=== PATIENT | female | born 1955 | race Caucasian/White ===

== ENCOUNTER 2020-05-25 10:50 | Day surgery (SDC) | payer MEDICARE, OTHER, SELFPAY ==
[2020-05-20 10:07] VITALS: BMI 42.9
--- NOTE | 2020-05-24 14:44 | HO.ANESPROP2 ---
Documented by User: Daisy Simmons 05/24/20 15:03 HPI - Anesthesia Eval Consult details Narrative: 64yo F for EGD and Colonoscopy (D/C from [facility] [place] 05/17/20 - urosepsis, pyelonephritis, acute renal failure. Currently at short term rehab, 10 day po abx course.) [facility] Past Medical History Medical History Abdominal pain Asthma Constipation Fatty liver Fibromyalgia Hyperlipidemia Nephrolithiasis Osteoarthritis Radiculopathy Sepsis Sleep apnea Family History Family History Father No problems noted. Mother No problems noted. Surgical History Surgical History H/O cystoscopy History of bilateral hip replacements History of bilateral knee replacement History of oophorectomy, unilateral Hx of colonoscopy Hx of dilation and curettage Hx of foot surgery Social History Social History Smoking Status: Former smoker Smoked in Last 30 Days: No Smoking Quit Date: 1979 Use of substances other than those prescribed or required for medical reasons: No Substance Use Type Other:: last used 15 years ago Advance Directives: No Advance Directives Information Provided: No Advance Directives on File: No Meds Allergies Allergy/AdvReac Type Severity Reaction Status Date / Time ropinirole [ROPINIROLE] Allergy Intermediate WORSE Unverified 05/06/20 15:56 RESTLESS LEG meperidine [From DEMEROL] AdvReac Intermediate NAUSEA & Unverified 05/06/20 15:56 VOMITING duloxetine [Cymbalta] AdvReac Unknown Worsening Verified 04/14/20 00:00 RLS Requip AdvReac Unknown Worsening Uncoded 04/14/20 00:00 RLS, tremors Home Medications Medication Instructions Recorded Confirmed Type albuterol sulfate [ProAir HFA] INHALATION 05/21/20 05/22/20 History baclofen mg PO 05/21/20 05/22/20 History benztropine PO 05/21/20 05/22/20 History clonazepam PO 05/21/20 05/22/20 History diclofenac sodium PO 05/21/20 05/22/20 History ezetimibe mg PO 05/21/20 05/22/20 History gabapentin PO 05/21/20 05/22/20 History hydroxyzine pamoate PO 05/21/20 05/22/20 History omeprazole PO 05/21/20 05/22/20 History oxcarbazepine PO 05/21/20 05/22/20 History oxybutynin chloride PO 05/21/20 05/22/20 History pramipexole mg PO 05/21/20 05/22/20 History pyridoxine (vitamin B6) PO 05/21/20 05/22/20 History quetiapine PO 05/21/20 05/22/20 History tamsulosin mg PO 05/21/20 05/22/20 History terazosin mg PO 05/21/20 05/22/20 History tramadol mg PO 05/21/20 05/22/20 History trazodone PO 05/21/20 05/22/20 History amoxicillin 500 mg capsule mg PO 05/22/20 05/22/20 History aripiprazole 2 mg tablet mg PO 05/22/20 05/22/20 History atorvastatin 10 mg tablet mg PO 05/22/20 05/22/20 History azithromycin 250 mg tablet mg PO 05/22/20 05/22/20 History cimetidine 400 mg tablet mg PO 05/22/20 05/22/20 History metronidazole 500 mg tablet mg PO 05/22/20 05/22/20 History sulfamethoxazole 800 PO 05/22/20 05/22/20 History mg-trimethoprim 160 mg tablet terazosin 1 mg capsule mg PO 05/22/20 05/22/20 History trazodone 150 mg tablet mg PO 05/22/20 05/22/20 History trimethoprim 100 mg tablet mg PO 05/22/20 05/22/20 History Exam Exam Date and Time: May 24, 2020 1444 Height,Weight and Vital Signs: Height 5 ft 4 in Weight 113.398 kg Pertinent Lab Results Pertinent Lab Results: Laboratory Tests 05/13/20 05/13/20 05/13/20 09:42 09:42 Unknown WBC 16.8 H Hgb 12.3 Hct 38.5 Plt Count 259 Sodium 141 Potassium 5.0 Chloride 108 Bicarbonate 24 Anion Gap 14 BUN 13 Creatinine 1.30 Est GFR (Non-Af Amer) 41 Calcium 8.9 D AST 22 ALT 39 H Alkaline Phosphatase 129 H Total Protein 6.6 Albumin 4.0 Coronavirus (PCR) Not Detected Assessment and Plan Assessment Anesthesia Assessment: Chart Reviewed Documented by User: Rasheeda Smith 05/25/20 11:58 PMFSH Past Medical History Medical History Abdominal pain Asthma Constipation Fatty liver Fibromyalgia Hyperlipidemia Nephrolithiasis Osteoarthritis Radiculopathy Sepsis Sleep apnea Family History Family History Father No problems noted. Mother No problems noted. Surgical History Surgical History H/O cystoscopy History of bilateral hip replacements History of bilateral knee replacement History of oophorectomy, unilateral Hx of colonoscopy Hx of dilation and curettage Hx of foot surgery Social History Social History Smoking Status: Former smoker Smoked in Last 30 Days: No Smoking Quit Date: 1979 Use of substances other than those prescribed or required for medical reasons: No Substance Use Type Other:: last used 15 years ago Advance Directives: No Advance Directives Information Provided: No Advance Directives on File: No Meds Allergies Allergy/AdvReac Type Severity Reaction Status Date / Time ropinirole [ROPINIROLE] Allergy Intermediate WORSE Unverified 05/06/20 15:56 RESTLESS LEG meperidine [From DEMEROL] AdvReac Intermediate NAUSEA & Unverified 05/06/20 15:56 VOMITING duloxetine [Cymbalta] AdvReac Unknown Worsening Verified 04/14/20 00:00 RLS Requip AdvReac Unknown Worsening Uncoded 04/14/20 00:00 RLS, tremors Home Medications Medication Instructions Recorded Confirmed Type albuterol sulfate [ProAir HFA] INHALATION 05/21/20 05/22/20 History baclofen mg PO 05/21/20 05/22/20 History benztropine PO 05/21/20 05/22/20 History clonazepam PO 05/21/20 05/22/20 History diclofenac sodium PO 05/21/20 05/22/20 History ezetimibe mg PO 05/21/20 05/22/20 History gabapentin PO 05/21/20 05/22/20 History hydroxyzine pamoate PO 05/21/20 05/22/20 History omeprazole PO 05/21/20 05/22/20 History oxcarbazepine PO 05/21/20 05/22/20 History oxybutynin chloride PO 05/21/20 05/22/20 History pramipexole mg PO 05/21/20 05/22/20 History pyridoxine (vitamin B6) PO 05/21/20 05/22/20 History quetiapine PO 05/21/20 05/22/20 History tamsulosin mg PO 05/21/20 05/22/20 History terazosin mg PO 05/21/20 05/22/20 History tramadol mg PO 05/21/20 05/22/20 History trazodone PO 05/21/20 05/22/20 History amoxicillin 500 mg capsule mg PO 05/22/20 05/22/20 History aripiprazole 2 mg tablet mg PO 05/22/20 05/22/20 History atorvastatin 10 mg tablet mg PO 05/22/20 05/22/20 History azithromycin 250 mg tablet mg PO 05/22/20 05/22/20 History cimetidine 400 mg tablet mg PO 05/22/20 05/22/20 History metronidazole 500 mg tablet mg PO 05/22/20 05/22/20 History sulfamethoxazole 800 PO 05/22/20 05/22/20 History mg-trimethoprim 160 mg tablet terazosin 1 mg capsule mg PO 05/22/20 05/22/20 History trazodone 150 mg tablet mg PO 05/22/20 05/22/20 History trimethoprim 100 mg tablet mg PO 05/22/20 05/22/20 History Exam Airway Mallampati Class: II TM Dist: >3cm Neck ROM: Full Loose/Missing/Broken Teeth: No Assessment and Plan Assessment Anesthesia Assessment: Anesthesia Plan Discussed, Consent Obtained and Chart Reviewed Final Anesthetic Review NPO: Yes ASA Class: III Final Preanesthetic Review: No Changes in Pt Med Stat, Meds & Allergies Reviewed, Consent Obtained/Reviewed, Med/Surg/Anes Hx Reviewed and Anes Risks/Benef Reviewed Patient Risk: Intermediate Procedure Risk: Low Assessment/Block/Sedation in SS: Assess/Block/Sedation-SS Anesthetic Plan Anesthetic Plan: MAC: Disposition: Standard PACU
--- NOTE | 2020-05-25 11:39 | MHC.SHP ---
Pre-Procedural Eval Section B Chief Complaint: SCREENING,GERD Details of Present Illness: early satiety and bloating,and colon screen, high risk due to FH of CRC in mother Relevant Family History (Specify if Yes): Yes Relevant Social History: None Present Medications: see Short Stay Collaborative assessment Medical History: Significant History (depression, HLP< asthma, OA) History of Previous Operations: Relevant previous surgery/procedure and date(s) (knee replacements, oophrectomy) Allergies: Allergies Allergy/AdvReac Type Severity Reaction Status Date / Time ropinirole [ROPINIROLE] Allergy Intermediate WORSE Unverified 05/06/20 15:56 RESTLESS LEG meperidine [From DEMEROL] AdvReac Intermediate NAUSEA & Unverified 05/06/20 15:56 VOMITING duloxetine [Cymbalta] AdvReac Unknown Worsening Verified 04/14/20 00:00 RLS Requip AdvReac Unknown Worsening Uncoded 04/14/20 00:00 RLS, tremors Review of Systems Sugical H&P ROS: Negative: Constitution, Cardiovascular, Respiratory, Neurological, Psychiatric, Hem-Onc, Allergic/Immunologic, Genitourinary, Musculoskeletal, Integumentary and Endocrine and Yes, Specify: Gastrointestinal Exam Surgical H&P Exam: Normal: HEENT, Normal: Heart, Normal: Lungs, Normal: Extremities, Normal: Abdomen, Normal: Skin and Normal: Neurological Plan Diagnosis/Plan: Unchanged Patient has been examined and remains a candidate for the planned procedure
[2020-05-25] MEDS: Lactated Ringers 1,000 ML 100 ML IVCONT (11:47)
[2020-05-25 11:49] VITALS: BP 116/52; PULSE 68; RESP 20; TEMP 36.6; O2SAT 95
--- NOTE | 2020-05-25 12:06 | P.CONAN_ITS ---
[facility] Past Medical History Medical History Abdominal pain Asthma Constipation Fatty liver Fibromyalgia Hyperlipidemia Nephrolithiasis Osteoarthritis Radiculopathy Sepsis Sleep apnea Family History Family History Father No problems noted. Mother No problems noted. Surgical History Surgical History H/O cystoscopy History of bilateral hip replacements History of bilateral knee replacement History of oophorectomy, unilateral Hx of colonoscopy Hx of dilation and curettage Hx of foot surgery Social History Social History Smoking Status: Former smoker Smoked in Last 30 Days: No Smoking Quit Date: 1979 Use of substances other than those prescribed or required for medical reasons: No Substance Use Type Other:: last used 15 years ago Advance Directives: No Advance Directives Information Provided: No Advance Directives on File: No Meds Allergies Allergy/AdvReac Type Severity Reaction Status Date / Time ropinirole [ROPINIROLE] Allergy Intermediate WORSE Unverified 05/06/20 15:56 RESTLESS LEG meperidine [From DEMEROL] AdvReac Intermediate NAUSEA & Unverified 05/06/20 15:56 VOMITING duloxetine [Cymbalta] AdvReac Unknown Worsening Verified 04/14/20 00:00 RLS Requip AdvReac Unknown Worsening Uncoded 04/14/20 00:00 RLS, tremors Home Medications Medication Instructions Recorded Confirmed Type albuterol sulfate [ProAir HFA] INHALATION 05/21/20 05/22/20 History baclofen mg PO 05/21/20 05/22/20 History benztropine PO 05/21/20 05/22/20 History clonazepam PO 05/21/20 05/22/20 History diclofenac sodium PO 05/21/20 05/22/20 History ezetimibe mg PO 05/21/20 05/22/20 History gabapentin PO 05/21/20 05/22/20 History hydroxyzine pamoate PO 05/21/20 05/22/20 History omeprazole PO 05/21/20 05/22/20 History oxcarbazepine PO 05/21/20 05/22/20 History oxybutynin chloride PO 05/21/20 05/22/20 History pramipexole mg PO 05/21/20 05/22/20 History pyridoxine (vitamin B6) PO 05/21/20 05/22/20 History quetiapine PO 05/21/20 05/22/20 History tamsulosin mg PO 05/21/20 05/22/20 History terazosin mg PO 05/21/20 05/22/20 History tramadol mg PO 05/21/20 05/22/20 History trazodone PO 05/21/20 05/22/20 History amoxicillin 500 mg capsule mg PO 05/22/20 05/22/20 History aripiprazole 2 mg tablet mg PO 05/22/20 05/22/20 History atorvastatin 10 mg tablet mg PO 05/22/20 05/22/20 History azithromycin 250 mg tablet mg PO 05/22/20 05/22/20 History cimetidine 400 mg tablet mg PO 05/22/20 05/22/20 History metronidazole 500 mg tablet mg PO 05/22/20 05/22/20 History sulfamethoxazole 800 PO 05/22/20 05/22/20 History mg-trimethoprim 160 mg tablet terazosin 1 mg capsule mg PO 05/22/20 05/22/20 History trazodone 150 mg tablet mg PO 05/22/20 05/22/20 History trimethoprim 100 mg tablet mg PO 05/22/20 05/22/20 History Exam Exam Date and Time: May 25, 2020 1206 Height,Weight and Vital Signs: Height 5 ft 4 in Weight 113.398 kg Last Vital Signs Temp 97.8 F 05/25/20 11:49 Pulse 68 05/25/20 11:49 Resp 20 05/25/20 11:49 BP 116/52 L 05/25/20 11:49 Pulse Ox 95 05/25/20 11:49 Airway Loose/Missing/Broken Teeth: Yes (8.()
--- NOTE | 2020-05-25 12:08 | P.BOP_ITS ---
Brief Operative Note Date of procedure: 05/25/20 Pre-op diagnosis: early satiety, bloating, colon screen, FH CRC in mother Post-op diagnosis: same Procedure: Operative Information Procedure Description: EGD, Colonoscopy FLEXIBLE TRANSORAL UPPER GASTROINTESTINAL ENDOSCOPY AND COLONOSCOPY PROCEDURE NOTE UPPER ENDOSCOPY Consent: Indications for the procedure and potential complications of bleeding, perforation, reaction to medications and missed diagnosis were discussed with the patient and informed consent was obtained. Instrument: Olympus GIF H 190 J mid size upper endoscope Monitoring: Vital signs and clinical assessment, continuous EKG monitoring, Pulse oximetry, Carbon Dioxide monitoring and blood pressure monitoring were done throughout the procedure. Procedure: The patient was placed in the left lateral decubitis position and pre-procedure medications were administered and a bite block was placed. The endoscope was inserted into the mouth and advanced under direct vision to the third part of duodenum. A careful inspection was made as the upper endoscope was withdrawn including a retroflexed examination of the proximal stomach; Findings and interventions are described below. Findings: Larynx:normal Esophagus: GE junction at 40 cm, diaphragm hiatus at 40 cm, mucosa normal Stomach: Patchy gastric erythema. Biopsies were obtained. Grade 2 flap valve on retroflexed examination of the cardia. Paucity of gastric peristalsis. Duodenum: Normal bulb and descending duodenum, bx taken Intervention: Biopsies as noted above COLONOSCOPY Instrument: Olympus variable stiffness pediatric scope 190L Colonoscopy Monitoring: Vital signs and clinical assessment, continuous EKG monitoring, Pulse oximetry, Carbon Dioxide monitoring and blood pressure monitoring were done throughout the procedure. Colon withdrawal time was 14 minutes. Procedure: The patient was placed in the left lateral decubitis position and pre-procedure medications were administered. After a digital rectal examination of the ano-rectum, the video colonoscope was inserted into the rectum and advanced through the colon to the cecum/TI. The colonoscope was slowly withdrawn in a retrograde panoramic fashion and the colon mucosa was carefully examined including a retroflexed view of the rectum. Findings and interventions are described below. Procedure Difficulty: Findings: Terminal Ileum-normal, bx taken Patchy melanosis coli Random colon bx taken Cecum:normal, one clip applied to a random biopsy site that kept oozing Ascending Colon: normal Transverse Colon -normal Descending Colon:normal Sigmoid Colon: Numerous variable sized diverticula, and mucosal hypertrophy, one sessile polyp 6-7 mm removed with forceps Rectum: Retroflexion with moderate sized internal hemorrhoids, grade I Anorectum - normal Colon preparation: Central Bowel Preparation Scale Right colon; 3 Transverse colon: 3 Left colon; 3 (0 = Unprepared colon segment with mucosa not seen due to solid stool that cannot be cleared. 1 = Portion of mucosa of the colon segment seen, but other areas of the colon segment not well seen due to staining, residual stool and/or opaque liquid. 2 = Minor amount of residual staining, small fragments of stool and/or opaque liquid, but mucosa of colon segment seen well. 3 = Entire mucosa of colon segment seen well with no residual staining, small fragments of stool or opaque liquid) Impression and Post Procedure Diagnosis: Endoscopy Findings: Mild gastritis, possible gastroparesis Colonoscopy Findings: Internal hemorrhoids melanosis coli polyp diverticulosis Plan: Await Pathology results Repeat Colonoscopy in 5 yrs due to FH of CRC High fiber diet leaflet avoid straining at stool, epsom salts and sitz bath, anusol supps or cream F/U with Dr Mazariegos in the office, may need gastric emptying study for further evaluation of symptoms Above findings were reviewed with the patient and relevant handouts were provided if indicated. Anesthesia: MAC Surgeon: Calvin Power Condition: stable Disposition: PACU
--- NOTE | 2020-05-25 12:09 | HO.ANESPROP2 ---
[facility] Past Medical History Medical History Abdominal pain Asthma Constipation Fatty liver Fibromyalgia Hyperlipidemia Nephrolithiasis Osteoarthritis Radiculopathy Sepsis Sleep apnea Family History Family History Father No problems noted. Mother No problems noted. Surgical History Surgical History H/O cystoscopy History of bilateral hip replacements History of bilateral knee replacement History of oophorectomy, unilateral Hx of colonoscopy Hx of dilation and curettage Hx of foot surgery Social History Social History Smoking Status: Former smoker Smoked in Last 30 Days: No Smoking Quit Date: 1979 Use of substances other than those prescribed or required for medical reasons: No Substance Use Type Other:: last used 15 years ago Advance Directives: No Advance Directives Information Provided: No Advance Directives on File: No Meds Allergies Allergy/AdvReac Type Severity Reaction Status Date / Time ropinirole [ROPINIROLE] Allergy Intermediate WORSE Unverified 05/06/20 15:56 RESTLESS LEG meperidine [From DEMEROL] AdvReac Intermediate NAUSEA & Unverified 05/06/20 15:56 VOMITING duloxetine [Cymbalta] AdvReac Unknown Worsening Verified 04/14/20 00:00 RLS Requip AdvReac Unknown Worsening Uncoded 04/14/20 00:00 RLS, tremors Home Medications Medication Instructions Recorded Confirmed Type albuterol sulfate [ProAir HFA] INHALATION 05/21/20 05/22/20 History baclofen mg PO 05/21/20 05/22/20 History benztropine PO 05/21/20 05/22/20 History clonazepam PO 05/21/20 05/22/20 History diclofenac sodium PO 05/21/20 05/22/20 History ezetimibe mg PO 05/21/20 05/22/20 History gabapentin PO 05/21/20 05/22/20 History hydroxyzine pamoate PO 05/21/20 05/22/20 History omeprazole PO 05/21/20 05/22/20 History oxcarbazepine PO 05/21/20 05/22/20 History oxybutynin chloride PO 05/21/20 05/22/20 History pramipexole mg PO 05/21/20 05/22/20 History pyridoxine (vitamin B6) PO 05/21/20 05/22/20 History quetiapine PO 05/21/20 05/22/20 History tamsulosin mg PO 05/21/20 05/22/20 History terazosin mg PO 05/21/20 05/22/20 History tramadol mg PO 05/21/20 05/22/20 History trazodone PO 05/21/20 05/22/20 History amoxicillin 500 mg capsule mg PO 05/22/20 05/22/20 History aripiprazole 2 mg tablet mg PO 05/22/20 05/22/20 History atorvastatin 10 mg tablet mg PO 05/22/20 05/22/20 History azithromycin 250 mg tablet mg PO 05/22/20 05/22/20 History cimetidine 400 mg tablet mg PO 05/22/20 05/22/20 History metronidazole 500 mg tablet mg PO 05/22/20 05/22/20 History sulfamethoxazole 800 PO 05/22/20 05/22/20 History mg-trimethoprim 160 mg tablet terazosin 1 mg capsule mg PO 05/22/20 05/22/20 History trazodone 150 mg tablet mg PO 05/22/20 05/22/20 History trimethoprim 100 mg tablet mg PO 05/22/20 05/22/20 History Exam Exam Date and Time: May 25, 2020 1209 Height,Weight and Vital Signs: Height 5 ft 4 in Weight 113.398 kg Last Vital Signs Temp 97.8 F 05/25/20 11:49 Pulse 68 05/25/20 11:49 Resp 20 05/25/20 11:49 BP 116/52 L 05/25/20 11:49 Pulse Ox 95 05/25/20 11:49 Assessment and Plan Assessment Anesthesia Assessment: Anesthesia Plan Discussed and Chart Reviewed Final Anesthetic Review NPO: Yes Final Preanesthetic Review: No Changes in Pt Med Stat, Meds/Allgs Chart Reviewed, Consent Obtained/Reviewed and Anes Risks/Benef Reviewed Patient Risk: Intermediate Procedure Risk: Low Anesthetic Plan Anesthetic Plan: MAC: Disposition: Standard PACU
--- NOTE | 2020-05-25 12:10 | HO.ANESPROP2 ---
[facility] Past Medical History Medical History Abdominal pain Asthma Constipation Fatty liver Fibromyalgia Hyperlipidemia Nephrolithiasis Osteoarthritis Radiculopathy Sepsis Sleep apnea Family History Family History Father No problems noted. Mother No problems noted. Surgical History Surgical History H/O cystoscopy History of bilateral hip replacements History of bilateral knee replacement History of oophorectomy, unilateral Hx of colonoscopy Hx of dilation and curettage Hx of foot surgery Social History Social History Smoking Status: Former smoker Smoked in Last 30 Days: No Smoking Quit Date: 1979 Use of substances other than those prescribed or required for medical reasons: No Substance Use Type Other:: last used 15 years ago Advance Directives: No Advance Directives Information Provided: No Advance Directives on File: No Meds Allergies Allergy/AdvReac Type Severity Reaction Status Date / Time ropinirole [ROPINIROLE] Allergy Intermediate WORSE Unverified 05/06/20 15:56 RESTLESS LEG meperidine [From DEMEROL] AdvReac Intermediate NAUSEA & Unverified 05/06/20 15:56 VOMITING duloxetine [Cymbalta] AdvReac Unknown Worsening Verified 04/14/20 00:00 RLS Requip AdvReac Unknown Worsening Uncoded 04/14/20 00:00 RLS, tremors Home Medications Medication Instructions Recorded Confirmed Type albuterol sulfate [ProAir HFA] INHALATION 05/21/20 05/22/20 History baclofen mg PO 05/21/20 05/22/20 History benztropine PO 05/21/20 05/22/20 History clonazepam PO 05/21/20 05/22/20 History diclofenac sodium PO 05/21/20 05/22/20 History ezetimibe mg PO 05/21/20 05/22/20 History gabapentin PO 05/21/20 05/22/20 History hydroxyzine pamoate PO 05/21/20 05/22/20 History omeprazole PO 05/21/20 05/22/20 History oxcarbazepine PO 05/21/20 05/22/20 History oxybutynin chloride PO 05/21/20 05/22/20 History pramipexole mg PO 05/21/20 05/22/20 History pyridoxine (vitamin B6) PO 05/21/20 05/22/20 History quetiapine PO 05/21/20 05/22/20 History tamsulosin mg PO 05/21/20 05/22/20 History terazosin mg PO 05/21/20 05/22/20 History tramadol mg PO 05/21/20 05/22/20 History trazodone PO 05/21/20 05/22/20 History amoxicillin 500 mg capsule mg PO 05/22/20 05/22/20 History aripiprazole 2 mg tablet mg PO 05/22/20 05/22/20 History atorvastatin 10 mg tablet mg PO 05/22/20 05/22/20 History azithromycin 250 mg tablet mg PO 05/22/20 05/22/20 History cimetidine 400 mg tablet mg PO 05/22/20 05/22/20 History metronidazole 500 mg tablet mg PO 05/22/20 05/22/20 History sulfamethoxazole 800 PO 05/22/20 05/22/20 History mg-trimethoprim 160 mg tablet terazosin 1 mg capsule mg PO 05/22/20 05/22/20 History trazodone 150 mg tablet mg PO 05/22/20 05/22/20 History trimethoprim 100 mg tablet mg PO 05/22/20 05/22/20 History Exam Exam Date and Time: May 25, 2020 1210 Height,Weight and Vital Signs: Height 5 ft 4 in Weight 113.398 kg Last Vital Signs Temp 97.8 F 05/25/20 11:49 Pulse 68 05/25/20 11:49 Resp 20 05/25/20 11:49 BP 116/52 L 05/25/20 11:49 Pulse Ox 95 05/25/20 11:49 Airway Mallampati Class: II TM Dist: >3cm Neck ROM: Full Loose/Missing/Broken Teeth: Yes (8) Assessment and Plan Assessment Anesthesia Assessment: Anesthesia Plan Discussed, PAT Visit and Chart Reviewed Final Anesthetic Review NPO: Yes ASA Class: III Final Preanesthetic Review: No Changes in Pt Med Stat, Meds/Allgs Chart Reviewed, Consent Obtained/Reviewed and Anes Risks/Benef Reviewed Patient Risk: Intermediate Procedure Risk: Low Assessment/Block/Sedation in SS: Assess/Block/Sedation-SS Anesthetic Plan Anesthetic Plan: MAC: Disposition: Standard PACU
--- NOTE | 2020-05-25 12:41 | HO.ANESPROP2 ---
[facility] Past Medical History Medical History Abdominal pain Asthma Constipation Fatty liver Fibromyalgia Hyperlipidemia Nephrolithiasis Osteoarthritis Radiculopathy Sepsis Sleep apnea Family History Family History Father No problems noted. Mother No problems noted. Surgical History Surgical History H/O cystoscopy History of bilateral hip replacements History of bilateral knee replacement History of oophorectomy, unilateral Hx of colonoscopy Hx of dilation and curettage Hx of foot surgery Social History Social History Smoking Status: Former smoker Smoked in Last 30 Days: No Smoking Quit Date: 1979 Use of substances other than those prescribed or required for medical reasons: No Substance Use Type Other:: last used 15 years ago Advance Directives: No Advance Directives Information Provided: No Advance Directives on File: No Meds Allergies Allergy/AdvReac Type Severity Reaction Status Date / Time ropinirole [ROPINIROLE] Allergy Intermediate WORSE Unverified 05/06/20 15:56 RESTLESS LEG meperidine [From DEMEROL] AdvReac Intermediate NAUSEA & Unverified 05/06/20 15:56 VOMITING duloxetine [Cymbalta] AdvReac Unknown Worsening Verified 04/14/20 00:00 RLS Requip AdvReac Unknown Worsening Uncoded 04/14/20 00:00 RLS, tremors Home Medications Medication Instructions Recorded Confirmed Type albuterol sulfate [ProAir HFA] INHALATION 05/21/20 05/22/20 History baclofen mg PO 05/21/20 05/22/20 History benztropine PO 05/21/20 05/22/20 History clonazepam PO 05/21/20 05/22/20 History diclofenac sodium PO 05/21/20 05/22/20 History ezetimibe mg PO 05/21/20 05/22/20 History gabapentin PO 05/21/20 05/22/20 History hydroxyzine pamoate PO 05/21/20 05/22/20 History omeprazole PO 05/21/20 05/22/20 History oxcarbazepine PO 05/21/20 05/22/20 History oxybutynin chloride PO 05/21/20 05/22/20 History pramipexole mg PO 05/21/20 05/22/20 History pyridoxine (vitamin B6) PO 05/21/20 05/22/20 History quetiapine PO 05/21/20 05/22/20 History tamsulosin mg PO 05/21/20 05/22/20 History terazosin mg PO 05/21/20 05/22/20 History tramadol mg PO 05/21/20 05/22/20 History trazodone PO 05/21/20 05/22/20 History amoxicillin 500 mg capsule mg PO 05/22/20 05/22/20 History aripiprazole 2 mg tablet mg PO 05/22/20 05/22/20 History atorvastatin 10 mg tablet mg PO 05/22/20 05/22/20 History azithromycin 250 mg tablet mg PO 05/22/20 05/22/20 History cimetidine 400 mg tablet mg PO 05/22/20 05/22/20 History metronidazole 500 mg tablet mg PO 05/22/20 05/22/20 History sulfamethoxazole 800 PO 05/22/20 05/22/20 History mg-trimethoprim 160 mg tablet terazosin 1 mg capsule mg PO 05/22/20 05/22/20 History trazodone 150 mg tablet mg PO 05/22/20 05/22/20 History trimethoprim 100 mg tablet mg PO 05/22/20 05/22/20 History Exam Exam Date and Time: May 25, 2020 1241 Height,Weight and Vital Signs: Height 5 ft 4 in Weight 113.398 kg Last Vital Signs Temp 97.8 F 05/25/20 11:49 Pulse 68 05/25/20 11:49 Resp 20 05/25/20 11:49 BP 116/52 L 05/25/20 11:49 Pulse Ox 95 05/25/20 11:49 Airway Mallampati Class: II TM Dist: >3cm Neck ROM: Full Loose/Missing/Broken Teeth: Yes Assessment and Plan Assessment Anesthesia Assessment: Anesthesia Plan Discussed and Chart Reviewed Final Anesthetic Review NPO: Yes ASA Class: III Final Preanesthetic Review: No Changes in Pt Med Stat, Meds/Allgs Chart Reviewed, Consent Obtained/Reviewed and Anes Risks/Benef Reviewed Patient Risk: Intermediate Procedure Risk: Low Assessment/Block/Sedation in SS: Assess/Block/Sedation-SS Anesthetic Plan Anesthetic Plan: MAC: Disposition: Standard PACU
[2020-05-25 12:50] VITALS: BP 135/74; PULSE 74; RESP 16; TEMP 36.6; O2SAT 95
[2020-05-25 13:05] VITALS: BP 127/51; PULSE 63; RESP 18; O2SAT 95
[2020-05-25 13:20] VITALS: BP 110/58; PULSE 62; RESP 20; O2SAT 96
[2020-05-25 13:35] VITALS: BP 121/63; PULSE 55; RESP 20; O2SAT 95
--- NOTE | 2020-05-25 14:20 | HO.POSTANES ---
Post Anesthesia Evaluation Post Anesthesia Evaluation Vital Signs: Vital Signs Temp Pulse Resp BP Pulse Ox 05/25/20 11:49 97.8 F 68 20 116/52 L 95 Anesthesia: Monitored Mental Status: Awake Pain Control: Satisfactory Nausea/Vomiting: None Hydration: Adequate Anesthesia-Related Issues: No Anes. Related Issues
== END 2020-05-25 14:50 | disposition home or self-care (01) ==
PROVIDERS: PCP Nurse Practitioner Family; Visit Provider Internal Medicine Gastroenterology
PROC: (CPT 45380; principal; 2020-05-25 11:40)
DX: Z12.11 Encounter for screening for malignant neoplasm of colon (principal); Z80.0 Family history of malignant neoplasm of digestive organs; Z86.010 Personal history of colon polyps; D12.5 Benign neoplasm of sigmoid colon; K63.89 Other specified diseases of intestine; K57.30 Diverticulosis of large intestine without perforation or abscess without bleeding; K64.8 Other hemorrhoids; K21.9 Gastro-esophageal reflux disease without esophagitis; K29.50 Unspecified chronic gastritis without bleeding; J45.909 Unspecified asthma, uncomplicated; Z86.19 Personal history of other infectious and parasitic diseases; Z96.653 Presence of artificial knee joint, bilateral
CPT/HCPCS: 45380; 43239; 88305; 88342; J3010

== ENCOUNTER → 2020-05-25 14:48 | Day surgery (SDC) | payer MEDICARE, OTHER, SELFPAY | END | disposition home or self-care (01) | PROVIDERS: Visit Provider Internal Medicine Gastroenterology | DX: K59.00 Constipation, unspecified (principal); Z53.9 Procedure and treatment not carried out, unspecified reason ==

== ENCOUNTER → 2020-05-27 14:07 | Outpatient (BNVA) | payer MEDICARE, OTHER, SELFPAY | PROVIDERS: PCP Nurse Practitioner Family; Visit Provider Urology | DX: N20.0 Calculus of kidney (principal); Z86.19 Personal history of other infectious and parasitic diseases | CPT/HCPCS: 99212 ==

== ENCOUNTER → 2020-06-07 14:39 | Outpatient (BNVA) | payer MEDICARE, OTHER, SELFPAY | PROVIDERS: PCP Nurse Practitioner Family; Referring Provider Nurse Practitioner Family; Visit Provider Internal Medicine Gastroenterology | DX: K59.01 Slow transit constipation (principal); D12.6 Benign neoplasm of colon, unspecified; Z80.0 Family history of malignant neoplasm of digestive organs; Z98.890 Other specified postprocedural states; Z87.442 Personal history of urinary calculi | CPT/HCPCS: 99214 ==

== ENCOUNTER 2020-07-07 06:26 | Day surgery (SDC) | payer MEDICARE, OTHER, SELFPAY ==
[2020-06-25 20:10] VITALS: BMI 39.6
--- NOTE | 2020-07-07 | XR_ITS ---
EXAMINATION: XR ABDOMEN KUB CLINICAL INDICATION: Surgery right ESWL COMPARISON: Ultrasound 04/15/2020 TECHNIQUE: AP view of the abdomen. FINDINGS: There is a questionable 6 mm left lower pole renal calculus, with assessment limited due to overlying bowel contents. No definite right-sided calculi identified. Few calcifications in the lower pelvis are statistically favored to represent phleboliths. Bowel gas pattern is nonobstructive. Included lung bases are well aerated. Degenerative changes are noted in the spine. Partially visualized bilateral total hip arthroplasties. XR/XR KUB IMPRESSION: Possible 6 mm left lower pole renal calculus. No definite right renal calculus identified.
[2020-07-07 06:51] VITALS: BP 120/55; PULSE 67; RESP 18; TEMP 36.2; O2SAT 95
[2020-07-07] MEDS: Lactated Ringers 1,000 ML 100 ML IVCONT (07:00)
--- NOTE | 2020-07-07 07:39 | P.CONAN_ITS ---
[facility] Past Medical History Medical History Abdominal pain Arthritis Asthma Back pain Constipation Constipation by delayed colonic transit Elevated cholesterol Fatty liver Fibromyalgia GERD (gastroesophageal reflux disease) Hyperlipidemia Nephrolithiasis Osteoarthritis Pyelonephritis Radiculopathy Sepsis Sleep apnea Tubular adenoma of colon Family History Family History Father Heart disease Thyroid cancer Diabetes COPD (chronic obstructive pulmonary disease) Sleep apnea Mother Diabetes Cancer Chronic mental illness Colon cancer Other Fibromyalgia Surgical History Surgical History H/O cystoscopy (05/03/20) History of bilateral hip replacements History of bilateral knee replacement History of oophorectomy, unilateral Hx of colonoscopy Hx of dilation and curettage Hx of foot surgery Social History Social History Alcohol intake: current Alcohol intake frequency: does not drink Smoking Status: Never smoker Second Hand Smoke Exposure: No Use of substances other than those prescribed or required for medical reasons: No Advance Directives: No Advance Directives Information Provided: No Advance Directives on File: No Recently lost weight without trying: No Meds Allergies Allergy/AdvReac Type Severity Reaction Status Date / Time ropinirole [ROPINIROLE] Allergy Intermediate WORSE Verified 07/07/20 07:02 RESTLESS LEG meperidine [From DEMEROL] AdvReac Intermediate NAUSEA & Verified 07/07/20 07:02 VOMITING duloxetine [Cymbalta] AdvReac Unknown Worsening Verified 07/07/20 07:02 RLS Requip AdvReac Unknown Worsening Uncoded 06/09/20 13:40 RLS, tremors Home Medications Medication Instructions Recorded Confirmed Type albuterol sulfate [ProAir HFA] 2 puff INHALATION QID PRN 05/21/20 06/25/20 History baclofen 20 mg PO DAILY 05/21/20 06/25/20 History clonazepam 0.75 mg PO DAILY 05/21/20 06/25/20 History ezetimibe 10 mg PO DAILY 05/21/20 06/25/20 History hydroxyzine pamoate 50 mg PO DAILY 05/21/20 06/25/20 History pyridoxine (vitamin B6) 100 mg PO DAILY 05/21/20 06/25/20 History tamsulosin 0.4 mg PO DAILY 05/21/20 06/25/20 History trazodone 150 mg tablet 150 mg PO DAILY 05/22/20 06/25/20 History Vitamin D3 (with calcium carb) 1 tab PO DAILY 06/25/20 06/25/20 History coenzyme Q10 [CoQ-10] 30 mg PO DAILY 06/25/20 06/25/20 History glucosamine-chondroitin 1 cap PO DAILY 06/25/20 06/25/20 History levomefolate-algal oil 1 cap PO DAILY 06/25/20 06/25/20 History [L-Methylfolate Forte] Claritin 07/07/20 07/07/20 History omeprazole PO 07/07/20 History Exam Exam Date and Time: July 07, 2020 0739 Height,Weight and Vital Signs: Height 5 ft 4 in Weight 104.78 kg Last Vital Signs Temp 97.1 F 07/07/20 06:51 Pulse 67 07/07/20 06:51 Resp 18 07/07/20 06:51 BP 120/55 L 07/07/20 06:51 Pulse Ox 95 07/07/20 06:51 Airway Mallampati Class: I TM Dist: >3cm Neck ROM: Full Loose/Missing/Broken Teeth: Yes (Upper central incisor missing) Heart: RRR Lungs: CTA Assessment and Plan Assessment Anesthesia Assessment: Anesthesia Plan Discussed and Chart Reviewed Final Anesthetic Review NPO: Yes ASA Class: II Final Preanesthetic Review: Meds/Allgs Chart Reviewed, Consent Obtained/Reviewed and Anes Risks/Benef Reviewed Patient Risk: Intermediate Procedure Risk: Low Anesthetic Plan Anesthetic Plan: MAC: Disposition: Standard PACU
--- NOTE | 2020-07-07 07:50 | MHC.SHP ---
Pre-Procedural Eval Section B Chief Complaint: Neophrolithiasis Details of Present Illness: right renal stones Relevant Family History (Specify if Yes): No Relevant Social History: None Present Medications: see Short Stay Collaborative assessment Medical History: No relevant PMH History of Previous Operations: Relevant previous surgery/procedure and date(s) Allergies: Allergies Allergy/AdvReac Type Severity Reaction Status Date / Time ropinirole [ROPINIROLE] Allergy Intermediate WORSE Verified 07/07/20 07:02 RESTLESS LEG meperidine [From DEMEROL] AdvReac Intermediate NAUSEA & Verified 07/07/20 07:02 VOMITING duloxetine [Cymbalta] AdvReac Unknown Worsening Verified 07/07/20 07:02 RLS Requip AdvReac Unknown Worsening Uncoded 06/09/20 13:40 RLS, tremors Review of Systems Sugical H&P ROS: Negative: Constitution, Cardiovascular, Respiratory, Neurological, Psychiatric, Hem-Onc, Allergic/Immunologic, Gastrointestinal, Genitourinary, Musculoskeletal, Integumentary, Endocrine and Eyes/Ears/Nose/Throat Exam Surgical H&P Exam: Normal: HEENT, Normal: Heart, Normal: Lungs, Normal: Extremities, Normal: Abdomen, Normal: Skin and Normal: Neurological Plan Diagnosis/Plan: Unchanged Patient has been examined and remains a candidate for the planned procedure
--- NOTE | 2020-07-07 08:38 | PM.OP ---
Brief Operative Note Date of Service: 07/07/20 Pre-op diagnosis: right renal stones Post-op diagnosis: same Procedure: right ESWL Surgeon: Tiburcio Ventura MD Estimated blood loss (mL): 0 Pathology: none sent Condition: stable Disposition: same day
--- NOTE | 2020-07-07 08:44 | W.PM.OPN ---
Operative Note Operative Note Date of Service: 07/07/20 Narrative: PreOperative Diagnosis: right Renal stones Post Operative Diagnosis: right Renal stones Procedure: right ESWL Surgeon: Dr Tiburcio Ventura Anesthesia: mac/sedation Indications for procedure: They understand ESWL may be a staged procedure and subsequent intervention may be required based on imaging after ESWL. They also understand there is a risk of bleeding, infection, damage to adjacent organs. Had USR right side for 1.6cm stone - has 3-4mm residual fragments on right side Procedure: After informed consent was verified the patient was brought to the operating room and placed in a supine position. Anesthesia was performed per protocol. Safety pause time-out was performed. Imaging was in the room and laterality confirmed. ESWL was performed. The 1st 500 shocks were performed at 60 hertz. These were performed with increasing power. Once maximum power was reached the rate was increased to 180 hertz. A total of 2500 shocks were given. Fluoroscopy showed stone disintegration. They tolerated procedure well and was transferred to the recovery area upon completion.
--- NOTE | 2020-07-07 08:46 | PM.UROPN ---
Physical Exam Vital Signs: Vital Signs: Last Vital Signs Temp 97.1 F 07/07/20 06:51 Pulse 67 07/07/20 06:51 Resp 18 07/07/20 06:51 BP 120/55 L 07/07/20 06:51 Pulse Ox 95 07/07/20 06:51 Body Mass Index 39.6 Progress Note: A&P Fall Risk Details Current Medications: Current Medications Generic Name Dose Route Start Last Admin Trade Name Freq PRN Reason Stop Dose Admin Acetaminophen 650 mg 07/07/20 07:49 Acetaminophen 325 Mg Tablet PO ONCE PRN Pain, Mild (Pain Scale 1-3) Acetaminophen 650 mg 07/07/20 08:39 Acetaminophen 325 Mg Tablet PO 07/07/20 08:40 ONCE ONE Albuterol Sulfate 2.5 mg 07/07/20 07:49 Albuterol Sulfate (0.083%) 2.5 Mg/3 Ml Vial.Neb INHALE ONCE PRN Wheezing Fentanyl 50 mcg 07/07/20 07:49 Fentanyl Citrate/Pf 100 Mcg/2 Ml Vial IVPUSH Q5M PRN Pain, Severe (Pain Scale 7-10) Lactated Ringer's 1,000 mls @ 100 mls/hr 07/07/20 08:30 07/07/20 07:00 Lr IVCONT 100 mls/hr .Q10H SOFI Administration Ondansetron HCl 4 mg 07/07/20 07:49 Ondansetron Hcl 4 Mg/2 Ml Vial IVPUSH ONCE PRN Nausea and Vomiting Oxycodone HCl 5 mg 07/07/20 07:49 Oxycodone Hcl Immed Release 5 Mg Tablet PO ONCE PRN Pain, Moderate (Pain Scale 4-6 Oxycodone HCl 10 mg 07/07/20 07:51 Oxycodone Hcl Immed Release 5 Mg Tablet PO ONCE PRN Pain, Severe (Pain Scale 7-10) Oxycodone HCl 5 mg 07/07/20 08:39 Oxycodone Hcl Immed Release 5 Mg Tablet PO Q4H PRN Breakthrough Pain Tramadol HCl 50 mg 07/07/20 08:39 Tramadol Hcl 50 Mg Tablet PO Q6H PRN Pain, Moderate (Pain Scale 4-6 Time Spent With Patient Time: Total time spent is greater than 50% in coordination of care (as documented) at patient's floor/unit and/or counseling patient:
[2020-07-07 09:08] VITALS: BP 132/75; PULSE 60; RESP 16; TEMP 36.1; O2SAT 97
[2020-07-07] MEDS: oxyCODONE HCl Immed Release 5 MG TABLET PO (09:14)
[2020-07-07] MEDS: Acetaminophen 325 MG TABLET 650 MG PO (09:15)
[2020-07-07 09:23] VITALS: BP 126/78; PULSE 62; RESP 20; O2SAT 98
--- NOTE | 2020-07-07 09:52 | HO.POSTANES ---
Post Anesthesia Evaluation Post Anesthesia Evaluation Vital Signs: Vital Signs Temp Pulse Resp BP Pulse Ox 07/07/20 09:23 97 F 62 20 126/78 98 07/07/20 09:08 97 F 60 16 132/75 97 07/07/20 06:51 97.1 F 67 18 120/55 L 95 Anesthesia: Monitored Mental Status: Awake Pain Control: Satisfactory Nausea/Vomiting: None Hydration: Adequate Anesthesia-Related Issues: No Anes. Related Issues
== END 2020-07-07 10:30 | disposition home or self-care (01) ==
PROVIDERS: PCP Nurse Practitioner Family; Visit Provider Urology
PROC: (CPT 50590; principal; 2020-07-07 08:00)
DX: N20.0 Calculus of kidney (principal); Z87.442 Personal history of urinary calculi; G47.30 Sleep apnea, unspecified; J45.909 Unspecified asthma, uncomplicated; K21.9 Gastro-esophageal reflux disease without esophagitis; E78.5 Hyperlipidemia, unspecified; Z96.643 Presence of artificial hip joint, bilateral; Z96.653 Presence of artificial knee joint, bilateral; Z88.8 Allergy status to other drugs, medicaments and biological substances; Z79.899 Other long term (current) drug therapy
CPT/HCPCS: 50590; 74018; J2250; J3010

== ENCOUNTER 2020-07-29 07:48 | Outpatient (REF) | payer MEDICARE, OTHER, SELFPAY ==
[2020-07-29 11:59] LABS: Anion Gap 15 (12-20); Blood Urea Nitrogen 18 mg/dL (9-16); Calcium 9.3 mg/dL (8.4-10.2); Carbon Dioxide 25 mmol/L (22-29); Chloride 106 mmol/L (96-108); Cholesterol 223 mg/dL; Estimated Glomerular Filt Rate > 60; Glucose Fasting 93 mg/dL (60-99); HDL Cholesterol 57 mg/dL; LDL Cholesterol Calculated 143 mg/dl; Potassium 4.5 mmol/l (3.3-5.1); Sodium 141 mmol/L (135-145); Triglycerides 116 mg/dL
[2020-07-29 12:07] LABS: TSH reflex Free T4 0.95 mIU/mL (0.32-4.0)
== END 2020-07-29 07:49 | disposition home or self-care (01) ==
LOC: HO.HMGCLDS 07:48
PROVIDERS: PCP Nurse Practitioner Family; Visit Provider Nurse Practitioner Family
DX: K76.0 Fatty (change of) liver, not elsewhere classified (principal); K59.01 Slow transit constipation
CPT/HCPCS: 80048; 80061; 84443

== ENCOUNTER → 2020-08-03 07:33 | Outpatient (REF) | payer MEDICARE, OTHER, SELFPAY ==
--- NOTE | 2020-08-03 07:49 | NM_ITS ---
EXAMINATION: RADIONUCLIDE SOLID FOOD GASTRIC EMPTYING 4-HOUR STUDY CLINICAL INFORMATION: Abdominal distention. COMPARISON: No previous gastric emptying study is available for comparison. TECHNIQUE: A standard meal consisting of 4 oz of Egg Beaters brand tagged with 1.0 mCi Tc-99m Sulfur Colloid, 8 oz water and 2 slices of toast with jelly was administered orally to the patient. Images were obtained using a dual head gamma camera in the anterior and posterior projections over of the stomach immediately post ingestion and at hourly intervals up to 3 hours post ingestion. Images were not obtained at 4 hours due to the minimal retention at 3 hours. The anterior and posterior counts at each time interval were averaged using the geometric mean and expressed as percentage of the immediate post ingestion counts. FINDINGS: There is good visualization of activity in the stomach immediately post ingestion. As the study progresses, there is good clearance of activity from the stomach and visualization of progressively increasing small bowel activity. By the end of the study, there is almost no retention noted in the stomach. Retention in the stomach at each time interval was: 1 hour 77% (normal 37%-90%) 2 hours 38% (normal 30%-60%) 3 hours 3% 4 hours (Not Obtained) (normal 0%-10%) NM/NM gastric emptying study IMPRESSION: Normal solid food gastric emptying study.
[2020-08-03 08:24] LABS: Alanine Aminotransferase 26 U/L (0-31); Albumin Level 4.2 g/dL (3.5-5.0); Alkaline Phosphatase 104 U/L (39-117); Aspartate Amino Transferase 21 U/L (5-31); Bilirubin Direct < 0.2 mg/dL (0.0-0.5); Bilirubin Total 0.3 mg/dL (0.0-1.0); Total Protein 6.7 g/dL (6.5-8.0)
== END ==
LOC: HO.NUCMED 07:33
PROVIDERS: PCP Nurse Practitioner Family; Visit Provider Internal Medicine Gastroenterology
DX: K76.0 Fatty (change of) liver, not elsewhere classified (principal); R14.0 Abdominal distension (gaseous)
CPT/HCPCS: 78264; 80076; A9541

== ENCOUNTER 2020-08-04 06:29 | Day surgery (SDC) | payer MEDICARE, OTHER, SELFPAY ==
[2020-07-14 10:34] VITALS: BMI 39.6
--- NOTE | 2020-07-20 10:37 | HO.ANESPROP2 ---
HPI - Anesthesia Eval Consult details Narrative: 64yo F for ESWL Prev ESWL 07/07/20 with [facility] Past Medical History Medical History Abdominal pain Arthritis Asthma Back pain Constipation Constipation by delayed colonic transit Elevated cholesterol Fatty liver Fibromyalgia GERD (gastroesophageal reflux disease) Hyperlipidemia Nephrolithiasis JOY (obstructive sleep apnea) Osteoarthritis Pyelonephritis Radiculopathy Restless leg syndrome Sepsis Sleep apnea Tubular adenoma of colon Family History Family History Father Heart disease Thyroid cancer Diabetes COPD (chronic obstructive pulmonary disease) Sleep apnea Mother Diabetes Cancer Chronic mental illness Colon cancer Other Fibromyalgia Surgical History Surgical History H/O cystoscopy (05/03/20) History of bilateral hip replacements History of bilateral knee replacement History of oophorectomy, unilateral Hx of colonoscopy Hx of dilation and curettage Hx of foot surgery Hx of lithotripsy Social History Social History Alcohol intake: current Alcohol intake frequency: a few times a month Smoking Status: Never smoker Second Hand Smoke Exposure: No Use of substances other than those prescribed or required for medical reasons: No Advance Directives Information Provided: No Meds Allergies Allergy/AdvReac Type Severity Reaction Status Date / Time ropinirole [ROPINIROLE] Allergy Intermediate WORSE Verified 07/07/20 07:02 RESTLESS LEG duloxetine [Cymbalta] AdvReac Intermediate Worsening Verified 07/14/20 10:38 RLS meperidine [From DEMEROL] AdvReac Intermediate NAUSEA & Verified 07/07/20 07:02 VOMITING Home Medications Medication Instructions Recorded Confirmed Type albuterol sulfate [ProAir HFA] 2 puff INHALATION QID PRN 05/21/20 07/14/20 History clonazepam 0.75 mg PO DAILY 05/21/20 07/14/20 History ezetimibe 10 mg PO DAILY 05/21/20 07/14/20 History hydroxyzine pamoate 50 mg PO DAILY 05/21/20 07/14/20 History pyridoxine (vitamin B6) 100 mg PO DAILY 05/21/20 07/14/20 History trazodone 150 mg tablet 150 mg PO BEDTIME 05/22/20 07/14/20 History Vitamin D3 (with calcium carb) 1 tab PO DAILY 06/25/20 07/14/20 History coenzyme Q10 [CoQ-10] 30 mg PO DAILY 06/25/20 07/14/20 History glucosamine-chondroitin 1 cap PO DAILY 06/25/20 07/14/20 History levomefolate-algal oil 1 cap PO DAILY 06/25/20 07/14/20 History [L-Methylfolate Forte] Exam Exam Date and Time: July 20, 2020 1037 Height,Weight and Vital Signs: Height 5 ft 4 in Weight 104.78 kg Pertinent Lab Results Pertinent Lab Results: Laboratory Tests 05/13/20 05/13/20 09:42 09:42 WBC 16.8 H Hgb 12.3 Hct 38.5 Plt Count 259 Sodium 141 Potassium 5.0 Chloride 108 BUN 13 Creatinine 1.30 Assessment and Plan Assessment Anesthesia Assessment: Chart Reviewed
--- NOTE | 2020-08-03 08:58 | HO.ANESPROP2 ---
Documented by User: Daisy Simmons 08/03/20 09:00 HPI - Anesthesia Eval Consult details Narrative: 64yo F for Lithotripsy ESW s/p eswl 07/07/20 with [facility] Past Medical History Medical History Abdominal pain Arthritis Asthma Back pain Constipation Constipation by delayed colonic transit Elevated cholesterol Fatty liver Fibromyalgia GERD (gastroesophageal reflux disease) Hyperlipidemia Nephrolithiasis JOY (obstructive sleep apnea) Osteoarthritis Pyelonephritis Radiculopathy Restless leg syndrome Sepsis Sleep apnea Tubular adenoma of colon Family History Family History Father Heart disease Thyroid cancer Diabetes COPD (chronic obstructive pulmonary disease) Sleep apnea Mother Diabetes Cancer Chronic mental illness Colon cancer Other Fibromyalgia Surgical History Surgical History H/O cystoscopy (05/03/20) History of bilateral hip replacements History of bilateral knee replacement History of oophorectomy, unilateral Hx of colonoscopy Hx of dilation and curettage Hx of foot surgery Hx of lithotripsy Social History Social History Alcohol intake: current Alcohol intake frequency: a few times a month Smoking Status: Never smoker Second Hand Smoke Exposure: No Use of substances other than those prescribed or required for medical reasons: No Advance Directives Information Provided: No Meds Allergies Allergy/AdvReac Type Severity Reaction Status Date / Time ropinirole [ROPINIROLE] Allergy Intermediate WORSE Verified 07/07/20 07:02 RESTLESS LEG duloxetine [Cymbalta] AdvReac Intermediate Worsening Verified 07/14/20 10:38 RLS meperidine [From DEMEROL] AdvReac Intermediate NAUSEA & Verified 07/07/20 07:02 VOMITING Home Medications Medication Instructions Recorded Confirmed Type albuterol sulfate [ProAir HFA] 2 puff INHALATION QID PRN 05/21/20 07/14/20 History clonazepam 0.75 mg PO DAILY 05/21/20 07/14/20 History ezetimibe 10 mg PO DAILY 05/21/20 07/14/20 History hydroxyzine pamoate 50 mg PO DAILY 05/21/20 07/14/20 History pyridoxine (vitamin B6) 100 mg PO DAILY 05/21/20 07/14/20 History trazodone 150 mg tablet 150 mg PO BEDTIME 05/22/20 07/14/20 History Vitamin D3 (with calcium carb) 1 tab PO DAILY 06/25/20 07/14/20 History coenzyme Q10 [CoQ-10] 30 mg PO DAILY 06/25/20 07/14/20 History glucosamine-chondroitin 1 cap PO DAILY 06/25/20 07/14/20 History levomefolate-algal oil 1 cap PO DAILY 06/25/20 07/14/20 History [L-Methylfolate Forte] Exam Exam Date and Time: August 03, 2020 0858 Height,Weight and Vital Signs: Height 5 ft 4 in Weight 104.78 kg Pertinent Lab Results Pertinent Lab Results: Laboratory Tests 05/13/20 07/29/20 09:42 07:59 WBC 16.8 H Hgb 12.3 Hct 38.5 Plt Count 259 Sodium 141 Potassium 4.5 Chloride 106 Carbon Dioxide 25 BUN 18 H Creatinine 0.89 Assessment and Plan Assessment Anesthesia Assessment: Chart Reviewed Documented by User: Adelfo Taylor 08/04/20 08:10 [facility] Past Medical History Medical History Abdominal pain Arthritis Asthma Back pain Constipation Constipation by delayed colonic transit Elevated cholesterol Fatty liver Fibromyalgia GERD (gastroesophageal reflux disease) Hyperlipidemia Nephrolithiasis JOY (obstructive sleep apnea) Osteoarthritis Pyelonephritis Radiculopathy Restless leg syndrome Sepsis Sleep apnea Tubular adenoma of colon Family History Family History Father Heart disease Thyroid cancer Diabetes COPD (chronic obstructive pulmonary disease) Sleep apnea Mother Diabetes Cancer Chronic mental illness Colon cancer Other Fibromyalgia Surgical History Surgical History H/O cystoscopy (05/03/20) History of bilateral hip replacements History of bilateral knee replacement History of oophorectomy, unilateral Hx of colonoscopy Hx of dilation and curettage Hx of foot surgery Hx of lithotripsy Social History Social History Alcohol intake: current Alcohol intake frequency: a few times a month Smoking Status: Never smoker Second Hand Smoke Exposure: No Use of substances other than those prescribed or required for medical reasons: No Advance Directives Information Provided: No Meds Allergies Allergy/AdvReac Type Severity Reaction Status Date / Time ropinirole [ROPINIROLE] Allergy Intermediate WORSE Verified 07/07/20 07:02 RESTLESS LEG duloxetine [Cymbalta] AdvReac Intermediate Worsening Verified 07/14/20 10:38 RLS meperidine [From DEMEROL] AdvReac Intermediate NAUSEA & Verified 07/07/20 07:02 VOMITING Home Medications Medication Instructions Recorded Confirmed Type albuterol sulfate [ProAir HFA] 2 puff INHALATION QID PRN 05/21/20 07/14/20 History clonazepam 0.75 mg PO DAILY 05/21/20 07/14/20 History ezetimibe 10 mg PO DAILY 05/21/20 07/14/20 History hydroxyzine pamoate 50 mg PO DAILY 05/21/20 07/14/20 History pyridoxine (vitamin B6) 100 mg PO DAILY 05/21/20 07/14/20 History trazodone 150 mg tablet 150 mg PO BEDTIME 05/22/20 07/14/20 History Vitamin D3 (with calcium carb) 1 tab PO DAILY 06/25/20 07/14/20 History coenzyme Q10 [CoQ-10] 30 mg PO DAILY 06/25/20 07/14/20 History glucosamine-chondroitin 1 cap PO DAILY 06/25/20 07/14/20 History levomefolate-algal oil 1 cap PO DAILY 06/25/20 07/14/20 History [L-Methylfolate Forte] Exam Airway Mallampati Class: II TM Dist: >3cm Neck ROM: Full Loose/Missing/Broken Teeth: Yes and Upper Heart: [id number] Lungs: cta b/l Assessment and Plan Assessment Anesthesia Assessment: Anesthesia Plan Discussed, PAT Visit and Chart Reviewed Final Anesthetic Review NPO: Yes ASA Class: II Final Preanesthetic Review: No Changes in Pt Med Stat, Meds/Allgs Chart Reviewed and Consent Obtained/Reviewed Patient Risk: Low Procedure Risk: Low Assessment/Block/Sedation in SS: Assess/Block/Sedation-SS Anesthetic Plan Anesthetic Plan: MAC: Disposition: Standard PACU
--- NOTE | 2020-08-04 06:36 | XR_ITS ---
EXAMINATION: XR ABDOMEN KUB CLINICAL INDICATION: Stones COMPARISON: 07/07/2020 TECHNIQUE: AP view of the abdomen. FINDINGS: Bilateral total hip arthroplasties. There is a metallic clip or device again projecting over the right iliac crest in the right lower quadrant. S-shaped thoracolumbar scoliosis with multilevel degenerative changes. Again seen is a 6 mm density projecting over the lower pole of the left kidney. Pelvic phleboliths. XR/XR KUB IMPRESSION: 6 mm density again projects over the lower pole of the left kidney, unchanged.
[2020-08-04 08:13] VITALS: BP 134/70; PULSE 52; RESP 18; TEMP 37; O2SAT 95
--- NOTE | 2020-08-04 08:24 | MHC.SHP ---
Pre-Procedural Eval Section B Chief Complaint: Calculus of Kidney Details of Present Illness: Left flank pain, left renal stones Relevant Family History (Specify if Yes): No Relevant Social History: None Medical History: Significant History History of Previous Operations: Relevant previous surgery/procedure and date(s) Allergies: Allergies Allergy/AdvReac Type Severity Reaction Status Date / Time ropinirole [ROPINIROLE] Allergy Intermediate WORSE Verified 07/07/20 07:02 RESTLESS LEG duloxetine [Cymbalta] AdvReac Intermediate Worsening Verified 07/14/20 10:38 RLS meperidine [From DEMEROL] AdvReac Intermediate NAUSEA & Verified 07/07/20 07:02 VOMITING Exam Surgical H&P Exam: Normal: HEENT, Normal: Heart, Normal: Lungs, Normal: Extremities, Normal: Abdomen, Normal: Skin and Normal: Neurological Plan Diagnosis/Plan: Unchanged Patient has been examined and remains a candidate for the planned procedure - left ESWL
[2020-08-04] MEDS: Lactated Ringers 1,000 ML 100 ML IVCONT (08:31)
--- NOTE | 2020-08-04 08:47 | PM.OP ---
Brief Operative Note Date of Service: 08/04/20 Pre-op diagnosis: Left renal stones Post-op diagnosis: same Procedure: Left ESWL Surgeon: Tiburcio Ventura MD Anesthesia: MAC Estimated blood loss (mL): 0 Pathology: none sent Condition: stable Disposition: same day
--- NOTE | 2020-08-04 08:48 | W.PM.OPN ---
Operative Note Operative Note Date of Service: 08/04/20 Narrative: PreOperative Diagnosis: Left Renal stones Post Operative Diagnosis: Left Renal stones Procedure: Left ESWL Surgeon: Dr Tiburcio Ventura Anesthesia: mac/sedation Indications for procedure: They understand ESWL may be a staged procedure and subsequent intervention may be required based on imaging after ESWL. They also understand there is a risk of bleeding, infection, damage to adjacent organs. Procedure: After informed consent was verified the patient was brought to the operating room and placed in a supine position. Anesthesia was performed per protocol. Safety pause time-out was performed. Imaging was in the room and laterality confirmed. ESWL was performed. The 1st 500 shocks were performed at 60 hertz. These were performed with increasing power. Once maximum power was reached the rate was increased to 180 hertz. A total of 2500 shocks were given. Fluoroscopy showed stone disintegration. They tolerated procedure well and was transferred to the recovery area upon completion.
[2020-08-04 09:12] VITALS: BP 99/57; PULSE 58; RESP 14; TEMP 36.5; O2SAT 97
--- NOTE | 2020-08-04 14:21 | HO.POSTANES ---
Post Anesthesia Evaluation Post Anesthesia Evaluation Vital Signs: Vital Signs Temp Pulse Resp BP Pulse Ox 08/04/20 09:12 97.7 F 58 14 99/57 L 97 08/04/20 08:13 98.6 F 52 18 134/70 95 Anesthesia: Monitored Mental Status: Awake Pain Control: Satisfactory Nausea/Vomiting: None Hydration: Adequate Anesthesia-Related Issues: No Anes. Related Issues
== END 2020-08-04 11:28 | disposition home or self-care (01) ==
PROVIDERS: PCP Nurse Practitioner Family; Visit Provider Urology
PROC: (CPT 50590; principal; 2020-08-04 08:10)
DX: N20.0 Calculus of kidney (principal); Z88.8 Allergy status to other drugs, medicaments and biological substances
CPT/HCPCS: 50590; 74018; J2250; J3010

== ENCOUNTER 2020-10-12 15:01 | Outpatient (REF) | payer MEDICARE, OTHER, SELFPAY ==
--- NOTE | ~2020-10-12 | XR_ITS ---
EXAMINATION: LEFT FOOT AND ANKLE X-RAY CLINICAL INFORMATION: Pain COMPARISON: None TECHNIQUE: 3 views of the left foot and 3 views of the left ankle FINDINGS: Left foot: Bone alignment is normal. No fracture or dislocation is seen. There is arthritis at the first MTP joint with joint space narrowing and osteophyte formation. There are osteophytes at the talonavicular and navicular cuneiform joints. There is a plantar calcaneal spur. Left ankle: Bone alignment is normal. No fracture or dislocation is seen. There are small osteophytes at the anterior tibiotalar joint. The ankle mortise is otherwise normal. Soft tissues are normal. XR/XR foot LT min 3V IMPRESSION: Left foot: Degenerative changes at the first MTP talonavicular and navicular cuneiform joints. Calcaneal spur. Left ankle: Mild degenerative changes at the anterior tibiotalar joint.
--- NOTE | ~2020-10-12 | US_ITS ---
EXAMINATION: US RETROPERITONEAL LIMITED (RENAL ONLY) CLINICAL INFORMATION: Calculus of kidney. COMPARISON: KUBs dated 08/04/2020 and 07/07/2020. Ultrasound abdomen complete dated 04/15/2020. Renals only ultrasound dated 10/03/2018. CT abdomen and pelvis with intravenous contrast only dated 07/21/2018. TECHNIQUE: Real-time imaging of the kidneys. FINDINGS: RIGHT KIDNEY: 11.5 x 4.6 x 5.7 cm (SAG x AP x TRV). The kidney is normal in size, contour, and echogenicity. Renal cortical thickness is normal. No calculi or focal parenchymal lesions. No hydronephrosis. LEFT KIDNEY: 12.0 x 5.4 x 4.7 cm (SAG x AP x TRV). The kidney is normal in size, contour, and echogenicity. Renal cortical thickness is normal. No hydronephrosis. At the interpolar aspect, a 7 mm nonobstructing calculus is seen, with twinkle artifact. There are further tiny hyperechoic foci which do not meet formal ultrasound criteria for calculi. Also at the interpolar aspect, a 7 mm in maximal diameter simple cyst is seen. US/US renal BI IMPRESSION: 1. A 7 mm nonobstructing left renal calculus is seen. No right renal calculus is seen. 2. There is no hydronephrosis bilaterally. 3. A small simple left renal cyst is incidentally noted.
--- NOTE | ~2020-10-12 | XR_ITS ---
EXAMINATION: LEFT FOOT AND ANKLE X-RAY CLINICAL INFORMATION: Pain COMPARISON: None TECHNIQUE: 3 views of the left foot and 3 views of the left ankle FINDINGS: Left foot: Bone alignment is normal. No fracture or dislocation is seen. There is arthritis at the first MTP joint with joint space narrowing and osteophyte formation. There are osteophytes at the talonavicular and navicular cuneiform joints. There is a plantar calcaneal spur. Left ankle: Bone alignment is normal. No fracture or dislocation is seen. There are small osteophytes at the anterior tibiotalar joint. The ankle mortise is otherwise normal. Soft tissues are normal. XR/XR ankle LT min 3V IMPRESSION: Left foot: Degenerative changes at the first MTP talonavicular and navicular cuneiform joints. Calcaneal spur. Left ankle: Mild degenerative changes at the anterior tibiotalar joint.
== END 2020-10-12 15:02 | disposition home or self-care (01) ==
LOC: HO.US 15:01
PROVIDERS: Absent Provider Nurse Practitioner Family; PCP Nurse Practitioner Family; Visit Provider Urology
DX: N20.0 Calculus of kidney (principal); M25.572 Pain in left ankle and joints of left foot; M79.672 Pain in left foot
CPT/HCPCS: 73610; 73630; 76775

== ENCOUNTER 2020-10-29 14:40 | Outpatient (REF) | payer MEDICARE, OTHER, SELFPAY ==
--- NOTE | ~2020-10-29 | US_ITS ---
EXAMINATION: US RETROPERITONEAL COMPLETE (RENAL) CLINICAL INFORMATION: Calculus of kidney. COMPARISON: Renal ultrasound 10/12/2020. KUB 08/04/2020 and 07/07/2020. Ultrasound abdomen complete 04/15/2020. CT abdomen and pelvis 07/21/2018. TECHNIQUE: Real-time imaging of the kidneys and bladder. FINDINGS: RIGHT KIDNEY: 11.0 x 4.7 x 6.7 cm (SAG x AP x TRV). The kidney is normal in size, contour, and echogenicity. Renal cortical thickness is normal. No focal parenchymal lesions or hydronephrosis. Multiple tiny punctate calcifications with clinical artifact. There is an echogenic stone midpole measuring 0.3 x 0.3 cm. LEFT KIDNEY: 11.8 x 6.1 x 4.8 cm (SAG x AP x TRV). The kidney is normal in size, contour, and echogenicity. Renal cortical thickness is normal. No hydronephrosis. There is an anechoic cyst in the midpole measuring 0.9 x 0.5 x 0.7 cm. Multiple tiny punctate calcifications are seen with twinkle artifact. There is a lower pole echogenic stone measuring 0.3 x 0.2 cm. BLADDER: Well distended and normal. Bilateral ureteral jets are demonstrated. Prevoid bladder volume is 870 mL. Postvoid bladder volume is 109 mL. US/US retroperitoneal comp IMPRESSION: Small nonobstructive echogenic calculi midpole right kidney and lower pole left kidney. There is an anechoic cyst midpole right kidney. Punctate tiny calcifications in both kidneys with twinkle artifact. No caliectasis or hydronephrosis. Moderate postvoid residual bladder volume.
== END 2020-10-29 14:41 | disposition home or self-care (01) ==
LOC: HO.US 14:40
PROVIDERS: Visit Provider Urology
DX: N20.0 Calculus of kidney (principal)
CPT/HCPCS: 76770

== ENCOUNTER → 2020-11-05 10:18 | Outpatient (BNVA) | payer MEDICARE, OTHER, SELFPAY | PROVIDERS: PCP Nurse Practitioner Family; Visit Provider Urology | CPT/HCPCS: Q3014 ==

== ENCOUNTER 2020-12-10 11:25 | Outpatient (REF) | payer MEDICARE, OTHER, SELFPAY ==
--- NOTE | ~2020-12-10 | MM_ITS ---
EXAMINATION: MM SCREENING DIGITAL BREAST TOMOSYNTHESIS, BILATERAL CLINICAL INFORMATION: Screening. Asymptomatic. The lifetime risk of breast cancer based on the Tyrer-Cuzick Model is 5%. COMPARISON: Mammography: 01/28/2018, 02/10/2016. TECHNIQUE: Digital breast tomosynthesis is performed in both the craniocaudal and mediolateral oblique views along with computer-aided detection (CAD). Synthesized 2D images are generated from the tomosynthesis. Additional left CC view is provided. FINDINGS: There are scattered areas of fibroglandular density (ACR BI-RADS breast composition Category b). There are no significant masses, abnormal calcifications, or other abnormalities. Parenchymal pattern is similar to prior studies. No significant changes. MM/MM tomosynthesis screening BI IMPRESSION: No mammographic evidence of malignancy. ASSESSMENT: BI-RADS 1: Negative RECOMMENDATION: Routine annual mammography screening. This patient's information was entered into a reminder system with a target due date for their next mammogram.
[2020-12-10 12:18] LABS: MANUAL DIFF FLAG NO
[2020-12-10 12:19] LABS: Basophils Percent Auto 0.6 % (0-2); Eosinophils Absolute Auto 0.1 X10*3/uL (0.0-0.4); Eosinophils Percent Auto 1.7 % (0-4); Hematocrit 42.8 % (37-47); Hemoglobin 14.2 g/dl (12.0-16.0); Imm Gran Abs Auto 0.01 X10*3/uL (0.00-0.03); Imm Gran Pct Auto 0.2 % (0.0-0.4); Lymphocytes Absolute Auto 2.2 X10*3/uL (1.2-4.9); Lymphocytes Percent Auto 33.5 % (20-40); Mean Corpuscular HGB Conc 33.2 g/dl (31.0-35.0); Mean Corpuscular Volume 90.5 fL (80-98); Mean Platelet Volume 11.2 fL (9.4-12.3); Monocytes Absolute Auto 0.8 X10*3/uL (0.1-1.2); Monocytes Percent Auto 12.5 % (2-11); Neutrophils Absolute Auto 3.4 X10*3/uL (2.0-8.3); Neutrophils Percent Auto 51.5 % (45-73); Platelet Count 230 X10*3/uL (160-400); Red Blood Count 4.73 X10*6/uL (4.20-5.50); White Blood Count 6.6 X10*3/uL (4.8-10.8)
[2020-12-10 12:43] LABS: Alanine Aminotransferase 33 U/L (0-31); Albumin Level 4.3 g/dL (3.5-5.0); Alkaline Phosphatase 105 U/L (39-117); Anion Gap 13 (12-20); Aspartate Amino Transferase 22 U/L (5-31); Bilirubin Total 0.5 mg/dL (0.0-1.0); Blood Urea Nitrogen 15 mg/dL (9-16); Calcium 10.1 mg/dL (8.4-10.2); Carbon Dioxide 27 mmol/L (22-29); Chloride 106 mmol/L (96-108); Estimated Glomerular Filt Rate > 60; Glucose Random 92 mg/dL (60-115); Potassium 4.7 mmol/L (3.3-5.1); Sodium 141 mmol/L (135-145); Total Protein 6.8 g/dL (6.5-8.0)
== END 2020-12-10 11:26 | disposition home or self-care (01) ==
LOC: HO.MAMMO 11:25
PROVIDERS: PCP Nurse Practitioner Family; Visit Provider Nurse Practitioner Family
DX: Z12.31 Encounter for screening mammogram for malignant neoplasm of breast (principal)
CPT/HCPCS: 36415; 77063; 77067; 80053; 85025

== ENCOUNTER → 2021-02-17 14:37 | Outpatient (BNVA) | payer MEDICARE, OTHER, SELFPAY | PROVIDERS: PCP Nurse Practitioner Family; Visit Provider Obstetrics & Gynecology ==

== ENCOUNTER 2021-02-17 17:35 | Outpatient (REF) | payer MEDICARE, OTHER, SELFPAY | END 2021-02-17 17:36 | disposition home or self-care (01) | LOC: HO.LAB 17:35 | PROVIDERS: Visit Provider Obstetrics & Gynecology | DX: Z01.419 Encounter for gynecological examination (general) (routine) without abnormal findings (principal) | CPT/HCPCS: 88142 ==

== ENCOUNTER 2021-02-18 14:13 | Outpatient (REF) | payer MEDICARE, OTHER, SELFPAY ==
[2021-02-23 21:06] LABS: HPV mRNA E6/E7 rflx Not Detected (Not Detected)
== END 2021-02-18 14:14 | disposition home or self-care (01) ==
LOC: HO.LAB 14:13
PROVIDERS: Visit Provider Obstetrics & Gynecology
DX: Z01.419 Encounter for gynecological examination (general) (routine) without abnormal findings (principal)
CPT/HCPCS: 87624

== ENCOUNTER → 2021-02-23 10:18 | Outpatient (BNVA) | payer MEDICARE, OTHER, SELFPAY | PROVIDERS: PCP Nurse Practitioner Family; Visit Provider Nurse Practitioner Family | DX: K59.01 Slow transit constipation (principal); R14.0 Abdominal distension (gaseous) | CPT/HCPCS: Q3014 ==

== ENCOUNTER 2021-05-23 14:00 | Outpatient (REF) | payer MEDICARE, OTHER, SELFPAY ==
--- NOTE | ~2021-05-23 | US_ITS ---
EXAMINATION: US RETROPERITONEAL LIMITED (RENAL ONLY) CLINICAL INFORMATION: Calculus of kidney. COMPARISON: Retroperitoneal ultrasound 10/29/2020. Renal ultrasound 10/12/2020. TECHNIQUE: Real-time imaging of the kidneys. FINDINGS: RIGHT KIDNEY: 10.7 x 5.0 x 4.4 cm (SAG x AP x TRV). The kidney is normal in size, contour, and echogenicity. Renal cortical thickness is normal. There are multiple small echogenic densities with twinkle artifact suggestive of a small stone, greatest in the lower pole. No focal parenchymal lesions. There is fullness of the right renal pelvis versus extrarenal pelvis. No calyceal dilatation is seen. LEFT KIDNEY: 11.1 x 6.0 x 4.9 cm (SAG x AP x TRV). The kidney is normal in size, contour, and echogenicity. Renal cortical thickness is normal. There is an 8 x 5 x 7 mm cyst in the midpole. There are multiple echogenic densities in the lower pole with twinkle artifact or shadowing suggestive of stones measuring 3 to 4 mm. No hydronephrosis. US/US renal BI IMPRESSION: Small bilateral renal stones. Small left renal cyst..
== END 2021-05-23 14:01 | disposition home or self-care (01) ==
LOC: HO.US 14:00
PROVIDERS: PCP Nurse Practitioner Family; Visit Provider Urology
DX: N20.0 Calculus of kidney (principal)
CPT/HCPCS: 76775

== ENCOUNTER 2021-05-26 09:43 | Outpatient (REF) | payer MEDICARE, OTHER, SELFPAY ==
--- NOTE | ~2021-05-26 | MM_ITS ---
EXAMINATION: BONE DENSITOMETRY CLINICAL INDICATION: Asymptomatic menopausal state. COMPARISON: Baseline BD dated 03/03/2011, lumbar spine. This is the patient's baseline examination for the forearm radius 33%. TECHNIQUE: Using a [employer] DXA System (software version: 13.1) manufactured by [employer], dual-energy x-ray absorptiometry was performed of the lumbar spine and left forearm radius 33%. Patient had bilateral hip replacements. The images are of good technical quality. Summary results are attached. FINDINGS: AP SPINE L1-L4: There are multilevel degenerative changes lumbar spine which may cause overestimation of the lumbar bone mineral density. Current: BMD 1.413 g/cm2, Z-score 3.2, T-score 1.9, normal, 18.2% increase from baseline (<5% change is not significant). Baseline: BMD 1.195 g/cm2. LEFT FOREARM RADIUS 33%: BMD 0.858 g/cm2, Z-score 1.2, T-score -0.2, normal. Baseline: Not previously measured. IDENTIFIED RISK FACTORS: Early menopause, secondary osteoporosis, left oophorectomy. HISTORY OF FRACTURE: None listed. MEDICATIONS: Vitamin D. MM/XR DEXA axial skeleton IMPRESSION: 1. DIAGNOSIS: Normal bone density based on the lowest T-score value of -0.2 in the forearm radius 33% applying World Health Organization criteria. 2. 10-YEAR FRACTURE RISK PREDICTION, FRAX: Not performed in this patient without a femoral neck BMD measurement. 3. Treatment Recommendations: NOF guidelines recommend consideration for treatment in postmenopausal women and men age 50 and older presenting with the following: -A hip or vertebral (clinical or morphometric) fracture. -T-score less than or equal to -2.5 at the femoral neck or spine after appropriate evaluation to exclude secondary causes. -Low bone mass at the hip or spine and a 10-year fracture probability by FRAX of greater than or equal to 3% for hip fracture or greater than or equal to 20% for major osteoporotic fracture based on the [place] adapted WHO algorithm. 4. Other Recommendations: All treatment decisions require clinical judgment and consideration of individual patient factors, including patient preferences, comorbidities, previous drug use, risk factors not captured in the FRAX model (e.g. frailty, falls, vitamin D deficiency, increased bone turnover, interval significant decline in bone density) and possible under or overestimation of fracture risk by FRAX. FUTURE SCAN RECOMMENDATION: People with diagnosed cases of osteoporosis or at high risk for fracture should have regular bone mineral density tests. For patients eligible for Medicare, routine testing is allowed once every 2 years. The testing frequency can be increased to one year for patients who have rapidly progressing disease, those who are receiving or discontinuing medical therapy to restore bone mass, or have additional risk factors.
== END 2021-05-26 09:44 | disposition home or self-care (01) ==
LOC: HO.MAMMO 09:43
PROVIDERS: Visit Provider Obstetrics & Gynecology
DX: Z13.820 Encounter for screening for osteoporosis (principal); Z78.0 Asymptomatic menopausal state
CPT/HCPCS: 77080

== ENCOUNTER → 2021-06-02 15:13 | Outpatient (BNVA) | payer MEDICARE, OTHER, SELFPAY | PROVIDERS: PCP Nurse Practitioner Family; Visit Provider Obstetrics & Gynecology ==

== ENCOUNTER → 2021-06-07 14:54 | Outpatient (BNVA) | payer MEDICARE, OTHER, SELFPAY | PROVIDERS: PCP Nurse Practitioner Family; Visit Provider Obstetrics & Gynecology | DX: M85.80 Other specified disorders of bone density and structure, unspecified site (principal) | CPT/HCPCS: Q3014 ==

== ENCOUNTER → 2021-06-13 10:19 | Outpatient (BNVA) | payer MEDICARE, OTHER, SELFPAY | PROVIDERS: PCP Nurse Practitioner Family | DX: N20.0 Calculus of kidney (principal) | CPT/HCPCS: Q3014 ==

== ENCOUNTER 2021-08-01 22:58 | Emergency (ER) | payer MEDICARE, OTHER, SELFPAY ==
[2021-08-01 23:15] VITALS: BP 147/83; PULSE 62; RESP 16; O2SAT 98
--- NOTE | 2021-08-02 00:44 | ED.EYEPROB ---
HPI - Eye Problem General Chief complaint: Eye Problems Stated complaint: spots in her vision Time Seen by Provider: 08/02/21 00:41 History of Present Illness HPI Narrative: Patient is 65 years old presents today with having floaters in her visual field. Patient claims that for the last 2 days she had dark spot that she is not sure if it is coming from the right eye of the left eye. That lasted until this evening. Now the doc spot is gone. Patient noted having bright spots when she looks to the left or to the right using her left eye. There is no bright spots with her right eye. More recently upon arrival the dark spot is gone. Patient claims that out of her left eye she sees a hair that is floating when she looks to the left or to the right. When she looks straight there is no hair that is visible. The hair is dark. There is no fever no chills no diaphoresis. No chest pain. no coughing or congestion or upper respiratory symptoms no diaphoresis. Related Data Home Medications Medication Instructions Recorded Confirmed albuterol sulfate 90 mcg/actuation 2 puff INHALATION QID PRN 05/21/20 05/25/21 aerosol inhaler (ProAir HFA) pyridoxine (vitamin B6) 100 mg 100 mg PO DAILY 05/21/20 05/25/21 tablet Vitamin D3 (with calcium carb) 1 tab PO DAILY 06/25/20 05/25/21 glucosamine-chondroitin 167 mg-133 1 cap PO DAILY 06/25/20 05/25/21 mg capsule levomefolate 7.5 mg-algal oil 1 cap PO DAILY 06/25/20 05/25/21 90.314 mg capsule (L-Methylfolate Forte) bupropion HCl 200 mg tablet,12 hr mg PO 09/22/20 05/25/21 sustained-release diazepam 5 mg tablet mg PO 09/22/20 05/25/21 ipratropium bromide 21 mcg (0.03 INTRANASAL 09/22/20 05/25/21 %) nasal spray lidocaine 5 % topical patch patch TOPICAL 11/05/20 05/25/21 duloxetine 20 mg capsule,delayed mg PO BID cap 12/31/20 05/25/21 release eszopiclone 3 mg tablet 3 mg PO .COMPLEX tab 01/19/21 05/25/21 clonazepam 0.5 mg tablet (Klonopin) 0.25 mg PO BEDTIME 06/02/21 Previous Rx's Medication Instructions Recorded biotin 5 mg capsule 5 mg PO DAILY 30 Days #30 cap 06/17/20 levocetirizine 5 mg tablet (Xyzal) 5 mg PO BEDTIME PRN #30 tab 12/31/20 ibuprofen 800 mg tablet 800 mg PO Q8H PRN 30 Days #90 tab 01/19/21 wheat dextrin 3 gram/3.5 gram oral 1 packet PO DAILY #28 ea 02/23/21 powder packet (Benefiber Clear Sugar Free(dextrin)) ezetimibe 10 mg tablet 10 mg PO DAILY 90 Days #90 tab 05/01/21 cetirizine 10 mg capsule 10 mg PO DAILY PRN 90 Days #90 cap 05/25/21 fluticasone propionate 50 2 spray INTRANASAL DAILY PRN #16 g 06/23/21 mcg/actuation nasal spray,suspension omeprazole 10 mg capsule,delayed 10 mg PO DAILY #30 cap 06/24/21 release baclofen 20 mg tablet 20 mg PO TID PRN 30 Days #90 tab 07/18/21 polyethylene glycol 3350 17 1 g PO BID PRN #1020 g 07/19/21 gram/dose oral powder sennosides 8.6 mg tablet (Senna 17.2 mg PO BEDTIME PRN 30 Days #60 07/19/21 Lax) tab estradiol (Estrace) 0.25 appful VAGINAL 2XW 28 Days 07/21/21 #42.5 g diclofenac sodium 50 mg 50 mg PO Q12H PRN 30 Days #60 tab 07/25/21 tablet,delayed release Allergies Allergy/AdvReac Type Severity Reaction Status Date / Time ropinirole [ROPINIROLE] Allergy Intermediate WORSE Verified 06/13/21 10:23 RESTLESS LEG duloxetine [Cymbalta] AdvReac Intermediate Worsening Verified 06/13/21 10:23 RLS meperidine [From DEMEROL] AdvReac Intermediate NAUSEA & Verified 06/13/21 10:23 VOMITING Review of Systems Review of Systems: No fever no chills no cough no congestion or upper respiratory symptoms no pain in the eye. No headaches. No focal weakness. Patient is from home. Yes all other systems are reviewed and are negative PMFSH Past Medical History Attestation statement: The following information was validated with the patient. Medical History Abdominal pain Arthritis Arthritis of foot Asthma Back pain Constipation Constipation by delayed colonic transit Elevated cholesterol Fatty liver Fibromyalgia GERD (gastroesophageal reflux disease) Hyperlipidemia Lumbar spinal stenosis Nephrolithiasis JOY (obstructive sleep apnea) Osteoarthritis Pyelonephritis Radiculopathy Renal cyst Restless leg syndrome Sepsis Sleep apnea Tubular adenoma of colon Surgical History H/O cystoscopy (05/03/20) History of bilateral hip replacements History of bilateral knee replacement History of lumbar laminectomy for spinal cord decompression History of oophorectomy, unilateral Hx of colonoscopy Hx of dilation and curettage Hx of foot surgery Hx of lithotripsy Family History Family History Father Heart disease Thyroid cancer Diabetes COPD (chronic obstructive pulmonary disease) Sleep apnea Mother Diabetes Cancer Chronic mental illness Colon cancer Other Fibromyalgia Social History Social History Alcohol intake: current Alcohol intake frequency: a few times a month Patient Tobacco Use Status: Former Tobacco user Tobacco use type: Cigarette Cigarettes Per Day: 40 Years Smoked: 17 Second Hand Smoke Exposure: No Advance Directives: No Advance Directives Information Provided: Yes Physical Exam Vital Signs: Vital Signs: Last Vital Signs Pulse 62 08/01/21 23:15 Resp 16 08/01/21 23:15 BP 147/83 H 08/01/21 23:15 Pulse Ox 98 08/01/21 23:15 BMI result Body Mass Index 30.0 Appearance: Alert. Oriented X3. No acute distress. Eyes: Pupils equal, round and reactive to light. visual acuity grossly intact. It is 5 OS, 2025 OD. Extraocular muscle was intact. Visual field was intact in each eye. Patient's ocular pressure was checked. It was 7 on the right on the left it was 9. ENT: Pharynx normal. Neck: Normal inspection. Neck supple. No lymph nodes noted. No crepitus CVS: Normal heart rate and rhythm. Pulses normal. Normal S1 and S2 Respiratory: No respiratory distress. Breath sounds normal. No Wheezing. No rales Abdomen: Soft and nontender. No rigidity. No distention. good BS x4 Skin: Skin warm and dry. Normal skin color. Normal skin turgor. Extremities: No lower extremity edema. Neurovascular intact to all extremities. No Lacerations. No Rash Neuro: Oriented X 3. No motor deficit. No sensory deficit. Moving all extermities. No slurred speech MDM - Eye Problem MDM Narrative Medical decision making narrative: An ultrasound of left eye was done. There is no evidence for retinal detachment. Patient's visual acuity is intact. Visual field intact. Intra-ocular pressure normal. There is no pain to suggest foreign body. Pupil equal reactive to light. Neurological exam intact. Ambulates with normal gait. Question causative floater. Will have patient follow-up closely with ophthalmology in a.m.. Currently patient is in stable condition. Discharge Plan Discharge Clinical Impression: Floaters in visual field Patient Disposition: Home, Self-Care Instructions: Visual Floaters (ED) Prescriptions: No Action biotin 5 mg capsule 5 mg PO DAILY 30 Days Qty: 30 RF: 2 ezetimibe 10 mg tablet 10 mg PO DAILY 90 Days Qty: 90 RF: 3 fluticasone propionate 50 mcg/actuation spray,suspension 2 spray intranasal DAILY PRN (Reason: for allergies) Qty: 16 RF: 0 omeprazole 10 mg capsule,delayed release(DR/EC) 10 mg PO DAILY Qty: 30 RF: 3 baclofen 20 mg tablet 20 mg PO TID PRN (Reason: spasms) 30 Days Qty: 90 RF: 1 polyethylene glycol 3350 17 gram/dose powder 1 g PO BID PRN (Reason: constipation) Qty: 1020 RF: 3 sennosides [Senna Lax] 8.6 mg tablet 17.2 mg PO BEDTIME PRN (Reason: constipation) 30 Days Qty: 60 RF: 3 estradiol [Estrace] 0.01 % (0.1 mg/gram) cream 0.25 appful vaginal 2XW 28 Days Qty: 42.5 RF: 0 diclofenac sodium 50 mg tablet,delayed release (DR/EC) 50 mg PO Q12H PRN (Reason: pain) 30 Days Qty: 60 RF: 0 pyridoxine (vitamin B6) 100 mg tablet 100 mg PO DAILY RF: 0 albuterol sulfate [ProAir HFA] 90 mcg/actuation HFA aerosol inhaler 2 puff inhalation QID PRN (Reason: Shortness Of Breath) RF: 0 Vitamin D3 (with calcium carb) 1 tab PO DAILY RF: 0 glucosamine-chondroitin 167-133 mg Capsule 1 cap PO DAILY RF: 0 levomefolate-algal oil [L-Methylfolate Forte] 7.5-90.314 mg Capsule 1 cap PO DAILY RF: 0 ipratropium bromide 0.03 % spray,non-aerosol intranasal RF: 0 bupropion HCl 200 mg tablet sustained-release 12 hr PO RF: 0 diazepam 5 mg tablet PO RF: 0 eszopiclone 3 mg tablet 3 mg PO .COMPLEX RF: 0 ibuprofen 800 mg tablet 800 mg PO Q8H PRN (Reason: pain) 30 Days Qty: 90 RF: 0 levocetirizine [Xyzal] 5 mg tablet 5 mg PO BEDTIME PRN (Reason: allergy symptoms) Qty: 30 RF: 0 cetirizine 10 mg capsule 10 mg PO DAILY PRN (Reason: allergy symptoms) 90 Days Qty: 90 RF: 0 lidocaine 5 % adhesive patch,medicated topical RF: 0 duloxetine 20 mg capsule,delayed release(DR/EC) PO BID RF: 0 Benefiber Clear SF (dextrin) 3 gram/3.5 gram powder in packet 1 packet PO DAILY Qty: 28 RF: 5 clonazepam [Klonopin] 0.5 mg tablet 0.25 mg PO BEDTIME RF: 0 Referrals: Chalo Brewer [Physician] - 1 day
== END 2021-08-02 00:58 | disposition home or self-care (01) ==
PROVIDERS: Emergency Provider Emergency Medicine Emergency Medical Services; PCP Nurse Practitioner Family
DX: H43.399 Other vitreous opacities, unspecified eye (principal); J45.909 Unspecified asthma, uncomplicated
CPT/HCPCS: 99283

== ENCOUNTER 2021-12-20 14:31 | Outpatient (REF) | payer MEDICARE, OTHER, SELFPAY ==
--- NOTE | ~2021-12-20 | MM_ITS ---
EXAMINATION: MM SCREENING DIGITAL BREAST TOMOSYNTHESIS, BILATERAL CLINICAL INFORMATION: Screening. Asymptomatic. The lifetime risk of breast cancer based on the Tyrer-Cuzick Model is 3%. COMPARISON: Mammography: 12/10/2020, 01/28/2018, 02/10/2016 TECHNIQUE: Digital breast tomosynthesis is performed in both the craniocaudal and mediolateral oblique views along with computer-aided detection (CAD). Synthesized 2D images are generated from the tomosynthesis. FINDINGS: There are scattered areas of fibroglandular density (ACR BI-RADS breast composition Category b). There are no significant masses, abnormal calcifications, or other abnormalities. Parenchymal pattern is similar to prior exams. No developing density or architectural abnormality. The axilla and skin contours are unremarkable. MM/MM tomosynthesis screening BI IMPRESSION: No mammographic evidence of malignancy. ASSESSMENT: BI-RADS 1: Negative RECOMMENDATION: Routine annual mammography screening. This patient's information was entered into a reminder system with a target due date for their next mammogram.
== END 2021-12-20 14:32 | disposition home or self-care (01) ==
LOC: HO.MAMMO 14:31
PROVIDERS: PCP Nurse Practitioner Family; Visit Provider Nurse Practitioner Family
DX: Z12.31 Encounter for screening mammogram for malignant neoplasm of breast (principal)
CPT/HCPCS: 77063; 77067

== ENCOUNTER → 2022-01-24 10:36 | Outpatient (BNVA) | payer MEDICARE, OTHER, SELFPAY | PROVIDERS: PCP Nurse Practitioner Family; Referring Provider Nurse Practitioner Family; Visit Provider Nurse Practitioner Family | DX: K59.01 Slow transit constipation (principal); K21.9 Gastro-esophageal reflux disease without esophagitis; Z79.899 Other long term (current) drug therapy | CPT/HCPCS: 99212 ==

== ENCOUNTER 2022-02-03 10:19 | Outpatient (REF) | payer MEDICARE, OTHER, SELFPAY ==
[2022-02-03 11:12] LABS: MANUAL DIFF FLAG NO
[2022-02-03 11:28] LABS: Basophils Absolute Auto 0.1 X10*3/uL (0.0-0.2); Basophils Percent Auto 0.9 % (0-2); Eosinophils Absolute Auto 0.1 X10*3/uL (0.0-0.4); Eosinophils Percent Auto 2.4 % (0-4); Hematocrit 43.3 % (37.0-47.0); Hemoglobin 14.5 g/dl (12.0-16.0); Imm Gran Abs Auto 0.04 X10*3/uL (0.00-0.03); Imm Gran Pct Auto 0.7 % (0.0-0.4); Lymphocytes Absolute Auto 2.3 X10*3/uL (1.2-4.9); Lymphocytes Percent Auto 41.5 % (20-40); Mean Corpuscular HGB Conc 33.5 g/dl (31.0-35.0); Mean Corpuscular Hemoglobin 30.4 pg (27.0-33.0); Mean Corpuscular Volume 90.8 fL (80.0-98.0); Mean Platelet Volume 10.5 fL (9.4-12.3); Monocytes Absolute Auto 0.7 X10*3/uL (0.1-1.2); Monocytes Percent Auto 13.2 % (2-11); Neutrophils Absolute Auto 2.3 x10*3/uL (2.0-8.3); Neutrophils Percent Auto 41.3 % (45-73); Platelet Count 234 X10*3/uL (160-400); Red Blood Count 4.77 X10*6/uL (4.20-5.50); Red Cell Distribution Width 14.1 % (11.0-16.0); White Blood Count 5.5 X10*3/uL (4.8-10.8)
[2022-02-03 11:33] LABS: Appearance Urine CLEAR; Color Urine YELLOW; Glucose Urine UA NEG (NEG); Leukocyte Esterase Urine NEG (NEG); Nitrite Urine NEG (NEG); Specific Gravity - Urine <= 1.005 (1.005-1.025); Urine Blood NEG (NEG); Urine Ketones NEG (NEG); Urine Protein NEG (NEG-TRACE)
[2022-02-03 12:07] LABS: Total Protein 7.1 g/dL (6.5-8.0)
[2022-02-03 12:10] LABS: TSH reflex Free T4 0.91 uIU/mL (0.32-4.0); Vitamin D 25-OH Total 38.7 ng/mL (>30)
[2022-02-03 12:11] LABS: Alanine Aminotransferase 28 U/L (0-31); Albumin Level 4.5 g/dL (3.5-5.0); Alkaline Phosphatase 86 U/L (39-117); Anion Gap 12 (12-20); Aspartate Amino Transferase 21 U/L (5-31); Bilirubin Total 0.4 mg/dL (0.0-1.0); Blood Urea Nitrogen 17 mg/dL (9-16); Calcium 9.6 mg/dL (8.4-10.2); Carbon Dioxide 27 mmol/L (22-29); Chloride 107 mmol/L (96-108); Cholesterol 343 mg/dL; Estimated Glomerular Filt Rate > 60; Glucose Fasting 93 mg/dL (60-99); HDL Cholesterol 75 mg/dL; LDL Cholesterol Calculated 240 mg/dl; Potassium 4.8 mmol/L (3.3-5.1); Sodium 141 mmol/L (135-145); Triglycerides 140 mg/dL
== END 2022-02-03 10:20 | disposition home or self-care (01) ==
LOC: HO.HMGCLDS 10:19
PROVIDERS: Visit Provider Nurse Practitioner Family
DX: Z00.00 Encounter for general adult medical examination without abnormal findings (principal); Z78.0 Asymptomatic menopausal state; E78.5 Hyperlipidemia, unspecified; M79.7 Fibromyalgia
CPT/HCPCS: 36415; 80053; 80061; 81003; 82306; 84443; 85025

== ENCOUNTER 2022-02-08 13:56 | Outpatient (REF) | payer MEDICARE, OTHER, SELFPAY ==
--- NOTE | ~2022-02-08 | US_ITS ---
EXAMINATION: US RETROPERITONEAL LIMITED (RENAL ONLY) CLINICAL INFORMATION: Calculus of kidney. COMPARISON: US retroperitoneal limited (renal only) 05/23/2021. US retroperitoneal complete (renal) 10/29/2020. XR abdomen KUB 08/04/2020 and 07/07/2020. CT abdomen and pelvis with contrast 07/21/2018. TECHNIQUE: Real-time imaging of the kidneys. FINDINGS: RIGHT KIDNEY: 9.8 x 5.0 x 6.7 cm (SAG x AP x TRV). The kidney is normal in size, contour, and echogenicity. Renal cortical thickness is normal. No calculi or focal parenchymal lesions. No hydronephrosis. LEFT KIDNEY: 11.3 x 6.1 x 5.0 cm (SAG x AP x TRV). The kidney is normal in size, contour, and echogenicity. Renal cortical thickness is normal. No focal parenchymal lesions or hydronephrosis. There is an echogenic stone midpole measuring 0.3 x 0.3 x 0.4 cm. US/US renal BI IMPRESSION: Small echogenic stone midpole right kidney. No caliectasis or hydronephrosis seen. The right kidney is unremarkable.
== END 2022-02-08 13:57 | disposition home or self-care (01) ==
LOC: HO.US 13:56
PROVIDERS: Visit Provider Urology
DX: N20.0 Calculus of kidney (principal)
CPT/HCPCS: 76775

== ENCOUNTER → 2022-02-24 08:27 | Outpatient (BNVA) | payer MEDICARE, OTHER, SELFPAY | PROVIDERS: PCP Nurse Practitioner Family | DX: N20.0 Calculus of kidney (principal) | CPT/HCPCS: Q3014 ==

== ENCOUNTER 2022-04-13 11:26 | Outpatient (REF) | payer MEDICARE, OTHER, SELFPAY ==
[2022-04-13 13:02] LABS: Influenza A PCR NEGATIVE (Negative); Influenza B PCR NEGATIVE (Negative); Resp Syncy Virus RNA Qual PCR NEGATIVE (Negative); SARS COV2 PCR INHOUSE POSITIVE (Negative)
== END 2022-04-13 11:27 | disposition home or self-care (01) ==
LOC: HO.LNP 11:26
PROVIDERS: Visit Provider Internal Medicine
DX: Z20.822 Contact with and (suspected) exposure to COVID-19 (principal); J20.9 Acute bronchitis, unspecified
CPT/HCPCS: 0241U; U0003; U0005

== ENCOUNTER 2022-06-15 12:43 | Outpatient (REF) | payer MEDICARE, OTHER, SELFPAY ==
--- NOTE | ~2022-06-15 | US_ITS ---
EXAMINATION: US RETROPERITONEAL LIMITED (RENAL ONLY) CLINICAL INFORMATION: Calculus of kidney. COMPARISON: Renal ultrasound 02/08/2022 and 05/23/2021. X-ray abdomen KUB 08/04/2020. CT abdomen and pelvis 07/21/2018. TECHNIQUE: Real-time imaging of the kidneys. FINDINGS: RIGHT KIDNEY: 9.8 x 5.3 x 4.6 cm (SAG x AP x TRV). The kidney is normal in size, contour, and echogenicity. Renal cortical thickness is normal. No calculi or focal parenchymal lesions. No hydronephrosis. LEFT KIDNEY: 11.2 x 5.3 x 5.7 cm (SAG x AP x TRV). The kidney is normal in size, contour, and echogenicity. Renal cortical thickness is normal. There is a small 3 mm stone in the lower pole. No focal parenchymal lesions or hydronephrosis. US/US renal BI IMPRESSION: Small left renal stone. Normal right kidney.
== END 2022-06-15 12:44 | disposition home or self-care (01) ==
LOC: HO.US 12:43
PROVIDERS: Visit Provider Urology
DX: N20.0 Calculus of kidney (principal)
CPT/HCPCS: 76775

== ENCOUNTER → 2022-09-29 13:13 | Outpatient (BNVA) | payer MEDICARE, OTHER, SELFPAY | PROVIDERS: PCP Nurse Practitioner Family; Visit Provider Urology | DX: R33.9 Retention of urine, unspecified (principal); R39.12 Poor urinary stream; N20.0 Calculus of kidney | CPT/HCPCS: 51798; Q3014 ==

== ENCOUNTER 2023-01-22 14:31 | Outpatient (REF) | payer MEDICARE, OTHER, SELFPAY ==
[2023-01-22 16:08] LABS: Alanine Aminotransferase 26 U/L (0-31); Alkaline Phosphatase 107 U/L (39-117); Anion Gap 12 (12-20); Aspartate Amino Transferase 19 U/L (5-31); Bilirubin Total 0.3 mg/dL (0.0-1.0); Blood Urea Nitrogen 13 mg/dL (9-16); Calcium 9.2 mg/dL (8.4-10.2); Carbon Dioxide 29 mmol/L (22-29); Chloride 108 mmol/L (96-108); Estimated Glomerular Filt Rate > 60; Glucose Random 81 mg/dL (60-115); Potassium 4.7 mmol/L (3.3-5.1); Sodium 144 mmol/L (135-145); Total Protein 6.4 g/dL (6.5-8.0)
[2023-01-22 16:41] LABS: Folate > 20.0 ng/mL (> or = 4.0); T4 Thyroxine 6.4 ug/dL (4.5-12.0); Thyroid Stimulating Hormone 0.97 uIU/mL (0.32-4.0); Vitamin B12 910 pg/mL (200-900)
== END 2023-01-22 14:32 | disposition home or self-care (01) ==
LOC: HO.LAB 14:31
PROVIDERS: PCP Nurse Practitioner Family; Visit Provider Psychiatry & Neurology Neurology
DX: G31.84 Mild cognitive impairment of uncertain or unknown etiology (principal)
CPT/HCPCS: 36415; 80053; 82607; 82746; 84436; 84443

== ENCOUNTER 2023-03-09 09:58 | Outpatient (REF) | payer MEDICARE, OTHER, SELFPAY ==
[2023-03-09 15:56] LABS: Alanine Aminotransferase 24 U/L (0-31); Albumin Level 4.2 g/dL (3.5-5.0); Alkaline Phosphatase 108 U/L (39-117); Anion Gap 13 (12-20); Aspartate Amino Transferase 18 U/L (5-31); Bilirubin Total 0.3 mg/dL (0.0-1.0); Blood Urea Nitrogen 14 mg/dL (9-16); Calcium 9.6 mg/dL (8.4-10.2); Carbon Dioxide 27 mmol/L (22-29); Chloride 107 mmol/L (96-108); Cholesterol 200 mg/dL; Estimated Glomerular Filt Rate > 60; Glucose Fasting 73 mg/dL (60-99); HDL Cholesterol 62 mg/dL; LDL Cholesterol Calculated 117 mg/dl; Sodium 142 mmol/L (135-145); Total Protein 6.8 g/dL (6.5-8.0); Triglycerides 108 mg/dL
== END 2023-03-09 09:59 | disposition home or self-care (01) ==
LOC: HO.LAB 09:58
PROVIDERS: PCP Nurse Practitioner Family; Visit Provider Nurse Practitioner Family
DX: E78.5 Hyperlipidemia, unspecified (principal)
CPT/HCPCS: 36415; 80053; 80061

== ENCOUNTER 2023-03-28 08:06 | Emergency (ER) | payer MEDICARE, OTHER, SELFPAY ==
[2023-03-28] VITALS (7 sets, daily range): BP systolic 107–162; BP diastolic 52–99; PULSE 77–94; RESP 14–18; TEMP 36.3–37.1; O2SAT 95–98; BMI 37.5
--- NOTE | ~2023-03-28 | XR_ITS ---
EXAMINATION: XR ABDOMEN KUB CLINICAL INDICATION: Abdominal discomfort. COMPARISON: None available. TECHNIQUE: AP view of the abdomen. FINDINGS: There is a nonobstructive bowel gas pattern. Mild gas and stool are seen within the colon distally to the rectum. No abnormal calcifications. Mild lumbar levoscoliosis is seen with mild to moderate multilevel degenerative changes. . Bilateral hip hardware appears intact. XR/XR KUB IMPRESSION: Nonobstructive bowel gas pattern.
--- NOTE | 2023-03-28 08:24 | ECG_ITS ---
Test Reason : medication Blood Pressure : / mmHG Vent. Rate : 073 BPM Atrial Rate : 073 BPM P-R Int : 142 ms QRS Dur : 096 ms QT Int : 408 ms P-R-T Axes : 038 056 034 degrees QTc Int : 449 ms Normal sinus rhythm Nonspecific T wave abnormality Abnormal ECG When compared with ECG of 04-NOV-2018 22:41, Nonspecific T wave abnormality now evident in Anterior leads Referred By: Fabiola Leon Electronically Signed By:Vitaly Chong
--- NOTE | 2023-03-28 08:27 | ED.GENADULT ---
HPI - General Adult General Chief complaint: General Medical Stated complaint: Weakness, nausea per EMS Source: patient and other Mode of arrival: EMS History of Present Illness HPI narrative: 67-year-old female who endorses and MDD is had 2 weeks of weakness, nausea and she states poor med compliance with her depression medication, decrease in appetite but otherwise denies any fevers she does report chills but denies obstipation, urinary symptoms. Patient states she has been seen 3 times at [facility] over the past week but they are not doing anything?. Patient reports that they are currently treating her for oral thrush. Related Data Home Medications Medication Instructions Recorded Confirmed Vitamin D3 (with calcium carb) 1 tab PO DAILY 06/25/20 09/30/22 levomefolate 7.5 mg-algal oil 1 cap PO DAILY 06/25/20 09/30/22 90.314 mg capsule (L-Methylfolate Forte) lidocaine 5 % topical patch patch topical 11/05/20 09/30/22 eszopiclone 3 mg tablet 3 mg PO .COMPLEX 01/19/21 09/30/22 clonazepam 0.5 mg tablet 0.25 mg PO .four times daily 09/27/21 09/30/22 valbenazine 80 mg capsule 80 mg PO DAILY 09/27/21 09/30/22 (Ingrezza) quetiapine 25 mg tablet mg PO 09/29/22 09/30/22 trazodone 50 mg tablet mg PO 09/29/22 09/30/22 zolpidem 10 mg tablet mg PO 09/29/22 09/30/22 Previous Rx's Medication Instructions Recorded biotin 5 mg capsule 5 mg PO DAILY 30 days #30 caps 06/17/20 omeprazole 10 mg capsule,delayed 10 mg PO DAILY 30 days #30 caps 01/24/22 release sennosides 8.6 mg tablet (Senna 8.6 mg PO BEDTIME PRN for 01/24/22 Laxative) constipation #60 tabs estradiol 0.01% (0.1 mg/gram) 0.25 appful vaginal 2XW 4 weeks 03/08/22 vaginal cream (Estrace) #42.5 grams ezetimibe 10 mg tablet 10 mg PO DAILY 90 days #90 tabs 05/03/22 pyridoxine (vitamin B6) 100 mg 100 mg PO DAILY 90 days #90 tabs 05/03/22 tablet diclofenac sodium 50 mg 50 mg PO Q12H PRN for pain #60 tabs 08/18/22 tablet,delayed release polyethylene glycol 3350 17 1 g PO BID PRN constipation #1,020 12/15/22 gram/dose oral powder grams tamsulosin 0.4 mg capsule (Flomax) 0.4 mg PO DAILY #90 caps 12/29/22 atorvastatin 20 mg tablet 20 mg PO BEDTIME 90 days #90 tabs 03/02/23 levocetirizine 5 mg tablet 5 mg PO DAILY #90 tabs 03/02/23 calcium polycarbophil 625 mg 1,250 mg PO DAILY #60 tabs 03/14/23 tablet (Fiber (calcium polycarbophil)) Allergies Allergy/AdvReac Type Severity Reaction Status Date / Time ropinirole [ROPINIROLE] Allergy Intermediate WORSE Verified 09/29/22 14:46 RESTLESS LEG duloxetine [Cymbalta] AdvReac Intermediate Worsening Verified 09/29/22 14:46 RLS meperidine [From DEMEROL] AdvReac Intermediate NAUSEA & Verified 09/29/22 14:46 VOMITING Review of Systems Review of Systems: Rohit positives and negatives as stated in HPI [facility] Past Medical History Source: nursing notes reviewed Medical History Abdominal pain Arthritis Arthritis of foot Asthma Back pain Constipation Constipation by delayed colonic transit Elevated cholesterol Fatty liver Fibromyalgia GERD (gastroesophageal reflux disease) Hyperlipidemia Lumbar spinal stenosis Nephrolithiasis JOY (obstructive sleep apnea) Osteoarthritis Postmenopausal Pyelonephritis Radiculopathy Renal cyst Restless leg syndrome Sepsis Sleep apnea Tubular adenoma of colon Surgical History H/O cystoscopy (05/03/20) History of bilateral hip replacements History of bilateral knee replacement History of lumbar laminectomy for spinal cord decompression History of oophorectomy, unilateral Hx of colonoscopy Hx of dilation and curettage Hx of foot surgery Hx of lithotripsy Family History Family History Father Heart disease Thyroid cancer Diabetes COPD (chronic obstructive pulmonary disease) Sleep apnea Mother Diabetes Cancer Chronic mental illness Colon cancer Other Fibromyalgia Mental health disorder Substance use disorder Social History Social History Housing: Apartment Alcohol intake: current Alcohol intake frequency: a few times a month Patient Tobacco Use Status: Former Tobacco user Tobacco use type: Cigarette Cigarettes Per Day: 40 Years Smoked: 17 e-Cigarette/Vaping Use: Never Used Second Hand Smoke Exposure: No Advance Directives: No Advance Directives Information Provided: No Current occupational status: unemployed and disabled Cognitive needs: No Hearing needs: No Vision needs: No Physical Exam ED Vital Signs: Vital Signs - 24 hr 03/28/23 08:20 03/28/23 10:10 Temperature 98.5 F 98.4 F Pulse Rate 77 86 Respiratory Rate 16 16 Blood Pressure 154/52 H 152/74 H Pulse Oximetry 98 98 Oxygen Delivery Method Room Air Room Air BMI result Body Mass Index 37.5 VITAL SIGNS: Reviewed. GENERAL: Well developed, well nourished, in no acute distress. HEAD: Normocephalic/atraumatic EYES: PERRLA, EOMI EARS: Ext canals without abnormality NOSE: Nares patent bilateral OROPHARYNX: no oral lesions noted, posterior pharynx clear, no evidence of thrush in the oral cavity, some whitish material on tongue surface NECK: Supple, no adenopathy LUNGS: Normal breath sounds. No adventitious sounds or accessory muscle use. SpO2<98> CARDIOVASCULAR: Regular rate and rhythm without noted murmurs, no JVD or lower extremity edema. ABDOMEN: Soft, mild discomfort in left lower quadrant, non-distended with bowel sounds. MUSCULOSKELETAL: No tenderness, deformities, or effusions noted on gross inspection. EXTREMITIES: No cyanosis, clubbing or edema. SKIN: Inspection of the skin reveals no rashes NEUROLOGIC: Alert and oriented x 4. Strength and sensation to light touch were grossly intact x 4, cranial nerves 2-12 are grossly intact. Medications Administered Discontinued Medications Generic Name Dose Route Start Last Admin Trade Name Freq PRN Reason Stop Dose Admin Ondansetron HCl 4 mg 03/28/23 08:25 03/28/23 10:13 Ondansetron Odt 4 Mg Tab.Rapdis TRANSLINGU 03/28/23 08:26 4 mg ONCE ONE Administration Medical Decision Making Medical Decision Making [facility] Narrative: 0831: 67-year-old female with history and clinical presentation, DDX: Decompensated MDD, infection, anemia, metabolic derangement, dehydration. I do not plan to repeat imaging, urinalysis, or laboratory workup if there has been comprehensive evaluation at [facility]. Patient is otherwise currently hemodynamically stable. INTERVENTION: Records request from [facility] - POC, EKG, Kal I reviewed all investigations and head decide to get basic lab work because I was unsure when we might get outside documentation from [facility] and wished to expedite patient's evaluation by the care team. Hematologic indices negative for evidence to support infection, there is no leukocytosis or left shift, no thrombocytopenia there is no anemia. Chemistry indices are negative for electrolyte derangements, there is no BAILEY for significant liver enzyme abnormalities. Urinalysis does appear to be positive for urinary tract infection and patient will be treated with a 7 day course of Macrobid. Patient is otherwise medically cleared for further evaluation by the care team. I did review the workup completed by [facility] on 03/26, 03/27, no obvious laboratory derangements and chest x-ray on 03/26 without evidence to suggest pneumonia/pneumothorax in otherwise no reportable abnormalities. Patient placed in physician observation because the patient needed more time for evaluation by the care team. At the time observation was started the patient's vital signs were stable, patient is alert and oriented, neuro: Nonfocal, CV RRR, lungs clear Differential Diagnosis Differential Diagnoses: The differential diagnosis associated with the presentation includes Please see the discussion above Admission/Observation Consideration of admission/observation: Escalation of care including admission/observation considered Please see the discussion above Consult Healthcare Provider Management of the patient was discussed with: Railway Signalling Engineer Please see the discussion above Lab Data MDM Lab Attestation statement: I reviewed the patient's lab results. Please see the discussion above 03/28/23 10:34 03/28/23 10:34 Labs: Lab Results 03/28/23 03/28/23 03/28/23 Range/Units 08:29 10:34 10:34 WBC 7.5 (4.8-10.8) X10*3/uL RBC 5.12 (4.20-5.50) X10*6/uL Hgb 15.6 (12.0-16.0) g/dl Hct 47.8 H (37.0-47.0) % MCV 93.4 (80.0-98.0) fL MCH 30.5 (27.0-33.0) pg MCHC 32.6 (31.0-35.0) g/dl RDW 13.2 (11.0-16.0) % Plt Count 225 (160-400) X10*3/uL MPV 10.5 (9.4-12.3) fL Immature Gran % (Auto) 0.4 (0.0-0.4) % Neut % (Auto) 54.0 (45-73) % Lymph % (Auto) 30.0 (20-40) % Gallia % (Auto) 14.3 H (2-11) % Eos % (Auto) 0.4 (0-4) % Baso % (Auto) 0.9 (0-2) % Lymph # (Auto) 2.2 (1.2-4.9) X10*3/uL Gall[place] # (Auto) 1.1 (0.1-1.2) X10*3/uL Eos # (Auto) 0.0 (0.0-0.4) X10*3/uL Baso # (Auto) 0.1 (0.0-0.2) X10*3/uL Abs Immat Gran (auto) 0.03 (0.00-0.03) X10*3/uL Absolute Neuts (auto) 4.0 (2.0-8.3) x10*3/uL Absolute Nucleated RBC 0.000 (0.0-0.012) X10*3/uL Nucleated RBC % (auto) 0.0 (0.0-0.2) /100WBC Sodium 143 (135-145) mmol/L Potassium 4.0 (3.3-5.1) mmol/L Chloride 107 (96-108) mmol/L Carbon Dioxide 27 (22-29) mmol/L Anion Gap 13 (12-20) BUN 8 L (9-16) mg/dL Creatinine 0.85 (0.5-1.4) mg/dL Estim Creat Clear Calc 73.4 Estimated GFR > 60 POC Glucose 126 H (60-115) mg/dL Random Glucose 108 (60-115) mg/dL Calcium 10.2 D (8.4-10.2) mg/dL Total Bilirubin 0.5 (0.0-1.0) mg/dL AST 29 (5-31) U/L ALT 32 H (0-31) U/L Alkaline Phosphatase 101 (39-117) U/L Total Protein 7.5 (6.5-8.0) g/dL Albumin 4.5 (3.5-5.0) g/dL Urine Color Urine Appearance Urine pH (5.0-9.0) Ur Specific [place] (1.005-1.025) Urine Protein (Neg-Trace) mg/dL Urine Glucose (UA) (Negative) mg/dL Urine Ketones (Negative) mg/dL Urine Blood (Negative) Urine Nitrite (Negative) Ur Leukocyte Esterase (Negative) Urine RBC (0-2) /HPF Urine WBC (0-5) /HPF Ur Squamous Epith Cells (0-2) /HPF Urine Bacteria (None Seen) Hyaline Casts (0-2) /LPF 03/28/23 Range/Units 11:17 WBC (4.8-10.8) X10*3/uL RBC (4.20-5.50) X10*6/uL Hgb (12.0-16.0) g/dl Hct (37.0-47.0) % MCV (80.0-98.0) fL MCH (27.0-33.0) pg MCHC (31.0-35.0) g/dl RDW (11.0-16.0) % Plt Count (160-400) X10*3/uL MPV (9.4-12.3) fL Immature Gran % (Auto) (0.0-0.4) % Neut % (Auto) (45-73) % Lymph % (Auto) (20-40) % Gallia % (Auto) (2-11) % Eos % (Auto) (0-4) % Baso % (Auto) (0-2) % Lymph # (Auto) (1.2-4.9) X10*3/uL Gall[place] # (Auto) (0.1-1.2) X10*3/uL Eos # (Auto) (0.0-0.4) X10*3/uL Baso # (Auto) (0.0-0.2) X10*3/uL Abs Immat Gran (auto) (0.00-0.03) X10*3/uL Absolute Neuts (auto) (2.0-8.3) x10*3/uL Absolute Nucleated RBC (0.0-0.012) X10*3/uL Nucleated RBC % (auto) (0.0-0.2) /100WBC Sodium (135-145) mmol/L Potassium (3.3-5.1) mmol/L Chloride (96-108) mmol/L Carbon Dioxide (22-29) mmol/L Anion Gap (12-20) BUN (9-16) mg/dL Creatinine (0.5-1.4) mg/dL Estim Creat Clear Calc Estimated GFR POC Glucose (60-115) mg/dL Random Glucose (60-115) mg/dL Calcium (8.4-10.2) mg/dL Total Bilirubin (0.0-1.0) mg/dL AST (5-31) U/L ALT (0-31) U/L Alkaline Phosphatase (39-117) U/L Total Protein (6.5-8.0) g/dL Albumin (3.5-5.0) g/dL Urine Color Yellow Urine Appearance Clear Urine pH 7.0 (5.0-9.0) Ur Specific [place] <= 1.005 (1.005-1.025) Urine Protein Negative (Neg-Trace) mg/dL Urine Glucose (UA) Negative (Negative) mg/dL Urine Ketones Trace (Negative) mg/dL Urine Blood Negative (Negative) Urine Nitrite Negative (Negative) Ur Leukocyte Esterase Moderate (2+) H (Negative) Urine RBC 0-2 (0-2) /HPF Urine WBC 21-50 H (0-5) /HPF Ur Squamous Epith Cells 3-5 (0-2) /HPF Urine Bacteria Trace (None Seen) Hyaline Casts 0-2 (0-2) /LPF Independent Interpretation I performed an independent interpretation of an: EKG Interpretation: Normal sinus rhythm, HR-73, no STEMI, MT/QRS/QTC is within normal limits. External Record Review External record reviewed: Outpatient record, Prior outpatient labs and Outside ED record Chronic Conditions Patient?s care impacted by: Diabetes, Hypertension and Other Depression Critical Care Time Critical Care Time Critical Care Time: Yes Total Critical Care Time: 30 Attestation: I personally attest to this time spent taking care of the patient. Discharge Plan Discharge Clinical Impression: Depression, Acute UTI Patient Disposition: Still a Patient Prescriptions: No Action biotin 5 mg capsule 5 mg PO DAILY 30 Days Qty: 30 2RF estradiol [Estrace] 0.01 % (0.1 mg/gram) cream 0.25 appful vaginal 2XW 28 Days Qty: 42.5 0RF Rx Instructions: twice a week for 4 weeks ezetimibe 10 mg tablet 10 mg PO DAILY 90 Days Qty: 90 3RF pyridoxine (vitamin B6) 100 mg tablet 100 mg PO DAILY 90 Days Qty: 90 0RF diclofenac sodium 50 mg tablet,delayed release (DR/EC) 50 mg PO Q12H PRN (Reason: for pain) Qty: 60 0RF polyethylene glycol 3350 17 gram/dose powder 1 g PO BID PRN (Reason: constipation) Qty: 1020 3RF tamsulosin [Flomax] 0.4 mg capsule 0.4 mg PO DAILY Qty: 90 1RF levocetirizine 5 mg tablet 5 mg PO DAILY Qty: 90 0RF atorvastatin 20 mg tablet 20 mg PO BEDTIME 90 Days Qty: 90 0RF calcium polycarbophil [Fiber (calcium polycarbophil)] 625 mg tablet 1,250 mg PO DAILY Qty: 60 4RF Vitamin D3 (with calcium carb) 1 tab PO DAILY levomefolate-algal oil [L-Methylfolate Forte] 7.5-90.314 mg Capsule 1 cap PO DAILY eszopiclone 3 mg tablet 3 mg PO .COMPLEX Rx Instructions: 6 mg PO clonazepam 0.5 mg tablet 0.25 mg PO .four times daily Ingrezza 80 mg capsule 80 mg PO DAILY lidocaine 5 % adhesive patch,medicated topical omeprazole 10 mg capsule,delayed release(DR/EC) 10 mg PO DAILY 30 Days Qty: 30 6RF sennosides [Senna Laxative] 8.6 mg tablet 8.6 mg PO BEDTIME PRN (Reason: for constipation) Qty: 60 3RF quetiapine 25 mg tablet PO trazodone 50 mg tablet PO zolpidem 10 mg tablet PO
[2023-03-28 08:34] LABS: Glucose, Whole Blood 126 mg/dL (60-115)
[2023-03-28] MEDS: Ondansetron ODT 4 MG TAB.RAPDIS TRANSLINGU (10:13)
[2023-03-28 10:37] LABS: MANUAL DIFF FLAG NO
[2023-03-28 10:38] LABS: Basophils Absolute Auto 0.1 X10*3/uL (0.0-0.2); Basophils Percent Auto 0.9 % (0-2); Eosinophils Percent Auto 0.4 % (0-4); Hematocrit 47.8 % (37.0-47.0); Hemoglobin 15.6 g/dl (12.0-16.0); Imm Gran Abs Auto 0.03 X10*3/uL (0.00-0.03); Imm Gran Pct Auto 0.4 % (0.0-0.4); Lymphocytes Absolute Auto 2.2 X10*3/uL (1.2-4.9); Mean Corpuscular HGB Conc 32.6 g/dl (31.0-35.0); Mean Corpuscular Hemoglobin 30.5 pg (27.0-33.0); Mean Corpuscular Volume 93.4 fL (80.0-98.0); Mean Platelet Volume 10.5 fL (9.4-12.3); Monocytes Absolute Auto 1.1 X10*3/uL (0.1-1.2); Monocytes Percent Auto 14.3 % (2-11); Platelet Count 225 X10*3/uL (160-400); Red Blood Count 5.12 X10*6/uL (4.20-5.50); Red Cell Distribution Width 13.2 % (11.0-16.0); White Blood Count 7.5 X10*3/uL (4.8-10.8)
[2023-03-28 10:52] LABS: Alanine Aminotransferase 32 U/L (0-31); Albumin Level 4.5 g/dL (3.5-5.0); Alkaline Phosphatase 101 U/L (39-117); Anion Gap 13 (12-20); Aspartate Amino Transferase 29 U/L (5-31); Bilirubin Total 0.5 mg/dL (0.0-1.0); Blood Urea Nitrogen 8 mg/dL (9-16); Calcium 10.2 mg/dL (8.4-10.2); Carbon Dioxide 27 mmol/L (22-29); Chloride 107 mmol/L (96-108); Creatinine Clr Calc Pharmacy 73.4; Estimated Glomerular Filt Rate > 60; Glucose Random 108 mg/dL (60-115); Sodium 143 mmol/L (135-145); Total Protein 7.5 g/dL (6.5-8.0)
[2023-03-28 11:24] LABS: Appearance Urine Clear; Color Urine Yellow; Glucose Urine UA Negative (Negative); Leukocyte Esterase Urine Moderate (2+) (Negative); Nitrite Urine Negative (Negative); Specific Gravity - Urine <= 1.005 (1.005-1.025); UMIC TRIGGER UACC YES; Urine Blood Negative (Negative); Urine Ketones Trace mg/dL (Negative); Urine Protein Negative (Neg-Trace)
[2023-03-28 11:28] LABS: Bacteria Urine Trace (None Seen); Hyaline Casts Urine 0-2 /LPF (0-2); RBC Urine 0-2 /HPF (0-2); UACC Culture Trigger YES; WBC Urine 21-50 /HPF (0-5)
[2023-03-28] MEDS: Nitrofurantoin Monohyd/M-Cryst 100 MG CAPSULE PO (12:43)
--- NOTE | 2023-03-28 13:23 | PC.NURSE ---
confirmed w/pharmacy they are working on completing med rec- md edgar aware pt state does not feel safe going home per pt report as she stated she feels like people are breaking in, though she recognized/stated it is due to paranoid and that people are not actually trying to break in. md edgar said referred to care team for continued eval.
--- NOTE | 2023-03-28 13:32 | PHA.MEDREC ---
Pharmacy Consult ? Medication Reconciliation Pharmacy has completed the medication reconciliation. spoke with patient to confirm medications. She reports trying to wean off klonopin and is at 0.25 mg QID. Same with seroquel, currently at 25mg QAM. She was taking trazodone until she had a bad reaction to it a few days ago, no longer taking. She only takes omeprazole as needed, past 2 days especially according to her. She said she recently switched from lunesta to ambien. She did have a prescription for loperamide from her recent discharge but patient reports not using it. Patient told me she took wellbutrin, klonopin, and seroquel today.
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
--- NOTE | 2023-03-28 15:56 | PC.NURSE ---
printed papers and attempting to d/c pt- asking md if can have order for ativan prior to leaving- inquirng w md before d/c per pt's request.
--- NOTE | 2023-03-28 16:47 | PC.NURSE ---
attempted to d/c again. requesting new rx pharmacy- changed- d/c.
--- NOTE | 2023-03-29 07:06 | MHC.CARE ---
Pt has been referred to [facility] faxed 03/29/23 Pt has been referred to [facility], emailed 03/29/23 Pt has been referred to [facility] PHP & IOP, faxed 03/29/23
== END 2023-03-28 16:48 | disposition home or self-care (01) ==
PROVIDERS: Emergency Provider Student in an Organized Health Care Education/Training Program; PCP Nurse Practitioner Family
DX: N39.0 Urinary tract infection, site not specified (principal); F33.1 Major depressive disorder, recurrent, moderate; R94.31 Abnormal electrocardiogram [ECG] [EKG]; R10.2 Pelvic and perineal pain; Z79.899 Other long term (current) drug therapy
CPT/HCPCS: 36415; 74018; 80053; 81001; 82947; 85025; 87086; 93005; 99284

== ENCOUNTER → 2023-03-28 08:24 | Outpatient (BNV) | payer MEDICARE, OTHER, SELFPAY | PROVIDERS: Emergency Provider Student in an Organized Health Care Education/Training Program; PCP Nurse Practitioner Family; Visit Provider Internal Medicine Cardiovascular Disease | DX: R94.31 Abnormal electrocardiogram [ECG] [EKG] (principal) | CPT/HCPCS: 93010 ==

== ENCOUNTER 2023-04-09 15:32 | Outpatient (AMB) | payer MEDICARE, OTHER, SELFPAY ==
--- NOTE | 2023-04-09 15:34 | MHC.OFFVIS ---
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 Patient also takes fiber supplements couple times a day she can continue that.? Patient reports that she has been moving her bowels daily.? No need to change the plan.? Patient will call me if this treatment will not going to be effective and she will need other intervention.? Continue high-fiber diet.? Increase activity and fluid intake (2) GERD (gastroesophageal reflux disease): ?Code(s): K21.9 - Gastro-esophageal reflux disease without esophagitis ?Qualifiers: ?Esophagitis presence:?esophagitis presence not specified? Qualified Code(s):?K21.9 - Gastro-esophageal reflux disease without esophagitis ?Plan: Acid reflux symptoms are suppressed.? Patient denies any dyspepsia, dysphagia or odynophagia.? Continue current dose of PPI.? Discussed with patient avoiding dietary triggers in late night snacking.? Staying upright for minimum 3 hours after meals.? I will see her in 1 year, sooner on as needed basis.? Patient is agreeable to this plan and verbalizes understanding of instructions.? She was given the opportunity to ask questions and all questions answered.? TODAY'S VISIT: Is here for requested visit. Patient states that she was in the emergency room in the beginning of this month and was placed on antibiotics for UTI. Patient was also placed on medication to treat thrush in her mouth. However patient reports that she continues to have thrush. She brushed her teeth 4 times today reports her tongue sore. Patient denies dyspepsia, dysphagia or odynophagia. Patient reports that she is taking up probiotic and also eating yogurt. Patient reports postprandial abdominal bloating and occasional nausea. Patient reports that she is moving her bowels, however she feels like she does not empty them completely. Patient reports occasional postprandial loose stools. Patient is not on any particular diet. Patient states that she is unable to lose weight even though she is not eating that much. Patient denies melena, hematochezia, unintentional weight loss or ribbon like stools. [facility] Medical History Abdominal pain Arthritis Arthritis of foot Asthma Back pain Constipation Constipation by delayed colonic transit Elevated cholesterol Fatty liver Fibromyalgia GERD (gastroesophageal reflux disease) Hyperlipidemia Lumbar spinal stenosis Nephrolithiasis JOY (obstructive sleep apnea) Osteoarthritis Postmenopausal Pyelonephritis Radiculopathy Renal cyst Restless leg syndrome Sepsis Sleep apnea Tubular adenoma of colon Surgical History H/O cystoscopy (05/03/20) History of bilateral hip replacements History of bilateral knee replacement History of lumbar laminectomy for spinal cord decompression History of oophorectomy, unilateral Hx of colonoscopy Hx of dilation and curettage Hx of foot surgery Hx of lithotripsy Family History Father Heart disease Thyroid cancer Diabetes COPD (chronic obstructive pulmonary disease) Sleep apnea Mother Diabetes Cancer Chronic mental illness Colon cancer Other Fibromyalgia Mental health disorder Substance use disorder Social History Housing: Apartment Alcohol intake: current Alcohol intake frequency: does not drink Patient Tobacco Use Status: Former Tobacco user Tobacco use type: Cigarette Cigarettes Per Day: 40 Years Smoked: 17 e-Cigarette/Vaping Use: Never Used Second Hand Smoke Exposure: No Current occupational status: unemployed and disabled Cognitive needs: No Hearing needs: No Vision needs: No Review of Systems Const Denies weight gain and Denies weight loss ENT Reports no additional complaints, Denies dysphagia and Denies odynophagia Card Reports no additional complaints Resp Reports no additional complaints GI Denies abdominal pain, Denies belching, Denies melena, Denies bloating, Denies change in bowel habits, Reports constipation, Denies dysphagia, Denies excessive flatus, Denies dyspepsia, Denies heartburn, Denies diarrhea, Denies loose stools, Denies nausea, Denies odynophagia and Denies vomiting Reports no additional complaints Musc Reports no additional complaints Neuro Reports no additional complaints Psych Reports no additional complaints Endo Reports no additional complaints Physical Exam Const General: healthy appearing, no acute distress and well developed Nutritional Appearance: obese Orientation/consciousness: patient oriented x3 HEENT Head: Yes normal to inspection, Yes normocephalic and Yes atraumatic Face and sinus: Yes normal facial exam Mouth: Normal oral and palatal mucosa present and tongue abnormal (Small 0.4 mm ulceration to R side) Throat: Yes posterior oropharynx normal, Yes tonsils normal and Yes uvula midline Eyes General: appearance normal, both eyes and all related structures Neck Neck: Yes normal visual inspection, Yes full ROM and Yes trachea midline Thyroid: Thyroid normal Resp Effort & Inspection: normal respiratory effort, able to speak in complete sentences, no tracheal deviation and symmetric chest movement Auscultation: clear to auscultation bilaterally Cardio Rate: regular rate Heart sounds: S1 normal heart sound present and S2 normal heart sound present GI Inspection: Yes normal to inspection, No distended and Yes obesity Palpation (GI): Soft to palpation, not firm, nontender and No hepatosplenomegaly present Auscultation: normal bowel sounds General: Yes no CVA tenderness Back/Spine/Pelvis Back: no CVA tenderness Skin General skin exam: elasticity normal, turgor normal and dry skin Neuro General: patient oriented x3 Psych Appearance: grossly normal Mental Status: mental status grossly normal Speech and movement: Normal speech and movement present Assessment & Plan Assessment & Plan (1) Constipation by delayed colonic transit: Code(s): K59.01 - Slow transit constipation Plan: Patient will switch her fiber to Citrucel. Patient can continue taking MiraLax on as needed basis. Patient was encouraged to increase fluid intake and activity to promote better bowel motility. (2) Oral candidiasis: Code(s): B37.0 - Candidal stomatitis Plan: Patient reports pain in her mouth. Patient has 1 small ulcer on her right side of her tongue. Patient will apply lidocaine viscous half an hour before nystatin swish and spit. Patient denies any dyspepsia, sore throat, dysphagia. (3) Postprandial abdominal bloating: Code(s): R14.0 - Abdominal distension (gaseous) Plan: Patient reports postprandial abdominal bloating. Discussed with patient low FODMAP diet. List of food recommended as well as list of food to avoid given to patient. I will see her in 2 months, sooner on as needed basis. Patient is agreeable to plan of care and verbalizes understanding of instructions. She was given the opportunity to ask questions and all questions answered. Thank you for allowing me to participate in her care Medications: New nystatin swish and spit spit. Use your lidocaine before 1 mL PO BID 60 mL 0RF lidocaine HCl 2% (Lidocaine Viscous) Apply to affected area on your tongue and then spit out. Do not swallow. Do it half an hour before you do Nystatin swish and spit 1 appl mucous membrane BID 100 mL 0RF methylcellulose (laxative) (Citrucel) take it with full glass of water 500 mg PO DAILY 90 tabs 2RF K59.00 - Constipation, unspecified Discontinued polyethylene glycol 3350 1 g PO BID PRN 1,020 grams 3RF constipation K59.01 - Slow transit constipation Coding Level of Care Code Est Pt Level 3 (64814) Diagnoses Constipation by delayed colonic transit K59.01 Oral candidiasis B37.0 Postprandial abdominal bloating R14.0 Time Spent (min) 30 Comment 20 minutes spent with patient and additional 10 minutes spent reviewing her records
[2023-04-09 15:37] VITALS: BP 160/83; PULSE 78; BMI 37.0
== END 2023-04-09 16:03 | disposition home or self-care (01) ==
PROVIDERS: PCP Nurse Practitioner Family; Visit Provider Nurse Practitioner Family
DX: K59.01 Slow transit constipation (principal); B37.0 Candidal stomatitis; R14.0 Abdominal distension (gaseous)
CPT/HCPCS: 99213

== ENCOUNTER → 2023-04-09 15:32 | Outpatient (BNVA) | payer MEDICARE, OTHER, SELFPAY | PROVIDERS: PCP Nurse Practitioner Family; Visit Provider Nurse Practitioner Family | DX: K59.01 Slow transit constipation (principal); B37.0 Candidal stomatitis; R14.0 Abdominal distension (gaseous) | CPT/HCPCS: 99212 ==

== ENCOUNTER 2023-04-13 14:02 | Outpatient (AMB) | payer MEDICARE, OTHER, SELFPAY ==
--- NOTE | 2023-04-13 14:01 | MHC.OFFWIV ---
Intake Vital Signs 04/13/23 14:11 Weight 215 lb BP 126/82 Blood Pressure Location Lt brachial Position Sitting Pulse 78 Pulse Source Pulse Oximeter Temp 97.7 F Temp Source Temporal Artery Scan Pulse Oximetry (%) 97 Oxygen Delivery Method Room Air Intake Visit Reasons: EP, UTI? Intake Note: Patient here for UTI, she states the past 3 days it has been pretty bad. pt mentioned that she is pushing fluids and not having much luck emptying the bladder, she feels bloated. Patient Tobacco Use Status: Former Tobacco user Allergies ropinirole [ROPINIROLE] Allergy (Intermediate, Verified 04/13/23 14:09) WORSE RESTLESS LEG duloxetine [Cymbalta] Adverse Reaction (Intermediate, Verified 04/13/23 14:09) Worsening RLS meperidine [From DEMEROL] Adverse Reaction (Intermediate, Verified 04/13/23 14:09) NAUSEA & VOMITING trazadone Adverse Reaction (Severe, Uncoded 04/13/23 14:09) Palpitations Do you need a note to return to daycare/school/sports/work: No HPI HPI Comments History of Present Illness Details This is a 67-year-old female who presents to the office today for sick visit. Patient presenting with multiple complaints. First, she has a white coating on her tongue and states she is being treated for thrush. She denies any sore throat or difficulty swallowing. She is able to eat and drink normally without pain or difficulty. She denies any throat swelling. Second, she is requesting ativan for taper. She states her psychiatrist has been tapering her off and she contacted him for 3 more days worth but he declined. She states she has been taking 1mg daily for the past 1 week and she was advised to continue with 0.5mg daily until she was out. She states she does not believe she has enough to get her through. She has a plastic bag with 7x 0.5mg pieces. Patient also reports difficulty urinating for the past 2 days. She states she has been increasing her fluid intake but is still having difficulty urinating. She denies any fevers or chills. She denies any flank or back pain. [facility], [facility] Medical History Abdominal pain Arthritis Arthritis of foot Asthma Back pain Constipation Constipation by delayed colonic transit Elevated cholesterol Fatty liver Fibromyalgia GERD (gastroesophageal reflux disease) Hyperlipidemia Lumbar spinal stenosis Nephrolithiasis JOY (obstructive sleep apnea) Osteoarthritis Postmenopausal Pyelonephritis Radiculopathy Renal cyst Restless leg syndrome Sepsis Sleep apnea Tubular adenoma of colon Surgical History H/O cystoscopy (05/03/20) History of bilateral hip replacements History of bilateral knee replacement History of lumbar laminectomy for spinal cord decompression History of oophorectomy, unilateral Hx of colonoscopy Hx of dilation and curettage Hx of foot surgery Hx of lithotripsy Family History Father Heart disease Thyroid cancer Diabetes COPD (chronic obstructive pulmonary disease) Sleep apnea Mother Diabetes Cancer Chronic mental illness Colon cancer Other Fibromyalgia Mental health disorder Substance use disorder Social History Housing: Apartment Alcohol intake: current Alcohol intake frequency: does not drink Patient Tobacco Use Status: Former Tobacco user Tobacco use type: Cigarette Cigarettes Per Day: 40 Years Smoked: 17 e-Cigarette/Vaping Use: Never Used Second Hand Smoke Exposure: No Current occupational status: unemployed and disabled Cognitive needs: No Hearing needs: No Vision needs: No Review of Systems Const All systems reviewed & are unremarkable except as noted in HPI and below Reports no additional complaints Eyes Reports no additional complaints ENT Reports no additional complaints Card Reports no additional complaints Resp Reports no additional complaints GI Reports no additional complaints Reports no additional complaints Musc Reports no additional complaints Skin/Breast Reports system reviewed and no additional complaints, except as documented Neuro Reports no additional complaints Psych Reports no additional complaints Endo Reports no additional complaints Inder/Lymph Reports no additional complaints Aller/Immun Reports no additional complaints Physical Exam Vital Signs: Last Vital Signs Temp 97.7 F 04/13/23 14:11 Pulse 78 04/13/23 14:11 BP 126/82 04/13/23 14:11 Pulse Ox 97 04/13/23 14:11 Oxygen Delivery Method Room Air 04/13/23 14:11 Const General: cooperative, healthy appearing, no acute distress and well developed Orientation/consciousness: patient oriented x3 HEENT Other: White coating on tongue. Head: Yes normal to inspection Ears: hearing grossly normal bilaterally General nose exam: Normal external nose present Face and sinus: Yes normal facial exam Mouth: Normal oral and palatal mucosa present Eyes General: appearance normal, both eyes and all related structures Pupils: Equal, round and reactive pupils present EOM: EOMs intact bilaterally Resp Effort & Inspection: normal respiratory effort and no respiratory distress Auscultation: clear to auscultation bilaterally Cardio Rate: regular rate Rhythm: regular rhythm Heart sounds: no gallops, no murmurs and no rubs Peripheral pulses: Peripheral pulses 2+ throughout GI Inspection: No distended Palpation (GI): Soft to palpation and nontender Auscultation: normal bowel sounds General: Yes no CVA tenderness Back/Spine/Pelvis Back: no CVA tenderness Skin General skin exam: no rashes or lesions noted Neuro General: patient oriented x3 Cranial nerves: Yes CN's II-XII intact bilaterally and Yes Equal, round and reactive pupils present Gait exam (Neuro): Normal gait present Motor exam (neuro): 5/5 motor strength present throughout Extrem General: Yes normal to inspection, Yes full ROM and Yes no clubbing, cyanosis or edema Psych Appearance: grossly normal Mental Status: mental status grossly normal Results AMB Urinalysis, Automated UA Leukoctes 125 Mary/uL Last Edit by Lavell Collazo [facility] on 04/13/23 14:24 UA Nitrite Negative Last Edit by SaloniMartha Collazo [facility] on 04/13/23 14:24 UA Urobilinogen 0.2 mg/dL Last Edit by Lavell Collazo [facility] on 04/13/23 14:24 UA Protein 0 mg/dL Last Edit by Lavell Collazo [facility] on 04/13/23 14:24 UA pH 6.0 Last Edit by Lavell Collazo [facility] on 04/13/23 14:24 UA Blood 0 Edin/uL Last Edit by Lavell Collazo [facility] on 04/13/23 14:24 UA Specific [place] 1.010 Last Edit by Lavell Collazo [facility] on 04/13/23 14:24 UA Ketone Negative Last Edit by Lavell Collazo [facility] on 04/13/23 14:24 UA Bilirubin 0 mg/dL Last Edit by Lavell Collazo [facility] on 04/13/23 14:24 UA Glucose 0 mg/dL Last Edit by Lavell Collazo [facility] on 04/13/23 14:24 Results Reviewed Results Reviewed: Laboratory Last Values Urine pH (Auto) 6.0 04/13/23 14:23 Specific [place] (Auto) 1.010 04/13/23 14:23 Urine Protein (Auto) 0 mg/dL 04/13/23 14:23 Glucose (UA)(Auto) 0 mg/dL 04/13/23 14:23 Urine Ketones (Auto) Negative 04/13/23 14:23 Urine Blood (Auto) 0 Edin/uL 04/13/23 14:23 Urine Nitrite (Auto) Negative 04/13/23 14:23 Urine Bilirubin (Auto) 0 mg/dL 04/13/23 14:23 Urine Urobilinogen (Auto) 0.2 mg/dL 04/13/23 14:23 Leukocyte Esterase (Auto) 125 Mary/uL 04/13/23 14:23 Assessment & Plan Assessment & Plan (1) Oral candidiasis: Code(s): B37.0 - Candidal stomatitis Plan: Patient presenting with white coating on tongue. She denies any sore throat, difficulty swallowing, or painful swallowing. Patient states she is already on nystatin swish and spit but has only been utilizing it for 2 days. I advised patient to continue the nystatin swish and spit for a total of 7 days. Patient advised to follow up here if she were to develop difficulty swallowing, throat swelling, or inability to tolerate oral intake. (2) UTI (urinary tract infection): Code(s): N39.0 - Urinary tract infection, site not specified Plan: Patient reports some difficulty urinating. Urinalysis shows positive leukocyte esterase consistent with an acute uncomplicated urinary tract infection. Her vital signs are stable and she is overall nontoxic appearing. She has no CVA tenderness or signs of systemic infection. She is safe to be discharged home. She was sent home on p.o. sulfamethoxazole trimethoprim twice daily x7 days. Patient was advised to follow-up with the emergency room for any persistent or worsening difficulty urinating, fever/chills, or flank/back pain. Patient verbalizes her understanding is she is in agreement with the plan. Plan Patient also requested a 3 day supply of oral lorazepam 0.25 mg daily. I advised patient that I do not feel comfortable prescribing this to her as her psychiatrist did not want to prescribe it to her either. I recommended the patient continue her titration with p.o. lorazepam 0.25 mg daily x3 days followed by every other day until she is out of pills. She had lorazepam 0.25 mg tablets x7 tablets. Patient verbalizes understanding and she is in agreement with the plan. Orders: Orders AMB Urinalysis Automated Today Z13.9 - Encounter for screening, unspecified Medications: New sulfamethoxazole-trimethoprim 800-160 mg (Bactrim DS) 1 tab PO BID 10 tabs 0RF Discontinued polyethylene glycol 3350 1 g PO BID PRN 1,020 grams 3RF constipation K59.01 - Slow transit constipation Coding Level of Care Code Est Pt Level 3 (36757) Diagnoses Oral candidiasis B37.0 UTI (urinary tract infection) N39.0
[2023-04-13 14:11] VITALS: BP 126/82; PULSE 78; TEMP 36.5; O2SAT 97
== END 2023-04-13 14:55 | disposition home or self-care (01) ==
PROVIDERS: PCP Nurse Practitioner Family; Visit Provider Physician Assistant Medical
DX: B37.0 Candidal stomatitis (principal); N39.0 Urinary tract infection, site not specified; R39.198 Other difficulties with micturition
CPT/HCPCS: 81003; 99213

== ENCOUNTER 2023-06-11 15:13 | Outpatient (AMB) | payer MEDICARE, OTHER, SELFPAY ==
--- NOTE | 2023-06-11 15:34 | MHC.PC.OV ---
Vital Signs 06/11/23 15:38 Height 5 ft 4 in Weight 197 lb BMI 33.8 BP 120/80 Blood Pressure Location Rt brachial Position Sitting Pulse 70 Pulse Source Pulse Oximeter Pulse Oximetry (%) 97 Oxygen Delivery Method Room Air Intake Visit Reasons: Follow up UTI Allergies ropinirole [ROPINIROLE] Allergy (Intermediate, Verified 06/11/23 16:47) WORSE RESTLESS LEG duloxetine [Cymbalta] Adverse Reaction (Intermediate, Verified 06/11/23 16:47) Worsening RLS meperidine [From DEMEROL] Adverse Reaction (Intermediate, Verified 06/11/23 16:47) NAUSEA & VOMITING trazadone Adverse Reaction (Severe, Uncoded 06/11/23 16:47) Palpitations Medication List - Last Reconciled 06/11/23 by CHRISTIAN Bledsoe- atorvastatin 20 mg PO BEDTIME 90 days bisacodyl (Dulcolax (bisacodyl)) 10 mg (2 x 5 mg) PO BEDTIME cholecalciferol (vitamin D3) 50 mcg PO DAILY clonidine HCl 0.05 mg PO BID diclofenac sodium 1% 2 grams topical BID PRN escitalopram oxalate 20 mg PO DAILY ezetimibe 10 mg PO DAILY 90 days fluocinonide 0.05% 1 appl topical QD-BID PRN levocetirizine 5 mg PO DAILY lidocaine 5% 1 patch topical DAILY PRN lidocaine HCl 2% (Lidocaine Viscous) 1 appl mucous membrane BID nystatin 200,000 units (2 mL) PO QID 14 days omeprazole 20 mg PO DAILY polyethylene glycol 3350 17 grams PO BID pyridoxine (vitamin B6) 100 mg PO DAILY 90 days quetiapine 50 mg PO BID tamsulosin (Flomax) 0.4 mg PO DAILY valbenazine (Ingrezza) 80 mg PO DAILY zolpidem 10 mg PO BEDTIME Tobacco use date assessed: 01/25/22 HPI Follow up UTI HPI Details Pt reports unintentional weight loss and poor appetite. She states that she has lost 16 pounds in 3 weeks. Will order labs including FIT testing and chest XR. Colon screen is up to date. Denies fever, chills, and dizziness. Does report intermittent constipation/diarrhea, will have her try citrucel. Pt has her Mammo scheduled. [facility] Medical History Abdominal pain Arthritis Arthritis of foot Asthma Back pain Constipation Constipation by delayed colonic transit Elevated cholesterol Fatty liver Fibromyalgia GERD (gastroesophageal reflux disease) Hyperlipidemia Lumbar spinal stenosis Nephrolithiasis JOY (obstructive sleep apnea) Osteoarthritis Postmenopausal Pyelonephritis Radiculopathy Renal cyst Restless leg syndrome Sepsis Sleep apnea Tubular adenoma of colon Surgical History History of lumbar laminectomy for spinal cord decompression Hx of lithotripsy Hx of colonoscopy Hx of foot surgery History of oophorectomy, unilateral Hx of dilation and curettage History of bilateral hip replacements History of bilateral knee replacement H/O cystoscopy (05/03/20) Family History Father Heart disease Thyroid cancer Diabetes COPD (chronic obstructive pulmonary disease) Sleep apnea Mother Diabetes Cancer Chronic mental illness Colon cancer Other Fibromyalgia Mental health disorder Substance use disorder Social History Housing: Apartment Alcohol intake: current Alcohol intake frequency: does not drink Patient Tobacco Use Status: Former Tobacco user Tobacco use type: Cigarette Cigarettes Per Day: 40 Years Smoked: 17 e-Cigarette/Vaping Use: Never Used Second Hand Smoke Exposure: No Current occupational status: unemployed and disabled Cognitive needs: No Hearing needs: No Vision needs: No Questionnaire Thrive Questionnaire Date Thrive assessed: 09/27/21 EDWARDO-7 AMB Questionnaire EDWARDO-7 Date EDWARDO - 7 assessed: 09/27/21 Source: Developed by Drs. Bib Lynch, Cecilia Gallardo, Anoop Sabillon and colleagues, with an educational delicia from [employer]. Review of Systems Const Reports as per HPI Physical exam (Primary Care) Vital Signs: Last Vital Signs Pulse 70 06/11/23 15:38 BP 120/80 06/11/23 15:38 Pulse Ox 97 06/11/23 15:38 Oxygen Delivery Method Room Air 06/11/23 15:38 BMI result Body Mass Index 33.8 Tobacco/Smoking Status: Tobacco use Status Tobacco use date assessed 01/25/22 06/11/23 15:35 Patient Tobacco Use Status Former Tobacco user 06/11/23 15:35 Tobacco use type Cigarette 06/11/23 15:35 e-Cigarette/Vaping Use Never Used 06/11/23 15:35 Thrive Assessment: Date of Thrive Assessment Date Thrive assessed 09/27/21 06/11/23 15:35 Const General: cooperative Orientation/consciousness: patient oriented x3 Resp Effort & Inspection: normal respiratory effort Auscultation: clear to auscultation bilaterally Cardio Rate: regular rate Rhythm: regular rhythm Heart sounds: S1 normal heart sound present, S2 normal heart sound present and Murmur heart sound present systolic Neuro General: patient oriented x3 Psych Appearance: grossly normal Mental Status: mental status grossly normal Speech and movement: Normal speech and movement present Affect: normal affect Attitude: cooperative Thought process: Normal thought process present Thought content: Normal thought content present Insight: Good insight present (Psych) Judgement: Good judgement present (Psych) Assessment and Plan Assessment & Plan (1) Weight loss: Code(s): R63.4 - Abnormal weight loss Plan: Labs, FIT test, and chest XR ordered Plan The patient agreed to the use of a medical underwriter for this encounter. Scribed for CHRISTIAN Alvarez-BC by Nichelle Hughes medical underwriter, on 06/11/2023 at 15:45 EST Orders: Orders C Reactive Protein Today R63.4 - Abnormal weight loss Erythrocyte Sedimentation Rate Today R63.4 - Abnormal weight loss FITS Today R63.4 - Abnormal weight loss Hepatitis A,B,C Profile Today R63.4 - Abnormal weight loss XR chest 2V Today R63.4 - Abnormal weight loss HIV Ab/Ag Today R63.4 - Abnormal weight loss Complete Blood Count Auto Diff Today R63.4 - Abnormal weight loss Comprehensive Met. Panel Today R63.4 - Abnormal weight loss TSH reflex Free T4 Today R63.4 - Abnormal weight loss UA CC w/rflx Micro + Cult Today R63.4 - Abnormal weight loss Coding Level of Care Code Est Pt Level 3 (28670) Diagnoses Weight loss R63.4
[2023-06-11 15:38] VITALS: BP 120/80; PULSE 70; O2SAT 97; BMI 33.8
== END 2023-06-11 16:02 | disposition home or self-care (01) ==
PROVIDERS: PCP Nurse Practitioner Family; Visit Provider Nurse Practitioner Family
DX: R63.4 Abnormal weight loss (principal)
CPT/HCPCS: 99213

== ENCOUNTER 2023-07-04 14:07 | Outpatient (REF) | payer MEDICARE, OTHER, SELFPAY ==
--- NOTE | ~2023-07-04 | XR_ITS ---
EXAMINATION: XR CHEST CLINICAL INFORMATION: Abnormal weight loss COMPARISON: 11/04/2018 TECHNIQUE: 2 views of the chest were obtained. FINDINGS: No significant abnormality is noted involving the heart, lungs, mediastinum, bony thorax or soft tissues. XR/XR chest 2V IMPRESSION: Unremarkable examination with no interval change.
[2023-07-04 15:08] LABS: MANUAL DIFF FLAG NO
[2023-07-04 15:41] LABS: Basophils Percent Auto 0.4 % (0-2); Eosinophils Absolute Auto 0.1 X10*3/uL (0.0-0.4); Eosinophils Percent Auto 0.7 % (0-4); Hematocrit 44.8 % (37.0-47.0); Hemoglobin 14.6 g/dl (12.0-16.0); Imm Gran Abs Auto 0.05 X10*3/uL (0.00-0.03); Imm Gran Pct Auto 0.7 % (0.0-0.4); Lymphocytes Absolute Auto 2.2 X10*3/uL (1.2-4.9); Mean Corpuscular HGB Conc 32.6 g/dl (31.0-35.0); Mean Platelet Volume 11.1 fL (9.4-12.3); Monocytes Absolute Auto 0.9 X10*3/uL (0.1-1.2); Monocytes Percent Auto 12.3 % (2-11); Neutrophils Absolute Auto 4.1 x10*3/uL (2.0-8.3); Neutrophils Percent Auto 55.9 % (45-73); Platelet Count 232 X10*3/uL (160-400); Red Blood Count 4.87 X10*6/uL (4.20-5.50); Red Cell Distribution Width 14.7 % (11.0-16.0); White Blood Count 7.3 X10*3/uL (4.8-10.8)
[2023-07-04 16:19] LABS: Alanine Aminotransferase 22 U/L (0-31); Albumin Level 4.3 g/dL (3.5-5.0); Alkaline Phosphatase 90 U/L (39-117); Anion Gap 13 (12-20); Aspartate Amino Transferase 17 U/L (5-31); Bilirubin Total 0.5 mg/dL (0.0-1.0); Blood Urea Nitrogen 16 mg/dL (9-16); C Reactive Protein 0.13 mg/dL (< or = 0.50); Calcium 9.7 mg/dL (8.4-10.2); Carbon Dioxide 28 mmol/L (22-29); Chloride 108 mmol/L (96-108); Estimated Glomerular Filt Rate > 60; Glucose Random 84 mg/dL (60-115); Potassium 4.1 mmol/L (3.3-5.1); Sodium 145 mmol/L (135-145); Total Protein 7.1 g/dL (6.5-8.0)
[2023-07-04 16:21] LABS: Erythrocyte Sedimentation Rate 5 MM/HR (0-20)
[2023-07-04 16:35] LABS: TSH reflex Free T4 0.77 uIU/mL (0.32-4.0)
[2023-07-04 16:56] LABS: Appearance Urine Clear; Color Urine Yellow; Glucose Urine UA Negative (Negative); Leukocyte Esterase Urine Negative (Negative); Nitrite Urine Negative (Negative); Specific Gravity - Urine 1.015 (1.005-1.025); Urine Blood Negative (Negative); Urine Ketones Negative (Negative); Urine Protein Negative (Neg-Trace)
[2023-07-05 08:41] LABS: HBS Num1 28.09 mIU/mL (0-7.99); HBc Num1 0.06 S/CO (0.00-0.79); HBsAGNum1 0.28 S/CO (0.00-0.99); HIV AB/AG Nonreactive (Nonreactive); HIV Num 1 0.06 S/CO (0.00-0.99); Hepatitis A Antibody IgM 0.18 Index (0-0.79); Hepatitis B Core Antibody Nonreactive (Nonreactive); Hepatitis B Surface Antigen Negative (Negative); ~HepC Num1 0.05 S/CO (0.00-0.79); ~Hepatitis A Antibody IgM Nonreactive (Nonreactive); ~Hepatitis B Surface Antibody REACTIVE (Nonreactive); ~Hepatitis C Antibody Nonreactive (Nonreactive)
== END 2023-07-04 14:08 | disposition home or self-care (01) ==
LOC: HO.LAB 14:07
PROVIDERS: PCP Nurse Practitioner Family; Visit Provider Nurse Practitioner Family
DX: Z11.4 Encounter for screening for human immunodeficiency virus [HIV] (principal); R63.4 Abnormal weight loss; K59.01 Slow transit constipation; K76.0 Fatty (change of) liver, not elsewhere classified; R14.0 Abdominal distension (gaseous); R10.33 Periumbilical pain; Z11.59 Encounter for screening for other viral diseases; Z72.89 Other problems related to lifestyle
CPT/HCPCS: 36415; 71046; 80053; 81003; 84443; 85025; 85652; 86140; 86704; 86706; 86709; 86803; 87340; 87389; 99212

== ENCOUNTER 2023-07-04 14:07 | Outpatient (AMB) | payer MEDICARE, OTHER, SELFPAY ==
--- NOTE | 2023-07-04 14:11 | A.OFFVIS_ITS ---
Intake Vital Signs 07/04/23 14:14 Height 5 ft 4 in Weight 198 lb 6.656 oz BMI 34.1 BP 183/82 H Blood Pressure Location Lt brachial Position Sitting Pulse 67 Intake Visit Reasons: follow up r/s from 06/04 Intake Note: Kassi presents in the office as a follow up from a rescheduled appt. CC: She states she has been dealing with constipation. Once day she too Citrucel, dulcolax and prune juice and nothing happened and then it hapepned again so she took the same regimen and she had so much diarrhea that she ended up in the hospital. By time she got there the gatorade she was drinking made her feel better but they still gave her 2 IVs. She also wants you the examine the lump that she has in her stomach. She has been following FOD MAP diet and wants to know if she can introduce new foods. Allergies ropinirole [ROPINIROLE] Allergy (Intermediate, Verified 07/04/23 14:15) WORSE RESTLESS LEG duloxetine [Cymbalta] Adverse Reaction (Intermediate, Verified 07/04/23 14:15) Worsening RLS meperidine [From DEMEROL] Adverse Reaction (Intermediate, Verified 07/04/23 14:15) NAUSEA & VOMITING trazadone Adverse Reaction (Severe, Uncoded 07/04/23 14:15) Palpitations HPI follow up r/s from 06/04 HPI Details LAST VISIT: Constipation by delayed colonic transit Patient will switch her fiber to Citrucel. Patient can continue taking MiraLax on as needed basis. Patient was encouraged to increase fluid intake and activity to promote better bowel motility. Oral candidiasis Patient reports pain in her mouth. Patient has 1 small ulcer on her right side of her tongue. Patient will apply lidocaine viscous half an hour before nystatin swish and spit. Patient denies any dyspepsia, sore throat, dysphagia. Postprandial abdominal bloating Patient reports postprandial abdominal bloating. Discussed with patient low FODMAP diet. List of food recommended as well as list of food to avoid given to patient. I will see her in 2 months, sooner on as needed basis. Patient is agreeable to plan of care and verbalizes understanding of instructions. She was given the opportunity to ask questions and all questions answered. TODAY'S VISIT Patient is here today for request visit. Two weeks ago patient was seen in the ER at [facility] for severe diarrhea and dehydration. Patient reports that she took prune juice, milk of magnesia and Citrucel after not going to the bathroom for a while and had diarrhea for few hours. Patient reported that she was lightheaded, experienced headache and diaphoresis and called EMS. Patient had no leukocytosis, no anemia, after IV fluids given patient was sent home. Patient today presents with no symptoms. Moving her bowels better, however still feels like she does not empty completely. Patient denies any abdominal pain or discomfort. Denies any dyspepsia, dysphagia or odynophagia. Denies any melena, hematochezia, unintentional weight loss or ribbon like stools. [facility] Medical History Postmenopausal Arthritis of foot Renal cyst Lumbar spinal stenosis Restless leg syndrome JOY (obstructive sleep apnea) Elevated cholesterol GERD (gastroesophageal reflux disease) Arthritis Back pain Pyelonephritis Tubular adenoma of colon Constipation by delayed colonic transit Sleep apnea Radiculopathy Osteoarthritis Sepsis Nephrolithiasis Abdominal pain Constipation Fatty liver Fibromyalgia Asthma Hyperlipidemia Surgical History History of lumbar laminectomy for spinal cord decompression Hx of lithotripsy Hx of colonoscopy Hx of foot surgery History of oophorectomy, unilateral Hx of dilation and curettage History of bilateral hip replacements History of bilateral knee replacement H/O cystoscopy (05/03/20) Family History Father Heart disease Thyroid cancer Diabetes COPD (chronic obstructive pulmonary disease) Sleep apnea Mother Diabetes Cancer Chronic mental illness Colon cancer Other Fibromyalgia Mental health disorder Substance use disorder Social History Housing: Apartment Alcohol intake: current Alcohol intake frequency: does not drink Patient Tobacco Use Status: Former Tobacco user Tobacco use type: Cigarette Cigarettes Per Day: 40 Years Smoked: 17 e-Cigarette/Vaping Use: Never Used Second Hand Smoke Exposure: No Current occupational status: unemployed and disabled Cognitive needs: No Hearing needs: No Vision needs: No Review of Systems Const Denies weight gain and Denies weight loss ENT Reports no additional complaints, Denies dysphagia and Denies odynophagia Card Reports no additional complaints Resp Reports no additional complaints GI Reports abdominal pain, Denies belching, Denies melena, Denies bloating, Denies change in bowel habits, Reports constipation, Denies dysphagia, Denies excessive flatus, Denies dyspepsia, Denies heartburn, Denies diarrhea, Reports loose stools, Denies nausea, Denies odynophagia and Denies vomiting Reports no additional complaints Musc Reports no additional complaints Neuro Reports no additional complaints Psych Reports no additional complaints Endo Reports no additional complaints Physical Exam Vital Signs: Last Vital Signs Pulse 67 07/04/23 14:14 BP 183/82 H 07/04/23 14:14 BMI result Body Mass Index 34.1 Const General: healthy appearing, no acute distress and well developed Nutritional Appearance: well nourished and obese Orientation/consciousness: patient oriented x3 HEENT Head: Yes normal to inspection, Yes normocephalic and Yes atraumatic Face and sinus: Yes normal facial exam Mouth: Normal oral and palatal mucosa present Throat: Yes posterior oropharynx normal, Yes tonsils normal and Yes uvula midline Eyes General: appearance normal, both eyes and all related structures Neck Neck: Yes normal visual inspection, Yes full ROM and Yes trachea midline Thyroid: Thyroid normal Resp Effort & Inspection: normal respiratory effort, able to speak in complete sentences, no tracheal deviation and symmetric chest movement Auscultation: clear to auscultation bilaterally Cardio Rate: regular rate GI Inspection: Yes normal to inspection, No distended and Yes obesity Palpation (GI): Soft to palpation, not firm, nontender and No hepatosplenomegaly present Auscultation: normal bowel sounds General: Yes no CVA tenderness Back/Spine/Pelvis Back: no CVA tenderness Skin General skin exam: elasticity normal, turgor normal and dry skin Neuro General: patient oriented x3 Psych Appearance: grossly normal Mental Status: mental status grossly normal Assessment & Plan Assessment & Plan (1) Constipation by delayed colonic transit: Code(s): K59.01 - Slow transit constipation (2) Abdominal pain: Code(s): R10.9 - Unspecified abdominal pain Qualifiers: Abdominal location: periumbilical Qualified Code(s): R10.33 - Periumbilical pain (3) Fatty liver: Code(s): K76.0 - Fatty (change of) liver, not elsewhere classified (4) Postprandial abdominal bloating: Code(s): R14.0 - Abdominal distension (gaseous) Plan Patient reports abdominal pain will send for CT scan to rule out umbilical hernia, ventral hernia. Will check fecal calprotectin. Patient can start taking senna daily any use MiraLax daily instead of twice a day. She can increase Citrucel to 2 tablets a day. Patient was encouraged to increase fluid intake and activity due to promote better bowel motility. Patient was encourag ed to avoid dietary triggers. Low FODMAP diet discussed with patient. She can continue taking omeprazole daily. Patient will return in 2 months, sooner on as needed basis. Patient is agreeable to this plan and verbalizes understanding of instructions. She was given the opportunity to ask questions and all questions answered. Thank you for allowing me to participate in her care Orders: Orders CT abdomen pelvis w IV con 07/04/23 R10.33 - Periumbilical pain, R10.9 - Unspecified abdominal pain Calprotectin, Fecal 07/04/23 R15.9 - Full incontinence of feces Medications: New sennosides (Senokot) 17.2 mg (2 x 8.6 mg) PO DAILY 180 tabs 3RF K59.04 - Chronic idiopathic constipation Changed From polyethylene glycol 3350 17 grams PO BID 510 grams 3RF To polyethylene glycol 3350 17 grams PO ONCE 510 grams 3RF From methylcellulose (laxative) take it with full glass of water 500 mg PO DAILY 90 tabs 2RF K59.00 - Constipation, unspecified To methylcellulose (laxative) (Citrucel) take it with full glass of water 1,000 mg (2 x 500 mg) PO DAILY 180 tabs 2RF K59.00 - Constipation, unspecified Coding Level of Care Code Est Pt Level 4 (67746) Diagnoses Constipation by delayed colonic transit K59.01 Periumbilical abdominal pain R10.33 Abdominal location: periumbilical Fatty liver K76.0 Postprandial abdominal bloating R14.0 Time Spent (min) 35 Comment 20 minutes spent with patient and additional 15 minutes spent reviewing her records
[2023-07-04 14:14] VITALS: BP 183/82; PULSE 67; BMI 34.1
== END 2023-07-04 15:01 | disposition home or self-care (01) ==
PROVIDERS: PCP Nurse Practitioner Family; Visit Provider Nurse Practitioner Family
DX: K59.01 Slow transit constipation (principal); R10.33 Periumbilical pain; K76.0 Fatty (change of) liver, not elsewhere classified; R14.0 Abdominal distension (gaseous)
CPT/HCPCS: 99214

== ENCOUNTER 2023-08-27 13:54 | Outpatient (REF) | payer MEDICARE, OTHER, SELFPAY ==
--- NOTE | ~2023-08-27 | CT_ITS ---
EXAMINATION: CT ABDOMEN AND PELVIS WITH CONTRAST CLINICAL INFORMATION: Periumbilical pain COMPARISON: None available. TECHNIQUE: Multidetector volumetric images were obtained from the superior aspect of the liver through the pubic symphysis following administration 85 mL of Omnipaque 350 intravenous contrast. Sagittal and coronal reformatted images were obtained on the technologist's workstation. Oral contrast: No This CT examination was performed using dose optimization techniques as appropriate, variously including the following: *Automated exposure control *Adjustment of mA and/or kV according to patient size (this includes techniques or standardized protocols for targeted exams where dose is matched to indication/reason for exam; i.e. extremities or head) *Use of iterative reconstruction technique DLP: 840 mGy-cm FINDINGS: LUNG BASES: Limited lower thoracic images show small left pleural fluid or thickening and associated atelectasis in the left posterior costophrenic sulcus. LIVER, GALLBLADDER, AND BILIARY TREE: The liver is normal in size, shape, and attenuation. No focal hepatic lesion or biliary ductal dilatation is present. The gallbladder is unremarkable with no evidence of radiopaque gallstones, gallbladder wall thickening, or obvious pericholecystic inflammatory changes. PANCREAS: Unremarkable. SPLEEN: Unremarkable. ADRENAL GLANDS: Unremarkable. KIDNEYS AND URETERS: The kidneys are normal in size, shape, and attenuation. No hydronephrosis, hydroureter, or calculi seen. No perinephric stranding. At 10 mm lesion in the interpolar cortex of the left kidney measured 3 mm on 07/21/2018 and is not definitely a simple cyst though too small to definitively characterize. BLADDER: Unremarkable. GASTROINTESTINAL TRACT: The small and large bowel are unremarkable. The appendix is unremarkable. ABDOMINAL WALL: There is a moderate size fat-containing umbilical hernia, slightly larger than on the prior examination though no bowel herniation is evident. The neck of the hernia measures approximately 19 mm wide. LYMPH NODES: Normal. VASCULAR: Unremarkable. PELVIC VISCERA: Not well assessed, secondary to metallic streak artifact from bilateral total hip replacements. OSSEOUS STRUCTURES: There are bilateral total hip replacements. Degenerative changes are present at L3-S1. CT/CT abdomen pelvis w IV con IMPRESSION: 1. No acute findings to account for the patient's periumbilical pain. 2. Fat-containing umbilical hernia. 3. Left renal interpolar 10 mm lesion, not eating criteria for a simple cyst. Suggest dedicated pre and postcontrast renal CT or MRI for further characterization as clinically warranted. 4. Small left pleural fluid or thickening. Fleischner guidelines were followed.
[2023-08-27] MEDS: iohexoL 350 MG/ML 100 ML INFUS..BTL 85 ML IV (16:53)
[2023-08-27] MEDS: Barium Sulfate Oral (Vanilla) 450 ML ORAL.SUSP 900 ML PO (16:54)
== END 2023-08-27 13:55 | disposition home or self-care (01) ==
LOC: HO.CT 13:54
PROVIDERS: PCP Nurse Practitioner Family; Visit Provider Nurse Practitioner Family
DX: R10.33 Periumbilical pain (principal); R10.9 Unspecified abdominal pain
CPT/HCPCS: 74177; Q9967

== ENCOUNTER 2023-08-30 07:23 | Outpatient (AMB) | payer MEDICARE, OTHER, SELFPAY ==
--- OUTSIDE RECORDS SUMMARY | 2023-08-30 07:06 | XMS_ITS | Continuity of Care Document ---
Author Name Unknown Organization [facility] Address [address] [place] [address]- Care Team Providers Care Billet Header Name Role Phone Morena GUZMAN, Deo Joyner Primary Care Physician Encounter [facility] [id number] Date(s): 12/21/21 - 01/20/22 [facility] [address] [place], [place] [address] Attending Physician: Winnie Lomax Admitting Physician: Winnie Lomax Referring Physician: AdmtrWinnie Allergies, Adverse Reactions, Alerts Substance Reaction Severity Status Demerol HCl 1 vomiting Active Adhesive Bandage blisters Active 1vomiting Medications acetaminophen 325 mg oral tablet 650 mg, By Mouth, Every 6 hours, Refills 0, Maintenance, 10/04/19 8:33:00 EST Start Date: 10/04/19 Status: Ordered baclofen 20 mg oral tablet 3 times a day, Refills 0, Maintenance Start Date: 04/06/20 Status: Ordered BuPROpion = 200 mg, By Mouth, Daily before dinner, 0 Refills, Maintenance, 08/31/20 10:28:00 EST, Partial fill upon patient request if the prescription is for a schedule II opioid drug. Start Date: 08/31/20 Status: Ordered diazepam 5 mg oral tablet 5 mg, 1, tablet, By Mouth, 2 times a day, Maintenance Start Date: 09/16/20 Status: Ordered diclofenac sodium 75 mg oral delayed release tablet 1 tablet = 75 mg, By Mouth, Daily, 0 Refills, Maintenance, 12/13/20 15:33:00 EDT, Partial fill uponpatient request if the prescription is for a schedule II opioid drug. Start Date: 12/13/20 Status: Ordered DULoxetine 40 mg oral delayed release capsule 1 capsule = 40 mg, By Mouth, Daily, 0 Refills, Maintenance, 12/13/20 15:29:00 EDT, Partial fill upon patient request if the prescription is for a schedule II opioid drug. Start Date: 12/13/20 Status: Ordered ezetimibe 10 mg oral tablet 1 tablet = 10 mg, By Mouth, Daily, Maintenance Start Date: 04/06/20 Status: Ordered Fiber Lax Daily, 0 Refills, Maintenance, 12/13/20 15:08:00 EDT, Partial fill upon patient request if the prescription is for a schedule II opioid drug. Start Date: 12/13/20 Status: Ordered ipratropium nasal 21 mcg/inh spray See Instructions, 1 spray in each nostril before bedtime as needed for nasal congestion, # 30 mL, 1Refills, Maintenance, 09/16/20 9:47:00 EST, [place], Partial fill upon patient request if the prescription is for a sche... Start Date: 09/16/20 Status: Ordered l-methylfolate = 15 mg, By Mouth, Daily, 0 Refills, Maintenance, 07/20/20 15:11:00 EST, Partial fill upon patient request if the prescription is for a schedule II opioid drug. Start Date: 07/20/20 Status: Ordered loratadine 10 mg oral tablet 10 mg, 1, tablet, By Mouth, Daily, Maintenance Start Date: 04/06/20 Status: Ordered Lunesta = 6 mg, By Mouth, Daily at bedtime, 0 Refills, Maintenance, 12/13/20 15:31:00 EDT, Partial fill upon patient request if the prescription is for a schedule II opioid drug. Start Date: 12/13/20 Status: Ordered MiraLax By Mouth, 2 times a day, 0 Refills, Maintenance Start Date: 04/06/20 Status: Ordered MiraLax = 17 Gm, By Mouth, 2 times a day, 0 Refills, Maintenance, 12/13/20 15:14:00 EDT, Partial fill upon patient request if the prescription is for a schedule II opioid drug. Start Date: 12/13/20 Status: Ordered Multivitamin By Mouth, Daily, 0 Refills, Maintenance, 07/20/20 15:10:00 EST, Partial fill upon patient request if the prescription is for a schedule II opioid drug. Start Date: 07/20/20 Status: Ordered Omeprazole = 20 mg, By Mouth, Daily at bedtime, 0 Refills, Maintenance Start Date: 04/06/20 Status: Ordered overnight oximetry on cpap and 02 overnight oximetry on cpap and 02, See Instructions, # 1 each, Refills 0, Tot. Refills 0, Maintenance, overnight oximetry on CPAP with 2L oxygen dx Length of need lifetime 99 months, 08/31/20 15:12:00 EST, Supply Start Date: 08/31/20 Status: Ordered Senna Lax 8.6 mg oral tablet 2 tablet = 17.2 mg, By Mouth, Daily at bedtime, PRN for constipation, pt takes 2 tablets at bedtimeevery day, # 100 tablet, 0 Refills, Maintenance, 12/14/16 9:12:19 EDT, Tablet Start Date: 12/14/16 Status: Ordered Ventolin HFA 108 mcg/inh inhalation aerosol with adapter Inhalation, prn, 0 Refills, Maintenance, 08/31/20 10:26:00 EST, Partial fill upon patient request if the prescription is for a schedule II opioid drug. Start Date: 08/31/20 Status: Ordered Vitamin B6 By Mouth, Daily, 0 Refills, Maintenance, 07/20/20 15:08:00 EST, Partial fill upon patient request if the prescription is for a schedule II opioid drug. Start Date: 07/20/20 Status: Ordered Vitamin D3 = 2,000 units, By Mouth, Daily, 0 Refills, Maintenance, 07/20/20 15:08:00 EST, Partial fill upon patient request if the prescription is for a schedule II opioid drug. Start Date: 07/20/20 Status: Ordered Problem List Condition Effective Dates Status Health Status Inform ant Anxiety(Confirmed) Active Asthma(Confirmed) Active Bipolar disorder(Confirmed) Active Carpal tunnel syndrome(Confirmed) Active Fibromyalgia(Confirmed) Active GERD (gastroesophageal reflu x disease)(Confirmed) Active History of dental problems(Confirmed) Active Hyperlipidemia(Confirmed) Active Obesity(Confirmed) Active Restless leg syndrome(Confirmed) Active Social History Social History Type Response Smoking Status Former smoker, quit more than 30 days ago entered on: 04/06/20 Sex
--- OUTSIDE RECORDS SUMMARY | 2023-08-30 07:06 | XMS_ITS | Continuity of Care Document ---
Author Name Unknown Organization [facility] Address [address] [place] [phone] Care Team Providers Care Physiatrist Name Role Phone Morena GUZMAN, Deo Joyner Primary Care Physician Encounter [facility] [place] Date(s): 05/08/20 - 09/05/20 [facility] [address] [place] [id number] Attending Physician: Yessy Tavarez MD Admitting Physician: Yessy Tavarez MD Referring Physician: Deo Berg NP Allergies, Adverse Reactions, Alerts Substance Reaction Severity Status Demerol HCl 1 Active Adhesive Bandage Active 1vomiting Medications acetaminophen 325 mg oral tablet 650 mg, By Mouth, Every 6 hours, Refills 0, Maintenance, 10/04/19 8:33:00 EST Start Date: 10/04/19 Status: Ordered ARIPiprazole 5 mg oral tablet 5 mg, 1, tablet, By Mouth, Daily, # 30 tablet, Refills 0, Maintenance, 06/15/16 7:58:39 Start Date: 06/15/16 Status: Ordered aspirin 162.5 mg oral capsule, extended release = 325 mg, By Mouth, 2 times a day, 0 Refills, Maintenance, 10/04/19 8:33:00 EST, ER Capsule Start Date: 10/04/19 Status: Ordered atorvastatin 40 mg oral tablet 1 tablet = 40 mg, By Mouth, Daily, # 30 tablet, 0 Refills, Maintenance, Tablet Start Date: 06/15/16 Status: Ordered baclofen 20 mg oral tablet 3 times a day, Refills 0, Maintenance Start Date: 04/06/20 Status: Ordered BuPROpion = 200 mg, By Mouth, 2 times a day, 0 Refills, Maintenance, 08/31/20 10:28:00 EST, Partial fill uponpatient request if the prescription is for a schedule II opioid drug. Start Date: 08/31/20 Status: Ordered celecoxib 200 mg oral capsule 1 capsule = 200 mg, By Mouth, Daily, 0 Refills, Maintenance, 10/04/19 8:34:00 EST, Capsule Start Date: 10/04/19 Status: Ordered Clonazepam = 1 mg, By Mouth, Daily, 0 Refills, Maintenance, 07/20/20 15:06:00 EST, Partial fill upon patient request if the prescription is for a schedule II opioid drug. Start Date: 07/20/20 Status: Ordered clonazePAM 0.25 mg oral tablet, disintegrating 1 tablet = 0.25 mg, By Mouth, 3 times a day, Maintenance Start Date: 07/08/20 Status: Ordered clonazePAM 0.5 mg oral tablet 1 tablet = 0.5 mg, By Mouth, 2 times a day, 0 Refills, Maintenance, 08/31/20 10:29:00 EST, Partial fill upon patient request if the prescription is for a schedule II opioid drug. Start Date: 08/31/20 Status: Ordered CoQ10 = 30 mg, By Mouth, prn, 0 Refills, Maintenance, 07/20/20 15:07:00 EST, Partial fill upon patient request if the prescription is for a schedule II opioid drug. Start Date: 07/20/20 Status: Ordered cyclobenzaprine 10 mg oral tablet 10 mg, 1, tablet, By Mouth, 3 times a day, PRN, # 30 tablet, Refills 0, Maintenance, for spasm, 06/15/16 7:53:49 Start Date: 06/15/16 Status: Ordered diclofenac potassium = 75 mg, By Mouth, 2 times a day, 0 Refills, Maintenance, 08/31/20 10:31:00 EST, Partial fill upon patient request if the prescription is for a schedule II opioid drug. Start Date: 08/31/20 Status: Ordered diclofenac potassium 50 mg oral tablet 1 tablet = 50 mg, By Mouth, 2 times a day, PRN pain, 0 Refills, Maintenance Start Date: 04/06/20 Status: Ordered Docusoft S = 100 mg, By Mouth, 2 times a day, 0 Refills, Maintenance, 12/14/16 9:16:43 Start Date: 12/14/16 Status: Ordered duloxetine 60 mg oral enteric coated capsule 1 capsule = 60 mg, By Mouth, Daily, # 30 capsule, 0 Refills, Maintenance, 06/15/16 7:53:04, EC Capsule Start Date: 06/15/16 Status: Ordered ezetimibe 10 mg oral tablet 1 tablet = 10 mg, By Mouth, Daily, Maintenance Start Date: 04/06/20 Status: Ordered Flomax 0.4 mg oral capsule 0.4 mg, 1, capsule, By Mouth, Daily, Refills 0, Maintenance Start Date: 07/08/20 Status: Ordered Glucosamine Chondroitin By Mouth, prn, 0 Refills, Maintenance, 07/20/20 15:13:00 EST, Partial fill upon patient request if the prescription is for a schedule II opioid drug. Start Date: 07/20/20 Status: Ordered hydrOXYzine pamoate 25 mg oral capsule 2 capsule = 50 mg, By Mouth, 3 times a day, PRN for anxiety, 0 Refills, Maintenance, 12/14/16 9:13:11 EDT, Capsule Start Date: 12/14/16 Status: Ordered hydrOXYzine pamoate 50 mg oral capsule 1 capsule = 50 mg, By Mouth, 3 times a day, prn, 0 Refills, Maintenance, 08/31/20 10:21:00 EST, Partial fill upon patient request if the prescription is for a schedule II opioid drug. Start Date: 08/31/20 Status: Ordered l-methylfolate = 15 mg, By Mouth, Daily, 0 Refills, Maintenance, 07/20/20 15:11:00 EST, Partial fill upon patient request if the prescription is for a schedule II opioid drug. Start Date: 07/20/20 Status: Ordered loratadine 10 mg oral tablet 10 mg, 1, tablet, By Mouth, Daily, Maintenance Start Date: 04/06/20 Status: Ordered MiraLax By Mouth, 2 times a day, 0 Refills, Maintenance Start Date: 04/06/20 Status: Ordered Multivitamin By Mouth, Daily, 0 Refills, Maintenance, 07/20/20 15:10:00 EST, Partial fill upon patient request if the prescription is for a schedule II opioid drug. Start Date: 07/20/20 Status: Ordered Omeprazole = 20 mg, By Mouth, Daily, 0 Refills, Maintenance Start Date: 04/06/20 Status: Ordered overnight oximetry on cpap and 02 overnight oximetry on cpap and 02, See Instructions, # 1 each, Refills 0, Tot. Refills 0, Maintenance, overnight oximetry on CPAP with 2L oxygen dx Length of need lifetime 99 months, 08/31/20 15:12:00 EST, Supply Start Date: 08/31/20 Status: Ordered pantoprazole 40 mg oral delayed release tablet = 40 mg, By Mouth, Daily, 0 Refills, Maintenance, 10/04/19 8:36:00 EST, EC Tablet Start Date: 10/04/19 Status: Ordered pramipexole 0.25 mg oral tablet 1 tablet = 0.25 mg, By Mouth, 3 times a day, Maintenance, Tablet Start Date: 04/06/20 Status: Ordered ProAir HFA 90 mcg/inh inhalation aerosol with adapter 2, puffs, Inhalation, 4 times a day, PRN, # 8.5 Gm, Refills 0, Maintenance, 06/15/16 7:59:20, Aerosol Start Date: 06/15/16 Status: Ordered Senna Lax 8.6 mg oral tablet 2 tablet = 17.2 mg, By Mouth, Daily at bedtime, PRN for constipation, pt takes 2 tablets at bedtimeevery day, # 100 tablet, 0 Refills, Maintenance, 12/14/16 9:12:19 EDT, Tablet Start Date: 12/14/16 Status: Ordered SEROquel 25 mg oral tablet 25 mg, 1, tablet, By Mouth, Daily at bedtime, Refills 0, Maintenance Start Date: 04/06/20 Status: Ordered sucralfate 1 gm oral tablet 1 Gm, 1, tablet, By Mouth, 2 times a day, Refills 0, Maintenance, 07/20/20 15:12:00 EST, Partial fill upon patient request if the prescription is for a schedule II opioid drug. Start Date: 07/20/20 Status: Ordered traZODone 100 mg oral tablet By Mouth, Daily, Refills 0, Maintenance Start Date: 07/08/20 Status: Ordered traZODone 150 mg oral tablet 1 tablet = 150 mg, By Mouth, Daily at bedtime, # 30 tablet, 0 Refills, Maintenance, 06/15/16 7:54:49, Tablet Start Date: 06/15/16 Status: Ordered traZODone 50 mg oral tablet 50 mg, 1, tablet, By Mouth, Daily at bedtime, Refills 0, Maintenance, 08/31/20 10:24:00 EST, Partial fill upon patient request if the prescription is for a schedule II opioid drug. Start Date: 08/31/20 Status: Ordered turmeric 500 mg oral capsule 1 capsule = 500 mg, By Mouth, Daily, 0 Refills, Maintenance, 08/31/20 10:22:00 EST, Partial fill upon patient request if the prescription is for a schedule II opioid drug. Start Date: 08/31/20 Status: Ordered Ventolin HFA 108 mcg/inh inhalation [...] opioid drug. Start Date: 07/20/20 Status: Ordered Wellbutrin = 300 mg, By Mouth, Daily, 0 Refills, Maintenance, 07/20/20 15:11:00 EST, Partial fill upon patientrequest if the prescription is for a schedule [...]
--- OUTSIDE RECORDS SUMMARY | 2023-08-30 07:06 | XMS_ITS | Continuity of Care Document ---
Author Name Unknown Organization [facility] Address [address] [place] [phone]- Care Team Providers Care Dietician Name Role Phone Morena GUZMAN, Deo Joyner Primary Care Physician Encounter [facility] [place] Date(s): 07/05/20 - 08/04/20 [facility] [address] [place] [id number] Allergies, Adverse Reactions, Alerts Substance Reaction Severity [...] 0, Maintenance Start Date: 04/06/20 Status: Ordered celecoxib 200 mg oral capsule [...] day, Maintenance Start Date: 07/08/20 Status: Ordered CoQ10 = 30 mg, By Mouth, Daily, 0 Refills, Maintenance, 07/20/20 15:07:00 EST, Partial fill upon patient request if the prescription is for a schedule II opioid drug. Start Date: 07/20/20 Status: Ordered cyclobenzaprine 10 mg oral tablet 10 mg, 1, tablet, By Mouth, 3 times a day, PRN, # 30 tablet, Refills 0, Maintenance, for spasm, 06/15/16 7:53:49 Start Date: 06/15/16 Status: Ordered diclofenac potassium 50 mg oral [...] EDT, Capsule Start Date: 12/14/16 Status: Ordered l-methylfolate = 15 mg, By [...] Refills, Maintenance Start Date: 04/06/20 Status: Ordered pantoprazole 40 mg oral delayed [...] Mouth, Daily at bedtime, PRN for constipation, # 100 tablet, 0 Refills, Maintenance, 12/14/16 9:12:19, Tablet Start Date: 12/14/16 Status: Ordered SEROquel [...] 7:54:49, Tablet Start Date: 06/15/16 Status: Ordered Vitamin B6 By Mouth, Daily, [...]
--- OUTSIDE RECORDS SUMMARY | 2023-08-30 07:06 | XMS_ITS | Continuity of Care Document ---
Author Name Unknown Organization [facility] Address [address] [place] [phone]- Care Team Providers Care Casino Host Name Role Phone Deo Berg NP Primary Care Physician Encounter [facility] [place] Date(s): 01/26/21 - 05/05/21 [facility] [address] [place] [id number]- Attending Physician: Luh Hudson Admitting Physician: Luh Hudson Referring Physician: Deo Berg NP Allergies, Adverse [...] 30 mL, 1Refills, Maintenance, 09/16/20 9:47:00 EST, [place], [facility], Partial fill upon patient request if [...]
--- OUTSIDE RECORDS SUMMARY | 2023-08-30 07:06 | XMS_ITS | Continuity of Care Document ---
Author Name Unknown Organization [facility] ter Address [address] [place] [id number]- Care Team Providers Care Welder Oxyhydrogen Name Role Phone Deo Berg NP Primary Care Physician Encounter [facility] Date(s): 05/25/23 - 05/28/[address] [address]- Encounter Diagnosis Suicidal ideation(Final) - 05/25/23 Depressive disorder(Discharge Diagnosis) - 05/25/23 Anxiety disorder(Discharge Diagnosis) - 05/25/23 Alcohol use disorder in remission(Discharge Diagnosis) - 05/25/23 History of suicide attempt(Discharge Diagnosis) - 05/25/23 Major depressive disorder, single episode with anxious distress(Discharge Diagnosis) - 05/25/23 Obstructive sleep apnea(Discharge Diagnosis) - 05/25/23 Discharge Disposition: Transfer to Psych Facility Attending Physician: Bib Gilbert MD Admitting Physician: Bib Gilbert MD Referring Physician: Not on Staff, Referring MD Allergies, Adverse Reactions, Alerts Substance Reaction Severity Status Demerol HCl 1 vomiting Active Adhesive Bandage blisters Active 1vomiting Medications acetaminophen 325 mg oral tablet 650 mg, By Mouth, Every 6 hours, Refills 0, Maintenance, 10/04/19 8:33:00 EST Start Date: 10/04/19 Status: Ordered atorvastatin 20 mg oral tablet 1 tablet = 20 mg, By Mouth, Daily, Maintenance, Tablet Start Date: 04/28/22 Status: Ordered Caplyta 10.5 mg oral capsule TAKE ONE CAPSULE BY MOUTH AT BEDTIME Start Date: 11/30/22 Status: Ordered clonazePAM 0.5 mg oral tablet 0.5 tablet = 0.25 mg, By Mouth, 4 times a day, 0 Refills, Maintenance, 04/28/22 16:35:00 EDT, Tablet, Partial fill upon patient request if the prescription is for a schedule II opioid drug. Start Date: 04/28/22 Status: Ordered cloNIDine 0.1 mg oral tablet 0.15 mg, Tablet, By Mouth, 2 times a day, hold for hypotension, PRN for Anxiety, Routine, 05/26/23 12:01:00 EDT Start Date: 05/26/23 Stop Date: 05/28/23 Status: Discontinued CPAP Machine See Instructions, # 1 each, Maintenance, CPAP 7 cm H20, with 2 L O2, use Daily when sleeping, 11/30/22 13:33:00 EDT, Supply Start Date: 11/30/22 Status: Ordered cyclobenzaprine 10 mg oral tablet TAKE ONE TABLET BY MOUTH THREE TIMES DAILY Start Date: 11/30/22 Status: Ordered diclofenac sodium 75 mg oral delayed release tablet 1 tablet = 75 mg, By Mouth, Daily, 0 Refills, Maintenance, 12/13/20 15:33:00 EDT, Partial fill uponpatient request if the prescription is for a schedule II opioid drug. Start Date: 12/13/20 Status: Ordered escitalopram 10 mg oral tablet 1 tablet = 10 mg, By Mouth, Daily, Maintenance, Tablet Start Date: 04/28/22 Status: Ordered eszopiclone 3 mg oral tablet TAKE TWO TABLETS BY MOUTH AT BEDTIME NEEDED Start Date: 11/30/22 Status: Ordered ezetimibe 10 mg oral tablet TAKE ONE TABLET BY MOUTH EVERY DAY Start Date: 11/30/22 Status: Ordered Fiber Lax Daily, 0 Refills, Maintenance, 12/13/20 15:08:00 EDT, Partial fill upon patient request if the prescription is for a schedule II opioid drug. Start Date: 12/13/20 Status: Ordered gabapentin 300 mg oral capsule TAKE ONE CAPSULE BY MOUTH THREE TIMES DAILY Start Date: 11/30/22 Status: Ordered gabapentin 300 mg oral capsule 300 mg, Capsule, By Mouth, 05/28/23 9:00:00 EDT Start Date: 05/28/23 Stop Date: 05/28/23 Status: Completed Ingrezza 80 mg oral capsule 1 capsule = 80 mg, By Mouth, Daily, Maintenance, Capsule Start Date: 04/28/22 Status: Ordered ipratropium nasal 21 mcg/inh spray See Instructions, 1 spray in each nostril before bedtime as needed for nasal congestion, # 30 mL, 1Refills, Maintenance, 09/16/20 9:47:00 EST, [place], [facility], Partial fill upon patient request if the prescription is for a sche... Start Date: 09/16/20 Status: Ordered l-methylfolate = 15 mg, By Mouth, Daily, 0 Refills, Maintenance, 07/20/20 15:11:00 EST, Partial fill upon patient request if the prescription is for a schedule II opioid drug. Start Date: 07/20/20 Status: Ordered levocetirizine 5 mg oral tablet TAKE ONE TABLET DAILY Start Date: 11/30/22 Status: Ordered loratadine 10 mg oral tablet [...] Refills, Maintenance Start Date: 04/06/20 Status: Ordered QUEtiapine 50 mg oral tablet TAKE ONE TABLET AT BEDTIME Start Date: 11/30/22 Status: Ordered Senna Lax 8.6 mg oral tablet 2 tablet = 17.2 mg, By Mouth, Daily at bedtime, PRN for constipation, pt takes 2 tablets at bedtimeevery day, # 100 tablet, 0 Refills, Maintenance, 12/14/16 9:12:19 EDT, Tablet Start Date: 12/14/16 Status: Ordered traZODone 50 mg oral tablet TAKE ONE TABLET AT BEDTIME NEEDED Start Date: 11/30/22 Status: Ordered Ventolin HFA 108 mcg/inh inhalation [...] Date: 07/20/20 Status: Ordered Problem List Condition Confirmation Course Effective Dates Status H ealth Status Informant Anxiety Confirmed Active Asthma Confirmed Active Bipolar disorder Confirmed Active Carpal tunnel syndrome Confirmed Active Fibromyalgia Confirmed Active GERD (gastroesophageal reflux disease) Confirmed Active History of dental problems Confirmed Active Hyperlipidemia Confirmed Active Obesity Confirmed Active Obstructive sleep apnea Confirmed Active Restless leg syndrome Confirmed Active Diagnosis Diagnosis Type Effective Dates Health Status Clinical Service Informant Depressive disorder Discharge Diagnosis 05/25/23 Anxiety disorder Discharge Diagnosis 05/25/23 Alcohol use disorder in remission Discharge Diagnosis 05/25/23 History of suicide attempt Discharge Diagnosis 05/25/23 Major depressive disorder, single episode with anxious distress Discharge Diagnosis 05/25/23 Obstructive sleep apnea Discharge Diagnosis 05/25/23 Vital Signs Most recent to oldest [Reference Range]: 1 2 3 Oxygen Saturation [94-100 %] 100 % (05/28/23 8:47 AM) 98 % (05/28/23 1:59 AM) 99 % (05/27/23 8:18 PM) Pulse Rate [55-90 bpm] 54 bpm *L* (05/28/23 8:47 AM) 62 bpm (05/28/23 1:59 AM) 48 bpm *L* (05/27/23 8:18 PM) Blood Pressure [90-138/55-84 mm Hg] 110/62mm Hg (05/28/23 8:47 AM) 103/56mm Hg (05/28/23 1:59 AM) 104/51mm Hg (05/27/23 8:18 PM) Respiratory Rate [16-30 br/min] 16 br/min (05/28/23 8:47 AM) 16 br/min (05/28/23 8:30 AM) 16 br/min (05/28/23 1:59 AM) Temperature [96.8-100.4 DegF] 98.8 DegF (05/28/23 8:47 AM) 97.4 DegF (05/28/23 1:59 AM) 98.3 DegF (05/27/23 8:18 PM) Mode of Delivery (Oxygen) Room air (05/28/23 8:47 AM) Room air (05/28/23 1:59 AM) Room air (05/27/23 8:18 PM) Blood pressure sites Arm, right (05/27/23 8:18 PM) Arm, right (05/27/23 7:02 PM) Arm, right (05/27/23 4:08 PM) Temperature Route Oral (05/28/23 8:47 AM) Oral (05/28/23 1:59 AM) Oral (05/27/23 4:08 PM) Social History Social History Type Response Smoking Status Former smoker, quit more than 30 days ago entered on: 04/06/20 Sex EKG study * Event Display: ECG 12-Lead Authored Date: Please click on pdf link to open report * Event Display: ECG 12-Lead Authored Date: Ventricular Rate: 52 BPM Atrial Rate: 52 BPM P-R Interval: 138 ms QRS Duration: 88 ms Q-T Interval: 414 ms QTC Calculation(Bazett): 385 ms P Paxton: 42 degrees R Paxton: 48 degrees T Paxton: 51 degrees Sinus bradycardia Possible Left atrial enlargement Septal infarct , age undetermined Abnormal ECG When compared with ECG of 23-SEP-2019 10:50, Vent. rate has decreased BY 26 BPM Septal infarct is now Present QT has shortened Confirmed by Joshua Mcgee ([id number]) on 05/25/2023 2:42:23 PM Hickman: Joshua Mcgee Consult note * Prior Víctor HERNDON: MODIFY, MODIFY, MODIFY, MODIFY, PERFORM, MODIFY, MODIFY, MODIFY, MODIFY Event Display: Consultation Note Authored Date: Patient: ??BERTHA JENSEN ? Age:??67 Years?Sex:??Female?:??1955?? History of Present Illness Referring Physician:?Dr. David Jack ?? Chief Complaint / Reason for consult:?psychotropic medication evaluation/management ?? Source of information:??Per patient, [facility] records ?? Identifying information:??BERTHA SPAULDING??is a 67-year-old??female with past history of dyslipidemia, asthma, obstructive sleep apnea, restless leg syndrome, GERD, fibromyalgia, obesity, anxiety, and bipolar disorder,??who presented to [facility] ED on 05/25/23 per [facility] for evaluation of suicidal ideation with a plan to overdose. ?? History of Present Illness:??Patient is??not known??to the [facility] psychiatry service. On this presentation, ED provider described patient who comes to the emergency department for suicidal ideation. ??States that she once attempted to overdose about 17 years ago which is when she went to rehab for alcohol abuse. ??Has been managing her psychiatric status ever since and has been sober from any kind of drug or alcohol for the past 17 years as well. ??Comes in today because she started feeling like she was losing control of her suicidal ideation. ??States that she was starting to formulate a plan to overdose such as she did in the past and she does not want to lose control again. ??States that she is looking for help. ??Did get evaluated by [facility] who then referred her to our emergency department. ??Patient is denying any headaches, changes in vision, chest pain, shortness of breath or difficulty breathing, or abdominal pain. Initial vital signs were notable for bradycardia 49, otherwise within normal limits. Physical exam was unremarkable. Labs demonstrated no leukocytosis, no anemia, low bicarbonate 21 with basic metabolic profile otherwise within normal limits, TSH within normal limits, serum ethanol not detected. ECG showed QTc 385 (Malik corrected for bradycardi: 400). Expanded urine toxicology is pending collection at time of writing. No other diagnostics were performed in the ED. Patient was medically cleared and referred to [facility] Crisis for evaluation and assistance with potential psychiatric disposition, albeit currently pending bed search for IPLOC. ?? On initial interview, patient is alert and oriented to all spheres. Describes current mood as my anxiety has been indescribable. ??Reports her fear of leaving her house has increased over the past month, although she cannot identify??any recent stressors. Notes that she recently stopped taking c lonazepam??for unclear reasons and bupropion??because of tremor. Reports new difficulty concentrating??during this period, as well as worsening anhedonia, anxious distress, desire to drink alcohol after 17 years of abstinence, and suicidal ideation??with a plan to overdose on her medications.??Suicidal ideations have been worsening, although she denies any at??present. States clonidine has cherelle helpful substitute for clonazepam but only partially effective??in controlling her anxiety. States she is unable to sleep??unless she takes clonidine, quetiapine, and zolpdem at bedtime. Patient denies any additional symptoms concerning for anxiety, depression, katherine, psychosis or PTSD. Patient currently denies any suicidal ideation,??homicidal ideation or desires for self-injurious behaviors. ?? Past Psychiatric History:?? Diagnoses: Anxiety, bipolar disorder.?? Hospitalizations: Denies any inpatient??or partial hospitalizations as well as intensive outpatienttreatments. Suicidality / Aggression / Self-Injurious Behavior:??No history of suicidality or engagement in NSSIB in the past. Denies any history of aggression. No history of head injuries, concussions, traumatic brain injuries??or seizures. No history of ECT treatments. Current Psychotropic Medications:?? Clonidine 0.1 mg PO BID PRN anxiety Quetiapine 50 mg PO QHS Zolpidem 10 mg PO QHS PRN insomnia Escitalopram 10 mg PO QD Clonazepam 0.5 mg PO QID PRN anxiety Past Treatment Trials:??Eszopiclone, bupropion, duloxetine, hydroxizine. Outpatient Providers:??Dr. Kerwin Kincaid (psychiatrist).? Substance Use Patient admits to to remote history of alcohol use, reporting 17 years of abstinence. Patient denies any current use of??tobacco, cannabis, heroin, cocaine, LSD, PCP, methamphetamine or prescription medication abuse. ?? Social History Living Situation -??alone in [place] Friends/Family/Support -??minimal Employment -??unemployed Access to firearms or lethal weapons - Denies Legal -??No history of arrests, incarcerations, or probation. ?? Family History:?? Patient did not report any known psychiatric illness or substance use disorders.??No history of suicidality or attempts. Review of Systems Pertinent positives as listed above in HPI.??Otherwise, remainder of review of systems negative. Mental Status Vitals & Measurements T:??98?F?? HR:??64??(Peripheral)?? RR:??18?? BP:??126/80?? SpO2:??100%?? Mental Status Exam Appearance: Casual, disheveled Eye contact: Within normal limits Attitude: Cooperative Motor Activity: Calm; absent of tics, tremors, psychomotor agitation, psychomotor slowing Mood: Anxious Affect: Congruent, restricted Speech: Nonspontaneous, normal rate, low tone and??normal prosody Perception: No reported AVH;??no internal preoccupation or responding to internal stimuli Orientation: Intact to all spheres Memory: Grossly intact Thought Process: Coherent, goal-directed Thought Content: Desire for medication optimization. Reliability: Limited historian Insight: Limited Judgment: Limited Impulse control: Limited Suicidality/Self-destructive Behavior: None currently, but recent SI precipitating this presentation. Homicidality/Violence: None ?? Musculoskeletal Antigravity. No rigidity noted. Moving all four extremities spontaneously. Not observed ambulating. Neffs Suicide Score Neffs Suicide Assessment Ca (05/25/23) Suicidal Intent No Plan Past Month-CSSRS: No (05/25/23) Suicidal Thoughts Method Past Mon-CSSRS: No (05/25/23) Suicidal Thoughts Past Month - CSSRS: Yes (05/25/23) Suicide Behavior Lifetime - CSSRS: Yes (05/25/23) Suicide Behavior Past 3 Months - CSSRS: No (05/25/23) Suicide Intent w/Plan Past Month - CSSRS: No (05/25/23) Wish to be Past Month - CSSRS: Yes (05/25/23) Assessment/Plan Assessment:?In brief, this is a 67-year-old??female with past history of dyslipidemia, asthma,obstructive sleep apnea, restless leg syndrome, GERD, fibromyalgia, obesity, anxiety, and bipolar disorder,??who presented to [facility] ED on 05/25/23 per N for evaluation of suicidal ideation with a planto overdose. At this point in time, the patient has been medically cleared and referred to??[facility] Crisis for evaluation and assistance with potential psychiatric disposition, albeit currently pending bed search for IPLOC. The emergency psychiatry service was consulted for assistance with medication management. There is concern for primary depressive and/or??anxious disorder??as evident by??several weeks of increasing frequency of suicidal ideation, anxious distress, agoraphobia, difficulty concentrating, and intrusive thoughts of using alcohol after 17 years of abstinence. Recent discontinuation of clonazepam and bupropion are likely contributing to patient's symptoms. Initial psychiatric evaluation was notable for cooperative attitude, anxious mood with congruently restricted affect, andorganized thought form conveying desire for medication optimization. Diagnostic clarification is deferred to the next/longitudinal level of care to rule out major depressive disorder with anxious distress. In the interim, will optimize current regimen for anxiolysis and mood stabilization with PRNsfor use in the ED pending final disposition. Explained to the patient the differential diagnoses, treatment options, risks of untreated illness, and risks/benefits of treatment. See below for??detailed??treatment recommendations. ?? Diagnoses Depressive disorder ??(F32.A) Anxiety disorder ??(F41.9) Suicidal ideation ??(R45.851) Alcohol use disorder in remission ??(F10.91) History of suicide attempt ??(Z91.51) Obstructive sleep apnea?? (G47.33) Rule out major depressive disorder with anxious distress ??(F32.9) ?? Recommendations: -Disposition as per Crisis Services, albeit currently a bed search for inpatient psychiatric hospitalization. -Increase escitalopram to 20 mg PO QD for mood stabilization. -Continue quetiapine 50 mg PO QHS for mood stabilization. -Continue zolpidem 10 mg PO QHS PRN insomnia. -Continue clonidine 0.1 mg PO BID PRN anxiety. -Start quetiapine 25-50 mg PO Q6H PRN severe anxiety/agitation/psychosis. -The preference is for PO medications, but if the patient refuses the oral medications and there issufficient acute safety concern, can judiciously utilize IM equivalents for severe agitation.?? -Would note that these medications are only being utilized in the ER while the patient awaits placement. Long-term need for these medications will need to be assessed by the patient's future treatingpsychiatrist. -Seclusion or restraint may only be used as interventions of last resort in the management of severe agitation in patient. If they are used, seclusion and restraint episodes should be as short as possible, dignified, and as safe as possible for all involved. Patient preference should always be considered when feasible. -Follow-up baseline labs including Albumin, Alk Phos, Bili direct, Bili total, Protein total, AST, ALT to rule out organic etiology of presenting symptoms and establish prescribing parameters. -Follow-up expanded urine toxicology. ?? -ECG for baseline QT/QTc??given potentially??QT-prolonging polypharmacy. -Would consult RT to reinitiate CPAP for sleep apnea. ?? Please feel free to contact the Psychiatry consult service (call [phone] or page [phone]) with any questions or concerns.? Recommendations messaged via??[employer] to Dr. David Jack ?? Víctor Slaughter PA-C (he/him) Emergency Psychiatry Services Division of Consultation-Liaison Psychiatry Department of Psychiatry [facility]?? Medications Inpatient Bisacodyl Tablet, 5 mg, By Mouth, Daily at bedtime, PRN cetirizine 5 mg oral tablet, 5 mg, By Mouth, Daily cloNIDine 0.1 mg oral tablet, 0.1 mg, By Mouth, 2 times a day, PRN escitalopram 10 mg oral tablet, 20 mg, By Mouth, Daily Flomax 0.4 mg oral capsule, 0.4 mg, By Mouth, Daily at bedtime gabapentin 300 mg oral capsule, 300 mg, By Mouth, 2 times a day MiraLax Powder, 17 Gm= 1 pack/packet, By Mouth, Daily, PRN Nystatin 100,000 Units/mL Liquid, [id number] units= 4 mL, Swish and Spit, 4 times a day QUEtiapine 25 mg oral tablet, 50 mg, By Mouth, Daily at bedtime QUEtiapine 25 mg oral tablet, 25 mg, By Mouth, Every 6 hours, PRN Senna 8.6 mg oral tablet, 8.6 mg= 1 tablet, By Mouth, Daily at bedtime zolpidem 5 mg oral tablet, 10 mg, By Mouth, Daily at bedtime, PRN Allergies Adhesive Bandage??(blisters) Demerol HCl??(vomiting) Lab Results Event Name?? Event Result?? Normal Range?? Date/Time?? WBC 8.6 k/mm3 4 k/mm3 - 11 k/mm3 05/25/23 14:11:00 RBC 4.69 m/mm3 4.2 m/mm3 - 5.4 m/mm3 05/25/23 14:11:00 Hgb 14.2 Gm/dL 11.7 Gm/dL - 15.5 Gm/dL 05/25/23 14:11:00 Hct 43.1 % 35.7 % - 45.8 % 05/25/23 14:11:00 MCV 91.9 femtoliters 80 femtoliters - 100 femtoliters 05/25/23 14:11:00 MCH 30.3 pg 27 pg - 34 pg 05/25/23 14:11:00 MCHC 32.9 g/dL??Low 33 g/dL - 37 g/dL 05/25/23 14:11:00 Platelet Count 234 k/mm3 150 k/mm3 - 460 k/mm3 05/25/23 14:11:00 RDW-SD 46.2 femtoliters ?? 05/25/23 14:11:00 MPV 10.8 femtoliters 9.4 femtoliters - 12.4 femtoliters 05/25/23 14:11:00 Nucleated RBC (Automated) 0 #/100 WBC'S ?? 05/25/23 14:11:00 Abs. NRBC 0 k/mm3 ?? 05/25/23 14:11:00 Abs. Neut 5.5 k/mm3 1.3 k/mm3 - 7 k/mm3 05/25/23 14:11:00 Abs. Lymph 1.8 k/mm3 0.8 k/mm3 - 3.1 k/mm3 05/25/23 14:11:00 Abs. Sweet Grass 1.2 k/mm3??High 0.4 k/mm3 - 0.9 k/mm3 05/25/23 14:11:00 Abs. Eo 0 k/mm3 0 k/mm3 - 0.4 k/mm3 05/25/23 14:11:00 Abs. Baso 0 k/mm3 0 k/mm3 - 0.1 k/mm3 05/25/23 14:11:00 Neut % 63.5 % 44 % - 76 % 05/25/23 14:11:00 Lymph % 21.2 % 15 % - 43 % 05/25/23 14:11:00 Sweet Grass % 13.5 %??High 4.5 % - 10.5 % 05/25/23 14:11:00 Eos % 0.2 % 0 % - 6 % 05/25/23 14:11:00 Baso % 0.3 % 0 % - 2 % 05/25/23 14:11:00 Imm Gran 1.3 % ?? 05/25/23 14:11:00 Abs. Imm Gran 0.1 k/mm3 ?? 05/25/23 14:11:00 Sodium 137 mmol/L 133 mmol/L - 145 mmol/L 05/25/23 14:11:00 Potassium 4.2 mmol/L 3.6 mmol/L - 5.2 mmol/L 05/25/23 14:11:00 Chloride 104 mmol/L 98 mmol/L - 107 mmol/L 05/25/23 14:11:00 Bicarbonate Level 21 mmol/L??Low 22 mmol/L - 29 mmol/L 05/25/23 14:11:00 Anion Gap 12 4 ??- 17 05/25/23 14:11:00 Glucose Level 96 mg/dL 70 mg/dL - 99 mg/dL 05/25/23 14:11:00 BUN 19 mg/dL 8 mg/dL - 23 mg/dL 05/25/23 14:11:00 Creatinine-Blood 0.8 mg/dL 0.5 mg/dL - 1 mg/dL 05/25/23 14:11:00 Estimated GFR Creatinine 81 ML/MIN/1.73 M2 ?? 05/25/23 14:11:00 Calcium 9.5 mg/dL 8.6 mg/dL - 10.5 mg/dL 05/25/23 14:11:00 TSH 0.74 uIU/mL 0.4 uIU/mL - 4.2 uIU/mL 05/25/23 14:11:00 Ethanol, Serum or Plasma NONE DETECTED ?? 05/25/23 14:11:00 ? Diagnostic Results [id number] Ventricular Rate: 52 ??BPM Atrial Rate: 52 ??BPM P-R Interval: 138 ??ms QRS Duration: 88 ??ms Q-T Interval: 414 ??ms QTC Calculation(Bazett): 385 ??ms P Paxton: 42 ??degrees R Paxton: 48 ??degrees T Paxton: 51 ??degrees Sinus bradycardia Possible Left atrial enlargement Septal infarct , age undetermined Abnormal ECG When compared with ECG of 23-SEP-2019 10:50, Vent. rate has decreased BY ??26 BPM Septal infarct is now Present QT has shortened Confirmed by Joshua Mcgee ([id number]) on 05/25/2023 2:42:23 PM [1] [1]??12 Lead ECG; Joshua Mcgee MD N 05/25/2023 13:56 EDT * Prior Víctor HERNDON: PERFORM Event Display: Consultation Note Authored Date: [id number] Received [employer] message from RN that patient had Ingrezza 80 mg capsules brought in from home, but hospital pharmacy could not??approve it??because the capsules were loose and unlabeled and thus it could be not be determined whether they had . Patient did not exhibit signs of tardive dyskinesia on exam, and her current regimen is very minimally dopaminergic (quetiapine 50 mg QHS), sothe indication is not entirely clear.??Neither valbenazine (Ingrezze) nor alternative VMAT inhibitors are available on hospital formulary, so will substitute with benztropine 0.5 mg PO QHS for neuroleptic side effect prophylaxis. Would discontinue if patient develops intolerable anticholinergic side effects such as dry mouth, blurred vision, constipation, urinary retention, sedation. Patient Care team information Care Team Personnel Name: Nika Velasco RN Position: [facility] RN Member Role: Primary Care Nurse Name: Deo Berg NP Position: Reference Physician Member Role: PCP Address: Address: [address] [place] [address] Name: Serenity Lomas RN Position: S RN Member Role: Primary Care Nurse Name: Gladis Leonardo RN Position: S RN Member Role: Primary Care Nurse Name: Deanna Henry RN Position: S RN Member Role: Primary Care [facility] Attending Position: [facility] ED Attendings Patient Name: Bib Gilbert MD Position: [facility] ED Medicine MD Member Role: Admitting Physician Address: Address: [address] [place] [address] [place] [address]- [place] Name: Obdulia Gray RN Position: S ED RN W/OE and Tasks Member Role: Patient Care Provider Name: Irene Burgos Position: S ED RN W/OE and Tasks Member Role: Patient Care Provider Care Team Related Persons Name: AYESHA PADILLA Address: [place] [address] Name: AMANDA PADILLA Address: [place] [address]
--- OUTSIDE RECORDS SUMMARY | 2023-08-30 07:06 | XMS_ITS | Continuity of Care Document ---
Author Name Unknown Organization [facility] Address [address] [place] [id number]- Care Team Providers Care Hospice Office Coordinator Name Role Phone Deo Berg NP Primary Care Physician [phone] Encounter [facility] Date(s): 07/13/20 - 08/18/20 [facility] [address] [place] [id number] Attending Physician: Luh Hudson Admitting Physician: Luh [...]
--- OUTSIDE RECORDS SUMMARY | 2023-08-30 07:06 | XMS_ITS | Continuity of Care Document ---
Author Name Unknown Organization [facility] Address [address] [place] [phone]- Care Team Providers Care Loading Machine Adjuster Name Role Phone Morena GUZMAN, Deo Joyner Primary Care Physician Encounter [facility] ACCT R [id number] Date(s): 08/31/20 - 09/30/20 [facility] [address] [place] [id number] Attending Physician: Winnie Lomax Admitting Physician: AdmWinnie sanderson Referring Physician: AdmtrWinnie Allergies, Adverse Reactions, Alerts [...] 06/15/16 7:53:49 Start Date: 06/15/16 Status: Ordered diazepam 5 mg oral tablet 5 mg, 1, tablet, By Mouth, 2 times a day, Maintenance Start Date: 09/16/20 Status: Ordered diclofenac potassium = 75 mg, [...] opioid drug. Start Date: 08/31/20 Status: Ordered ipratropium nasal 21 mcg/inh spray See Instructions, 1 spray in each nostril before bedtime as needed for nasal congestion, # 30 mL, 1Refills, Maintenance, 09/16/20 9:47:00 EST, [place], [facility], Partial fill upon patient request [...]
--- OUTSIDE RECORDS SUMMARY | 2023-08-30 07:07 | XMS_ITS | Continuity of Care Document ---
Author Name Unknown Organization [facility] Address [address] [place] [address]- Care Team Providers Care Plumber Gasfitter Name Role Phone Clovis MCMAHON, Candiec Ramirez Primary Care Physician Encounter [facility] Date(s): 09/17/19 - 10/23/[address] [address]- [facility] Attending Physician: Brad Forte MD Admitting Physician: Brad Forte MD Referring Physician: Brad Forte MD Allergies, Adverse Reactions, Alerts Substance Reaction [...] Maintenance, Tablet Start Date: 06/15/16 Status: Ordered celecoxib 200 mg oral capsule 1 capsule = 200 mg, By Mouth, Daily, 0 Refills, Maintenance, 10/04/19 8:34:00 EST, Capsule Start Date: 10/04/19 Status: Ordered cyclobenzaprine 10 mg oral tablet 10 mg, 1, tablet, By Mouth, 3 times a day, PRN, # 30 tablet, Refills 0, Maintenance, for spasm, 06/15/16 7:53:49 Start Date: 06/15/16 Status: Ordered Docusoft S = 100 mg, By Mouth, 2 times a day, 0 Refills, Maintenance, 12/14/16 9:16:43 Start Date: 12/14/16 Status: Ordered duloxetine 60 mg oral enteric coated capsule 1 capsule = 60 mg, By Mouth, Daily, # 30 capsule, 0 Refills, Maintenance, 06/15/16 7:53:04, EC Capsule Start Date: 06/15/16 Status: Ordered hydrOXYzine pamoate 25 mg oral capsule 1 capsule = 25 mg, By Mouth, 4 times a day, PRN for anxiety, # 40 capsule, 0 Refills, Maintenance, 12/14/16 9:13:11, Capsule Start Date: 12/14/16 Status: Ordered pantoprazole 40 mg oral delayed release tablet = 40 mg, By Mouth, Daily, 0 Refills, Maintenance, 10/04/19 8:36:00 EST, EC Tablet Start Date: 10/04/19 Status: Ordered ProAir HFA 90 mcg/inh inhalation [...] 9:12:19, Tablet Start Date: 12/14/16 Status: Ordered traZODone 150 mg oral tablet 1 tablet = 150 mg, By Mouth, Daily at bedtime, # 30 tablet, 0 Refills, Maintenance, 06/15/16 7:54:49, Tablet Start Date: 06/15/16 Status: Ordered
--- OUTSIDE RECORDS SUMMARY | 2023-08-30 07:07 | XMS_ITS | Continuity of Care Document ---
Author Name Unknown Organization [facility] Address [address] [place] [address]- Care Team Providers Care Lawnmower Mechanic Name Role Phone Morena GUZMAN, Deo Joyner Primary Care Physician [phone] Encounter [facility] Date(s): 07/19/20 - 08/18/20 [facility] [address] [place] [id number] Attending Physician: Winnie Lomax Admitting Physician: AdmWinnie sanderson Referring Physician: Admtr ArPebbles Allergies, Adverse Reactions, Alerts Substance Reaction Severity [...]
--- OUTSIDE RECORDS SUMMARY | 2023-08-30 07:07 | XMS_ITS | Continuity of Care Document ---
Author Name Unknown Organization [facility] Address [address] [place] [address]- Care Team Providers Care Powertrain Calibration Engineer Name Role Phone Morena GUZMAN, Deo Joyner Primary Care Physician [place] [facility] Date(s): 04/28/21 - 06/03/[address] [address]- Attending Physician: Luh Hudson Admitting Physician: Luh Hudson Referring Physician: Luh Hudson Allergies, Adverse Reactions, Alerts Substance Reaction Severity [...] 30 mL, 1Refills, Maintenance, 09/16/20 9:47:00 EST, [place], [facility], Partial fill upon patient request [...]
--- OUTSIDE RECORDS SUMMARY | 2023-08-30 07:07 | XMS_ITS | Continuity of Care Document ---
Author Name Unknown Organization [facility] Address [address] [place] [address]- Care Team Providers Care Operations Officer Trust Department Name Role Phone Morena GUZMAN, Deo Joyner Primary Care Physician Encounter [facility] Date(s): 07/21/20 - 09/10/20 [facility] [address] [place] [id number] Attending Physician: Luiz Marshall MD Admitting Physician: Luiz Marshall MD Allergies, Adverse Reactions, Alerts Substance Reaction [...] Active Obesity(Confirmed) Active Restless leg syndrome(Confirmed) Active Vital Signs Most recent to oldest [Reference Range]: 1 Height 163 cm (08/11/20 8:58 AM) Social History Social History Type Response Smoking Status Former smoker, quit more than 30 days ago entered on: 04/06/20 Sex
--- OUTSIDE RECORDS SUMMARY | 2023-08-30 07:07 | XMS_ITS | Continuity of Care Document ---
Author Name Unknown Organization [facility] Address [address] [place] [address]- Care Team Providers Care Aerial Planting And Cultivation Manager Name Role Phone Morena GUZMAN, Deo Joyner Primary Care Physician Encounter [facility] Date(s): 07/12/20 - 08/19/20 [facility] [address] [place] [id number] Attending Physician: Mali Gan MD Admitting Physician: Mali Gan MD Referring Physician: Luh Hudson Allergies, Adverse Reactions, [...] oldest [Reference Range]: 1 Height 163 cm (07/20/20 2:59 PM) Weight 102.09 kg (07/20/20 2:59 PM) Body Mass Index [18.5-24.99] 38.42 *>HHI* (07/20/20 2:59 PM) Weight Obtained Via Patient/family state d (07/20/20 2:59 PM) Social History Social History Type Response Smoking Status Former smoker, quit more than 30 days ago entered on: 04/06/20 Sex
--- OUTSIDE RECORDS SUMMARY | 2023-08-30 07:07 | XMS_ITS | Continuity of Care Document ---
Author Name Unknown Organization [facility] Address [address] [place] [address]- Care Team Providers Care Architecture Intern Name Role Phone Morena GUZMAN, Deo Joyner Primary Care Physician [phone] Encounter [facility] ACCT R [id number] Date(s): 09/23/20 - 10/23/20 [facility] [address] [place] [id number] Attending Physician: [...] 30 mL, 1Refills, Maintenance, 09/16/20 9:47:00 EST, [place], [facility], Partial fill upon patient request [...]
--- OUTSIDE RECORDS SUMMARY | 2023-08-30 07:07 | XMS_ITS | Continuity of Care Document ---
Author Name Unknown Organization [facility] ter Address [address] [place] [address]- Care Team Providers Care Certified Driver Examiner Name Role Phone Morena GUZMAN, Deo Joyner Primary Care Physician Encounter [facility] Date(s): 12/20/20 - 12/20/[address] [address]- Discharge Disposition: A-D/C Home Attending Physician: Bib Villeda MD Admitting Physician: Bib Villeda MD Referring Physician: Bbi Villeda MD Allergies, Adverse Reactions, Alerts Substance Reaction Severity Status Demerol HCl 1 vomiting Active Adhesive Bandage blisters Active 1vomiting Medications acetaminophen 325 mg oral tablet 650 mg, By Mouth, Every 6 hours, Refills 0, Maintenance, 10/04/19 8:33:00 EST Start Date: 10/04/19 Status: Ordered acetaminophen-oxyCODONE 325 mg-5 mg oral tablet 2, tablet, By Mouth, Every 4 hours, PRN, # 30 tablet, Refills 0, Tot. Refills 0, Acute, Pain , Moderate, 12/27/20 14:09:00 EDT, 12/20/20 14:08:00 EDT, Route to Pharmacy Electronically, [facility] Tablet, Partial fill upon patient request... Start Date: 12/20/20 Stop Date: 12/27/20 Status: Ordered baclofen 20 mg oral tablet [...] opioid drug. Start Date: 12/13/20 Status: Ordered HYDROmorphone Inj (PACU ONLY) 0.5 mg, Injection, IV Push Slowly, Every 5 minutes for 4 doses/times, up to a maximum of 2 mg, Holdfor: RR less than 8 OR Sedation Scale of C, PRN for Pain , Moderate, Routine, 12/20/20 16:29:00 EDT, Stop date Limited # of times Start Date: 12/20/20 Status: Ordered ipratropium nasal 21 mcg/inh spray See Instructions, 1 spray in each nostril before bedtime as needed for nasal congestion, # 30 mL, 1Refills, Maintenance, 09/16/20 9:47:00 EST, [place], [facility], Partial fill upon patient request if [...] EST, Supply Start Date: 08/31/20 Status: Ordered Percocet-5/325 325 mg-5 mg oral tablet 2 tablet, Tablet, By Mouth, Every 4 hours, May take less, PRN for Pain , Moderate, Routine, 12/20/20 14:08:00 EDT Start Date: 12/20/20 Stop Date: 12/27/20 Status: Ordered Senna Lax 8.6 mg oral [...] Active Obesity(Confirmed) Active Restless leg syndrome(Confirmed) Active Procedures Procedure Date Related Diagnosis Body Site Status Laminectomy, facetectomy and foraminotomy (unilateral or bilateral with decompression of spinal cord, cauda equina and/or nerve root[s], [eg, spinal or lateral recess stenosis]), single vertebral segment; lumbar Comple romelia Results Radiology Reports * Exam Date Time Procedure Performing Provider Status 12/20/20 2:59 PM Spine Single View Mckayla Persaud; Kale (Ve rified) Notes: (Spine Single View) Reason For Exam: lumbar spinal stenosis RESULT: Spine Single View Spine Single View, 1 views REASON: lumbar spinal stenosis COMPARISON: None. FINDINGS: Single intraoperative crosstable lateral view of the lumbar spine shows posterior instruments at the level of the L5 vertebral body. Please refer to operative note for full details. IMPRESSION: As above. WSN: [id number] Ordering Physician: Bib Villeda Dictated By: Justo Stafford MD Dictated Date/Time: 12/20/20 4:11 pm Reviewed By: Justo Stafford MD Signed By: Justo Stafford MD Signed Date/Time: 12/20/20 4:11 pm Transcribed By: ZOILA Transcribed Date/Time: 12/20/20 4:11 pm Vital Signs Most recent to oldest [Reference Range]: 1 2 3 Height 162.5 cm (12/20/20 1:49 PM) 162.5 cm (12/13/20 2:25 PM) Oxygen Saturation [94-100 %] 100 % (12/20/20 5:30 PM) 100 % (12/20/20 5:15 PM) 100 % (12/20/20 5:00 PM) Pulse Rate [55-90 bpm] 72 bpm (12/20/20 1:49 PM) Blood Pressure [90-138/55-84 mm Hg] 123/69mm Hg (12/20/20 5:30 PM) 121/29mm Hg (12/20/20 5:15 PM) 122/70mm Hg (12/20/20 5:00 PM) Respiratory Rate [16-30 br/min] 16 br/min (12/20/20 5:44 PM) 14 br/min *L* (12/20/20 5:15 PM) 13 br/min *L* (12/20/20 5:00 PM) Temperature [96.8-100.4 DegF] 98.2 DegF (12/20/20 5:45 PM) 98.7 DegF (12/20/20 4:23 PM) 98.4 DegF (12/20/20 1:49 PM) Mode of Delivery (Oxygen) Room air (12/20/20 6:45 PM) Room air (12/20/20 5:30 PM) Room air (12/20/20 5:00 PM) Blood pressure sites Arm, left (12/20/20 4:23 PM) Arm, left (12/20/20 1:49 PM) Temperature Route Temporal (12/20/20 5:45 PM) Temporal (12/20/20 4:23 PM) Temporal (12/20/20 1:49 PM) Dry Weight 80.7 kg (12/20/20 1:49 PM) 80.4 kg (12/13/20 2:25 PM) Dry Weight Obtained Via Standing scale (12/20/20 1:49 PM) Social History Social History Type Response Smoking Status Former smoker, quit more than 30 days ago entered on: 04/06/20 Sex
--- OUTSIDE RECORDS SUMMARY | 2023-08-30 07:07 | XMS_ITS | Continuity of Care Document ---
Author Name Unknown Organization [facility] Address [address] [place] [address]- Care Team Providers Care Wood Casket Assembler Name Role Phone Morena GUZMAN, Deo Joyner Primary Care Physician [phone] Encounter [facility] Date(s): 11/30/22 - 12/30/22 [facility] [address] [place] [address]- Attending Physician: Winnie Lomax Admitting Physician: Winnie [...] opioid drug. Start Date: 04/28/22 Status: Ordered CPAP Machine See Instructions, # 1 each, [...] TIMES DAILY Start Date: 11/30/22 Status: Ordered Ingrezza 80 mg oral capsule 1 capsule = 80 mg, By Mouth, Daily, Maintenance, Capsule Start Date: 04/28/22 Status: Ordered ipratropium nasal 21 mcg/inh spray See Instructions, 1 spray in each nostril before bedtime as needed for nasal congestion, # 30 mL, 1Refills, Maintenance, 09/16/20 9:47:00 EST, [place], [facility], Partial fill upon patient request [...] Confirmed Active Restless leg syndrome Confirmed Active Social History Social History Type Response Smoking Status Former smoker, quit more than 30 days ago entered on: 04/06/20 Sex Patient Care team information Care Team Personnel Name: Nika Velasco RN Position: [facility] SN RN Member Role: Primary Care Nurse Name: Deo Berg NP Position: Reference Physician Member Role: PCP Address: Address: [address] [place] [address] Name: Serenity Lomas RN Position: S RN Member Role: Primary Care Nurse Name: Gladis Leonardo RN Position: S RN Member Role: Primary Care Nurse Name: Deanna Henry RN Position: S RN Member Role: Primary Care Nurse Care Team Related Persons Name: AYESHA PADILLA Address: [address] [place], [place] [id number] Name: AMANDA PADILLA Address: [place] [address]
--- OUTSIDE RECORDS SUMMARY | 2023-08-30 07:07 | XMS_ITS | Continuity of Care Document ---
Author Name Unknown Organization [facility] Address [address] [place] [address]- Care Team Providers Care Public Safety Teacher Name Role Phone Morena GUZMAN, Deo Joyner Primary Care Physician [place] [facility] [place] 04/05/21 - 05/05/21 [facility] [address] [place] [id number] Attending Physician: Winnie Lomax Admitting Physician: Winnie [...] 30 mL, 1Refills, Maintenance, 09/16/20 9:47:00 EST, [place], [facility], Partial fill upon patient [...]
--- OUTSIDE RECORDS SUMMARY | 2023-08-30 07:07 | XMS_ITS | Continuity of Care Document ---
Author Name Unknown Organization [facility] ter Address [address] [place] [id number]- Care Team Providers Care Ager Operator Name Role Phone Morena GUZMAN, Deo Joyner Primary Care Physician [place] [facility] [place] 06[place]21/23 - 06/22/[address] [address]- Encounter Diagnosis Diarrhea(Final) - 06/22/23 Discharge Disposition: A-D/C Home Attending Physician: Joshua MCMAHON, Jody Cordero Admitting Physician: Jody Lewis MD Referring Physician: Not on Staff, Referring [...] 30 mL, 1Refills, Maintenance, 09/16/20 9:47:00 EST, [place], [facility], Partial fill upon patient [...] Confirmed Active Restless leg syndrome Confirmed Active Vital Signs Most recent to oldest [Reference Range]: 1 2 3 Oxygen Saturation [94-100 %] 95 % (06/22/23 3:12 AM) 95 % (06/22/23 1:25 AM) 99 % (06/21/23 10:47 PM) Pulse Rate [55-90 bpm] 77 bpm (06/22/23 3:12 AM) 65 bpm (06/22/23 1:25 AM) 79 bpm (06/21/23 10:47 PM) Blood Pressure [90-138/55-84 mm Hg] 151/99mm Hg *H* (06/22/23 3:12 AM) 156/76mm Hg *H* (06/22/23 1:25 AM) 147/80mm Hg *H* (06/21/23 10:47 PM) Respiratory Rate [16-30 br/min] 13 br/min *L* (06/22/23 3:12 AM) 21 br/min (06/22/23 1:25 AM) 16 br/min (06/21/23 10:47 PM) Temperature [96.8-100.4 DegF] 97.3 DegF (06/22/23 3:12 AM) 97.8 DegF (06/21/23 10:47 PM) Mode of Delivery (Oxygen) Room air (06/22/23 3:12 AM) Room air (06/22/23 1:25 AM) Room air (06/21/23 10:47 PM) Blood pressure sites Arm, left (06/22/23 3:12 AM) Arm, left (06/22/23 1:25 AM) Arm, left (06/21/23 10:47 PM) Temperature Route Oral (06/22/23 3:12 AM) Oral (06/21/23 10:47 PM) Social History Social History Type Response Smoking Status Former smoker, quit more than 30 days ago entered on: 04/06/20 Sex Note * Merly Mishra: PERFORM Event Display: Patient Education Leaflets Authored Date: [id number] Diarrhea with Uncertain Cause (Adult) ?? [id number] Diarrhea with Uncertain Cause (Adult) Diarrhea is when stools are loose and watery. This can be caused by: ??? Viral infections ??? Bacterial infections ??? Food poisoning ??? Parasites ??? Irritable bowel syndrome (IBS) ??? Inflammatory bowel diseases such as ulcerative colitis, Crohn's disease, and celiac disease ??? Food intolerance, such as to lactose, the sugar found in milk and milk products ??? Reaction to medicines like antibiotics, laxatives, cancer medicines, and antacids Along with diarrhea, you may also have: ??? Abdominal pain and cramping ??? Nausea and vomiting ??? Loss of bowel control ??? Fever and chills ??? Bloody stools In some cases, antibiotics may help to treat diarrhea. You may have a stool sample test which is done to see what is causing your diarrhea, and if antibiotics will help treat it. The results of a stool sample test may take up to 2 days. The healthcare provider may not give you antibiotics until they have the stool test results. Diarrhea can cause dehydration. This is the loss of too much water and other fluids from the body. When this occurs, you must replace those body fluids. This can be done with oral rehydration solutions. Oral rehydration solutions are available at drugstores and grocery stores without a prescription. Sports drinks are not the best choice if you are very dehydrated. They usually have too much sugarand not enough electrolytes. Home care Follow all instructions given by your healthcare provider. Rest at home for the next 24 hours, or until you feel better. Avoid caffeine, tobacco, and alcohol. These can make diarrhea, cramping, and pain worse. If taking medicines: ??? Ktmh-xhc-zdmxwyw nausea and diarrhea medicines are generally OK unless you experience fever or blood in the stool. Check with your healthcare provider first in those circumstances. ??? You may use acetaminophen or nonsteroidal anti-inflammatory drugs (NSAIDs) such as ibuprofen or naproxen to reduce pain and fever. Don???t use these if you have chronic liver or kidney disease, or ever had a stomach ulcer or gastrointestinal??bleeding. Don't use NSAID medicines if you are already taking one for another condition (like arthritis) or are on daily aspirin therapy (such as for heart disease or after a stroke). Talk with your healthcare provider first. ??? If antibiotics were prescribed, be sure you take them until they are finished. Don???t stop taking them even when you feel better. Antibiotics must be taken exactly as prescribed. To prevent the spread of illness: ??? Remember that washing with soap and clean, running water and using alcohol- based photography professor is the best way to prevent the spread of infection. Dry your hands with a single-use towel (like a papertowel). ??? Clean the toilet after each use. ??? Wash your hands before eating. ??? Wash your handsbefore and after preparing food. Keep in mind that people with diarrhea or vomiting should not prepare food for others. ??? Wash your hands after using cutting boards, counter tops, and knives that have been in contact with raw foods. ??? Wash and then peel fruits and vegetables. ??? Keep uncooked meats away from cooked and nrdpa-bz-lhq foods. ??? Use a food thermometer when cooking. Cook poultryto at least 165??F (74??C). Cook ground meat (beef, veal, pork, woodruff) to at least 160??F (71??C). Cook fresh beef, veal, woodruff, and pork to at least 145??F (63??C). ??? Don???t eat raw or undercooked eggs (poached or james side up), poultry, meat, or unpasteurized milk and juices. Food and drinks The main goal while treating vomiting or diarrhea is to prevent dehydration. This is done by takingsmall amounts of liquids often. ??? Keep in mind that liquids are more important than food right now. ??? Drink only small amounts of liquids at a time. ??? Don???t force yourself to eat, especially if you are??having cramping, vomiting, or diarrhea. Don???t eat large amounts at a time, even if you are hungry. ??? If you eat, avoid fatty, greasy, spicy, or fried foods. ??? Don???t eat dairy foods or drink milk if you have diarrhea.??These can make??diarrhea worse. During the first 24 hours you can try: ??? Oral rehydration solutions.?? Sports drinks may be used if you are not too dehydrated and are otherwise healthy. ??? Soft drinks without caffeine ??? Madeleine emmanuel ??? Water (plain or flavored) ??? Decaf tea or coffee ??? Clear broth, consomm??, or bouillon ??? Gelatin, ice pops, or frozen fruit juice bars The second 24 hours, if you are feeling better, you can add: ??? Hot cereal, plain toast, bread, rolls, or crackers ??? Plain noodles, rice, mashed potatoes, chicken noodle soup, or rice soup ??? Applesauce, unsweetened canned fruit (no pineapple) ??? Bananas As you recover: ??? Limit fat intake to less than 15 grams per day. Don???t eat margarine, butter, oils, mayonnaise, sauces, gravies, fried foods, peanut butter, meat, poultry, or fish. ??? Limit fiber. Don???t eat raw or cooked vegetables, fresh fruits except bananas, or bran cereals. ??? Limit caffeine and chocolate. ??? Limit dairy. ??? Don???t use spices or seasonings except salt. ??? Go backto your normal diet over time, as you feel better and your symptoms improve. ??? If the symptoms come back, go back to a simple diet or clear liquids. ?? Follow-up care Follow up with your healthcare provider, or as advised. If a stool sample was taken or cultures were done, call the healthcare provider for the results as instructed. ?? Call 911 Call 911 if you have any of these symptoms: ??? Trouble breathing ??? Confusion ??? Extreme drowsiness or trouble walking ??? Loss of consciousness ??? Rapid heart rate ??? Chest pain ??? Stiff neck ??? Seizure ?? When to get medical advice Call your healthcare provider right away if any of these occur: ??? Abdominal pain that gets worse ??? Constant lower right abdominal pain ??? Continued vomiting and inability to keep liquids down ??? Diarrhea more than 5 times a day ??? Blood in vomit or stool ??? Dark urine or no urine for 8 hours, dry mouth and tongue, tiredness, weakness, or dizziness ??? Drowsiness ??? New rash ??? You don???t get better in 2 to 3 days ??? Fever of 100.4??F (38??C) or higher, or as advised by your provider ?? Last Reviewed Date: 2021 ?? [id number] [employer]. All rights reserved. This information is not intended as a substitute for professional medical care. Always follow your healthcare professional's instructions. ?? Patient Care team information Care Team Personnel Name: Nika Velasco RN Position: [facility] SN RN Member Role: Primary Care Nurse Name: Deo Berg NP Position: Reference Physician Member Role: PCP Address: Address: [address] [place] [address]- Name: Serenity Lomas RN Position: [facility] RN Member Role: Primary Care Nurse Name: Gladis Leonardo RN Position: [facility] RN Member Role: Primary Care Nurse Name: Deanna Henry RN Position: [facility] RN Member Role: Primary Care Nurse Name: Zachery De Paz Position: [facility] ED RN W/OE and Tasks Member Role: Patient Care Provider Name: Joshua MCMAHON, Jody Cordero Position: [facility] ED Medicine MD Member Role: ED Attending Physician Address: Address: [address] [place] [address]- Name: Merly Mishra Position: [facility] Associate Professional Member Role: ED Physician Hot Saw Operator Address: Address: [address] [place] [id number]- Care Team Related Persons Name: AYESHA PADILLA Address: home [address] [place] [id number] Name: AMANDA PADILLA Address: [place] [address]
--- NOTE | 2023-08-30 07:15 | MHC.PC.OV ---
Intake Visit Reasons: Discuss sleep med Android [phone] Allergies ropinirole [ROPINIROLE] Allergy (Intermediate, Verified 07/04/23 14:15) WORSE RESTLESS LEG duloxetine [Cymbalta] Adverse Reaction (Intermediate, Verified 07/04/23 14:15) Worsening RLS meperidine [From DEMEROL] Adverse Reaction (Intermediate, Verified 07/04/23 14:15) NAUSEA & VOMITING trazadone Adverse Reaction (Severe, Uncoded 07/04/23 14:15) Palpitations Medication List - Last Reconciled 08/30/23 by Deo Berg, [facility]- atorvastatin 20 mg PO BEDTIME 90 days bisacodyl (Dulcolax (bisacodyl)) 10 mg (2 x 5 mg) PO BEDTIME cholecalciferol (vitamin D3) 50 mcg PO DAILY clonidine HCl 0.05 mg PO BID diclofenac sodium 1% 2 grams topical BID PRN escitalopram oxalate 20 mg PO DAILY ezetimibe 10 mg PO DAILY 90 days fluocinonide 0.05% 1 appl topical QD-BID PRN gabapentin mg PO BID levocetirizine 5 mg PO DAILY lidocaine 5% 1 patch topical DAILY PRN lidocaine HCl 2% (Lidocaine Viscous) 1 appl mucous membrane BID methylcellulose (laxative) (Citrucel) 1,000 mg (2 x 500 mg) PO DAILY omeprazole 20 mg PO DAILY polyethylene glycol 3350 17 grams PO ONCE pyridoxine (vitamin B6) 100 mg PO DAILY 90 days quetiapine 50 mg (2 x 25 mg) PO BID 30 days quetiapine 50 mg PO BEDTIME 30 days sennosides (Senokot) 17.2 mg (2 x 8.6 mg) PO DAILY suvorexant (Belsomra) 5 mg PO BEDTIME tamsulosin (Flomax) 0.4 mg PO DAILY 30 days valbenazine (Ingrezza) 80 mg PO DAILY Tobacco use date assessed: 01/25/22 HPI Discuss sleep med Android [phone] HPI Details Pt c/o insomnia. She reports that ambien causes her to sleepwalk. She has tried lunesta in the past which caused restless leg. Will send belsomra. #2 Pt has tics/TD. She has tried cogentin which causes worse side effects. Pt reports that ingrezza helps her symptoms, which she has been on now for quite a few months. Denies fever, chills, and dizziness. Will resend this medication. PENDING SALE TO [facility] Medical History Postmenopausal Arthritis of foot Renal cyst Lumbar spinal stenosis Restless leg syndrome JOY (obstructive sleep apnea) Elevated cholesterol GERD (gastroesophageal reflux disease) Arthritis Back pain Pyelonephritis Tubular adenoma of colon Constipation by delayed colonic transit Sleep apnea Radiculopathy Osteoarthritis Sepsis Nephrolithiasis Abdominal pain Constipation Fatty liver Fibromyalgia Asthma Hyperlipidemia Surgical History History of lumbar laminectomy for spinal cord decompression Hx of lithotripsy Hx of colonoscopy Hx of foot surgery History of oophorectomy, unilateral Hx of dilation and curettage History of bilateral hip replacements History of bilateral knee replacement H/O cystoscopy (05/03/20) Family History Father Heart disease Thyroid cancer Diabetes COPD (chronic obstructive pulmonary disease) Sleep apnea Mother Diabetes Cancer Chronic mental illness Colon cancer Other Fibromyalgia Mental health disorder Substance use disorder Social History Housing: Apartment Alcohol intake: current Alcohol intake frequency: does not drink Patient Tobacco Use Status: Former Tobacco user Tobacco use type: Cigarette Cigarettes Per Day: 40 Years Smoked: 17 Packs per year/per ci.00 e-Cigarette/Vaping Use: Never Used Second Hand Smoke Exposure: No Current occupational status: unemployed and disabled Cognitive needs: No Hearing needs: No Vision needs: No Questionnaire Thrive Questionnaire Date Thrive assessed: 09/27/21 EDWARDO-7 AMB Questionnaire EDWARDO-7 Date EDWARDO - 7 assessed: 09/27/21 Source: Developed by Drs. Bib Lynch, Cecilia Gallardo, Anoop Sabillon and colleagues, with an educational delicia from [employer]. Review of Systems Const Reports as per HPI Physical exam (Primary Care) Tobacco/Smoking Status: Tobacco use Status Tobacco use date assessed 01/25/22 08/30/23 07:19 Patient Tobacco Use Status Former Tobacco user 08/30/23 07:19 Tobacco use type Cigarette 08/30/23 07:19 e-Cigarette/Vaping Use Never Used 08/30/23 07:19 Thrive Assessment: Date of Thrive Assessment Date Thrive assessed 09/27/21 08/30/23 07:19 Const General: cooperative Orientation/consciousness: patient oriented x3 Neuro General: patient oriented x3 Psych Appearance: grossly normal Mental Status: mental status grossly normal Speech and movement: Clear speech present Affect: normal affect Attitude: cooperative Thought process: Normal thought process present Thought content: Normal thought content present Insight: Good insight present (Psych) Judgement: Good judgement present (Psych) Telehealth Telehealth Location of provider rendering services: practice address Location of patient: address on file Patient Identification confirmed using: Name, : Yes Telehealth method: voice only Patient verbally consented to treatment: Yes Patient verbally consented to billing insurance company: Yes Patient informed of any privacy concerns related to visit: Yes Minutes spent on Phone/Video with Pt.: 10 Assessment and Plan Assessment & Plan (1) Insomnia: Code(s): G47.00 - Insomnia, unspecified Plan: Belsomra sent (2) History of tics: Code(s): Z86.59 - Personal history of other mental and behavioral disorders Plan: ingrezza sent Plan The patient agreed to the use of a biomedical repair technician for this encounter. Scribed for ARLEY Alvarez by Nichelle Hughes biomedical repair technician, on 08/30/2023 at 07:15 EST. Medications: New suvorexant (Belsomra) 5 mg PO BEDTIME 90 tabs 0RF suvorexant (Belsomra) 5 mg PO BEDTIME 90 tabs 0RF Discontinued zolpidem Discontinued Reason: Doctor's Order 10 mg PO BEDTIME 30 tabs 0RF 30 days Coding Level of Care Code Tele Est Pt Level 3 (29879) Diagnoses Insomnia G47.00 History of tics Z86.59
== END 2023-08-30 07:46 | disposition home or self-care (01) ==
PROVIDERS: PCP Nurse Practitioner Family; Visit Provider Nurse Practitioner Family
DX: G47.00 Insomnia, unspecified (principal); Z86.59 Personal history of other mental and behavioral disorders
CPT/HCPCS: 99441

== ENCOUNTER 2024-02-06 10:53 | Emergency (ER) | payer MEDICARE, OTHER, SELFPAY ==
--- NOTE | ~2024-02-06 | XR_ITS ---
EXAMINATION: XR CHEST CLINICAL INFORMATION: Shortness of breath. COMPARISON: Chest radiograph 07/04/2023. TECHNIQUE: Frontal view of the chest was obtained. FINDINGS: Stable cardiomediastinal silhouette. No focal airspace opacities, pleural effusion or pneumothorax. No acute osseous findings. XR/XR chest 1V IMPRESSION: No acute cardiopulmonary findings.
[2024-02-06 11:05] VITALS: BP 155/65; PULSE 80; RESP 20; TEMP 36.8; O2SAT 96; BMI 39.5
[2024-02-06 11:13] VITALS: BP 155/65; PULSE 78; RESP 20; TEMP 36.8; O2SAT 95
--- NOTE | 2024-02-06 11:24 | PC.NURSE ---
Pt arrives from waiting room with c/o generalized weakness s/p a COVID infection. States weakness has been going on for weeks. Pt uses walker for ambulation and reports utilizing aids at home for care. States she is unable to wipe herself after using the bathroom. VSS and Pt is A&Ox3 and reports feeling quite anxious. Skin is warm and dry and NAD noted at this time.
--- NOTE | 2024-02-06 11:32 | ECG_ITS ---
Test Reason : WEAKNESS Blood Pressure : / mmHG Vent. Rate : 077 BPM Atrial Rate : 077 BPM P-R Int : 130 ms QRS Dur : 102 ms QT Int : 422 ms P-R-T Axes : 041 045 035 degrees QTc Int : 477 ms Normal sinus rhythm Normal ECG When compared with ECG of 28-MAR-2023 08:53, Nonspecific T wave abnormality no longer evident in Anterior leads Referred By: Joycelyn Guillermo Electronically Signed By:Vitaly Chong
[2024-02-06] MEDS: hydrOXYzine HCL 25 MG TABLET PO (11:54)
[2024-02-06] MEDS: Ibuprofen 800 MG TABLET PO (11:54)
[2024-02-06 12:02] LABS: MANUAL DIFF FLAG NO
[2024-02-06 12:03] LABS: Basophils Percent Auto 0.2 % (0-2); Hematocrit 46.3 % (37.0-47.0); Hemoglobin 15.5 g/dl (12.0-16.0); Imm Gran Abs Auto 0.05 X10*3/uL (0.00-0.03); Imm Gran Pct Auto 0.5 % (0.0-0.4); Lymphocytes Absolute Auto 1.7 X10*3/uL (1.2-4.9); Lymphocytes Percent Auto 16.1 % (20-40); Mean Corpuscular HGB Conc 33.5 g/dl (31.0-35.0); Mean Corpuscular Volume 89.7 fL (80.0-98.0); Mean Platelet Volume 10.5 fL (9.4-12.3); Neutrophils Absolute Auto 8.1 x10*3/uL (2.0-8.3); Neutrophils Percent Auto 74.2 % (45-73); Platelet Count 245 X10*3/uL (160-400); Red Blood Count 5.16 X10*6/uL (4.20-5.50); Red Cell Distribution Width 14.6 % (11.0-16.0); White Blood Count 10.8 X10*3/uL (4.8-10.8)
[2024-02-06 12:19] LABS: Alanine Aminotransferase 21 U/L (0-31); Albumin Level 4.6 g/dL (3.5-5.0); Alkaline Phosphatase 126 U/L (39-117); Anion Gap 15 (12-20); Aspartate Amino Transferase 18 U/L (5-31); Bilirubin Direct 0.1 mg/dL (0.0-0.5); Bilirubin Total 0.5 mg/dL (0.0-1.0); Blood Urea Nitrogen 18 mg/dL (9-16); Calcium 10.4 mg/dL (8.4-10.2); Carbon Dioxide 24 mmol/L (22-29); Chloride 109 mmol/L (96-108); Creatinine Clr Calc Pharmacy 77.3; Estimated Glomerular Filt Rate > 60; Glucose Random 109 mg/dL (60-115); Magnesium 2.5 mg/dL (1.6-2.6); Potassium 4.3 mmol/L (3.3-5.1); Sodium 144 mmol/L (135-145); Total Protein 7.8 g/dL (6.5-8.0)
[2024-02-06 12:24] LABS: B Type Natriuretic Peptide 35 pg/mL (<100)
[2024-02-06 12:28] LABS: Troponin-I High Sensitivity < 2.7 ng/L (<3.5-17.0)
[2024-02-06 12:37] LABS: Appearance Urine Clear; Color Urine Yellow; Glucose Urine UA Negative (Negative); Leukocyte Esterase Urine Negative (Negative); Nitrite Urine Negative (Negative); PH 6.5 (5.0-9.0); Specific Gravity - Urine 1.015 (1.005-1.025); Urine Blood Negative (Negative); Urine Ketones Trace mg/dL (Negative); Urine Protein Negative (Neg-Trace)
[2024-02-06 12:39] LABS: Influenza A PCR NEGATIVE (Negative); Influenza B PCR NEGATIVE (Negative); Resp Syncy Virus RNA Qual PCR NEGATIVE (Negative); SARS COV2 PCR INHOUSE NEGATIVE (Negative)
[2024-02-06 14:28] VITALS: BP 155/65; PULSE 78; O2SAT 95
--- NOTE | 2024-02-06 14:31 | ED_ITS ---
HPI - Weakness General Chief complaint: Weakness Stated complaint: weakness Time Seen by Provider: 02/06/24 10:58 Source: patient, EMS, RN notes reviewed and old records reviewed Mode of arrival: EMS History of Present Illness ED Provider: Joycelyn Gulilermo PA-C HPI Narrative: 68-year-old female with a past medical history of OJY, restless leg syndrome, GERD, sleep apnea, nephrolithiasis, asthma, HLD, fibromyalgia, presenting to the ED complaining of generalized fatigue/weakness since - in December. Reports increasing difficulty with ADLs/getting around her apartment, myalgias, and chronic SOB since -. Patient was evaluated in Neurology office by Dr. Urbina prior to ED arrival, being treated for RLS, initiated on Pramipexole and Cyclobenzaprine. Denies fever, chills, new or worsening chest pain/shortness of breath, abdominal pain, nausea/vomiting Related Data Home Medications ?Medication ?Instructions ?Recorded ?Confirmed lidocaine 5 % topical patch 1 patch topical DAILY PRN Pain 11/05/20 08/30/23 cholecalciferol (vitamin D3) 50 50 mcg PO DAILY 03/28/23 08/30/23 mcg (2,000 unit) capsule fluocinonide 0.05 % topical 1 appl topical QD-BID PRN Itching 03/28/23 08/30/23 solution clonidine HCl 0.1 mg tablet 0.05 mg PO BID 06/11/23 08/30/23 gabapentin 300 mg capsule mg PO BID 07/04/23 08/30/23 Previous Rx's ?Medication ?Instructions ?Recorded pyridoxine (vitamin B6) 100 mg 100 mg PO DAILY 90 days #90 tabs 05/03/22 tablet lidocaine HCl 2 % mucosal solution 1 appl mucous membrane BID #100 mL 04/09/23 (Lidocaine Viscous) omeprazole 20 mg capsule,delayed 20 mg PO DAILY Heartburn #90 caps 04/19/23 release bisacodyl 5 mg tablet,delayed 10 mg (2 x 5 mg) PO BEDTIME #60 05/18/23 release (Dulcolax (bisacodyl)) tabs methylcellulose (laxative) 500 mg 1,000 mg (2 x 500 mg) PO DAILY 07/04/23 tablet (Citrucel) #180 tabs sennosides 8.6 mg tablet (Senokot) 17.2 mg (2 x 8.6 mg) PO DAILY #180 07/04/23 tabs escitalopram oxalate 20 mg tablet 20 mg PO DAILY #90 tabs 08/22/23 quetiapine 25 mg tablet 50 mg (2 x 25 mg) PO BID 30 days 08/22/23 #120 tabs quetiapine 50 mg tablet 50 mg PO BEDTIME 30 days #30 tabs 08/22/23 tamsulosin 0.4 mg capsule (Flomax) 0.4 mg PO DAILY 30 days #30 caps 08/29/23 eszopiclone 2 mg tablet (Lunesta) 2 mg PO BEDTIME #30 tabs 09/03/23 atorvastatin 20 mg tablet 20 mg PO BEDTIME 90 days #90 tabs 09/13/23 diclofenac potassium 50 mg tablet 50 mg PO DAILY PRN pain 30 days 09/14/23 #30 tabs valbenazine 80 mg capsule 80 mg PO DAILY #30 caps 10/11/23 (Ingrezza) polyethylene glycol 3350 17 17 g PO ONCE #510 grams 11/08/23 gram/dose oral powder levocetirizine 5 mg tablet 5 mg PO DAILY #90 tabs 12/05/23 ezetimibe 10 mg tablet 10 mg PO DAILY 90 days #90 tabs 12/22/23 Allergies Allergy/AdvReac Type Severity Reaction Status Date / Time ropinirole [ROPINIROLE] Allergy Intermediate WORSE Verified 07/04/23 14:15 RESTLESS LEG duloxetine [Cymbalta] AdvReac Intermediate Worsening Verified 07/04/23 14:15 RLS meperidine [From DEMEROL] AdvReac Intermediate NAUSEA & Verified 07/04/23 14:15 VOMITING trazadone AdvReac Severe Palpitation Uncoded 02/06/24 11:09 s Review of Systems 2 Review of Systems: Constitutional: No Fever, No Chills, +fatigue ENT/Mouth: No Ear Pain, No Nasal Congestion, No sore throat, No Rhinorrhea, No Swallowing Difficulty Cardiovascular: No Chest Pain, +chronic SOB Respiratory: No Cough, No Sputum, No Wheezing Gastrointestinal: No Nausea, No Vomiting, No Diarrhea, No Constipation, No Abdominal pain Genitourinary: No Dysuria, No Urinary Frequency, No Hematuria, No Flank Pain Musculoskeletal: No joint pain, No Myalgias, No Joint Swelling Skin: No Skin Lesions, No rash Neuro: + Weakness, No Numbness, No Paresthesias Yes all other systems are reviewed and are negative Constitutional: Constitutional: Reports as per [facility] Past Medical History Attestation statement: The following information was validated with the patient. Source: old records reviewed Medical History Postmenopausal Arthritis of foot Renal cyst Lumbar spinal stenosis Restless leg syndrome JOY (obstructive sleep apnea) Elevated cholesterol GERD (gastroesophageal reflux disease) Arthritis Back pain Pyelonephritis Tubular adenoma of colon Constipation by delayed colonic transit Sleep apnea Radiculopathy Osteoarthritis Sepsis Nephrolithiasis Abdominal pain Constipation Fatty liver Fibromyalgia Asthma Hyperlipidemia Surgical History History of lumbar laminectomy for spinal cord decompression Hx of lithotripsy Hx of colonoscopy Hx of foot surgery History of oophorectomy, unilateral Hx of dilation and curettage History of bilateral hip replacements History of bilateral knee replacement H/O cystoscopy (05/03/20) Family History Family History Father Heart disease Thyroid cancer Diabetes COPD (chronic obstructive pulmonary disease) Sleep apnea Mother Diabetes Cancer Chronic mental illness Colon cancer Other Fibromyalgia Mental health disorder Substance use disorder Social History Social History Housing: Apartment Alcohol intake: current Alcohol intake frequency: does not drink Patient Tobacco Use Status: Former Tobacco user Tobacco use type: Cigarette Cigarettes Per Day: 40 Years Smoked: 17 Smoked in Last 30 Days: No e-Cigarette/Vaping Use: Never Used Second Hand Smoke Exposure: No Advance Directives: No Advance Directives Information Provided: No Do you have a plan to hurt others: No Plan Current occupational status: unemployed and disabled Cognitive needs: No Hearing needs: No Vision needs: No Physical Exam 2 Vital Signs: Vital Signs: Last Vital Signs Temp 98.2 F 02/06/24 11:13 Pulse 78 02/06/24 14:28 Resp 20 02/06/24 11:13 BP 155/65 H 02/06/24 14:28 Pulse Ox 95 02/06/24 14:28 O2 Del Method Room Air 02/06/24 11:13 BMI result Body Mass Index 39.5 Const: General: cooperative, healthy appearing and no acute distress O rientation/consciousness: patient oriented x3 Limitations: no limitations HEENT: Head: Yes normal to inspection and Yes atraumatic Ears: hearing grossly normal bilaterally General nose exam: Normal external nose present Face and sinus: Yes normal facial exam Eyes: General: appearance normal, both eyes and all related structures EOM: EOMs intact bilaterally Neck: Neck: Yes normal visual inspection and Yes no meningeal signs Resp: Effort & Inspection: normal respiratory effort and no respiratory distress Auscultation: clear to auscultation bilaterally, no crackles and no wheezes Cardio: Rate: regular rate Heart sounds: S1 normal heart sound present and S2 normal heart sound present GI: Inspection: Yes normal to inspection Palpation (GI): Soft to palpation, nontender, no guarding and not rigid : General: Yes no CVA tenderness Back/Spine/Pelvis: Back: no CVA tenderness Skin: Rashes: no rashes Wounds: no wounds Neuro: General: patient oriented x3, tone normal, moves all extremities, no meningeal signs, no focal motor deficits and CN's II-XI intact bilaterally C ranial nerves: Yes CN's II-XII intact bilaterally Extrem: General: Yes normal to inspection Course Course Course Narrative: -1440--labs reassuring. Troponin negative. UA negative. Viral studies negative -chest x-ray unremarkable -physical therapy evaluated patient and recommends short-term rehab. Physician observation initiated at 14:41 this patient needs more time to be evaluated by case management/placement Medications Administered Discontinued Medications Generic Name Dose Route Start Last Admin Trade Name Freq PRN Reason Stop Dose Admin Hydroxyzine HCl 25 mg 02/06/24 11:32 02/06/24 11:54 Hydroxyzine Hcl 25 Mg Tablet PO 02/06/24 11:33 25 mg ONCE ONE Administration Ibuprofen 800 mg 02/06/24 11:32 02/06/24 11:54 Ibuprofen 800 Mg Tablet PO 02/06/24 11:33 800 mg ONCE ONE Administration Medical Decision Making Medical Decision Making [facility] Narrative: 68-year-old female with a past medical history of JOY, restless leg syndrome, GERD, sleep apnea, nephrolithiasis, asthma, HLD, fibromyalgia, presenting to the ED complaining of generalized fatigue/weakness since in December. Reports increasing difficulty with ADLs/getting around her apartment, myalgias, and chronic SOB since COVID-19. On exam vital signs stable, NAD, nontoxic appearing, no focal neuro deficits. Concern for failure to thrive/general deconditioning. Rule out metabolic/infectious etiologies. Low suspicion for severe sepsis or CVA/TIA Plan: EKG, labs, UA, CXR, viral testing, PT/case management Please refer to course for remaining clinical decision making, interpretation of labs/imaging results, and discussions with consultants and/or family members. Differential Diagnosis Differential Diagnoses: The differential diagnosis associated with the presentation includes As above Admission/Observation Consideration of admission/observation: Escalation of care including admission/observation considered Lab Data MDM Lab Attestation statement: I reviewed the patient's lab results. 02/06/24 11:55 02/06/24 11:55 Labs: Lab Results 02/06/24 02/06/24 02/06/24 Range/Units 11:55 11:56 12:29 WBC 10.8 (4.8-10.8) X10*3/uL RBC 5.16 (4.20-5.50) X10*6/uL Hgb 15.5 (12.0-16.0) g/dl Hct 46.3 (37.0-47.0) % MCV 89.7 (80.0-98.0) fL MCH 30.0 (27.0-33.0) pg MCHC 33.5 (31.0-35.0) g/dl RDW 14.6 (11.0-16.0) % Plt Count 245 (160-400) X10*3/uL MPV 10.5 (9.4-12.3) fL Immature Gran % (Auto) 0.5 H (0.0-0.4) % Neut % (Auto) 74.2 H (45-73) % Lymph % (Auto) 16.1 L (20-40) % [place] % (Auto) 9.0 (2-11) % Eos % (Auto) 0.0 (0-4) % Baso % (Auto) 0.2 (0-2) % Lymph # (Auto) 1.7 (1.2-4.9) X10*3/uL [place] # (Auto) 1.0 (0.1-1.2) X10*3/uL Eos # (Auto) 0.0 (0.0-0.4) X10*3/uL Baso # (Auto) 0.0 (0.0-0.2) X10*3/uL Abs Immat Gran (auto) 0.05 H (0.00-0.03) X10*3/uL Absolute Neuts (auto) 8.1 (2.0-8.3) x10*3/uL Absolute Nucleated RBC 0.000 (0.0-0.012) X10*3/uL Nucleated RBC % (auto) 0.0 (0.0-0.2) /100WBC Sodium 144 (135-145) mmol/L Potassium 4.3 (3.3-5.1) mmol/L Chloride 109 H (96-108) mmol/L Carbon Dioxide 24 (22-29) mmol/L Anion Gap 15 (12-20) BUN 18 H (9-16) mg/dL Creatinine 0.82 (0.5-1.4) mg/dL Estim Creat Clear Calc 77.3 Estimated GFR > 60 Random Glucose 109 (60-115) mg/dL Calcium 10.4 H D (8.4-10.2) mg/dL Magnesium 2.5 (1.6-2.6) mg/dL Total Bilirubin 0.5 (0.0-1.0) mg/dL Direct Bilirubin 0.1 (0.0-0.5) mg/dL AST 18 (5-31) U/L ALT 21 (0-31) U/L Alkaline Phosphatase 126 H (39-117) U/L Troponin I High Sens < 2.7 (<3.5-17.0) ng/L B-Natriuretic Peptide 35 (<100) pg/mL Total Protein 7.8 (6.5-8.0) g/dL Albumin 4.6 (3.5-5.0) g/dL Urine Color Yellow Urine Appearance Clear Urine pH 6.5 (5.0-9.0) Ur Specific [place] 1.015 (1.005-1.025) Urine Protein Negative (Neg-Trace) mg/dL Urine Glucose (UA) Negative (Negative) mg/dL Urine Ketones Trace (Negative) mg/dL Urine Blood Negative (Negative) Urine Nitrite Negative (Negative) Ur Leukocyte Esterase Negative (Negative) Influenza Type A (PCR) NEGATIVE (Negative) Influenza Type B (PCR) NEGATIVE (Negative) RSV RNA Qual (PCR) NEGATIVE (Negative) SARS-CoV-2 RNA (RT-PCR) NEGATIVE (Negative) Independent Interpretation I performed an independent interpretation of an: EKG and Plain X-Ray Radiology Impression Discussion of test interpretation with radiology: I have reviewed the radiologist's reading. Independent Historian Clinical information obtained from an independent historian. History obtained from or confirmed by: EMS External Record Review External record reviewed: Inpatient record, Office record, Outpatient record, Prior outpatient labs, Prior outpatient radiology, Primary care record and Outside ED record Tests considered The following testing was considered but not selected: As above Prescription Management I considered prescription management with: Pain Medication Chronic Conditions Patient?s care impacted by: Other Discharge Plan Discharge Clinical Impression: Weakness Patient Disposition: Still a Patient Prescriptions: No Action pyridoxine (vitamin B6) 100 mg tablet 100 mg PO DAILY 90 Days Qty: 90 0RF omeprazole 20 mg capsule,delayed release(DR/EC) 20 mg PO DAILY Qty: 90 2RF bisacodyl [Dulcolax (bisacodyl)] 5 mg tablet,delayed release (DR/EC) 10 mg PO BEDTIME Qty: 60 4RF escitalopram oxalate 20 mg tablet 20 mg PO DAILY Qty: 90 0RF quetiapine 25 mg tablet 50 mg PO BID 30 Days Qty: 120 0RF quetiapine 50 mg tablet 50 mg PO BEDTIME 30 Days Qty: 30 0RF tamsulosin [Flomax] 0.4 mg capsule 0.4 mg PO DAILY 30 Days Qty: 30 0RF eszopiclone [Lunesta] 2 mg tablet 2 mg PO BEDTIME Qty: 30 2RF atorvastatin 20 mg tablet 20 mg PO BEDTIME 90 Days Qty: 90 1RF diclofenac potassium 50 mg tablet 50 mg PO DAILY PRN (Reason: pain) 30 Days Qty: 30 0RF Ingrezza 80 mg capsule 80 mg PO DAILY Qty: 30 0RF Rx Instructions: Prescribed by Fadi Huitron polyethylene glycol 3350 17 gram/dose powder 17 g PO ONCE Qty: 510 3RF levocetirizine 5 mg tablet 5 mg PO DAILY Qty: 90 0RF ezetimibe 10 mg tablet 10 mg PO DAILY 90 Days Qty: 90 1RF fluocinonide 0.05 % solution 1 appl topical QD-BID PRN (Reason: Itching) cholecalciferol (vitamin D3) 50 mcg (2,000 unit) Capsule 50 mcg PO DAILY clonidine HCl 0.1 mg tablet 0.05 mg PO BID lidocaine 5 % adhesive patch,medicated 1 patch topical DAILY PRN (Reason: Pain) lidocaine HCl [Lidocaine Viscous] 2 % solution 1 appl mucous membrane BID Qty: 100 0RF Rx Instructions: Apply to affected area on your tongue and then spit out. Do not swallow. Do it half an hour before you do Nystatin swish and spit gabapentin 300 mg capsule PO BID Citrucel 500 mg tablet 1,000 mg PO DAILY Qty: 180 2RF Rx Instructions: take it with full glass of water sennosides [Senokot] 8.6 mg tablet 17.2 mg PO DAILY Qty: 180 3RF Print Language: Khmer
--- NOTE | 2024-02-06 15:03 | PC.NURSE ---
ARRIVES FROM MAIN ED FOR PT/CM EVAL, STR PLACEMENT AFTER ONGOING WEAKNESS X 1 MONTH AFTER COVID INFECTION. PT ENDORSES HEADACHE, MEDICATED WITH IBU IN ER, & CHRONIC R ARM PAIN, TOLERATING PAIN, SEEN USING HER ARM TO REPOSITION SELF WITH NO ISSUE. USES WALKER AT HOME. PHARMACY CONTACTED FOR MED REC.
--- NOTE | 2024-02-06 15:37 | PHA.MEDREC ---
Pharmacy Consult ? Medication Reconciliation Pharmacy has completed the medication reconciliation. spoke with [place] and patient to confirm medications. She is no longer taking quetiapine 50mg or vraylar. She does not use belsomra as needed, takes every night. Per Delfino, she can only use 15 of her clonazepam per month. She has 3 prescriptions she has not started yet, 2 of which are still at the pharmacy (propranolol, cyclobenzaprine, and pramipexole). Patient reports she has all of her medications with her.
[2024-02-06] MEDS: Acetaminophen 325 MG TABLET 650 MG PO (16:03)
--- NOTE | 2024-02-06 16:08 | MHC.CM.ED ---
CM met with patient at the request of Joycelyn HERNDON. Jose David&Ox3. Lives alone. Uses a walker, shower chair and CPAP. She is active with [facility] for4.5 hours of BURR BENCH HAND/week. She has MOW. She declines to complete a HCP at this time. Pt states she had COVID in December and has had weakness, SOB and body aches and weakness since she had covid. States she was sick for 3 weeks. Pt feels she needs physical therapy to get stronger. PT is recommending STR. Pt does not have a qualifying stay. Pt does not funds to pay for STR. Acute referrals placed, as patient would like to go to [facility]. Acute referrals placed. CM will follow for discharge planning.
--- NOTE | 2024-02-06 16:16 | MHC.EDTECH ---
This pct assumed care of patient at 1500 ,patient was reposition on her left side with pillows behind back and between legs .
[2024-02-06 16:17] VITALS: BP 141/56; PULSE 69; RESP 18; TEMP 36.7; O2SAT 95
[2024-02-06] MEDS: Pramipexole Di-HCL 0.25 MG TABLET PO ×2 (19:20→19:25)
[2024-02-06] MEDS: Cyclobenzaprine HCl 10 MG TABLET PO (20:01)
[2024-02-06 20:04] VITALS: BP 141/56; PULSE 69; RESP 18; TEMP 36.7; O2SAT 95
== END 2024-02-06 20:05 | disposition home or self-care (01) ==
PROVIDERS: Physician Assistant; Emergency Provider Emergency Medicine; PCP Nurse Practitioner Family
DX: R53.1 Weakness (principal); R06.02 Shortness of breath; R26.2 Difficulty in walking, not elsewhere classified; M79.10 Myalgia, unspecified site; G47.33 Obstructive sleep apnea (adult) (pediatric); Z03.818 Encounter for observation for suspected exposure to other biological agents ruled out; Z79.899 Other long term (current) drug therapy; Z87.891 Personal history of nicotine dependence
CPT/HCPCS: 0241U; 36415; 71045; 80048; 80076; 81003; 83735; 83880; 84484; 85025; 93005; 96361; 96374; 96375; 97162; 99285

== ENCOUNTER → 2024-02-06 11:32 | Outpatient (BNV) | payer MEDICARE, OTHER, SELFPAY | PROVIDERS: Emergency Provider Emergency Medicine; PCP Nurse Practitioner Family; Visit Provider Internal Medicine Cardiovascular Disease | DX: R53.1 Weakness (principal) | CPT/HCPCS: 93010 ==

== ENCOUNTER 2024-05-09 13:45 | Outpatient (AMB) | payer MEDICARE, OTHER, SELFPAY ==
[2024-05-09 13:48] VITALS: BP 126/76; PULSE 78; O2SAT 94; BMI 42.2
--- NOTE | 2024-05-09 13:48 | MHC.OFFVIS ---
Vital Signs 05/09/24 13:48 Height 5 ft 4 in Weight 245 lb 9.519 oz BMI 42.2 BP 126/76 Blood Pressure Location Rt brachial Position Sitting Pulse 78 Pulse Source Pulse Oximeter Pulse Oximetry (%) 94 Oxygen Delivery Method Room Air Intake Visit Reasons: Lower Abdomen pain Intake Note: Kassi presents in office today for a scheduled FUV to discuss ongoing sx. CC; Pt is reporting LQ abd pain B/L. Pt has been experiencing tenderness to palpation and pain. Pt reports having bloating, nausea, constipation with intermittent diarrhea. Pt reports that they have not had a complete bowel movement for approximately the last month. Pt has been passing very small amounts of stool and flatulence as recent as yesterday. Pt also reports having lack of appetite. Pt has been taking miralax as instructed, however; they have not noticed any changes with this implication. Pt also reports taking a senna and a dulcolax a few nights ago to see if that would produce a therapeutic response, however; they were unsuccessful in producing any significant bowel movement. Corrugated Sheet Material Sheeter Required: No Allergies ropinirole [ROPINIROLE] Allergy (Intermediate, Verified 05/09/24 13:50) WORSE RESTLESS LEG duloxetine [Cymbalta] Adverse Reaction (Intermediate, Verified 05/09/24 13:50) Worsening RLS meperidine [From DEMEROL] Adverse Reaction (Intermediate, Verified 05/09/24 13:50) NAUSEA & VOMITING trazodone Adverse Reaction (Intermediate, Verified 05/09/24 13:50) Palpitations HPI HPI Lower Abdomen pain : Details: LAST VISIT 07/09/2023 Constipation by delayed colonic transit Abdominal pain Fatty liver Postprandial abdominal bloating Plan Patient reports abdominal pain will send for CT scan to rule out umbilical hernia, ventral hernia. Will check fecal calprotectin. Patient can start taking senna daily any use MiraLax daily instead of twice a day. She can increase Citrucel to 2 tablets a day. Patient was encouraged to increase fluid intake and activity due to promote better bowel motility. Patient was encouraged to avoid dietary triggers. Low FODMAP diet discussed with patient. She can continue taking omeprazole daily. Patient will return in 2 months, sooner on as needed basis. Patient is agreeable to this plan and verbalizes understanding of instructions. She was given the opportunity to ask questions and all questions answered. ? Thank you for allowing me to participate in her care Orders Orders CT abdomen pelvis w IV con 07/04/23 R10.33, R10.9 Calprotectin, Fecal 07/04/23 R15.9 Medications New sennosides (Senokot) 17.2 mg (2 x 8.6 mg) PO DAILY 180 tabs 3RF K59.04 Changed Changed From polyethylene glycol 3350 17 grams PO BID 510 grams 3RF Changed To polyethylene glycol 3350 17 grams PO ONCE 510 grams 3RF Changed From methylcellulose (laxative) take it with full glass of water 500 mg PO DAILY 90 tabs 2RF K59.00 Changed To methylcellulose (laxative) (Citrucel) take it with full glass of water 1,000 mg (2 x 500 mg) PO DAILY 180 tabs 2RF K59.00 TODAY'S VISIT Patient is here today for requested visit. Patient has not seen this provider for almost [address] scan of abdomen and pelvis did not show any acute processes. Patient reports that in the past couple months she has been having trouble moving her bowels. Patient feels like it is getting worse then before. Patient tried multiple different [id number] medication without any success. Patient reports that she is drinking plenty fluids. Patient denies any melena, hematochezia. Patient had colonoscopy in May of 2020. No polyps found. Colonoscopy was recommended to be repeated in 5 years due to family history of CRC. Patient reports that she has no appetite as she is unable to move her bowels. Reports abdominal bloating and pain in left upper and lower quadrant. Patient reports nausea without vomiting. Denies any dyspepsia, dysphagia or odynophagia [facility] Medical History Postmenopausal Arthritis of foot Renal cyst Lumbar spinal stenosis Restless leg syndrome JOY (obstructive sleep apnea) Elevated cholesterol GERD (gastroesophageal reflux disease) Arthritis Back pain Pyelonephritis Tubular adenoma of colon Constipation by delayed colonic transit Sleep apnea Radiculopathy Osteoarthritis Sepsis Nephrolithiasis Abdominal pain Constipation Fatty liver Fibromyalgia Asthma Hyperlipidemia Surgical History History of lumbar laminectomy for spinal cord decompression Hx of lithotripsy Hx of colonoscopy Hx of foot surgery History of oophorectomy, unilateral Hx of dilation and curettage History of bilateral hip replacements History of bilateral knee replacement H/O cystoscopy (05/03/20) Family History Father Heart disease Thyroid cancer Diabetes COPD (chronic obstructive pulmonary disease) Sleep apnea Mother Diabetes Cancer Chronic mental illness Colon cancer Other Fibromyalgia Mental health disorder Substance use disorder Social History Housing: Apartment Alcohol intake: current Alcohol intake frequency: does not drink Patient Tobacco Use Status: Former Tobacco user Tobacco use type: Cigarette Cigarettes Per Day: 40 Years Smoked: 17 e-Cigarette/Vaping Use: Never Used Second Hand Smoke Exposure: No Current occupational status: unemployed and disabled Cognitive needs: No Hearing needs: No Vision needs: No Review of Systems Const Denies weight gain and Denies weight loss ENT Reports no additional complaints, Denies dysphagia and Denies odynophagia Card Reports no additional complaints Resp Reports no additional complaints GI Denies abdominal pain, Denies belching, Denies melena, Denies bloating, Denies change in bowel habits, Reports constipation, Denies dysphagia, Denies excessive flatus, Denies dyspepsia, Denies heartburn, Denies diarrhea, Reports loose stools, Denies nausea, Denies odynophagia and Denies vomiting Reports no additional complaints Musc Reports no additional complaints Neuro Reports no additional complaints Psych Reports no additional complaints Endo Reports no additional complaints Physical Exam Vital Signs: Last Vital Signs Pulse 78 05/09/24 13:48 BP 126/76 05/09/24 13:48 Pulse Ox 94 05/09/24 13:48 Oxygen Delivery Method Room Air 05/09/24 13:48 BMI result Body Mass Index 42.2 Const General: healthy appearing and no acute distress Nutritional Appearance: well nourished and obese Orientation/consciousness: patient oriented x3 Resp Effort & Inspection: normal respiratory effort, able to speak in complete sentences, no tracheal deviation and symmetric chest movement Auscultation: clear to auscultation bilaterally Cardio Rate: regular rate GI Inspection: Yes normal to inspection, No distended and Yes obesity Palpation (GI): Soft to palpation, not firm, nontender and No hepatosplenomegaly present Auscultation: normal bowel sounds General: Yes no CVA tenderness Back/Spine/Pelvis Back: no CVA tenderness Skin General skin exam: elasticity normal, turgor normal and dry skin Neuro General: patient oriented x3 Psych Appearance: grossly normal Mental Status: mental status grossly normal Results Reviewed Results Reviewed: CT SCAN OF ABDOMEN AND PELVIS 08/27/2023 FINDINGS: LUNG BASES: Limited lower thoracic images show small left pleural fluid or thickening and associated atelectasis in the left posterior costophrenic sulcus. LIVER, GALLBLADDER, AND BILIARY TREE: The liver is normal in size, shape, and attenuation. No focal hepatic lesion or biliary ductal dilatation is present. The gallbladder is unremarkable with no evidence of radiopaque gallstones, gallbladder wall thickening, or obvious pericholecystic inflammatory changes. PANCREAS: Unremarkable. SPLEEN: Unremarkable. ADRENAL GLANDS: Unremarkable. KIDNEYS AND URETERS: The kidneys are normal in size, shape, and attenuation. No hydronephrosis, hydroureter, or calculi seen. No perinephric stranding. At 10 mm lesion in the interpolar cortex of the left kidney measured 3 mm on 07/21/2018 and is not definitely a simple cyst though too small to definitively characterize. BLADDER: Unremarkable. GASTROINTESTINAL TRACT: The small and large bowel are unremarkable. The appendix is unremarkable. ABDOMINAL WALL: There is a moderate size fat-containing umbilical hernia, slightly larger than on the prior examination though no bowel herniation is evident. The neck of the hernia measures approximately 19 mm wide. LYMPH NODES: Normal. VASCULAR: Unremarkable. PELVIC VISCERA: Not well assessed, secondary to metallic streak artifact from bilateral total hip replacements. OSSEOUS STRUCTURES: There are bilateral total hip replacements. Degenerative changes are present at L3-S1. CT/CT abdomen pelvis w IV con IMPRESSION: 1. No acute findings to account for the patient's periumbilical pain. 2. Fat-containing umbilical hernia. 3. Left renal interpolar 10 mm lesion, not eating criteria for a simple cyst. Suggest dedicated pre and postcontrast renal CT or MRI for further characterization as clinically warranted. 4. Small left pleural fluid or thickening. Assessment & Plan Assessment & Plan (1) Constipation by delayed colonic transit: Code(s): K59.01 - Slow transit constipation Category: Medical (2) Abdominal pain: Code(s): R10.9 - Unspecified abdominal pain Category: Medical Qualifiers: Abdominal location: periumbilical Qualified Code(s): R10.33 - Periumbilical pain (3) Fatty liver: Code(s): K76.0 - Fatty (change of) liver, not elsewhere classified Category: Medical (4) Postprandial abdominal bloating: Code(s): R14.0 - Abdominal distension (gaseous) Plan Patient will take Colace and Dulcolax. Patient will call our office if she will continue to be constipated then we can order Mag citrate so patient can use that to help her empty better. Patient can also take MiraLax in the morning. Increase fluid intake and activity to promote better bowel motility. Patient will follow-up in the office in 2 months, sooner on as needed basis. She is agreeable to this plan and verbalizes understanding of instructions. She was given the opportunity to ask questions and all questions answered. Thank you for allowing me to participate in her care Medications: New docusate sodium 100 mg PO BEDTIME 90 caps 3RF K59.00 - Constipation, unspecified bisacodyl (Dulcolax (bisacodyl)) 10 mg (2 x 5 mg) PO BEDTIME 180 tabs 4RF hydrocortisone 2.5% (Proctosol HC) 1 appl DE BID-QID PRN 30 grams 2RF hemorrhoids K64.9 - Unspecified hemorrhoids Discontinued sennosides Discontinued Reason: Doctor's Order 17.2 mg (2 x 8.6 mg) PO DAILY 180 tabs 3RF K59.04 - Chronic idiopathic constipation Coding Level of Care Code Est Pt Level 4 (29409) Diagnoses Constipation by delayed colonic transit K59.01 Periumbilical abdominal pain R10.33 Abdominal location: periumbilical Fatty liver K76.0 Postprandial abdominal bloating R14.0 Time Spent (min) 35 Comment 20 minutes spent with patient and additional 15 minutes spent reviewing her records
== END 2024-05-09 14:22 | disposition home or self-care (01) ==
PROVIDERS: PCP Nurse Practitioner Family; Visit Provider Nurse Practitioner Family
DX: K59.01 Slow transit constipation (principal); R10.33 Periumbilical pain; K76.0 Fatty (change of) liver, not elsewhere classified; R14.0 Abdominal distension (gaseous)
CPT/HCPCS: 99214

== ENCOUNTER → 2024-05-09 13:45 | Outpatient (BNVA) | payer MEDICARE, OTHER, SELFPAY | PROVIDERS: PCP Nurse Practitioner Family; Visit Provider Nurse Practitioner Family | DX: K59.01 Slow transit constipation (principal); K76.0 Fatty (change of) liver, not elsewhere classified; R10.33 Periumbilical pain; R14.0 Abdominal distension (gaseous) | CPT/HCPCS: 99212 ==

== ENCOUNTER 2024-08-29 15:42 | Outpatient (REF) | payer MEDICARE, OTHER, SELFPAY | END 2024-08-29 15:43 | disposition home or self-care (01) | LOC: HO.MAMMO 15:42 | PROVIDERS: PCP Nurse Practitioner Family; Visit Provider Nurse Practitioner Family | DX: Z13.89 Encounter for screening for other disorder (principal) ==

== ENCOUNTER 2024-10-14 06:58 | Outpatient (AMB) | payer MEDICARE, OTHER, SELFPAY ==
--- OUTSIDE RECORDS SUMMARY | 2024-10-14 07:01 | XMS_ITS | Clinical Summary ---
Author Organization [employer] Address [address] [place] [address] [address] [place] [address] Care Team Providers Care Reading Coach Name Role Phone Unavailable Primary Care Provider Unavailabl e Social History Tobacco Use Types Packs/Day Years Used Date Smoking Tobacco: Never Assessed Comments Unknown Sex and Gender Information Value Date Recorded Sex Assigned at Female 06/19/2022 10:17 AM EDT Legal Sex Female 10:17 AM EDT Gender Identity Female 06/19/2022 10:17 AM EDT Sexual Orientation Straight 06/19/2022 10 :17 AM EDT Plan of Treatment Health Maintenance Due Date Last Done Comments CT Colonography 1955 Colonoscopy 1955 Colorectal Cancer Screening 1955 Depression Screening 1955 FIT DNA/Cologuard 1955 FIT 1955 FOBT 1955 Sigmoidoscopy 1955 Alcohol/Substance Use Screening 1967 Tobacco Screening 1967 DTaP/Tdap/Td Vaccines (1 - Tdap) 1974 Mammogram 1995 Pneumococcal Vaccine: 50+ Ye ars (1 of 1 - PCV) 2005 Zoster Vaccines (1 of 2) 2005 COVID-19 Vaccine ( - 2023-2 5 season) 2024 Influenza Vaccine (#1) 2024 RSV Patients and Pa tients Aged 60 years or older (1 - 1-dose 75+ series) 2030 HIB Vaccines Aged Out No longer eligi ble based on patient's age to complete this topic HPV Vaccines Aged Out No longer eligi ble based on patient's age to complete this topic Hepatitis A Vaccines Aged Out No long er eligible based on patient's age to complete this topic Hepatitis B Vaccines Aged Out No long er eligible based on patient's age to complete this topic IPV Vaccines Aged Out No longer eligi ble based on patient's age to complete this topic Meningococcal Vaccine Aged Out No trey yan eligible based on patient's age to complete this topic RSV under 20 months Aged Out No longe r eligible based on patient's age to complete this topic Rotavirus Vaccines Aged Out No longer eligible based on patient's age to complete this topic
--- OUTSIDE RECORDS SUMMARY | 2024-10-14 07:01 | XMS_ITS | Clinical Summary ---
Author Organization Unknown Care Team Providers Care Software Educator Name Role Phone VANCE SPECIAL DUTY NURSE, TITI Unavailable Unavailable GIOVANNI RN, JAVIER Unavailable Unavailable GERARDO SALES MANAGEMENT INTERN, SHOBHA Unavailable Unavailab Palma PT, SONIA Unavailable Unavailable Payers Payer Name Policy Type Policy Number Effective Date Expira tion Date MEDICARE - [place] - [place] [id number] Problems Condition Name Condition Details Condition Category Status Onset Date Resolution Date Last Treatment Date Treating Clinician Comments SPINAL STENOSIS, LUMBAR REGION WITHOUT NEUROGENIC EULOGIO Active 08-20 00:00: 00 UNSPECIFIED ASTHMA, UNCOMPLICATE D Active 08-20 00:00: 00 DEPRESSION, UNSPECIFIED Active 08-20 00:00: 00 GASTRO-ESOPH AGEAL REFLUX DISEASE WITHOUT ESOPHAGITIS Active 08-20 00:00: 00 RESTLESS LEGS SYNDROME Active 08-20 00:00: 00 PRIMARY GENERALIZED (OSTEO)ARTHR ITIS Active 08-20 00:00: 00 FATTY (CHANGE OF) LIVER, NOT ELSEWHERE CLASSIFIED Active 08-20 00:00: 00 FIBROMYALGIA Active 08-20 00:00: 00 OBSTRUCTIVE SLEEP APNEA (ADULT) (PEDIATRIC) Active 08-20 00:00: 00 ANXIETY DISORDER, UNSPECIFIED Active 08-20 00:00: 00 PURE HYPERCHOLEST EROLEMIA, UNSPECIFIED Active 08-20 00:00: 00 OBESITY, UNSPECIFIED Active 08-20 00:00: 00 PERSONAL HISTORY OF COVID-19 Active 08-20 00:00: 00 Personal history of colon polyps, unspecified Active 08-20 00:00: 00 PRESENCE OF ARTIFICIAL KNEE JOINT, BILATERAL Active 08-20 00:00: 00 PRESENCE OF ARTIFICIAL HIP JOINT, BILATERAL Active 08-20 00:00: 00 ACQUIRED ABSENCE OF OVARIES, UNILATERAL Active 08-20 00:00: 00 PERSONAL HISTORY OF NICOTINE DEPENDENCE Active 08-20 00:00: 00 Allergies, Adverse Reactions, Alerts Allergy Name Allergy Type Status Severity Reaction(s) Onset Date Inactive Date Treating Clinician Comments REQUIP Propensity to adverse reactions Active 08-30 16:01: 02 CYMBALTA Propensity to adverse reactions Active 08-30 16:01: 09 TRAZODONE Propensity to adverse reactions Active 08-30 16:01: 17 DEMEROL Propensity to adverse reactions Active 08-30 16:01: 25 Medications Ordered Medication Name Filled Medication Name Start Date Stop Date Current Medication? Ordering Clinician Indication Dosage Frequency Signature (SIG) Comments Components cyclobenzap rine 10 mg tablet 02-05 00:00: 00 08-05 23:59 :00 No [id number] 1 tablet BEDTIME 1 tablet BEDTIME (route: oral) Med Classific ation: Locomotor System pramipexole 0.25 mg tablet 02-05 00:00: 00 08-05 23:59 :00 No [id number] 1 tablet DAILY 1 tablet DAILY (route: oral) Med Classific ation: Central Nervous System Agents atorvastati n 20 mg tablet 02-04 00:00: 00 08-05 23:59 :00 No [id number] 1 tablet DAILY 1 tablet DAILY (route: oral) Med Classific ation: Cardiovas cular Therapy Agents Belsomra 10 mg tablet 02-04 00:00: 00 08-05 23:59 :00 No [id number] 1 tablet DAILY 1 tablet DAILY (route: oral) Med Classific ation: Central Nervous System Agents ezetimibe 10 mg tablet 02-04 00:00: 00 08-05 23:59 :00 No [id number] 1 tablet DAILY 1 tablet DAILY (route: oral) Med Classific ation: Cardiovas cular Therapy Agents levocetiriz ine 5 mg tablet 02-04 00:00: 00 08-05 23:59 :00 No [id number] 1 tablet DAILY 1 tablet DAILY (route: oral) Med Classific ation: Respirato ry Therapy Agents propranolol 10 mg tablet 18 00:00: 00 08-05 23:59 :00 No [id number] 1 tablet DAILY 1 tablet DAILY (route: oral) Med Classific ation: Cardiovas cular Therapy Agents Ingrezza 80 mg capsule 6-05 00:00: 00 08-05 23:59 :00 No [id number] 1 capsule DAILY 1 capsule DAILY (route: oral) Med Classific ation: Central Nervous System Agents clonazepam 1 mg tablet 01-20 00:00: 00 08-05 23:59 :00 No [id number] 1 tablet DAILY 1 tablet DAILY (route: oral) Med Classific ation: Central Nervous System Agents clonidine HCl 0.1 mg tablet 01-20 00:00: 00 08-05 23:59 :00 No [id number] 1 tablet DAILY 1 tablet DAILY (route: oral) Med Classific ation: Cardiovas cular Therapy Agents quetiapine 100 mg tablet 01-20 00:00: 00 08-05 23:59 :00 No [id number] 1 tablet BEDTIME 1 tablet BEDTIME (route: oral) Med Classific ation: Central Nervous System Agents quetiapine 50 mg tablet 5-30 00:00: 00 02-07 00:00 :00 No [id number] Per instruc tions Per instructio ns (route: oral) Med Classific ation: Central Nervous System Agents escitalopra m 20 mg tablet 02-07 00:00: 00 08-05 23:59 :00 No [id number] 1 tablet DAILY 1 tablet DAILY (route: oral) Med Classific ation: Central Nervous System Agents gabapentin 300 mg capsule 02-07 00:00: 00 08-05 23:59 :00 No [id number] 2 capsule 3 TIMES DAILY 2 capsule 3 TIMES DAILY (route: oral) Med Classific ation: Central Nervous System Agents ibuprofen 800 mg tablet 02-07 00:00: 00 08-05 23:59 :00 No [id number] 1 tablet DAILY 1 tablet DAILY (route: oral) Med Classific ation: Analgesic , Anti-infl ammatory or Antipyret ic lidocaine 5 % topical patch 02-07 00:00: 00 08-05 23:59 :00 No [id number] 1 adhesiv e patch, medicat ed DAILY 1 adhesive patch, medicated DAILY (route: topical) Med Classific ation: Dermatolo gical Miralax 17 gram/dose oral powder 02-07 00:00: 00 08-05 23:59 :00 No [id number] Per instruc tions DAILY Per instructio ns DAILY (route: oral) Med Classific ation: Gastroint estinal Therapy Agents Pyridium 100 mg tablet 02-07 00:00: 00 08-05 23:59 :00 No [id number] 1 tablet DAILY 1 tablet DAILY (route: oral) Med Classific ation: Genitouri nary Therapy Senna Laxative 8.6 mg tablet 02-07 00:00: 00 08-05 23:59 :00 No [id number] 2 tablet DAILY 2 tablet DAILY (route: oral) Med Classific ation: Gastroint estinal Therapy Agents Tylenol Extra Strength 500 mg tablet 02-07 00:00: 00 08-05 23:59 :00 No [id number] 2 tablet 2 TIMES DAILY 2 tablet 2 TIMES DAILY (route: oral) Med Classific ation: Analgesic , Anti-infl ammatory or Antipyret ic Vitamin D3 50 mcg (2,000 unit) tablet 02-07 00:00: 00 08-05 23:59 :00 No [id number] 1 tablet DAILY 1 tablet DAILY (route: oral) Med Classific ation: Electroly te Balance-N utritiona l Products atorvastati n 20 mg tablet 08-30 00:00: 00 Yes [id number] 1 tablet BEDTIME 1 tablet BEDTIME (route: oral) Med Classific ation: Cardiovas cular Therapy Agents clonidine HCl 0.1 mg tablet 08-30 00:00: 00 Yes [id number] 1 tablet DAILY 1 tablet DAILY (route: oral) Med Classific ation: Cardiovas cular Therapy Agents doxepin 75 mg capsule 08-30 00:00: 00 Yes [id number] 1 capsule BEDTIME 1 capsule BEDTIME (route: oral) Med Classific ation: Central Nervous System Agents escitalopra m 20 mg tablet 08-30 00:00: 00 Yes [id number] 1 tablet DAILY 1 tablet DAILY (route: oral) Med Classific ation: Central Nervous System Agents ezetimibe 10 mg tablet 08-30 00:00: 00 Yes [id number] 1 tablet DAILY 1 tablet DAILY (route: oral) Med Classific ation: Cardiovas cular Therapy Agents gabapentin 300 mg capsule 08-30 00:00: 00 Yes [id number] 1 capsule 2 TIMES DAILY 1 capsule 2 TIMES DAILY (route: oral) Med Classific ation: Central Nervous System Agents Lidocaine Pain Relief 4 % topical patch 08-30 00:00: 00 Yes [id number] 1 adhesiv e patch, medicat ed DAILY 1 adhesive patch, medicated DAILY (route: topical) Med Classific ation: Dermatolo gical Miralax 17 gram oral powder packet 08-30 00:00: 00 Yes [id number] 1 powder in packet DAILY 1 powder in packet DAILY (route: oral) Med Classific ation: Gastroint estinal Therapy Agents pyridoxine (vitamin B6) 100 mg tablet 08-30 00:00: 00 Yes [id number] 1 tablet DAILY 1 tablet DAILY (route: oral) Med Classific ation: Electroly te Balance-N utritiona l Products Remeron 15 mg tablet 08-30 00:00: 00 Yes [id number] 1 tablet BEDTIME 1 tablet BEDTIME (route: oral) Med Classific ation: Central Nervous System Agents Clotrimazol e AF 1 % topical cream 08-30 00:00: 00 Yes [id number] Per instruc tions NEEDED Per instructio ns NEEDED (route: topical) Med Classific ation: Dermatolo gical ramelteon 8 mg tablet 09-12 00:00: 00 Yes [id number] 1 tablet BEDTIME 1 tablet BEDTIME (route: oral) Med Classific ation: Central Nervous System Agents Immunizations Ordered Immunization Name Filled Immunization Name Date Status Comments Refusal Reason INFLUENZA, TIV (INACTIVATED) 2024-05-13 00:00:00 Vital Signs Vital Name Observation Time Observation Value Commen ts Temperature 2024-09-26 13:10:00.000 98.1 [degF] Temperature 2024-09-26 10:25:00.000 98.8 [degF] Temperature 2024-09-17 13:41:00.000 98.5 [degF] Temperature 2024-09-12 13:09:00.000 97.9 [degF] Temperature 2024-09-12 13:03:00.000 97.9 [degF] Temperature 2024-09-05 10:06:00.000 99 [degF] Temperature 2024-09-02 13:40:00.000 98.5 [degF] Temperature 2024-08-30 09:43:00.000 97.5 [degF] BMI (%) 2024-08-30 09:43:00.000 36 kg/m2 Height 2024-08-30 09:43:00.000 62 [in_us] Pulse 2024-09-26 13:10:00.000 72 /min Pulse 2024-09-26 10:25:00.000 76 /min Pulse 2024-09-17 13:41:00.000 64 /min Pulse 2024-09-12 13:09:00.000 60 /min Pulse 2024-09-12 13:03:00.000 60 /min Pulse 2024-09-05 10:06:00.000 70 /min Pulse 2024-09-02 13:40:00.000 70 /min Pulse 2024-08-30 09:43:00.000 66 /min O2 Saturation (%) 2024-09-26 13:10:00.000 93 % O2 Saturation (%) 2024-09-26 10:25:00.000 95 % O2 Saturation (%) 2024-09-17 13:41:00.000 95 % O2 Saturation (%) 2024-09-12 13:14:00.000 95 % O2 Saturation (%) 2024-09-12 13:03:00.000 98 % O2 Saturation (%) 2024-09-05 10:06:00.000 96 % O2 Saturation (%) 2024-09-02 13:40:00.000 98 % O2 Saturation (%) 2024-08-30 09:43:00.000 96 % Respirations 2024-09-26 13:10:00.000 18 /min Respirations 2024-09-26 10:25:00.000 18 /min Respirations 2024-09-17 13:41:00.000 18 /min Respirations 2024-09-12 13:09:00.000 18 /min Respirations 2024-09-12 13:03:00.000 18 /min Respirations 2024-09-05 10:06:00.000 20 /min Respirations 2024-09-02 13:40:00.000 16 /min Respirations 2024-08-30 09:43:00.000 18 /min Weight (lbs) 2024-08-30 09:43:00.000 198 [lb_av] Systolic Blood Pressure 2024-09-26 13:10:00.000 119 mm [Hg] Systolic Blood Pressure 2024-09-26 10:25:00.000 148 mm [Hg] Systolic Blood Pressure 2024-09-17 13:41:00.000 120 mm [Hg] Systolic Blood Pressure 2024-09-12 13:09:00.000 123 mm [Hg] Systolic Blood Pressure 2024-09-12 13:03:00.000 123 mm [Hg] Systolic Blood Pressure 2024-09-05 10:06:00.000 144 mm [Hg] Systolic Blood Pressure 2024-09-02 13:40:00.000 142 mm [Hg] Systolic Blood Pressure 2024-08-30 09:43:00.000 118 mm [Hg] Diastolic Blood Pressure 2024-09-26 13:10:00.000 83 mm [Hg] Diastolic Blood Pressure 2024-09-26 10:25:00.000 88 mm [Hg] Diastolic Blood Pressure 2024-09-17 13:41:00.000 85 mm [Hg] Diastolic Blood Pressure 2024-09-12 13:09:00.000 87 mm [Hg] Diastolic Blood Pressure 2024-09-12 13:03:00.000 87 mm [Hg] Diastolic Blood Pressure 2024-09-05 10:06:00.000 80 mm [Hg] Diastolic Blood Pressure 2024-09-02 13:40:00.000 70 mm [Hg] Diastolic Blood Pressure 2024-08-30 09:43:00.000 64 mm [Hg] Plan of Treatment Planned Activity Planned Date Details Comments Future Scheduled Test SKILLED NU RSE TO EVALUATE PATIENT, IDENTIFY PRIMARY AND CO-MORBID CONDITIONS CODED PER CODING GUIDELINES, AND DEVELOP PATIENT SPECIFIC PLAN OF CARE THAT INCLUDES PATIENT GOAL FOR HOME HEALTH. [code = SKILLED NURSE TO EVALUATE PATIENT, IDENTIFY PRIMARY AND CO-MORBID CONDITIONS CODED PER CODING GUIDELINES, AND DEVELOP PATIENT SPECIFIC PLAN OF CARE THAT INCLUDES PATIENT GOAL FOR HOME HEALTH.] Future Scheduled Test SKILLED NU RSE TO REVIEW PATIENT MEDICATIONS. INSTRUCT PATIENT/CAREGIVER ON MONITORING OF EFFECTIVENESS, ADVERSE DRUG REACTIONS, SIDE EFFECTS OF ALL MEDICATIONS (PRESCRIPTION/-OTC), AND HOW AND WHEN TO REPORT PROBLEMS. [code = SKILLED NURSE TO REVIEW PATIENT MEDICATIONS. INSTRUCT PATIENT/CAREGIVER ON MONITORING OF EFFECTIVENESS, ADVERSE DRUG REACTIONS, SIDE EFFECTS OF ALL MEDICATIONS (PRESCRIPTION/-OTC), AND HOW AND WHEN TO REPORT PROBLEMS.] Future Scheduled Test SKILLED NU RSE TO ASSESS ANXIETY AND PROVIDE ASSISTANCE TO PATIENT FOR UNDERSTANDING AND MANAGEMENT OF FEELINGS. [code = SKILLED NURSE TO ASSESS ANXIETY AND PROVIDE ASSISTANCE TO PATIENT FOR UNDERSTANDING AND MANAGEMENT OF FEELINGS.] Future Scheduled Test SKILLED NU RSE FOR O/A, TEACHING RELATED TO GERD FOR EARLY IDENTIFICATION OF EXACERBATION OF DISEASE PROCESS. [code = SKILLED NURSE FOR O/A, TEACHING RELATED TO GERD FOR EARLY IDENTIFICATION OF EXACERBATION OF DISEASE PROCESS.] Future Scheduled Test MEDICAL SO CIAL WORKER TO EVALUATE PATIENT FOR COMMUNITY RESOURCES POSSIBLE INCREASE OF PROGRAM SCHEDULE CLERK HRS [code = DROP HAMMER SET UP OPERATOR TO EVALUATE PATIENT FOR COMMUNITY RESOURCES POSSIBLE INCREASE OF PROGRAM SCHEDULE CLERK HRS] Future Scheduled Test SKILLED NU RSE FOR O/A OF RESPIRATORY SYSTEM TO IDENTIFY CHANGES ASSOCIATED WITH EXACERBATION AND TO PROVIDE SKILLED TEACHING ON MANAGEMENT OF ASTHMA PROCESS. [code = SKILLED NURSE FOR O/A OF RESPIRATORY SYSTEM TO IDENTIFY CHANGES ASSOCIATED WITH EXACERBATION AND TO PROVIDE SKILLED TEACHING ON MANAGEMENT OF ASTHMA PROCESS.] Future Scheduled Test SKILLED NU RSE TO INSTRUCT/REINFORCE MEASURES TO PREVENT BARRIERS TO CARE. [code = SKILLED NURSE TO INSTRUCT/REINFORCE MEASURES TO PREVENT BARRIERS TO CARE.] Future Scheduled Test SKILLED NU RSE FOR O/A OF SELF-CARE DEFICITS AND TO PROVIDE TEACHING RELATED TO SAFE PROVISION OF ADLS. [code = SKILLED NURSE FOR O/A OF SELF-CARE DEFICITS AND TO PROVIDE TEACHING RELATED TO SAFE PROVISION OF ADLS.] Future Scheduled Test SKILLED NU RSE TO ASSESS PATIENTS PSYCHOSOCIAL STATUS TO IDENTIFY POTENTIAL ISSUES THAT MAY COMPLICATE THE PROVISION OF THE PLAN OF CARE INCLUDING THE PATIENTS ABILITY TO ACCESS COMMUNITY RESOURCES AND PSYCHOSOCIAL SUPPORT SERVICES. [code = SKILLED NURSE TO ASSESS PATIENTS PSYCHOSOCIAL STATUS TO IDENTIFY POTENTIAL ISSUES THAT MAY COMPLICATE THE PROVISION OF THE PLAN OF CARE INCLUDING THE PATIENTS ABILITY TO ACCESS COMMUNITY RESOURCES AND PSYCHOSOCIAL SUPPORT SERVICES.] Future Scheduled Test PHYSICAL T HERAPIST TO EVALUATE PATIENT FOR GAIT STABILITY AND STRENGTH [code = PHYSICAL THERAPIST TO EVALUATE PATIENT FOR GAIT STABILITY AND STRENGTH ] Future Scheduled Test SKILLED NU RSE FOR O/A AND SKILLED TEACHING RELATED TO ALTERED SKIN INTEGRITY FUNGAL RASH [code = SKILLED NURSE FOR O/A AND SKILLED TEACHING RELATED TO ALTERED SKIN INTEGRITY FUNGAL RASH ] Future Scheduled Test SKILLED NU RSE FOR O/A AND SKILLED TEACHING RELATED TO SIGNS AND SYMPTOMS AND MANAGEMENT OF LUMBAR SPINAL STENOSIS, OA, FIBROMIALGIA, RLS. [code = SKILLED NURSE FOR O/A AND SKILLED TEACHING RELATED TO SIGNS AND SYMPTOMS AND MANAGEMENT OF LUMBAR SPINAL STENOSIS, OA, FIBROMIALGIA, RLS.] Future Scheduled Test PATIENT ADAM S A RISK OF HOSPITALIZATION AND ED USE. SKILLED NURSE TO ESTABLISH SUPPORT MEASURES TO MINIMIZE RISK OF HOSPITALIZATION AND ED USE, AND INSTRUCT PATIENT/CAREGIVER ON METHODS TO REDUCE AVOIDABLE HOSPITALIZATION AND ED USE. [code = PATIENT HAS A RISK OF HOSPITALIZATION AND ED USE. SKILLED NURSE TO ESTABLISH SUPPORT MEASURES TO MINIMIZE RISK OF HOSPITALIZATION AND ED USE, AND INSTRUCT PATIENT/CAREGIVER ON METHODS TO REDUCE AVOIDABLE HOSPITALIZATION AND ED USE.] Future Scheduled Test SKILLED NU RSE TO PROVIDE INSTRUCTION TO PATIENT/CAREGIVER RELATED TO DISCHARGE PLANNING. [code = SKILLED NURSE TO PROVIDE INSTRUCTION TO PATIENT/CAREGIVER RELATED TO DISCHARGE PLANNING.] Future Scheduled Test SKILLED NU RSE TO PERFORM ENVIRONMENTAL SAFETY RISK ASSESSMENT AND FALL RISK ASSESSMENT AND PROVIDE INSTRUCTION TO IMPLEMENT ENVIRONMENTAL SAFETY AND FALL PREVENTION STRATEGIES THROUGHOUT THE CERTIFICATION PERIOD. SKILLED NURSE WILL MAINTAIN SITUATIONAL AWARENESS AND WILL NOTIFY CLINICAL BINDERY MACHINE FEEDER OFFBEARER AND PHYSICIAN/PROVIDER WITH ANY CHANGE IN CONDITION. [code = SKILLED NURSE TO PERFORM ENVIRONMENTAL SAFETY RISK ASSESSMENT AND FALL RISK ASSESSMENT AND PROVIDE INSTRUCTION TO IMPLEMENT ENVIRONMENTAL SAFETY AND FALL PREVENTION STRATEGIES THROUGHOUT THE CERTIFICATION PERIOD. SKILLED NURSE WILL MAINTAIN SITUATIONAL AWARENESS AND WILL NOTIFY CLINICAL BINDERY MACHINE FEEDER OFFBEARER AND PHYSICIAN/PROVIDER WITH ANY CHANGE IN CONDITION.] Future Scheduled Test SKILLED NU RSE FOR OBSERVATION AND ASSESSMENT OF PATIENTS PAIN LEVEL AND EFFECTIVENESS OF PAIN MANAGEMENT REGIMEN. SKILLED NURSE TO INSTRUCT PATIENT/CAREGIVER REGARDING PHARMACOLOGIC AND NON-PHARMACOLOGIC PAIN CONTROL MEASURES. SKILLED NURSE TO REPORT TO PHYSICIAN IF PAIN IS UNCONTROLLED WITH CURRENT PAIN MANAGEMENT REGIMEN. [code = SKILLED NURSE FOR OBSERVATION AND ASSESSMENT OF PATIENTS PAIN LEVEL AND EFFECTIVENESS OF PAIN MANAGEMENT REGIMEN. SKILLED NURSE TO INSTRUCT PATIENT/CAREGIVER REGARDING PHARMACOLOGIC AND NON-PHARMACOLOGIC PAIN CONTROL MEASURES. SKILLED NURSE TO REPORT TO PHYSICIAN IF PAIN IS UNCONTROLLED WITH CURRENT PAIN MANAGEMENT REGIMEN.] Future Scheduled Test SKILLED NU RSE TO ASSESS PATIENT'S SKIN INTEGRITY AND INSTRUCT PATIENT/CAREGIVER ON MEASURES TO PREVENT PRESSURE ULCERS. [code = SKILLED NURSE TO ASSESS PATIENT'S SKIN INTEGRITY AND INSTRUCT PATIENT/CAREGIVER ON MEASURES TO PREVENT PRESSURE ULCERS.] Future Scheduled Test SKILLED NU RSE TO PROVIDE ASSESSMENT AND TEACHING/REINFORCEMENT OF MANAGEMENT OF DEPRESSION INCLUDING DISEASE PROCESS, MEDICATION MANAGEMENT, COPING SKILLS AND IDENTIFY CHANGES ASSOCIATED WITH DEPRESSIVE DISORDERS FOR EARLY INTERVENTION. [code = SKILLED NURSE TO PROVIDE ASSESSMENT AND TEACHING/REINFORCEMENT OF MANAGEMENT OF DEPRESSION INCLUDING DISEASE PROCESS, MEDICATION MANAGEMENT, COPING SKILLS AND IDENTIFY CHANGES ASSOCIATED WITH DEPRESSIVE DISORDERS FOR EARLY INTERVENTION.] Future Scheduled Test PHYSICAL T HERAPIST TO EVALUATE PATIENT SECONDARY TO FUNCTIONAL DEFICITS/SAFETY CONCERNS. PHYSICAL THERAPY TO ESTABLISH /UPGRADE/DOWNGRADE THERAPEUTIC EXERCISE PROGRAM AND INSTRUCT PATIENT/CAREGIVER ON EXERCISE PRECAUTIONS WITH WRITTEN HOME PROGRAM. MAY INCLUDE PROM, AAROM, AROM, RROM APPROPRIATE TO IMPROVE FUNCTIONAL STRENGTH AND RANGE OF MOTION. PHYSICAL THERAPY TO INSTRUCT PATIENT/CAREGIVER ON BED MOBILITY TECHNIQUES TO IMPROVE PATIENT MOBILITY AND POSITIONING TECHNIQUES IN ORDER TO INCREASE PATIENTS COMFORT AND DECREASE RISK OF SKIN BREAKDOWN. PHYSICAL THERAPY TO INSTRUCT PATIENT/CAREGIVER ON SAFE TRANSFER TECHNIQUES USING PROPER BODY MECHANICS AND EQUIPMENT. PHYSICAL THERAPY TO INSTRUCT PATIENT/CAREGIVER ON GAIT TRAINING TECHNIQUES USING APPROPRIATE ASSISTIVE DEVICE, PROPER BODY MECHANICS TO IMPROVE MOBILITY, AND PREVENT INJURY OF PATIENT AND/OR CAREGIVER. PHYSICAL THERAPY TO ASSESS AND RECOMMEND HOME SAFETY ADAPTATIONS AND EDUCATE PATIENT /CAREGIVER ON FALL PREVENTION STRATEGIES. PHYSICAL THERAPY FOR OBSERVATION AND ASSESSMENT OF PAIN, EFFECTIVENESS OF PAIN MANAGEMENT REGIMEN AND SKILLED TEACHING RELATED TO PAIN MANAGEMENT. THERAPIST TO REPORT INCREASED PAIN LEVEL TO PHYSICIAN FOR PROMPT INTERVENTION. PHYSICAL THERAPY TO INSTRUCT PATIENT/CAREGIVER ON BALANCE AND BALANCE STRATEGIES TO IMPROVE SAFE MOBILITY AND REDUCE RISK FOR FALL AND INJURY SUMMARY OF THERAPY EVAL/ASSESSMENT FINDINGS AND REASON(S) SKILLS OF A THERAPIST ARE INDICATED: 09/02: PATIENT IS A 68-YEAR-OLD FEMALE WITH HISTORY OF LUMBAR SPINE STENOSIS, RESTLESS LEG SYNDROME, FIBROMYALGIA, DEPRESSION, ANXIETY, PRESENTS REFERRAL FOR HOME PT SERVICES FROM PCP OFFICE FOR DECREASING MOBILITY AT HOME AND GENERALIZED WEAKNESS. PLOF: [facility]. SHE IS TYPICALLY MOD I FOR HOUSEHOLD LEVEL AMBULATION LIMITED DISTANCE COMMUNITY AMBULATION WITH STRAIGHT CANE USE OF ROLLING WALKER USE CONTINGENT ON PAIN LEVELS. PATIENT REPORTS HE HAS HAD SEVERAL FALLS IN THE LAST 12 MONTHS AND UNABLE TO ASCERTAIN A SPECIFIC NUMBER OF FALLS BUT REPORTS GREATER THAN 10. PATIENT'S PRIMARY GOAL WITH HOME PT SERVICES IS TO IMPROVE HER LOWER EXTREMITY STRENGTH AND BALANCE, PATIENT IS MOTIVATED TO RETURN TO PRIOR LEVEL OF FUNCTION. PATIENT'S BACK PAIN IS MINIMAL WITH ACTIVITY AND REST TO PRIMARILY REPORTS WEAKNESS HER CHIEF COMPLAINT. PATIENT DEMONSTRATES LOWER EXTREMITY WEAKNESS EVIDENCED BY 30 SECOND [id number] SCORE LESS THAN 8 REPETITIONS, SHE DEMONSTRATES IMPAIRED DYNAMIC STANDING BALANCE EVIDENCED BY 30 SECOND [id number] SCORE LESS THAN 8 REPETITIONS, SHE ALSO DEMONSTRATES IMPAIRED ACTIVITY TOLERANCE REQUIRED FOR COMMUNITY DISTANCE AMBULATION EVIDENCED BY 2 MINUTE STEP TEST SCORE LESS THAN 100 STEPS. SHE REQUIRED CGA X1 FOR TRANSFERS AND LEVEL SURFACE AMBULATION WITH ROLLING WALKER USE TODAY SECONDARY TO ABOVE MENTIONED IMPAIRMENTS. PATIENT WILL REQUIRE HOME PT SERVICES IN ORDER TO MAXIMIZE CURRENT LEVEL OF FUNCTION AND INDEPENDENCE. WILL PLAN FOR WEEKLY PT VISITS UNTIL END OF EPISODE IN ORDER TO IMPLEMENT PLAN OF CARE EFFECTIVELY. VERBAL ORDER RECEIVED FOR PT PLAN OF CARE FROM ROBBY AT MD OFFICE. PHYSICAL THERAPIST TO ASSESS BEST PRACTICE INTERVENTIONS TO ASSIST PATIENTS TO IMPROVE OR STABILIZE MEDICAL STATUS AND PREVENT RE-HOSPITALIZATION. MEASURES INCLUDING REVIEW AND IDENTIFICATION OF CONCERNS FOR THE FOLLOWING AREAS: SPINAL STENOSIS, ASTHMA, DEPRESSION, DRUG REGIMEN, DIABETIC FOOT CARE, ENVIRONMENTAL SAFETY ISSUES AND FALLS, PRESSURE ULCERS, PAIN, AND DISEASE MANAGEMENT. [code = PHYSICAL THERAPIST TO EVALUATE PATIENT SECONDARY TO FUNCTIONAL DEFICITS/SAFETY CONCERNS. PHYSICAL THERAPY TO ESTABLISH /UPGRADE/DOWNGRADE THERAPEUTIC EXERCISE PROGRAM AND INSTRUCT PATIENT/CAREGIVER ON EXERCISE PRECAUTIONS WITH WRITTEN HOME PROGRAM. MAY INCLUDE PROM, AAROM, AROM, RROM APPROPRIATE TO IMPROVE FUNCTIONAL STRENGTH AND RANGE OF MOTION. PHYSICAL THERAPY TO INSTRUCT PATIENT/CAREGIVER ON BED MOBILITY TECHNIQUES TO IMPROVE PATIENT MOBILITY AND POSITIONING TECHNIQUES IN ORDER TO INCREASE PATIENTS COMFORT AND DECREASE RISK OF SKIN BREAKDOWN. PHYSICAL THERAPY TO INSTRUCT PATIENT/CAREGIVER ON SAFE TRANSFER TECHNIQUES USING PROPER BODY MECHANICS AND EQUIPMENT. PHYSICAL THERAPY TO INSTRUCT PATIENT/CAREGIVER ON GAIT TRAINING TECHNIQUES USING APPROPRIATE ASSISTIVE DEVICE, PROPER BODY MECHANICS TO IMPROVE MOBILITY, AND PREVENT INJURY OF PATIENT AND/OR CAREGIVER. PHYSICAL THERAPY TO ASSESS AND RECOMMEND HOME SAFETY ADAPTATIONS AND EDUCATE PATIENT /CAREGIVER ON FALL PREVENTION STRATEGIES. PHYSICAL THERAPY FOR OBSERVATION AND ASSESSMENT OF PAIN, EFFECTIVENESS OF PAIN MANAGEMENT REGIMEN AND SKILLED TEACHING RELATED TO PAIN MANAGEMENT. THERAPIST TO REPORT INCREASED PAIN LEVEL TO PHYSICIAN FOR PROMPT INTERVENTION. PHYSICAL THERAPY TO INSTRUCT PATIENT/CAREGIVER ON BALANCE AND BALANCE STRATEGIES TO IMPROVE SAFE MOBILITY AND REDUCE RISK FOR FALL AND INJURY SUMMARY OF THERAPY EVAL/ASSESSMENT FINDINGS AND REASON(S) SKILLS OF A THERAPIST ARE INDICATED: 09/02: PATIENT IS A 68-YEAR-OLD FEMALE WITH HISTORY OF LUMBAR SPINE STENOSIS, RESTLESS LEG SYNDROME, FIBROMYALGIA, DEPRESSION, ANXIETY, PRESENTS REFERRAL FOR HOME PT SERVICES FROM PCP OFFICE FOR DECREASING MOBILITY AT HOME AND GENERALIZED WEAKNESS. PLOF: PATIENT LIV[facility] AL[facility] IN [facility]. SHE IS TYPICALLY MOD I FOR HOUSEHOLD LEVEL AMBULATION LIMITED DISTANCE COMMUNITY AMBULATION WITH STRAIGHT CANE USE OF ROLLING WALKER USE CONTINGENT ON PAIN LEVELS. PATIENT REPORTS HE HAS HAD SEVERAL FALLS IN THE LAST 12 MONTHS AND UNABLE TO ASCERTAIN A SPECIFIC NUMBER OF FALLS BUT REPORTS GREATER THAN 10. PATIENT'S PRIMARY GOAL WITH HOME PT SERVICES IS TO IMPROVE HER LOWER EXTREMITY STRENGTH AND BALANCE, PATIENT IS MOTIVATED TO RETURN TO PRIOR LEVEL OF FUNCTION. PATIENT'S BACK PAIN IS MINIMAL WITH ACTIVITY AND REST TO PRIMARILY REPORTS WEAKNESS HER CHIEF COMPLAINT. PATIENT DEMONSTRATES LOWER EXTREMITY WEAKNESS EVIDENCED BY 30 SECOND [id number] SCORE LESS THAN 8 REPETITIONS, SHE DEMONSTRATES IMPAIRED DYNAMIC STANDING BALANCE EVIDENCED BY 30 SECOND HUT-PR-SATTX SCORE LESS THAN 8 REPETITIONS, SHE ALSO DEMONSTRATES IMPAIRED ACTIVITY TOLERANCE REQUIRED FOR COMMUNITY DISTANCE AMBULATION EVIDENCED BY 2 MINUTE STEP TEST SCORE LESS THAN 100 STEPS. SHE REQUIRED CGA X1 FOR TRANSFERS AND LEVEL SURFACE AMBULATION WITH ROLLING WALKER USE TODAY SECONDARY TO ABOVE MENTIONED IMPAIRMENTS. PATIENT WILL REQUIRE HOME PT SERVICES IN ORDER TO MAXIMIZE CURRENT LEVEL OF FUNCTION AND INDEPENDENCE. WILL PLAN FOR WEEKLY PT VISITS UNTIL END OF EPISODE IN ORDER TO IMPLEMENT PLAN OF CARE EFFECTIVELY. VERBAL ORDER RECEIVED FOR PT PLAN OF CARE FROM ROBBY AT MD OFFICE. PHYSICAL THERAPIST TO ASSESS BEST PRACTICE INTERVENTIONS TO ASSIST PATIENTS TO IMPROVE OR STABILIZE MEDICAL STATUS AND PREVENT RE-HOSPITALIZATION. MEASURES INCLUDING REVIEW AND IDENTIFICATION OF CONCERNS FOR THE FOLLOWING AREAS: SPINAL STENOSIS, ASTHMA, DEPRESSION, DRUG REGIMEN, DIABETIC FOOT CARE, ENVIRONMENTAL SAFETY ISSUES AND FALLS, PRESSURE ULCERS, PAIN, AND DISEASE MANAGEMENT. ] Future Scheduled Test MEDICAL SO CIAL WORKER EVALUATION PERFORMED. NO ADDITIONAL VISITS REQUIRED. [code = DROP HAMMER SET UP OPERATOR EVALUATION PERFORMED. NO ADDITIONAL VISITS REQUIRED.] Goal Patient Goal - GET STRONGER Goal Provider Goal - A PLAN OF CARE WILL BE ESTABLISHED THAT MEETS PATIENT'S RETIREMENT NEEDS AND INCLUDES PATIENT GOAL FOR HOME HEALTH. Goal Provider Goal - PATIENT/CAREGIVER WILL VERBALIZE UNDERSTANDING OF EDUCATION PROVIDED ON MEDICATIONS BY THE END OF THE CERTIFICATION PERIOD. Goal Provider Goal - SYMPTOMS OF ANXIETY ARE IDENTIFIED AND INTERVENTIONS INITIATED TO ENABLE PATIENT TO UNDERSTAND AND MANAGE FEELINGS THROUGHOUT EPISODE. Goal Provider Goal - EXACERBATIONS OF GASTROINTESTINAL DISEASE WILL BE PROMPTLY IDENTIFIED AND INTERVENTIONS IMPLEMENTED TO MINIMIZE RISKS TO PATIENT BY END OF EPISODE. Goal Provider Goal - DROP HAMMER SET UP OPERATOR TO COMPLETE EVALUATION TO ADDRESS THE PATIENTS SOCIAL AND EMOTIONAL FACTORS AND/OR WRITTEN PLAN OF TREATMENT ESTABLISHED FOR THE PHYSICIAN'S SIGNATURE. Goal Provider Goal - PATIENT/CAREGIVER WILL VERBALIZE/DEMONSTRATE MANAGEMENT OF RESPIRATORY DISEASE PROCESS. CHANGES IN RESPIRATORY STATUS WILL BE IDENTIFIED AND REPORTED TO PHYSICIAN FOR PROMPT INTERVENTION THROUGHOUT THE CERTIFICATION PERIOD. Goal Provider Goal - PATIENT / CAREGIVER WILL VERBALIZE UNDERSTANDING OF BARRIERS PREVENTING PROPER CARE AND DEMONSTRATE MEASURES TO ELIMINATE THOSE BARRIERS DURING THIS EPISODE. Goal Provider Goal - PATIENT/CAREGIVER WILL VERBALIZE/DEMONSTRATE UNDERSTANDING OF SAFE PROVISION OF ADLS BY THE END OF THE CERTIFICATION PERIOD. Goal Provider Goal - CHANGES IN PSYCHOSOCIAL STATUS WILL BE IDENTIFIED AND PLAN IMPLEMENTED TO MINIMIZE PATIENT RISKS THROUGHOUT THE CERTIFICATION PERIOD. Goal Provider Goal - A PHYSICAL THERAPY EVALUATION TO BE COMPLETED WITH RECOMMENDATIONS AND/OR WRITTEN PLAN OF TREATMENT ESTABLISHED FOR PHYSICIANS SIGNATURE. Goal Provider Goal - PATIENT/CAREGIVER WILL VERBALIZE/DEMONSTRATE UNDERSTANDING OF TEACHING RELATED TO ALTERED SKIN INTEGRITY BY END OF CERTIFICATION PERIOD. Goal Provider Goal - PATIENT/CAREGIVER WILL VERBALIZE UNDERSTANDING OF MUSCULOSKELETAL DISEASE INCLUDING SIGNS AND SYMPTOMS, MANAGEMENT, AND PRESCRIBED TREATMENT REGIMEN BY END OF EPISODE. Goal Provider Goal - PATIENT WILL HAVE SUPPORT MEASURES ESTABLISHED TO PREVENT HOSPITALIZATION AND ED USE AND PATIENT/CAREGIVER WILL VERBALIZE/DEMONSTRATE METHODS TO REDUCE AVOIDABLE HOSPITALIZATION AND ED USE BY END OF EPISODE. Goal Provider Goal - PATIENT/CAREGIVER WILL VERBALIZE UNDERSTANDING OF DISCHARGE PLANNING INSTRUCTIONS BY DATE OF DISCHARGE. Goal Provider Goal - PATIENT/CAREGIVER WILL VERBALIZE/DEMONSTRATE EFFECTIVE ENVIRONMENTAL SAFETY AND FALL PREVENTION STRATEGIES, WILL REMAIN SAFE IN THE COMMUNITY, AND WILL BE FREE OF DANGER TO SELF AND OTHERS THROUGHOUT THE CERTIFICATION PERIOD. Goal Provider Goal - PATIENT/CAREGIVER WILL DEMONSTRATE UNDERSTANDING OF PHARMACOLOGIC AND NONPHARMACOLOGIC PAIN CONTROL MEASURES AND PATIENT WILL HAVE IMPROVEMENT IN PAIN INTERFERING WITH ACTIVITY EVIDENCED BY PAIN CONTROLLED AT LEVEL OF 7 OR LESS BY END OF CERTIFICATION PERIOD. Goal Provider Goal - PATIENT/CAREGIVER WILL VERBALIZE UNDERSTANDING OF PRESSURE ULCER PREVENTION BY END OF THE EPISODE. Goal Provider Goal - PATIENT/CAREGIVER WILL VERBALIZE/DEMONSTRATE UNDERSTANDING OF THE MANAGEMENT OF DEPRESSION THROUGHOUT THE CERTIFICATION PERIOD AND SYMPTOMS ARE IDENTIFIED AND MANAGED TO MAINTAIN PATIENT SAFETY IN THE HOME. Goal Provider Goal - PHYSICAL THERAPY EVALUATION TO BE COMPLETED WITH RECOMMENDATIONS AND/OR WRITTEN TREATMENT PLAN OF CARE ESTABLISHED FOR THE PHYSICIANS SIGNATURE PATIENT/CAREGIVER WILL PERFORM THERAPEUTIC EXERCISE/S AND DEMONSTRATE PARTICIPATION IN A HOME PROGRAM. PATIENT/CAREGIVER WILL DEMONSTRATE IMPROVED BED MOBILITY TECHNIQUES. PATIENT/CAREGIVER WILL DEMONSTRATE SAFE TRANSFERS USING APPROPRIATE ASSISTIVE DEVICE, BODY MECHANICS AND EQUIPMENT. PATIENT/CAREGIVER WILL DEMONSTRATE IMPROVED GAIT TECHNIQUES TO MINIMIZE RISK OF INJURY. PATIENT/CAREGIVER WILL DEMONSTRATE/VERBALIZE UNDERSTANDING OF RECOMMENDATIONS TO INCREASE SAFETY IN THE HOME AND FALL PREVENTION. INCREASED PAIN OR INEFFECTIVE PAIN CONTROL MEASURES WILL BE IDENTIFIED AND PROMPTLY REPORTED TO THE PHYSICIAN. PATIENT/CAREGIVER WILL DEMONSTRATE EFFECTIVE PAIN MANAGEMENT. PATIENT/CAREGIVER WILL DEMONSTRATE IMPROVED BALANCE AND REDUCE THE RISK OF FALLS AND INJURY. PATIENT/CAREGIVER VERBALIZES UNDERSTANDING OF THE INITIAL BEST PRACTICE RECOMMENDATIONS. PHYSICIAN TO BE NOTIFIED APPROPRIATE FOR ANY CHANGES OR COMPLICATIONS THROUGHOUT THE CERTIFICATION PERIOD. Goal Provider Goal - SPORTS BOOK SERVER EVALUATION: BERTHA IS A 68 YEAR OLD FEMALE REFERRED TO [facility] CAR[facility] FOR LUMBAR SPINE STENOSIS. PMH INCLUDES RESTLESS LEG SYNDROME, FIBROMYALGIA, DEPRESSION, ANXIETY AND GENERALIZED WEAKNESS. SPORTS BOOK SERVER FACILITATED COMMUNITY RESOURCE ASSESSMENT AND LTC PLANNING ASSESSMENT. ENVIRONMENT: BERTHA LIVES IN APARTMENT ALONE. SHE HAS LIMITED SUPPORT FROM FAMILY AND FRIENDS. BERTHA HAS PROGRAM SCHEDULE CLERK FROM [facility] SUNDAY, SUNDAY AND SUNDAY FOR A TOTAL OF 5 HOURS A WEEK. BERTHA IS LOOKING FOR MORE HELP ON FRIDAYS FOR SHOWERS. BERTHA GETS MEALS ON WHEELS SUNDAY THROUGH SUNDAY. SHE USES [employer] FOR TRANSPORTATION TO APPOINTMENTS AND [employer] FOR OTHER NEEDS. BERTHA HAS ADVANCED DIRECTIVES IN PLACE. PRESENTATION: BERTHA IS ALERT AND ORIENTED X4. BERTHA WAS PLEASANT DURING VISIT. SHE DOES REPORT SYMPTOMS OF DEPRESSION AND ANXIETY. SHE DOES HAVE PSYCHIATRIST AND PSYCHOTHERAPIST IN PLACE. NO CURRENT SI/HI. BERTHA HAS NO CURRENT ETOH OR SUBSTANCE ABUSE ISSUES. INTERVENTION: BERTHA IS LOOKING FOR AN INCREASE IN SERVICES THROUGH [facility]. SPORTS BOOK SERVER CALLED [facility] SURGEON ASSISTANT TORIBIO AND LEFT A MESSAGE FOR A REEVALUATION FOR SERVICES AND ALSO PUT IN A REFERRAL FOR AN EMERGENCY ALERT BUTTON. BERTHA DOES NOT NEED ANY FURTHER ASSISTANCE FROM SPORTS BOOK SERVER AT THIS TIME. SPORTS BOOK SERVER PROVIDED CLOSURE BY RESTATING RESOURCES AVAILABLE IN THE COMMUNITY AND ENCOURAGED HER TO CONTACT SPORTS BOOK SERVER IF THERE WAS ANYTHING ELSE THE SPORTS BOOK SERVER COULD ASSIST WITH. Reason for Visit INDEPENDENT IN THE COMMUNITY Encounters Start Date/Time End Date/Time Encounter Type Admission Type Attending [facility] Care Department Encounter ID Discharge Date Discharge Status Discharge Condition Discharge Reason Percent Goals Met 2024-08-30 00:00:00 2024-09-26 00:00:00 Outpatient JAVIER NGUYEN [facility] [id number] 2024-09-26 00:00:00 DISCHARGE TO HOME OR SELF CARE INDEPENDEN T IN THE COMMUNITY F2F NOT OBTAINED ( ONLY) 47.62
--- OUTSIDE RECORDS SUMMARY | 2024-10-14 07:01 | XMS_ITS | Encounter Summary ---
Author Organization [employer] Address [address] [place] [address] [address] [place] [address] Care Team Providers Care Service Plumber Name Role Phone Unavailable Primary Care Provider Unavailabl e Encounter Details Date Type Department Care Team (Latest Contact Info) Description 02/07/2022 Abstract [facility] CONVERSIONS Dental, Provider, DDS Social History Tobacco Use Types Packs/Day Years Used Date Smoking Tobacco: Never Assessed Comments Unknown Sex and Gender Information Value Date Recorded Sex Assigned at Female 06/19/2022 10:17 AM EDT Legal Sex Female 10:17 AM EDT Gender Identity Female 06/19/2022 10:17 AM EDT Sexual Orientation Straight 06/19/2022 10 :17 AM EDT documented as of this encounter Plan of Treatment Not on file documented as of this encounter Visit Diagnoses Not on filedocumented in this encounter
--- OUTSIDE RECORDS SUMMARY | 2024-10-14 07:01 | XMS_ITS | Data Portability ---
Author Organization [place] [facility] Address [address] [place] [id number] Care Team Providers Care Agricultural Equipment Mechanic Name Role Phone TITI WOODARD Primary Care Provider Assessment Encounter Date Assessment Date Assessment LastModified by Organization Details LastModified Time 01/18/2023 01/18/2023 Time On Scene with Patient: 00:34:55 Brief Overview: 67 y/o female c/o white coated tongue x 2 weeks now. she finished rx nystatin suspension yesterday states symptoms are improving but not resolved. she denies any sore throat, fever, dysphagia, facial swelling, skin rash or pain. she has not been able to wear her dentures due to symptoms. she has been using Listerine and gargled with vinegar no relief. Vital Signs: BP 128/80, HR 87, RR 18, T 98.5, O2 97% RA Exam: pleasant 67 y/o female well appearing, alert NAD sitting at her kitchen table. mouth: moist mucous membranes, uvula is midline. no exudates. tone appears erythematous with white coating on posterior surface. skin: warm and dry no rashes or lesions. DDx considered, with rationale: Dental abscess: considered but she denies any tooth pain and she is afebrile. Allergic reaction: considered but vitals are stable, no tongue or facial edema, no skin rash. Strep: considered but she is afebrile, no lymphadenopathy, she denies sore throat. results/ work up: N/A Proper Personal Protective Equipment (PPE), including gloves, eye protection and masks were donned and doffed appropriately and all equipment cleaned using approved technique with germicidal disposable wipes prior to and after care of this patient according to [facility]'s infection prevention protocols. [email or web address] Not available 01/18/2023 15:19:41 Plan of Treatment Reminders Order Date Submit Date Provider Last Modified By Organization Details Last Modified Time Details Appointments None recorded. Lab None recorded. Referral None recorded. Procedures None recorded. Surgeries None recorded. Imaging None recorded. Medication Orders clotrimazol e 10 mg annette 2022 023 [facility], [address], [place], [place], [id number], 15:01:32 Patient TargetsNo targets recorded. Patient Instructions Encounter Date Encounter Id Patient Instructions Last Modified By Organization Details Last Modified Time 01/18/2023 [id number] Please seek care immediately if you develop any of the following symptoms: 1. Uncontrolled fever of at least 101? ? ?F or 38.4? ? ?C 2. Throat pain that is severe or does not start to improve within 5 to 7 days Call 911 or go to the emergency department if you: 1. Have trouble breathing 2. Cannot control your saliva (drooling) due to difficulty swallowing 3. Have swelling of the neck or tongue 4. Cannot move your neck or have trouble opening your mouth If you have additional concerns or develop a change in your condition between 8am-10pm, please call [facility] at [phone] to help navigate your care. [email or web address] Not available 01/18/2023 15:27:07 Reason for Referral None Reported. Procedures Surgical History Date Name Laterality Status Provider Name and Address Organization Details Recorded Time total knee replacement completed KATRINA Peters [address] [place], [address], [place] [facility] 01/18/2023 14:40:52 total replacement of hip completed KATRINA Peters [address], [place], [address], [place] [facility] 01/18/2023 14:41:02 oophorectomy completed KATRINA Peters [address], [place], [address], [place] [facility] 01/18/2023 14:41:15 Imaging Results None recorded. Procedure Notes None recorded. Medical Equipment None Reported. Medications Name Sig Start Date Stop Date Status Note LastModified by Organization Details LastModified Time quetiapine 25 mg tablet TAKE ONE TABLET AT BEDTIME 01/18 completed Not Available Not Available Not Available cyclobenzap rine 10 mg tablet TAKE ONE TABLET BY MOUTH THREE TIMES DAILY active Not Available Not Available No t Available fluconazole 100 mg tablet TAKE 2 TABS BY MOUTH ON DAY 1, AND THEN TAKE 1 TAB DAILY X6 DAYS 01/18 completed Not Available Not Available Not Available clotrimazol e 10 mg annette DISSOLVE ONE lozenge IN MOUTH FIVE TIMES DAILY DIRECTED FOR SEVEN DAYS active Not Available Not Available No t Available nystatin 100,000 unit/mL oral suspension TAKE FIVE ML BY MOUTH FOUR TIMES DAILY 01/18 completed Not Available Not Available Not Available atorvastati n 20 mg tablet TAKE ONE TABLET AT BEDTIME active Not Available Not Available No t Available trazodone 50 mg tablet TAKE ONE TABLET AT BEDTIME NEEDED active Not Available Not Available No t Available azithromyci n 250 mg tablet TAKE 2 TABLETS BY MOUTH ON DAY 1, THEN TAKE 1 TABLET DAILY ON DAYS 2-5 01/18 completed Not Available Not Available Not Available benzonatate 200 mg capsule TAKE ONE CAPSULE TWICE DAILY NEEDED FOR COUGH 01/18 completed Not Available Not Available Not Available senna 8.6 mg tablet TAKE ONE TABLET BY MOUTH AT BEDTIME NEEDED FOR CONSTIPAT ION active Not Available Not Available No t Available clonazepam 0.5 mg tablet TAKE ONE TABLET BY MOUTH FOUR TIMES DAILY NEEDED active Not Available Not Available No t Available Wellbutrin SR 100 mg tablet, 12 hr sustained-r elease Take 1 tablet twice a day by oral route. active Not Available Not Available No t Available omeprazole 10 mg capsule,del ayed release TAKE ONE CAPSULE BY MOUTH AT BEDTIME active Not Available Not Available No t Available tamsulosin 0.4 mg capsule TAKE ONE CAPSULE BY MOUTH EVERY DAY 01/18 completed Not Available Not Available Not Available trazodone 100 mg tablet TAKE ONE TABLET AT BEDTIME NEEDED active Not Available Not Available No t Available erythromyci n 5 mg/gram (0.5 %) eye ointment APPLY IN THE RIGHT EYE FOUR TIMES DAILY 01/18 completed Not Available Not Available Not Available lidocaine 5 % topical patch APPLY 1 PATCH TO SKIN. LEAVE ON FOR 12 HOURS, THEN OFF FOR 12 HOURS DIRECTED. active Not Available Not Available No t Available polymyxin B sulfate 10,000 unit-trimet hoprim 1 mg/mL eye drops INSTILL 1 DROP INTO THE EYE(S) 4 TIMES A DAY X7 DAYS 01/18 completed Not Available Not Available Not Available gabapentin 300 mg capsule TAKE ONE CAPSULE BY MOUTH THREE TIMES DAILY active Not Available Not Available No t Available magnesium citrate oral solution drink 150 mL's by mouth daily As Needed for constipat ion active Not Available Not Available No t Available diclofenac sodium 50 mg tablet,luz yed release TAKE ONE TABLET EVERY TWELVE HOURS NEEDED FOR PAIN active Not Available Not Available No t Available pyridoxine (vitamin B6) 100 mg tablet TAKE ONE TABLET BY MOUTH EVERY DAY active Not Available Not Available No t Available polyethylen e glycol 3350 17 gram/dose oral powder STIR 17GM INTO 8 OUNCES OF WATER, OR JUICE, AND DRINK DAILY NEEDED / DIRECTED TWICE DAILY active Not Available Not Available No t Available estradiol 0.01% (0.1 mg/gram) vaginal cream INSERT 08/23 APPLICATO RFUL TWICE A WEEK FOR FOUR WEEKS active Not Available Not Available No t Available zolpidem 10 mg tablet TAKE ONE TABLET AT BEDTIME NEEDED active Not Available Not Available No t Available methylpredn isolone 4 mg tablets in a dose pack TAKE DIRECTED ON PACKAGE 01/18 completed Not Available Not Available Not Available amoxicillin 875 mg-potassiu m clavulanate 125 mg tablet TAKE 1 TABLET BY MOUTH EVERY 12 HOURS X7 DAYS 01/18 completed Not Available Not Available Not Available escitalopra m 10 mg tablet TAKE ONE TABLET BY MOUTH EVERY DAY 01/18 completed Not Available Not Available Not Available ezetimibe 10 mg tablet TAKE ONE TABLET BY MOUTH EVERY DAY active Not Available Not Available No t Available Lexapro 5 mg tablet Take 1 tablet every day by oral route. active Not Available Not Available No t Available eszopiclone 3 mg tablet TAKE TWO TABLETS BY MOUTH AT BEDTIME NEEDED active Not Available Not Available No t Available quetiapine 50 mg tablet TAKE ONE TABLET AT BEDTIME active Not Available Not Available No t Available cholecalcif irving (vitamin D3) 25 mcg (1,000 unit) tablet TAKE TWO TABLETS DAILY active Not Available Not Available No t Available levocetiriz ine 5 mg tablet TAKE ONE TABLET DAILY active Not Available Not Available No t Available Fiber (calcium polycarboph il) 625 mg tablet TAKE TWO TABLETS ONCE DAILY active Not Available Not Available No t Available diclofenac 1 % topical gel APPLY TWO TO FOUR GRAMS TO THE AFFECTED AREA(s) THREE OR FOUR TIMES DAILY active Not Available Not Available No t Available Ingrezza 80 mg capsule active Not Available Not Available N ot Available Caplyta 10.5 mg capsule TAKE ONE CAPSULE AT BEDTIME active Not Available Not Available No t Available Vitals Date Recorded Heart rate Respiratory rate Oxygen saturation Oxygen saturation in Arterial blood by Pulse oximetry Body temperature Systolic blood pressure Diastolic blood pressure Provider Name and Address Organization Details Last Updated DateTime 3 87 /min 18 /min 97 % 97 % 98.5 [degF] 128 mm[Hg] 80 mm[Hg] Not Available [facility] 14:35:36 Social History Question Answer Notes LastModified by Organizat ion Details LastModified Time Tobacco Smoking Status Former Smoker KATRINA Peters [address], [place], [address], [place] [facility] 01/18/2023 14:40:01 Do You Have An Advance Directive? No [email or web address] Information not available 01/18/2023 What Is Your Level Of Alcohol Consumption? None [email or web address] Information not available 01/18/2023 Fall Risk: Do You Feel Unsteady When Standing Or Walking? No [email or web address] Information not available 01/18/2023 Excessive Alcohol Or Drug Use No [email or web address] Information not available 01/18/2023 Does This Patient Have A PCP? Yes [email or web address] Information not available 01/18/2023 Has The Patient Seen Their PCP In The Past 6 Months? No Information not available 01/18/2023 Is This Patient In Hospice? No [email or web address] Information not available 01/18/2023 ADL: Do You Need Help With Daily Activities Such As Bathing, Preparing Meals, Dressing, Or Cleaning? No Information not available 01/18/2023 Social Support: Do You Feel Safe? Yes [email or web address] Information no t available 01/18/2023 What Is Your Housing Situation Today? I Have Housing [email or web address] Information not available 01/18/2023 Do You Use Any Illicit Or Recreational Drugs? No [email or web address] Information not available 01/18/2023 Sex: Unknown Functional Status None recorded. Mental Status None recorded. Family History Relationship Description Onset Age of this Age Resolved Age Notes LastModified by Organization Details LastModified Time Father Atrial fibrillation [email or web address] Not available 14:39:07 Mother Diabetes mellitus [email or web address] Not available 01/18 14:39:26 Medical History Condition Response Diabetes N Coronary Artery Disease N CHF N Parkinson's Disease N Cancer N Stroke N Dementia N Hypothyroidism N Asthma Y COPD N Depression N High Cholesterol Y Rheumatoid Arthritis N Pulmonary Embolism N Hypertension N Osteoporosis N A-fib N Kidney Disease N Gynecological HistoryNo gynecological history recorded. Obstetrics History GPAL:G 0 P 0 0 0 0 Past Encounters Encounter ID Performer Location Encounter Start Date Encounter Closed Date Diagnosis/Indication Diagnosis SNOMED-CT Code Diagnosis ICD10 Code Diagnosis Note [id number] KATRINA Peters [facility] [address] [place] [address] 01/18/2023 14:29:58 01/25/2023 08:49:42 Candidiasis of mouth 69179525 B37.0 Status of condition: {{Acute* E xacerbatio n/Acute on chronic Ch ronic Stab le Worseni ng/Progres tad Uncon trolled Cr itical: Warrants escalation to ED. Undete rmined: Unclear staging of condition. Needs further evaluation and management by PCP and/or Specialist }}. Testing/Re sults: n/a Discussion :stop using Listerine and use biotene as recommende d by pcp as this will help dry mouth.stop vinegar gargles.st art RX Clotrimazo le troches 10 mg dissolve 1 tab by annette 5x daily x 7 days.recom mend she dispose of her toothbrush and start using a new one.avoid acidic foods/ drinks and citrus. Plan, Medication Management & Follow-up recommenda tions:foll ow up with pcp in 3-5 days or sooner prn.go to the ER with worsening symptoms cp, sob, fever, dysphagia, dysphonia, tongue or lip swelling, rash. Asthma [id number] J45.90 9 Status of condition: {{Acute Ex acerbation /Acute on chronic Ch ronic* Sta ble Worsen ing/Progre ssion Unco ntrolled C ritical: Warrants escalation to ED. Undete rmined: Unclear staging of condition. Needs further evaluation and management by PCP and/or Specialist }}. Testing/Re sults: Lungs are clear on exam, O2 is 97% RA. Discussion :she is asymptomat ic. asthma has been controlled without daily meds. no reported use of inhaled corticoste roids that would contribute to thrush. Plan, Medication Management & Follow-up recommenda tions:foll ow up with pcp as scheduled. go to the ER with worsening symptoms cp, sob, wheezing, dizziness, weakness. Health Concerns Section Related Observation LastModified by Organization Detai ls LastModified Time None Recorded Concern Status LastModified by Organization Details LastModified Time None Recorded Advance Directives Directive N: Payers Encounter Date Sequence Insurance Name Policy Number Policy Ramirez Covered Member ID Ramirez Member ID Guarantor Name 01/18/2023 1 [place] [employer] Kassi Paige [id number] Kassi geiger 01/18/2023 2 [facility] - PLAN 1 (MEDICARE SUPPLEMENT) [id number] Kassi Paige [id number] Kassi Delgado fely Notes Date Note Type Note Provider Name and Address Organization Details Recorded Time 01/18/2023 text/html 67 y/o female ne w to and provider with hx of Asthma, hyperlipidemia, Bipolar, anxiety, depression, OA, GERD, insomnia, JOY, fibromyalgia, RLS, IBS, diverticulosis, seasonal allergies. pt reports she has had chronic dental problems and wears dentures. she was treated for thrush 10 days ago and finished the nystatin suspension, states symptoms have improved but have not resolved. her tongue is still red and coated. she denies any tongue pain, swelling, sore throat, dysphagia, skin rash or fever. no cp, sob, dizziness, weakness. she reports she has not been using Biotene as directed and has been using Listerine. she also tried gargling with vinegar last night and that was actually painful. pt has transportation issues and was unable to get to her pcp. since she has had thrush she has not been able to wear her dentures. KATRINA Peters [address], [place], [address], [place] - [facility] 01/18/2023 15:31:31 OBGyn Episode No OBEpisode recorded.
--- OUTSIDE RECORDS SUMMARY | 2024-10-14 07:01 | XMS_ITS | Clinical Summary ---
Author Organization [facility] Address [id number] [place] [id number] Care Team Providers Care Low Pressure Boiler Operator Name Role Phone Unavailable Primary Care Provider Unavailabl e Surgical History Surgery Date Site/Laterality Comments OTHER SURGICAL HISTORY 1981 PROCEDURE: [facility] DILATION & CURETTAGE DX&/THER NONOBSTETRIC OOPHORECTOMY 2004 PROCEDURE: [facility] OOPHORECTOMY PARTIAL/TOTAL UNI/BI; COMMENT: Left ovary removed Medical History Medical History Date Comments Osteoarthritis DX:Osteoarthriti s Depression DX:Depression Asthma DX:Asthma Fibromyalgia DX:Fibromyalgia Cervical disc disorder DX:Cervic al disc disorder Hyperlipidemia DX:Hyperlipidemi a Postmenopausal DX:Postmenopausa l Family History Medical History Relation Name Comments Depression Daughter 1 Other: migraines Daughter 2 Alcohol/Drug Father Cirrhosis Father Diabetes Father Hypertension Father Other: Heart disease Father Other: Sleep apnea Father Other: morbid obesity Father Arthritis Mother Colon cancer Mother Depression Mother Diabetes Mother Glaucoma Mother Other: Alzheimers disease Mother Other: bipolar disorder Mother Arthritis Paternal Grandmother Depression Paternal Grandmother Other: irritable bowel Paternal Grandmother Other: sleep apnea Sister 1 Other: fibromyalgia Sister 2 Blindness Neg Hx Cataracts Neg Hx Macular degeneration Neg Hx Strabismus Neg Hx Relation Name Status Comments Brother Alive Daughter 1 Daughter 2 Daughter 3 Alive Father (Age 70) Mother Alive Paternal Grandmother Sister 1 Sister 2 Sister 3 Alive Social History Tobacco Use Types Packs/Day Years Used Date Smoking Tobacco: Former Cigarettes Q uit: 08/20/1989 Alcohol Use Standard Drinks/Week Comments No 0 (1 standard drink = 0.6 oz pur e alcohol) Comments Unknown Sex and Gender Information Value Date Recorded Sex Assigned at Not on file Legal Sex Female 4:41 AM EST Gender Identity Not on file Sexual Orientation Not on file Obstetrics History Plan of Treatment Health Maintenance Due Date Last Done Comments Breast Cancer Screening 1955 DTaP,Tdap,and Td Vaccines (1 - Tdap) 1974 Pneumococcal Vaccine: 50+ Ye ars (1 of 1 - PCV) 2005 Zoster Vaccines (1 of 2) 2005 Colorectal Cancer Screening: Colonoscopy 09/18/2023 Depression Screening 09/18/2023 Falls Risk Assessment 09/18/2023 Hepatitis C Screening 09/18/2023 Osteoporosis Screening (Bone Density Screening) 09/18/2023 Social Influencers of Health Screening 09/18/2023 COVID-19 Vaccine (1 - 2023-2 5 season) 2024 Influenza Vaccine (#1) 2024 RSV Immunization Patients 60 + Years Old (1 - 1-dose 75+ series) 2030 HIB [...] on patient's age to complete this topic MMR Vaccines Aged Out No longer eligi ble based on patient's age to complete this topic Meningococcal ACWY Vaccine Aged Out N o longer eligible based on patient's age to complete this topic Meningococcal B Vacine Aged Out No lo nger eligible based on patient's age to complete this topic RSV Immunization Patients Un mariya 20 months Aged Out No longer eligible b ased on patient's age to complete this topic Varicella Vaccines Aged Out No longer eligible based on patient's age to complete this topic
--- OUTSIDE RECORDS SUMMARY | 2024-10-14 07:01 | XMS_ITS | Encounter Summary ---
Author Organization [employer] Address [address] [place] [address] [address] [place] [address] Care Team Providers Care Warm In Worker Name Role Phone Unavailable Primary Care Provider Unavailabl e Encounter Details Date Type Department Care Team (Latest Contact Info) Description 01/06/2019 Abstract [facility] CONVERSIONS Dental, Provider, DDS Social History [...]
--- OUTSIDE RECORDS SUMMARY | 2024-10-14 07:01 | XMS_ITS | Encounter Summary ---
Author Organization [employer] Address [address] [place] [address] [address] [place] [address] Care Team Providers Care Silver Cleaner Name Role Phone Unavailable Primary Care Provider Unavailabl e Encounter Details Date Type Department Care Team (Latest Contact Info) Description 04/07/2021 Abstract [facility] CONVERSIONS Dental, Provider, DDS Social History [...]
--- OUTSIDE RECORDS SUMMARY | 2024-10-14 07:01 | XMS_ITS | Clinical Summary ---
Author Organization Unknown Care Team Providers Care Tumble Tailstock Turret Lathe Operator Name Role Phone VANCE AUTHOR AGENT, TITI Unavailable Unavailable GIOVANNI RN, JAVIER Unavailable Unavailable GERARDO CUSTOMER ENERGY SPECIALIST, SHOBHA Unavailable Unavailab Palma PT, SONIA Unavailable Unavailable Payers Payer Name Policy Type Policy Number Effective Date Expira tion Date [place]IC[place] - [place] [id number] Problems Condition Name Condition Details Condition Category [...] 02-05 00:00: 00 08-05 23:59 :00 No [id number] 1 tablet BEDTIME 1 tablet BEDTIME (route: oral) Med Classific ation: Locomotor System pramipexole 0.25 mg tablet 02-05 00:00: 00 08-05 23:59 :00 No [id number] 1 tablet DAILY 1 tablet DAILY (route: oral) Med Classific ation: Central Nervous System Agents atorvastati n 20 mg tablet 02-04 00:00: 00 08-05 23:59 :00 No [id number] 1 tablet DAILY 1 tablet DAILY (route: oral) Med Classific ation: Cardiovas cular Therapy Agents Belsomra 10 mg tablet 02-04 00:00: 00 08-05 23:59 :00 No [id number] 1 tablet DAILY 1 tablet DAILY (route: oral) Med Classific ation: Central Nervous System Agents ezetimibe 10 mg tablet 02-04 00:00: 00 08-05 23:59 :00 No [id number] 1 tablet DAILY 1 tablet DAILY (route: oral) Med Classific ation: Cardiovas cular Therapy Agents levocetiriz ine 5 mg tablet 02-04 00:00: 00 08-05 23:59 :00 No [id number] 1 tablet DAILY 1 tablet DAILY (route: oral) Med Classific ation: Respirato ry Therapy Agents propranolol 10 mg tablet 18 00:00: 00 08-05 23:59 :00 No [id number] 1 tablet DAILY 1 tablet DAILY (route: oral) Med Classific ation: Cardiovas cular Therapy Agents Ingrezza 80 mg capsule 6-05 00:00: 00 08-05 23:59 :00 No [id number] 1 capsule DAILY 1 capsule DAILY (route: oral) Med Classific ation: Central Nervous System Agents clonazepam 1 mg tablet 01-20 00:00: 00 08-05 23:59 :00 No [id number] 1 tablet DAILY 1 tablet DAILY (route: oral) Med Classific ation: Central Nervous System Agents clonidine HCl 0.1 mg tablet 01-20 00:00: 00 08-05 23:59 :00 No [id number] 1 tablet DAILY 1 tablet DAILY (route: oral) Med Classific ation: Cardiovas cular Therapy Agents quetiapine 100 mg tablet 01-20 00:00: 00 08-05 23:59 :00 No [id number] 1 tablet BEDTIME 1 tablet BEDTIME (route: oral) Med Classific ation: Central Nervous System Agents quetiapine 50 mg tablet 5-30 00:00: 00 02-07 00:00 :00 No [id number] Per instruc tions Per instructio ns (route: oral) Med Classific ation: Central Nervous System Agents escitalopra m 20 mg tablet 02-07 00:00: 00 08-05 23:59 :00 No [id number] 1 tablet DAILY 1 tablet DAILY (route: oral) Med Classific ation: Central Nervous System Agents gabapentin 300 mg capsule 02-07 00:00: 00 08-05 23:59 :00 No [id number] 2 capsule 3 TIMES DAILY 2 capsule 3 TIMES DAILY (route: oral) Med Classific ation: Central Nervous System Agents ibuprofen 800 mg tablet 02-07 00:00: 00 08-05 23:59 :00 No [id number] 1 tablet DAILY 1 tablet DAILY (route: oral) Med Classific ation: Analgesic , Anti-infl ammatory or Antipyret ic lidocaine 5 % topical patch 02-07 00:00: 00 08-05 23:59 :00 No [id number] 1 adhesiv e patch, medicat ed DAILY 1 adhesive patch, medicated DAILY (route: topical) Med Classific ation: Dermatolo gical Miralax 17 gram/dose oral powder 02-07 00:00: 00 08-05 23:59 :00 No [id number] Per instruc tions DAILY Per instructio ns DAILY (route: oral) Med Classific ation: Gastroint estinal Therapy Agents Pyridium 100 mg tablet 02-07 00:00: 00 08-05 23:59 :00 No [id number] 1 tablet DAILY 1 tablet DAILY (route: oral) Med Classific ation: Genitouri nary Therapy Senna Laxative 8.6 mg tablet 02-07 00:00: 00 08-05 23:59 :00 No [id number] 2 tablet DAILY 2 tablet DAILY (route: oral) Med Classific ation: Gastroint estinal Therapy Agents Tylenol Extra Strength 500 mg tablet 02-07 00:00: 00 08-05 23:59 :00 No [id number] 2 tablet 2 TIMES DAILY 2 tablet 2 TIMES DAILY (route: oral) Med Classific ation: Analgesic , Anti-infl ammatory or Antipyret ic Vitamin D3 50 mcg (2,000 unit) tablet 02-07 00:00: 00 08-05 23:59 :00 No [id number] 1 tablet DAILY 1 tablet DAILY (route: oral) Med Classific ation: Electroly te Balance-N utritiona l Products atorvastati n 20 mg tablet 08-30 00:00: 00 Yes [id number] 1 tablet BEDTIME 1 tablet BEDTIME (route: oral) Med Classific ation: Cardiovas cular Therapy Agents clonidine HCl 0.1 mg tablet 08-30 00:00: 00 Yes [id number] 1 tablet DAILY 1 tablet DAILY (route: oral) Med Classific ation: Cardiovas cular Therapy Agents doxepin 75 mg capsule 08-30 00:00: 00 Yes [id number] 1 capsule BEDTIME 1 capsule BEDTIME (route: oral) Med Classific ation: Central Nervous System Agents escitalopra m 20 mg tablet 08-30 00:00: 00 Yes [id number] 1 tablet DAILY 1 tablet DAILY (route: oral) Med Classific ation: Central Nervous System Agents ezetimibe 10 mg tablet 08-30 00:00: 00 Yes [id number] 1 tablet DAILY 1 tablet DAILY (route: oral) Med Classific ation: Cardiovas cular Therapy Agents gabapentin 300 mg capsule 08-30 00:00: 00 Yes [id number] 1 capsule 2 TIMES DAILY 1 capsule 2 TIMES DAILY (route: oral) Med Classific ation: Central Nervous System Agents Lidocaine Pain Relief 4 % topical patch 08-30 00:00: 00 Yes [id number] 1 adhesiv e patch, medicat ed DAILY 1 adhesive patch, medicated DAILY (route: topical) Med Classific ation: Dermatolo gical Miralax 17 gram oral powder packet 08-30 00:00: 00 Yes [id number] 1 powder in packet DAILY 1 powder in packet DAILY (route: oral) Med Classific ation: Gastroint estinal Therapy Agents pyridoxine (vitamin B6) 100 mg tablet 08-30 00:00: 00 Yes [id number] 1 tablet DAILY 1 tablet DAILY (route: oral) Med Classific ation: Electroly te Balance-N utritiona l Products Remeron 15 mg tablet 08-30 00:00: 00 Yes [id number] 1 tablet BEDTIME 1 tablet BEDTIME (route: oral) Med Classific ation: Central Nervous System Agents Clotrimazol e AF 1 % topical cream 08-30 00:00: 00 Yes [id number] Per instruc tions NEEDED Per instructio ns NEEDED (route: topical) Med Classific ation: Dermatolo gical ramelteon 8 mg tablet 09-12 00:00: 00 Yes [id number] 1 tablet BEDTIME 1 tablet BEDTIME (route: [...] PATIENT FOR COMMUNITY RESOURCES POSSIBLE INCREASE OF ADMINISTRATIVE SERVICES MANAGER HRS [code = CUSTOMER CARE SPECIALIST TO EVALUATE PATIENT FOR COMMUNITY RESOURCES POSSIBLE INCREASE OF ADMINISTRATIVE SERVICES MANAGER HRS] Future Scheduled Test SKILLED NU RSE [...] MAINTAIN SITUATIONAL AWARENESS AND WILL NOTIFY CLINICAL ARTICULATION OFFICER AND PHYSICIAN/PROVIDER WITH ANY CHANGE IN CONDITION. [code = SKILLED NURSE TO PERFORM ENVIRONMENTAL SAFETY RISK ASSESSMENT AND FALL RISK ASSESSMENT AND PROVIDE INSTRUCTION TO IMPLEMENT ENVIRONMENTAL SAFETY AND FALL PREVENTION STRATEGIES THROUGHOUT THE CERTIFICATION PERIOD. SKILLED NURSE WILL MAINTAIN SITUATIONAL AWARENESS AND WILL NOTIFY CLINICAL ARTICULATION OFFICER AND PHYSICIAN/PROVIDER WITH ANY CHANGE IN CONDITION.] [...] WEAKNESS. PLOF: [facility]. SHE IS [...] LOWER EXTREMITY WEAKNESS EVIDENCED BY 30 SECOND VYR-IF-LGACR SCORE LESS THAN 8 REPETITIONS, SHE DEMONSTRATES IMPAIRED DYNAMIC STANDING BALANCE EVIDENCED BY 30 SECOND [id number] SCORE LESS THAN 8 REPETITIONS, SHE ALSO [...] GENERALIZED WEAKNESS. PLOF: PATIENT LIVES ALONE IN [facility] HANDICAP [facility]. SHE IS TYPICALLY MOD I FOR HOUSEHOLD [...] LOWER EXTREMITY WEAKNESS EVIDENCED BY 30 SECOND CDY-UD-HOPMR SCORE LESS THAN 8 REPETITIONS, SHE DEMONSTRATES IMPAIRED DYNAMIC STANDING BALANCE EVIDENCED BY 30 SECOND ROF-QP-[id number] SCORE LESS THAN 8 REPETITIONS, SHE ALSO [...] PERFORMED. NO ADDITIONAL VISITS REQUIRED. [code = CUSTOMER CARE SPECIALIST EVALUATION PERFORMED. NO ADDITIONAL VISITS REQUIRED.] Goal Patient Goal - GET STRONGER Goal Provider Goal - A PLAN OF CARE WILL BE ESTABLISHED THAT MEETS PATIENT'S FDC NEEDS AND INCLUDES PATIENT GOAL FOR HOME [...] END OF EPISODE. Goal Provider Goal - CUSTOMER CARE SPECIALIST TO COMPLETE EVALUATION TO ADDRESS THE PATIENTS [...] THE CERTIFICATION PERIOD. Goal Provider Goal - CLINICAL APPEALS REVIEWER EVALUATION: BERTHA IS A 68 YEAR OLD FEMALE REFERRED TO [facility] CARING FOR LUMBAR SPINE STENOSIS. PMH INCLUDES RESTLESS LEG SYNDROME, FIBROMYALGIA, DEPRESSION, ANXIETY AND GENERALIZED WEAKNESS. CLINICAL APPEALS REVIEWER FACILITATED COMMUNITY RESOURCE ASSESSMENT AND LTC PLANNING ASSESSMENT. ENVIRONMENT: BERTHA LIVES IN APARTMENT ALONE. SHE HAS LIMITED SUPPORT FROM FAMILY AND FRIENDS. BERTHA HAS ADMINISTRATIVE SERVICES MANAGER FROM [facility] SUNDAY, SUNDAY AND SUNDAY FOR A [...] LOOKING FOR AN INCREASE IN SERVICES THROUGH [facility]. CLINICAL APPEALS REVIEWER CALLED [facility] RECTIFYING ATTENDANT TORIBIO AND LEFT A MESSAGE FOR A REEVALUATION FOR SERVICES AND ALSO PUT IN A REFERRAL FOR AN EMERGENCY ALERT [place]. BERTHA DOES NOT NEED ANY FURTHER ASSISTANCE FROM CLINICAL APPEALS REVIEWER AT THIS TIME. CLINICAL APPEALS REVIEWER PROVIDED CLOSURE BY RESTATING RESOURCES AVAILABLE IN THE COMMUNITY AND ENCOURAGED HER TO CONTACT CLINICAL APPEALS REVIEWER IF THERE WAS ANYTHING ELSE THE CLINICAL APPEALS REVIEWER COULD ASSIST WITH. Reason for Visit INDEPENDENT IN THE COMMUNITY Encounters Start Date/Time End Date/Time Encounter Type Admission Type Attending [facility] Care Department Encounter ID Discharge Date Discharge Status Discharge Condition Discharge Reason Percent Goals Met 2024-08-30 00:00:00 2024-09-26 00:00:00 Outpatient JAVEIR NGUYEN [facility] [id number] 2024-09-26 00:00:00 DISCHARGE TO HOME OR SELF CARE INDEPENDEN T IN THE COMMUNITY F2F NOT OBTAINED ( ONLY) 47.62
--- NOTE | 2024-10-14 07:10 | MHC.OFFVIS ---
Intake Visit Reasons: Meds review Allergies ropinirole [ROPINIROLE] Allergy (Intermediate, Verified 10/14/24 07:10) WORSE RESTLESS LEG duloxetine [Cymbalta] Adverse Reaction (Intermediate, Verified 10/14/24 07:10) Worsening RLS meperidine [From DEMEROL] Adverse Reaction (Intermediate, Verified 10/14/24 07:10) NAUSEA & VOMITING trazodone Adverse Reaction (Intermediate, Verified 10/14/24 07:10) Palpitations Medication List - Last Reconciled 10/14/24 by DOUGIE BledsoeP- atorvastatin 20 mg PO BEDTIME 90 days bisacodyl (Dulcolax (bisacodyl)) 10 mg (2 x 5 mg) PO BEDTIME clonazepam 1 mg PO DAILY PRN clonidine HCl 0.1 mg PO BEDTIME docusate sodium 100 mg PO BEDTIME escitalopram oxalate 20 mg PO DAILY eszopiclone (Lunesta) 2 mg PO BEDTIME ezetimibe 10 mg PO DAILY 90 days gabapentin 300 mg orally Take 200 mg in the AM, 100 mg in the afternoon, and 300 mg in the evening.; morning and bedtime hydrocortisone 2.5% (Proctosol HC) 1 appl ID BID-QID PRN inhalational spacing device (Space Chamber) As directed levocetirizine 5 mg PO DAILY lidocaine 5% 1 patch topical DAILY PRN methylcellulose (laxative) (Citrucel) 1,000 mg PO DAILY PRN polyethylene glycol 3350 17 grams PO DAILY propranolol 20 mg PO valbenazine (Ingrezza) 80 mg PO DAILY walker Rollator-with seat and brakes [facility] HPI Meds review: Details: History of Present Illness The patient is a 69-year-old female presenting with musculoskeletal pain and health maintenance needs. She reports ongoing lower back pain and bilateral shoulder pain, which has prompted her to request physical therapy. The patient denies any numbness, tingling, or other neurological symptoms in the upper extremities. There is a history of excoriations underneath the breasts, which have since healed (mammo originally cancelled). The patient is also due for an annual mammogram and bone density examination. Additionally, she has a history of vitamin D deficiency and is postmenopausal. Hx of dyslipidemia Review of Systems - Musculoskeletal: Reports ongoing lower back pain and bilateral shoulder pain. Denies numbness, tingling, or cauda equina symptoms. - Psychological: Reports doing fair. Denies any suicidal ideation or homicidal ideation. Plan - Order physical therapy for management of low back pain and bilateral shoulder pain. - Facilitate scheduling of a mammogram. - Recommend follow-up bone density test. - Check and manage vitamin D levels with updated lab work. Discussion Notes I discussed with the patient the need for physical therapy to address her lower back pain and bilateral shoulder pain. We also reviewed the importance of health maintenance screenings, including the necessity of a mammogram. I encouraged her to schedule an appointment as her previous issues with breast excoriations are now resolved. Additionally, maintaining adequate vitamin D levels is crucial, hence vitamin D levels will be re-evaluated through her laboratory work. The importance of continued follow-up with her psychiatric provider was highlighted, for which the patient was advised to make contact. The patient was agreeable to the proposed plan and consents to all suggested work-ups and follow-up measures. Patient Instructions - Schedule and attend physical therapy sessions as discussed. - Call to schedule a mammogram appointment (pt reports she will do this) - Follow through with upcoming lab work to monitor vitamin D levels, choles, kidney and liver function - Contact your psychiatric provider to arrange a follow-up appointment (highly recommended). [facility] Medical History (Updated 10/14/24 @ 07:16 by Deo Berg, [facility]) Chronic lower back pain Postmenopausal Arthritis of foot Renal cyst Lumbar spinal stenosis Restless leg syndrome JOY (obstructive sleep apnea) Elevated cholesterol GERD (gastroesophageal reflux disease) Arthritis Back pain Pyelonephritis Tubular adenoma of colon Constipation by delayed colonic transit Sleep apnea Radiculopathy Osteoarthritis Sepsis Nephrolithiasis Abdominal pain Constipation Fatty liver Fibromyalgia Asthma Hyperlipidemia Surgical History History of lumbar laminectomy for spinal cord decompression Hx of lithotripsy Hx of colonoscopy Hx of foot surgery History of oophorectomy, unilateral Hx of dilation and curettage History of bilateral hip replacements History of bilateral knee replacement H/O cystoscopy (05/03/20) Family History Father Heart disease Thyroid cancer Diabetes COPD (chronic obstructive pulmonary disease) Sleep apnea Mother Diabetes Cancer Chronic mental illness Colon cancer Other Fibromyalgia Mental health disorder Substance use disorder Social History Housing: Apartment Alcohol intake: current Alcohol intake frequency: does not drink Patient Tobacco Use Status: Former Tobacco user Tobacco use type: Cigarette Cigarettes Per Day: 40 Years Smoked: 17 e-Cigarette/Vaping Use: Never Used Second Hand Smoke Exposure: No Current occupational status: unemployed and disabled Cognitive needs: No Hearing needs: No Vision needs: No Telehealth Telehealth Telehealth [facility] Location of provider rendering services: practice address Location of patient: address on file Patient Identification confirmed using: Name, : Yes Telehealth method: video Patient verbally consented to treatment: Yes Patient verbally consented to billing insurance company: Yes Patient informed of any privacy concerns related to visit: Yes Minutes spent on Phone/Video with Pt.: 15 Assessment & Plan Assessment & Plan (1) Hyperlipidemia: Code(s): E78.5 - Hyperlipidemia, unspecified Category: Medical (2) Vitamin D deficiency: Code(s): E55.9 - Vitamin D deficiency, unspecified Category: Medical (3) Chronic lower back pain: Code(s): M54.5 - Low back pain; G89.29 - Other chronic pain Category: Medical (4) Bilateral shoulder pain: Code(s): M25.511 - Pain in right shoulder; M25.512 - Pain in left shoulder Category: Medical (5) Vitamin D deficiency: Code(s): E55.9 - Vitamin D deficiency, unspecified Category: Medical (6) Postmenopausal: Code(s): Z78.0 - Asymptomatic menopausal state Category: Medical Plan . Orders: Orders Comprehensive Pesotum. Panel Fast Today E78.5 - Hyperlipidemia, unspecified TSH reflex Free T4 Today E78.5 - Hyperlipidemia, unspecified XR DEXA axial skeleton Today E55.9 - Vitamin D deficiency, unspecified, Z78.0 - Asymptomatic menopausal state Complete Blood Count Auto Diff Today E78.5 - Hyperlipidemia, unspecified UA CC w/rflx Micro + Cult Today E78.5 - Hyperlipidemia, unspecified Lipid Panel Today E78.5 - Hyperlipidemia, unspecified Vitamin D 25-OH Total Today E55.9 - Vitamin D deficiency, unspecified Referrals [facility] Referral G89.29 - Other chronic pain, M25.511 - Pain in right shoulder, M25.512 - Pain in left shoulder, M54.5 - Low back pain Coding Level of Care Code Tele Est Pt Level 3 (75645) Diagnoses Hyperlipidemia E78.5 Vitamin D deficiency E55.9 Chronic lower back pain M54.5; G89.29 Bilateral shoulder pain M25.511; M25.512 Postmenopausal Z78.0
== END 2024-10-14 07:26 | disposition home or self-care (01) ==
PROVIDERS: PCP Nurse Practitioner Family; Visit Provider Nurse Practitioner Family
DX: E78.5 Hyperlipidemia, unspecified (principal); E55.9 Vitamin D deficiency, unspecified; M54.50 Low back pain, unspecified; G89.29 Other chronic pain; M25.511 Pain in right shoulder; M25.512 Pain in left shoulder; Z78.0 Asymptomatic menopausal state

== ENCOUNTER → 2024-12-19 23:59 | Outpatient (BNV) | payer MEDICARE, OTHER, SELFPAY | PROVIDERS: PCP Nurse Practitioner Family; Visit Provider Nurse Practitioner Family | DX: M48.07 Spinal stenosis, lumbosacral region (principal); E66.9 Obesity, unspecified; F41.9 Anxiety disorder, unspecified | CPT/HCPCS: G0180 ==

== ENCOUNTER 2025-01-26 14:04 | Outpatient (REF) | payer MEDICARE, OTHER, SELFPAY ==
--- OUTSIDE RECORDS SUMMARY | 2025-01-26 16:02 | XMS_ITS | Clinical Summary ---
Author Organization [employer] Address [address] [place] [address] Care Team Providers Care Kickboxing Instructor Name Role Phone Unavailable Primary Care Provider [...] - 2023-2 5 season) 2024 Influenza Vaccine (Season Ended) 2025 RSV Patients and Pa tients Aged 60 [...] age to complete this topic Meningococcal B Vaccine Aged Out No l onger eligible based on patient's age to complete [...]
== END 2025-01-26 14:05 | disposition home or self-care (01) ==
LOC: HO.MAMMO 14:04
PROVIDERS: PCP Nurse Practitioner Family; Visit Provider Nurse Practitioner Family
DX: Z12.31 Encounter for screening mammogram for malignant neoplasm of breast (principal)
CPT/HCPCS: 77063; 77067

== ENCOUNTER → 2025-01-26 14:15 | Outpatient (BNV) | payer MEDICARE, OTHER, SELFPAY | PROVIDERS: PCP Nurse Practitioner Family; Visit Provider Internal Medicine | DX: Z12.31 Encounter for screening mammogram for malignant neoplasm of breast (principal) | CPT/HCPCS: 77063; 77067 ==

== ENCOUNTER 2025-02-10 10:32 | Outpatient (REF) | payer MEDICARE, OTHER, SELFPAY ==
--- OUTSIDE RECORDS SUMMARY | 2025-02-10 11:48 | XMS_ITS | Clinical Summary ---
Author Organization [employer] Address [address] [facility] [address] [place] [address] Care Team Providers Care Preschool Program Director Name Role Phone Unavailable Primary Care Provider [...]
[2025-02-10 12:53] LABS: MANUAL DIFF FLAG NO
[2025-02-10 13:08] LABS: Basophils Percent Auto 0.6 % (0-2); Eosinophils Absolute Auto 0.1 X10*3/uL (0.0-0.4); Eosinophils Percent Auto 1.6 % (0-4); Hematocrit 45.6 % (37.0-47.0); Hemoglobin 14.8 g/dl (12.0-16.0); Imm Gran Abs Auto 0.07 X10*3/uL (0.00-0.03); Imm Gran Pct Auto 1.1 % (0.0-0.4); Lymphocytes Absolute Auto 2.1 X10*3/uL (1.2-4.9); Mean Corpuscular HGB Conc 32.5 g/dl (31.0-35.0); Mean Corpuscular Hemoglobin 30.5 pg (27.0-33.0); Mean Platelet Volume 10.5 fL (9.4-12.3); Monocytes Absolute Auto 0.8 X10*3/uL (0.1-1.2); Monocytes Percent Auto 12.6 % (2-11); Neutrophils Absolute Auto 3.2 x10*3/uL (2.0-8.3); Neutrophils Percent Auto 51.1 % (45-73); Platelet Count 214 X10*3/uL (160-400); Red Blood Count 4.85 X10*6/uL (4.20-5.50); Red Cell Distribution Width 14.8 % (11.0-16.0); White Blood Count 6.3 X10*3/uL (4.8-10.8)
[2025-02-10 13:24] LABS: Appearance Urine Clear; Color Urine Yellow; Glucose Urine UA Negative (Negative); Leukocyte Esterase Urine Large (3+) (Negative); Nitrite Urine Negative (Negative); Specific Gravity - Urine <= 1.005 (1.005-1.025); UMIC TRIGGER UACC YES; Urine Blood Negative (Negative); Urine Ketones Negative (Negative); Urine Protein Negative (Neg-Trace)
[2025-02-10 13:33] LABS: Bacteria Urine None Seen (None Seen); Hyaline Casts Urine 0-2 /LPF (0-2); RBC Urine 0-2 /HPF (0-2); Squamous Epithelial Cell Urine 0-2 /HPF (0-2); UACC Culture Trigger YES; WBC Urine 0-5 /HPF (0-5)
[2025-02-10 13:40] LABS: Alanine Aminotransferase 27 U/L (0-31); Albumin Level 4.4 g/dL (3.5-5.0); Alkaline Phosphatase 137 U/L (39-117); Anion Gap 14 (12-20); Aspartate Amino Transferase 21 U/L (5-31); Bilirubin Total 0.5 mg/dL (0.0-1.0); Blood Urea Nitrogen 14 mg/dL (9-16); Calcium 9.7 mg/dL (8.4-10.2); Carbon Dioxide 26 mmol/L (22-29); Chloride 108 mmol/L (96-108); Cholesterol 208 mg/dL (<200); Estimated Glomerular Filt Rate > 60; Glucose Fasting 104 mg/dL (60-99); HDL Cholesterol 76 mg/dL (>40); LDL Cholesterol Calculated 111 mg/dL (<100); Potassium 4.3 mmol/L (3.3-5.1); Sodium 144 mmol/L (135-145); Total Protein 7.2 g/dL (6.5-8.0); Triglycerides 109 mg/dL (<150)
[2025-02-10 13:44] LABS: TSH reflex Free T4 0.79 uIU/mL (0.32-4.0); Vitamin D 25-OH Total 57.4 ng/mL (>30)
== END 2025-02-10 10:33 | disposition home or self-care (01) ==
LOC: HO.HMGCLDS 10:32
PROVIDERS: PCP Nurse Practitioner Family; Visit Provider Nurse Practitioner Family
DX: Z23 Encounter for immunization (principal); E78.5 Hyperlipidemia, unspecified; E55.9 Vitamin D deficiency, unspecified; R07.89 Other chest pain; Z87.891 Personal history of nicotine dependence; R82.90 Unspecified abnormal findings in urine
CPT/HCPCS: 36415; 80053; 80061; 81001; 82306; 84443; 85025; 87086; 90471; 90677; 96127; 99212

== ENCOUNTER 2025-02-10 10:58 | Outpatient (AMB) | payer MEDICARE, OTHER, SELFPAY ==
[2025-02-10 11:02] VITALS: BP 126/84; PULSE 79; RESP 16; TEMP 36.7; O2SAT 95; BMI 45.0
--- NOTE | 2025-02-10 11:02 | MHC.PC.OV ---
Vital Signs 02/10/25 11:02 Height 5 ft 4 in Weight 262 lb BMI 45.0 BP 126/84 Blood Pressure Location Lt brachial Position Sitting Respiration 16 Pulse 79 Pulse Source Pulse Oximeter Temp 98.1 F Temp Source Oral Pulse Oximetry (%) 95 Oxygen Delivery Method Room Air Intake Visit Reasons: Follow up Intake Note: Pt is here today for her f/u Allergies ropinirole (ROPINIROLE) Allergy (Intermediate, Verified 02/10/25 11:03) WORSE RESTLESS LEG duloxetine (Cymbalta) Adverse Reaction (Intermediate, Verified 02/10/25 11:03) Worsening RLS meperidine (From DEMEROL) Adverse Reaction (Intermediate, Verified 02/10/25 11:03) NAUSEA & VOMITING trazodone Adverse Reaction (Intermediate, Verified 02/10/25 11:03) Palpitations Tobacco use date assessed: 02/10/25 Fall risk assessment: 2 + Falls in past year Last assessed Fall Risk: 02/10/25 Dental Screening Dental Screen Date: 02/10/25 Did you have a dental visit in the last 12 months?: No Did you have a dental problem in the last 6 months where you did not have access to dental care?: No Was dental information given to patient?: Patient declined HPI Follow up HPI Details Chief Complaint The patient presents with concerns of weight gain and psychological issues. History of Present Illness The patient is a 69-year-old female presenting with a generalized follow-up visit. She reports morbid obesity, attributing her weight gain to emotional eating due to psychological stressors. Her psychological history is significant, and she is currently on multiple psychiatric medications. She experiences intermittent chest discomfort described as a tickle, for which an EKG is planned to assess any cardiac involvement. Additionally, she sustained a scrape on her left Achilles region from a minor fall, which is actively bleeding but shows no signs of infection. did not hit her head. Encouraged tetanus at her pharmacy. Social History - Reports emotional eating due to psychological stressors Health Maintenance Review of Systems - Cardiovascular: Reports intermittent chest discomfort described as a tickle - Integumentary: Reports abrasion on left Achilles region, actively bleeding - Respiratory: Denies any respiratory symptoms, lungs clear Physical Exam General: Cooperative, healthy appearing, comfortable, no acute distress and well developed, morbidly obese Orientation: Patient oriented x3 Limitations: No limitations Head: Normal to inspection Ears: Hearing grossly normal bilaterally Nose: Normal external nose present Face and sinus: Normal facial exam Eyes: Appearance normal, both eyes and all related structures Neck: Normal visual inspection and Yes full ROM Respiratory: Normal respiratory effort and able to speak in complete sentences. Clear to auscultation bilaterally Cardiovascular: Regular rate and rhythm. Normal S1 and S2 GI: Normal to inspection. Soft to palpation and nontender Skin: No rashes or lesions noted Neuro: Patient oriented x3 Extremities: Normal to inspection, except for a abrasion on the left Achilles region that is actively bleeding, no signs of infection. Results Plan The plan includes addressing the patient's morbid obesity by discussing potential interventions for weight management, considering her psychological stressors and emotional eating habits. An EKG is planned to evaluate the intermittent chest discomfort described as a tickle, to rule out any cardiac issues. NEW RBBB noted. will get a stress test and echo. highly encouraged weight loss, pt will call her insurance about possible coverage of a GLP-1 agonist. The abrasion on the left Achilles region will be treated with bacitracin and a Band-Aid to prevent infection and promote healing. Discussion Notes Patient Instructions - Apply bacitracin and a Band-Aid to the abrasion on the left Achilles region to keep it clean and promote healing. - Follow up with cardiac testing after EKG to assess chest discomfort. [facility] Medical History (Updated 02/10/25 @ 11:55 by CHRISTIAN Bledsoe-JESSI) Osteoarthritis of shoulders, bilateral Chronic lower back pain Postmenopausal Arthritis of foot Renal cyst Lumbar spinal stenosis Restless leg syndrome JOY (obstructive sleep apnea) Elevated cholesterol GERD (gastroesophageal reflux disease) Arthritis Back pain Pyelonephritis Tubular adenoma of colon Constipation by delayed colonic transit Sleep apnea Radiculopathy Osteoarthritis Sepsis Nephrolithiasis Abdominal pain Constipation Fatty liver Fibromyalgia Asthma Hyperlipidemia Surgical History History of lumbar laminectomy for spinal cord decompression Hx of lithotripsy Hx of colonoscopy Hx of foot surgery History of oophorectomy, unilateral Hx of dilation and curettage History of bilateral hip replacements History of bilateral knee replacement H/O cystoscopy (05/03/20) Family History Father Heart disease Thyroid cancer Diabetes COPD (chronic obstructive pulmonary disease) Sleep apnea Mother Diabetes Cancer Chronic mental illness Colon cancer Other Fibromyalgia Mental health disorder Substance use disorder Social History Housing: Apartment Alcohol intake: current Alcohol intake frequency: does not drink Patient Tobacco Use Status: Former Tobacco user Tobacco use type: Cigarette Cigarettes Per Day: 40 Years Smoked: 17 e-Cigarette/Vaping Use: Never Used Second Hand Smoke Exposure: No Current occupational status: unemployed and disabled Cognitive needs: No Hearing needs: No Vision needs: No Questionnaire PHQ-9 Over the last 2 weeks, how often have you been bothered by any of the following problems? 1. Little interest or pleasure in doing things: several days 2. Feeling down, depressed, or hopeless: several days 3. Trouble falling or staying asleep, or sleeping too much: more than half the days 4. Feeling tired or having little energy: several days 5. Poor appetite or overeating: not at all 6. Feeling bad about yourself - or that you are a failure or have let yourself or your family down: more than half the days 7. Trouble concentrating on things, such as reading the newspaper or watching television: not at all 8. Moving or speaking so slowly that other people could have noticed. Or the opposite - being so fidgety or restless that you have been moving around a lot more than usual: not at all 9. Thoughts that you would be better off or of hurting yourself in some way: not at all Total score: 7 Depression Screening Interpretation: Negative Depression Screening Done: Yes 05813 - PHQ-9 Billing: Yes Source: Developed by Drs. Bib Lynch, Cecilia Gallardo, Anoop Sabillon and colleagues, with an educational delicia from [employer]. Thrive Questionnaire Date Thrive assessed: 09/27/21 I am a: Patient What is your living situation today?: I have a steady place to live Within the past 12 months, did the food you bought not last and you didn't have the money to get more?: Never true Within the past 12 months, did you worry whether your food would run out before you got money to buy more?: Never true Do you have trouble paying for medicines?: No Do you have trouble getting transportation to medical appointments?: Yes Do you have trouble paying your heating and electricity bill?: No Do you have trouble taking care of your child, family member or friend?: No Do you have trouble with day-to-day activities such as bathing, preparing meals, shopping, managing finances, etc.?: No Are you currently unemployed and looking for a job?: No Are you interested in more education?: No Please select the resources that you would like help with: None Currently or been in a relationship where the following occur: No concerns reported THRIVE Score: 1 AUDIT C Alcohol Use Questionnaire (AUDIT-C) 1. How often do you have a drink containing alcohol?: Never Total Score: 0 EDWARDO-7 AMB Questionnaire EDWARDO-7 Date EDWARDO - 7 assessed: 09/27/21 Feeling nervous, anxious, or on edge: 3 = Nearly every day Not being able to stop or control worryin = More than half the days Worrying too much about different things: 2 = More than half the days Trouble relaxin = Nearly every day Being so restless that it is hard to sit still: 3 = Nearly every day Becoming easily annoyed or irritable: 0 = Not at all Feeling afraid as if something awful might happen: 0 = Not at all Total EDWARDO-7 score (0-4 normal; 5-9 mild; 10-14 moderate; 15-21 severe): 13 Source: Developed by Drs. Bib Lynch, Cecilia Gallardo, Anoop Sabillon and colleagues, with an educational delicia from [employer]. EDWARDO-7 Assessment Billing EDWARDO-7 Assessment Tool: EDWARDO-7 Assessment 21020 Physical exam (Primary Care) Vital Signs: Last Vital Signs Temp 98.1 F 02/10/25 11:02 Pulse 79 02/10/25 11:02 Resp 16 02/10/25 11:02 BP 126/84 02/10/25 11:02 Pulse Ox 95 02/10/25 11:02 Oxygen Delivery Method Room Air 02/10/25 11:02 BMI result Body Mass Index 45.0 Tobacco/Smoking Status: Tobacco use Status Tobacco use date assessed 02/10/25 02/10/25 11:04 Patient Tobacco Use Status Former Tobacco user 02/10/25 11:04 Tobacco use type Cigarette 02/10/25 11:04 e-Cigarette/Vaping Use Never Used 02/10/25 11:04 PHQ-9: PHQ-9 Score PHQ-9: Total score 7 02/10/25 11:04 Depression Screening Interpretation: Negative Thrive Assessment: Date of Thrive Assessment Date Thrive assessed 09/27/21 02/10/25 11:04 Currently or been in a relationship where the following occur: No concerns reported Coding Level of Care Code Est Pt Level 3 (18816) Diagnoses Chest discomfort R07.89 Additional Codes PHQ-9 - 30224 - PHQ-9 Billing: Yes ([id number]) EDWARDO-7 Assessment Billing - EDWARDO-7 Assessment Tool: EDWARDO-7 Assessment 08619 ([id number]) Assessment & Plan Assessment & Plan (1) Chest discomfort: Code(s): R07.89 - Other chest pain Category: Medical (2) Chest discomfort: Code(s): R07.89 - Other chest pain Category: Medical Plan . Orders: Orders CA stress test Today R07.89 - Other chest pain NM cardiolite stress test Today R07.89 - Other chest pain CA echo transthoracic complete Today R07.89 - Other chest pain Pneumococcal 20 Immunization Today Z23 - Encounter for immunization Medications: New pneumoc 20-aleksandra conj-dip cr(PF) 0.5 mL IM ONCE 0.5 mL 0RF Z23 - Encounter for immunization
== END 2025-02-10 13:01 | disposition home or self-care (01) ==
LOC: HO.HMCC 10:59
PROVIDERS: PCP Nurse Practitioner Family; Visit Provider Nurse Practitioner Family
DX: R07.89 Other chest pain (principal); Z23 Encounter for immunization

== ENCOUNTER → 2025-04-06 08:51 | Outpatient (REF) | payer MEDICARE, OTHER, SELFPAY ==
--- NOTE | ~2025-04-06 | NM_ITS ---
Lexiscan Myocardial perfusion study Indication: Chest pain to evaluate for myocardial ischemia Technique: The patient was brought in for a Lexiscan perfusion study on 04/06/2025 and was injected 0.4 mg of Lexiscan intravenously. Within a minute of this injection 45 mCi of sestamibi was given intravenously. Images were obtained using the SPECT gamma camera interlaced with the gating device. Images were obtained in supine position. Resting perfusion study was performed on 04/08/2025. Patient was administered 45 mCi of sestamibi intravenously at rest. Images were then obtained in supine position. Images obtained without without CT attenuation. Total DLP 173 mGy-cm. Images were processed with the software and compared side to side in short axis, horizontal long axis and vertical long axis views. Findings: The stress perfusion study showed nonattenuated images show normal uptake of radiotracer in all segments of the LV myocardium. Attenuated corrected images show mildly reduced uptake in the distal septum as well as the apex of the LV myocardium. There is suggestion of left ventricular hypertrophy. The gated study shows normal LV systolic function with calculated LVEF of 62%. LV cavity is normal in size. The gated study shows normal systolic wall thickening and contraction of segments. Resting study shows nonattenuated images show absent uptake in the distal anterior and apical wall of the LV myocardium. Attenuated corrected images show similar finding to stress perfusion imaging. Gating at rest reveals normal systolic wall motion with ejection fraction at 52%. The findings are consistent with likely normal myocardial perfusion. NM/NM cardiolite stress test Impression: 1. Myocardial perfusion imaging study shows likely normal myocardial perfusion 2. Gated LVEF is 62% 3. Transient ischemic dilatation not present Nondiagnostic changes on EKG. Electronically signed by: Phillip Jiménez MD 04/08/2025 04:59 PM EDT
--- NOTE | 2025-04-06 08:53 | CA_ITS ---
Transthoracic Echocardiogram Patient (Last, First, Middle): Kassi Pineda, Gender: Female Date of : 1955 Age: 69 Procedure Date: 04/06/2025 Procedure Type: Transthoracic Echocardiogram Location: OP Height: 162.56 cm Weight: 118.84 kg BSA: 2.19 m2 Heart Rate: bpm BP: 138 / 82 mmHg Registered Nurse Step Down: TO Referring MD: Deo Berg [facility] Escapement Maker: Phillip Jiménez MD Symptoms: R07.89 - Other chest pain Study Quality: Technically Difficult ECG Rhythm: Sinus Conclusions: - 1. Srkab-gr-gjnvcoxm pericardial effusion without clear evidence of tamponade 2. Normal LV ejection fraction of 60 65% 3. Technically limited study otherwise Findings Procedure Information The study quality is limited by the patients inability to tolerate the test and patients body habitus. Left Ventricle Normal left ventricular size, thickness, and systolic function. The visually estimated ejection fraction is between 60-65%. Spectral Doppler is indicative of an impaired relaxation filling pattern. Right Ventricle The right ventricle was not well visualized. Atria The left atrium is normal in size. Interatrial shunt cannot be excluded. The right atrium was not well visualized. Aortic Valve The aortic valve was not well visualized. There is no aortic valve stenosis. There is no aortic valve regurgitation. Mitral Valve The mitral valve was not well visualized. There is trace mitral valve regurgitation. There is no mitral valve stenosis. Pulmonic Valve The pulmonic valve was not well visualized. Tricuspid Valve The tricuspid valve was not well visualized. Tricuspid regurgitation envelope is inadequate for calculation of right ventricular systolic pressure. Normal right atrial pressure. Great Vessels The aorta was not well visualized. The pulmonary artery was not well visualized. Venous The inferior vena cava is normal in size and collapses greater than 50% with inspiration. Pericardium/Pleural there appears to be pbgsc-ji-kcbqfpqp pericardial effusion without clear evidence of tamponade Prior Study Comparison Changes noted compared to prior study dated: 05/01/2018. pericardial effusion in his new Measurements 2D Linear Measurements IVSd: 1.03 0.6-0.9/0.6-1.0 cm LVIDd: 4.37 3.9-5.3/4.2-5.9 cm LVIDd Index: 2.00 2.4-3.2/2.2-3.1 cm/m2 LVIDs: 3.17 2.0-3.6 cm LVPWd: 0.74 0.7-1.1 cm LV Mass: 153.36 67-162/88-224 g LV Mass Index: 70.03 43-95/49-115 g/m2 LVOT Diam: 2.00 3.0+(-)1.3 cm 2D Systolic Function EF 4C: 64.30 >55% EF 2C: 59.60 >55% EF BiP: 62.40 >55% Mitral Valve MV Pk E: 0.62 MV PK A: 0.76 MV Decel Time: 134.00 E/A: 0.80 E'Lateral: 4.57 E'Medial: 5.77 E/E' Med: 10.70 E/E' Lat: 13.50 PHT: 39.00 MVA PHT: 5.64 Decel Hartley: 4.60 Aortic Valve AoV Pk Fernando: 1.36 AoV Mn Fernando: 0.92 AoV VTI: 0.24 AoV Pk Grad: 7.00 Aov Mn Grad: 4.00 NYLA Cont.VTI: 2.84 LVOT LVOT Pk Fernando: 1.12 LVOT Mn Fernando: 0.82 LVOT VTI: 0.22 LVOT Pk Grad: 5.00 LVOT Mn Grad: 3.00 LVOT Diam: 2.00 LVOT Area: 3.14 Diastolic Function MV Pk E: 0.62 MV Pk A: 0.76 E/A: 0.80 E'Medial: 5.77 E/E' Med: 10.70 E' Laterial: 4.57 E/E' Lat: 13.50 Right Ventricle TAPSE (mm): 18.70 TVS' Fernando: 16.80 Tricuspid Valve RA Press: 3.00 Great Vessels Aorta Sinus of Valsalva: 3.43 2.0-3.5 cm Ao Asc: 3.40 2.1-3.4 cm Updated in Other Vendor System with Status of Final Phillip Jiménez MD electronically signed on 04/06/2025 5:00:12 PM with status of Final
--- NOTE | 2025-04-06 08:53 | CA_ITS ---
Acquisition Time: 2025-04-06 10:06:12 Total Exercise Time: 00:02:00 Test Indications: CHEST PAIN Medications: Protocol: LEXISCAN Max HR: 110 BPM 73% of Pred: 150 BPM Max BP: 118/80 mmHG Max Work Load: 1.0 METS Pharmacological stress test with Lexiscan while pt swings her legs in chair, with reports of SOB, without any arrythmias, with normotensive response to injection. Nondiagnostic EKG for ischemia. In recovery, pt treated with IVP Aminophylline 75 mg to reverse Lexiscan after which pt feeling back to baseline. Nuclear images pending. Test reviewed with Dr. Jiménez. \ Referred By: Deo Berg Electronically Signed By: Jaguar Draper
--- OUTSIDE RECORDS SUMMARY | 2025-04-06 09:18 | XMS_ITS | Clinical Summary ---
Author Organization [facility] Address [address] [place] [id number] Care Team Providers Care Judicial Clerk Name Role Phone Unavailable Primary Care Provider Unavailabl e Surgical History Surgery Date Site/Laterality Comments OTHER SURGICAL HISTORY 1981 PROCEDURE: MT DILATION & CURETTAGE DX&/THER NONOBSTETRIC OOPHORECTOMY 2004 PROCEDURE: MT OOPHORECTOMY PARTIAL/TOTAL UNI/BI; COMMENT: Left ovary removed [...] 2005 Zoster Vaccines (1 of 2) 2005 RSV Immunization Adult Patie nts (1 - Risk 60-74 years 1-dose series) 2015 Colorectal Cancer Screening: Colonoscopy 09/18/2023 Falls Risk Assessment 09/18/2023 Hepatitis C Screening 09/18/2023 Osteoporosis Screening (Bone Density Screening) 09/18/2023 Social Influencers of Health Screening 09/18/2023 COVID-19 Vaccine ( - 2023-2 5 season) 2024 Depression Screening 08/20/2024 Influenza Vaccine (#1) 2025 HIB Vaccines Aged Out No longer eligi [...]
--- OUTSIDE RECORDS SUMMARY | 2025-04-06 09:18 | XMS_ITS | Clinical Summary ---
Author Organization [employer] Address [address] [facility] [address] [place] [address] Care Team Providers Care Rockboard Lather Name Role Phone Unavailable Primary Care Provider [...] 2023-2 5 season) 2024 Influenza Vaccine (#1) 2025 RSV Patients and Pa tients Aged [...]
--- OUTSIDE RECORDS SUMMARY | 2025-04-06 09:18 | XMS_ITS | Patient Health Record ---
Author Organization [facility] Address [address] [place] [address] Care Team Providers Care Family Law Legal Assistant Name Role Phone Anali Steiner NP Primary Care Provider U Bib Randle [phone] Allergies Allergen (clinical drug ingredient) Drug/Non Drug Allergy documented on EMR Reaction Allergy Type Onset Date Status meperidine Demerol Unknown Drug Allergy Active Reason For Referral No Information Medications Medication SIG (Take, Route, Frequency, Duration) Notes Start Date End Date Status Lipitor Active Topamax Active Hexabrix Active metFORMIN HCl Active Colyte with Flavor Packs 227.1 GM As directed Orally As directed for 1 day(s) 07/15/2013 Active Gabapentin Active Keppra Active traZODone HCl Active Cymbalta Active Abilify Active Ibuprofen Active traMADol HCl Active Problems Problem Type SNOMED Code ICD Code Onset Dates Problem Status W/U Status Risk Notes Problem Constipation (54479809) Constipation (564.00) Active confirmed Problem Family History of Cancer of Colon (Situation) (485367591) Family history of colon cancer (V16.0) Active confirmed Problem Screening for malignant neoplasm of colon (420271877) Screen for colon cancer (V76.51) Active confirmed Plan Of Treatment Future Test Test Name Order Date COLONOSCOPY 07/15/2013 Insurance Providers Payer Name Payer Address Payer Phone Subscriber Number Group Number Insured Name Patient Relationship to Insured Coverage Start Date Coverage End Date [place] [address] [place] [address] [id number] BERTHA DOMINGUEZ Self - patient is the insured HU[employer] [address] [address] [place] [address] [phone] [id number] BERTHA DOMINGUEZ Self - patient is the insured Medical (General) History Medical History History ICD Code chronic constipation depresssion arthritis fibromyalgia asthma Denies AL,CVA,renal disease NIDDM Describes a negative colonoscopy > 10 yr s ago in [place] Surgical History Surgery Date(Month/Year) D&C after miscarriage Left ovary removed
[2025-04-09 16:59] LABS: Alk.Phos Iso. Macrohepatic 0 % (<=0); Alk.Phos Isoenzymes Bone 24 % (28-66); Alk.Phos Isoenzymes Intest 23 % (1-24); Alk.Phos Isoenzymes Liver 53 % (25-69); Alk.Phos Isoenzymes Placental 0 % (<=0); Alk.Phos Isoenzymes Total 122 U/L (37-153)
== END ==
LOC: HO.CARD 08:51
PROVIDERS: PCP Nurse Practitioner Family; Visit Provider Nurse Practitioner Family
DX: R07.89 Other chest pain (principal); R74.8 Abnormal levels of other serum enzymes
CPT/HCPCS: 36415; 78452; 84080; 93017; 93306; A9500; J0280; J2785

== ENCOUNTER → 2025-04-06 08:53 | Outpatient (BNV) | payer MEDICARE, OTHER, SELFPAY | PROVIDERS: PCP Nurse Practitioner Family | DX: R07.89 Other chest pain (principal); I31.39 Other pericardial effusion (noninflammatory); R06.02 Shortness of breath | CPT/HCPCS: 78452; 93016; 93018; 93320; 93350 ==

== ENCOUNTER 2025-04-08 10:30 | Outpatient (REF) | payer MEDICARE, OTHER, SELFPAY ==
[2025-04-08 12:47] LABS: Appearance Urine Clear; Glucose Urine UA Negative (Negative); PH 5.5 (5.0-9.0); Specific Gravity - Urine 1.010 (1.005-1.025); UMIC TRIGGER UACC YES
[2025-04-08 12:51] LABS: UACC Culture Trigger YES
--- OUTSIDE RECORDS SUMMARY | 2025-04-08 13:26 | XMS_ITS | Clinical Summary ---
Author Organization [employer] Address [address] [facility] [address] [place] [address] Care Team Providers Care Insurance Healthcare Representative Name Role Phone Unavailable Primary Care Provider [...]
--- OUTSIDE RECORDS SUMMARY | 2025-04-08 13:26 | XMS_ITS | Clinical Summary ---
Author Organization [facility] Address [address] [place] [address] Care Team Providers Care Client Support Coordinator Name Role Phone Unavailable Primary Care Provider Unavailabl e Surgical History Surgery Date Site/Laterality Comments OTHER SURGICAL HISTORY 1981 PROCEDURE: [place] DILATION & CURETTAGE DX&/THER NONOBSTETRIC OOPHORECTOMY 2004 PROCEDURE: DC OOPHORECTOMY PARTIAL/TOTAL UNI/BI; COMMENT: Left ovary removed [...]
--- OUTSIDE RECORDS SUMMARY | 2025-04-08 13:26 | XMS_ITS | Patient Health Record ---
Author Organization [facility] Address [address] [place] [address] Care Team Providers Care Cage Clerk Name Role Phone Anali Steiner NP Primary Care Provider U Bib Randle [phone] Allergies Allergen (clinical drug ingredient) Drug/Non Drug [...] Status W/U Status Risk Notes Problem Constipation (71649629) Constipation (564.00) Active confirmed Problem Family History of Cancer of Colon (Situation) (668117537) Family history of colon cancer (V16.0) Active confirmed Problem Screening for malignant neoplasm of colon (346409413) Screen for colon cancer (V76.51) Active confirmed Plan Of Treatment Future Test Test Name Order Date COLONOSCOPY 07/15/2013 Insurance Providers Payer Name Payer Address Payer Phone Subscriber Number Group Number Insured Name Patient Relationship to Insured Coverage Start Date Coverage End Date [place] OF [place] [address] [place] [address] [id number] BERTHA DOMINGUEZ Self - patient is the insured [employer] [address] [address] [place] [address] [id number] BERTHA DOMINGUEZ Self - patient is the insured Medical (General) History Medical History History ICD Code chronic constipation depresssion arthritis fibromyalgia asthma Denies [place],CVA,renal disease NIDDM Describes a negative colonoscopy > 10 yr s ago in [place] Surgical History Surgery Date(Month/Year) D&C after miscarriage Left ovary removed
== END 2025-04-08 10:31 | disposition home or self-care (01) ==
LOC: HO.LNP 10:30
PROVIDERS: Visit Provider Nurse Practitioner Family
DX: E78.5 Hyperlipidemia, unspecified (principal)
CPT/HCPCS: 81001; 87086

== ENCOUNTER 2025-04-13 06:42 | Outpatient (AMB) | payer MEDICARE, OTHER, SELFPAY ==
--- OUTSIDE RECORDS SUMMARY | 2025-04-13 06:45 | XMS_ITS | Clinical Summary ---
Author Organization [employer] Address [address] [facility] [address] [place] [address] Care Team Providers Care Laboratory Director Name Role Phone Unavailable Primary Care [...]
--- OUTSIDE RECORDS SUMMARY | 2025-04-13 06:46 | XMS_ITS | Patient Health Record ---
Author Organization [facility] Address [address] [place] [address] Care Team Providers Care Glass Blower Name Role Phone Anali Steiner NP Primary Care Provider U Bib Randle [phone] Allergies Allergen (clinical drug ingredient) Drug/Non Drug [...] Status W/U Status Risk Notes Problem Constipation (26510144) Constipation (564.00) Active confirmed Problem Family History of Cancer of Colon (Situation) (263185430) Family history of colon cancer (V16.0) Active confirmed Problem Screening for malignant neoplasm of colon (319646834) Screen for colon cancer (V76.51) Active confirmed Plan Of Treatment Future Test Test Name Order Date COLONOSCOPY 07/15/2013 Insurance Providers Payer Name Payer Address Payer Phone Subscriber Number Group Number Insured Name Patient Relationship to Insured Coverage Start Date Coverage End Date MEDICARE OF [place] [address] [place] [address] [phone] [id number] BERTHA DOMINGUEZ Self - patient is the insured [employer] [address] [address] [place] [address] [id number] BERTHA DOMINGUZE Self - patient is the insured Medical (General) History Medical History History ICD Code chronic constipation depresssion arthritis fibromyalgia asthma Denies [place],CVA,renal disease NIDDM Describes a negative colonoscopy > 10 yr s ago in [place] Surgical History Surgery Date(Month/Year) D&C after miscarriage Left ovary removed
--- OUTSIDE RECORDS SUMMARY | 2025-04-13 06:46 | XMS_ITS | Clinical Summary ---
Author Organization [facility] Address [address] [place] [address] Care Team Providers Care Grooming Salon Manager Name Role Phone Unavailable Primary Care Provider Unavailabl e Surgical History Surgery Date Site/Laterality Comments OTHER SURGICAL HISTORY 1981 PROCEDURE: [place] DILATION & CURETTAGE DX&/THER NONOBSTETRIC OOPHORECTOMY 2004 PROCEDURE: [place] OOPHORECTOMY PARTIAL/TOTAL UNI/BI; COMMENT: Left ovary removed [...]
--- NOTE | 2025-04-13 07:10 | MHC.PC.OV ---
Intake Visit Reasons: increase weight loss medication Allergies ropinirole (ROPINIROLE) Allergy (Intermediate, Verified 04/13/25 07:13) WORSE RESTLESS LEG duloxetine (Cymbalta) Adverse Reaction (Intermediate, Verified 04/13/25 07:13) Worsening RLS meperidine (From DEMEROL) Adverse Reaction (Intermediate, Verified 04/13/25 07:13) NAUSEA & VOMITING trazodone Adverse Reaction (Intermediate, Verified 04/13/25 07:13) Palpitations Medication List - Last Reconciled 04/13/25 by Deo Berg PARENT EDUCATOR- atorvastatin 20 mg PO BEDTIME 90 days bisacodyl (Dulcolax (bisacodyl)) 10 mg (2 x 5 mg) PO BEDTIME clonazepam 1 mg PO DAILY PRN clonidine HCl mg PO diclofenac sodium 1% (Arthritis Pain (diclofenac)) 2 grams topical QID docusate sodium 100 mg PO BEDTIME empty container (Sharps Container) As directed to dispose of sharps after injection escitalopram oxalate 5 mg PO DAILY eszopiclone mg PO ezetimibe 10 mg PO DAILY 90 days famotidine (Pepcid AC Maximum Strength) 20 mg PO DAILY gabapentin 300 mg orally Take 200 mg in the AM, 100 mg in the afternoon, and 300 mg in the evening.; morning and bedtime inhalational spacing device (Space Chamber) As directed ketoconazole 2% 1 appl topical BID levocetirizine 5 mg PO DAILY lidocaine 5% 1 patch topical DAILY PRN polyethylene glycol 3350 17 grams PO DAILY propranolol 20 mg PO sennosides (Natural Senna Laxative) 17.2 mg (2 x 8.6 mg) PO BEDTIME tirzepatide (weight loss) (Zepbound) 2.5 mg (0.5 mL) subcut QWEEK valbenazine (Ingrezza) 80 mg PO DAILY walker Rollator-with seat and brakes Tobacco use date assessed: 02/10/25 Dental Screening Dental Screen Date: 02/10/25 HPI increase weight loss medication HPI Details History of Present Illness The patient is a 69-year-old female presenting with obesity. She has recently started on Tirzepatide, a GLP-1 agonist, and is tolerating the medication well at a dose of 2.5 mg, which she prefers to maintain. During a recent office visit, the patient experienced chest discomfort, and an EKG revealed an incomplete right bundle branch block. An echocardiogram showed a normal left ventricular ejection fraction between 60 and 65%, but identified a small to moderate pericardial effusion without tamponade. A stress test was negative for ischemia. Currently, the patient reports feeling good, with no subjective shortness of breath observed during the telehealth visit, although she does experience intermittent chest discomfort, primarily while sitting. She has been advised to seek emergency care if symptoms worsen, particularly if shortness of breath occurs. The patient is morbidly obese, and it is hoped that the weight loss medication will be beneficial. A referral to cardiology has been made for further evaluation of the echocardiogram findings. Review of Systems - Cardiovascular: Reports intermittent chest discomfort, primarily while sitting. Denies shortness of breath during telehealth visit. -denies any fevers, chills, N/V, increased SOB Plan The patient will continue on Tirzepatide at a dose of 2.5 mg for obesity management, as she is tolerating it well and prefers to maintain this dosage for now. She has been advised to seek emergency care if her chest discomfort worsens or if she experiences shortness of breath. A referral to cardiology has been made for further evaluation of the echocardiogram findings, specifically the small to moderate pericardial effusion. The stress test was negative for ischemia, providing some reassurance regarding her cardiac status. Discussion Notes I discussed with the patient the importance of continuing her current dose of Tirzepatide for obesity management, as she is tolerating it well. I advised her to seek emergency care if her chest discomfort worsens or if she experiences shortness of breath. We also discussed the referral to cardiology for further evaluation of her echocardiogram findings, particularly the pericardial effusion. Patient Instructions - Continue taking Tirzepatide at 2.5 mg as prescribed. - Go to the emergency room if chest discomfort worsens or if you experience shortness of breath. - Follow up with cardiology as scheduled for further evaluation. [facility] Medical History (Updated 04/07/25 @ 12:25 by Deo Berg [facility]) Osteoarthritis of shoulders, bilateral Chronic lower back pain Postmenopausal Arthritis of foot Renal cyst Lumbar spinal stenosis Restless leg syndrome JOY (obstructive sleep apnea) Elevated cholesterol GERD (gastroesophageal reflux disease) Arthritis Back pain Pyelonephritis Tubular adenoma of colon Constipation by delayed colonic transit Sleep apnea Radiculopathy Osteoarthritis Sepsis Nephrolithiasis Abdominal pain Constipation Fatty liver Fibromyalgia Asthma Hyperlipidemia Surgical History (Reviewed 02/10/25 @ 12:08 by [facility]) History of lumbar laminectomy for spinal cord decompression Hx of lithotripsy Hx of colonoscopy Hx of foot surgery History of oophorectomy, unilateral Hx of dilation and curettage History of bilateral hip replacements History of bilateral knee replacement H/O cystoscopy (05/03/20) Family History (Reviewed 02/10/25 @ 12:08 by [facility]) Father Heart disease Thyroid cancer Diabetes COPD (chronic obstructive pulmonary disease) Sleep apnea Mother Diabetes Cancer Chronic mental illness Colon cancer Other Fibromyalgia Mental health disorder Substance use disorder Social History Housing: Apartment Alcohol intake: current Alcohol intake frequency: does not drink Patient Tobacco Use Status: Former Tobacco user Tobacco use type: Cigarette Cigarettes Per Day: 40 Years Smoked: 17 e-Cigarette/Vaping Use: Never Used Second Hand Smoke Exposure: No Current occupational status: unemployed and disabled Cognitive needs: No Hearing needs: No Vision needs: No Questionnaire Thrive Questionnaire Date Thrive assessed: 02/10/25 I am a: Patient What is your living situation today?: I have a steady place to live Within the past 12 months, did the food you bought not last and you didn't have the money to get more?: Never true Within the past 12 months, did you worry whether your food would run out before you got money to buy more?: Never true Do you have trouble paying for medicines?: No Do you have trouble getting transportation to medical appointments?: Yes Do you have trouble paying your heating and electricity bill?: No Do you have trouble taking care of your child, family member or friend?: No Do you have trouble with day-to-day activities such as bathing, preparing meals, shopping, managing finances, etc.?: No Are you currently unemployed and looking for a job?: No Are you interested in more education?: No Please select the resources that you would like help with: None Currently or been in a relationship where the following occur: No concerns reported THRIVE Score: 1 EDWARDO-7 AMB Questionnaire EDWARDO-7 Date EDWARDO - 7 assessed: 09/27/21 Source: Developed by Drs. Bib Lynch, Cecilia Gallardo, Anoop Sabillon and colleagues, with an educational delicia from [employer]. Physical exam (Primary Care) Tobacco/Smoking Status: Tobacco use Status Tobacco use date assessed 02/10/25 04/13/25 07:12 Patient Tobacco Use Status Former Tobacco user 04/13/25 07:12 Tobacco use type Cigarette 04/13/25 07:12 e-Cigarette/Vaping Use Never Used 04/13/25 07:12 Thrive Assessment: Date of Thrive Assessment Date Thrive assessed 02/10/25 04/13/25 07:12 Currently or been in a relationship where the following occur: No concerns reported Telehealth Telehealth Telehealth Platform: [employer] Location of provider rendering services: practice address Location of patient: address on file Patient Identification confirmed using: Name, : Yes Telehealth method: video Patient verbally consented to treatment: Yes Patient verbally consented to billing insurance company: Yes Patient informed of any privacy concerns related to visit: Yes Minutes spent on Phone/Video with Pt.: 14 Coding Level of Care Code Tele Est Pt Level 3 (08868) Diagnoses Pericardial effusion I31.39 Chest discomfort R07.89 Morbid obesity E66.01 Assessment & Plan Assessment & Plan (1) Pericardial effusion: Code(s): I31.39 - Other pericardial effusion (noninflammatory) Category: Medical (2) Chest discomfort: Code(s): R07.89 - Other chest pain Category: Medical (3) Morbid obesity: Code(s): E66.01 - Morbid (severe) obesity due to excess calories Category: Medical Plan . Orders: Referrals Cardiology Referral I31.39 - Other pericardial effusion (noninflammatory), R07.89 - Other chest pain Medications: Refilled tirzepatide (weight loss) (Zepbound) for 4 weeks 2.5 mg (0.5 mL) subcut QWEEK 2 mL 0RF
== END 2025-04-13 07:26 | disposition home or self-care (01) ==
LOC: HO.HMCC 06:43
PROVIDERS: PCP Nurse Practitioner Family; Visit Provider Nurse Practitioner Family
DX: I31.39 Other pericardial effusion (noninflammatory) (principal); R07.89 Other chest pain; E66.01 Morbid (severe) obesity due to excess calories

== ENCOUNTER 2025-04-18 10:49 | Outpatient (REF) | payer MEDICARE, OTHER, SELFPAY ==
--- NOTE | ~2025-04-18 | CT_ITS ---
CLINICAL HISTORY: I31.39 - Other pericardial effusion (noninflammatory) CT chest without contrast Comparison: CR/NH/SR - XR CHEST 2 VIEWS - 02/06/24 11:38 EDT Findings: The heart size is normal. There is no significant pericardial effusion. Mild atherosclerotic disease of the coronary arteries. No significant mediastinal adenopathy. No effusion. No pneumothorax. No suspicious lung nodule. Osseous structures demonstrate no acute process. The visualized upper abdomen is unremarkable. Impression: No significant pericardial effusion or alternate acute process by noncontrast CT This document has been electronically signed by: Brian Adan MD on 04/18/2025 11:47:04
--- OUTSIDE RECORDS SUMMARY | 2025-04-18 11:04 | XMS_ITS | Clinical Summary ---
Author Organization [employer] Address [address] [facility] [address] [place] [address] Care Team Providers Care Hydrometeorologist Name Role Phone Unavailable Primary Care Provider [...]
--- OUTSIDE RECORDS SUMMARY | 2025-04-18 11:04 | XMS_ITS | Encounter Summary ---
Author Organization [employer] Address [address] [facility] 7 [place] [address] Care Team Providers Care Roofer Assistant Name Role Phone Unavailable Primary Care Provider Unavailabl e Encounter Details Date Type Department Care Team (Latest Contact Info) Description 04/07/2021 Abstract [facility] CONVERSIONS Dental, Provider, DDS Social History Tobacco [...]
--- OUTSIDE RECORDS SUMMARY | 2025-04-18 11:04 | XMS_ITS | Encounter Summary ---
Author Organization [employer] Address [address] [facility] [address] [place] [address] Care Team Providers Care Commission Clerk Name Role Phone Unavailable Primary Care Provider Unavailabl e Encounter Details Date Type Department Care Team (Latest Contact Info) Description 01/06/2019 Abstract [facility] CONVERSIONS Dental, Provider, DDS Social History [...]
--- OUTSIDE RECORDS SUMMARY | 2025-04-18 11:04 | XMS_ITS | Encounter Summary ---
Author Organization [employer] Address [address] [facility] [address] [place] [address] Care Team Providers Care Wealth Management Consultant Name Role Phone Unavailable Primary Care Provider Unavailabl e Encounter Details Date Type Department Care Team (Latest Contact Info) Description 02/07/2022 Abstract [facility] CONVERSIONS Dental, Provider, DDS Social History Tobacco [...]
--- OUTSIDE RECORDS SUMMARY | 2025-04-18 11:04 | XMS_ITS | Clinical Summary ---
Author Organization [facility] Address [id number] [place] [address] Care Team Providers Care Police Inspector Name Role Phone Unavailable Primary Care Provider [...]
--- OUTSIDE RECORDS SUMMARY | 2025-04-18 11:04 | XMS_ITS | Patient Health Record ---
Author Organization [facility] Address [address] [place] [address] Care Team Providers Care Real Estate Operations Manager Name Role Phone Anali Steiner NP Primary Care Provider U Bib Randle [phone] Allergies Allergen (clinical drug ingredient) Drug/Non Drug [...] Status W/U Status Risk Notes Problem Constipation (11644997) Constipation (564.00) Active confirmed Problem Family History of Cancer of Colon (Situation) (146411879) Family history of colon cancer (V16.0) Active confirmed Problem Screening for malignant neoplasm of colon (514672057) Screen for colon cancer (V76.51) Active confirmed Plan Of Treatment Future Test Test Name Order Date COLONOSCOPY 07/15/2013 Insurance Providers Payer Name Payer Address Payer Phone Subscriber Number Group Number Insured Name Patient Relationship to Insured Coverage Start Date Coverage End Date MEDICARE OF [place] [address] [place] [address] [id number] BERTHA DOMINGUEZ Self - patient is the insured [employer] [address] [address] [place] [address] [id number] BERTHA DOMINGUEZ Self - patient is the insured Medical (General) History Medical History History ICD Code chronic constipation depresssion arthritis fibromyalgia asthma Denies [place],CVA,renal disease NIDDM Describes a negative colonoscopy > 10 yr s ago in [place] Surgical History Surgery Date(Month/Year) D&C after miscarriage Left ovary removed
== END 2025-04-18 10:50 | disposition home or self-care (01) ==
LOC: HO.CT 10:49
PROVIDERS: PCP Nurse Practitioner Family; Visit Provider Nurse Practitioner Family
DX: I31.39 Other pericardial effusion (noninflammatory) (principal); R06.02 Shortness of breath
CPT/HCPCS: 71250

== ENCOUNTER → 2025-04-18 10:50 | Outpatient (BNV) | payer MEDICARE, OTHER, SELFPAY | PROVIDERS: PCP Nurse Practitioner Family; Visit Provider Radiology Vascular & Interventional Radiology | DX: I31.39 Other pericardial effusion (noninflammatory) (principal) | CPT/HCPCS: 71250 ==

== ENCOUNTER 2025-04-22 09:22 | Outpatient (AMB) | payer MEDICARE, OTHER, SELFPAY ==
--- NOTE | 2025-04-22 09:27 | A.OFFVIS_ITS ---
Vital Signs 04/22/25 09:34 Height 5 ft 4 in Weight 249 lb 1.957 oz BMI 42.8 BP 132/84 Blood Pressure Location Lt brachial Position Sitting Pulse 72 Intake Visit Reasons: STORAGE SPECIALIST/ J Glogowski/ pericardial effusion/ CPema/ Intake Note: New patient dx pericaridal effusion seen on echo c/o sob Lead Manufacturing Engineering Tech Required: No Allergies ropinirole (ROPINIROLE) Allergy (Intermediate, Verified 04/13/25 07:13) WORSE RESTLESS LEG duloxetine (Cymbalta) Adverse Reaction (Intermediate, Verified 04/13/25 07:13) Worsening RLS meperidine (From DEMEROL) Adverse Reaction (Intermediate, Verified 04/13/25 07:13) NAUSEA & VOMITING trazodone Adverse Reaction (Intermediate, Verified 04/13/25 07:13) Palpitations Medication List - Last Reconciled 04/22/25 by Phillip Jiménez MD atorvastatin 20 mg PO BEDTIME 90 days bisacodyl (Dulcolax (bisacodyl)) 10 mg (2 x 5 mg) PO BEDTIME clonazepam 1 mg PO DAILY PRN clonidine HCl 0.3 mg PO ONCE diclofenac sodium 1% (Arthritis Pain (diclofenac)) 2 grams topical QID docusate sodium 100 mg PO BEDTIME doxepin 150 mg PO DAILY empty container (Sharps Container) As directed to dispose of sharps after injection eszopiclone mg PO ezetimibe 10 mg PO DAILY 90 days famotidine (Pepcid AC Maximum Strength) 20 mg PO DAILY gabapentin 300 mg orally Take 200 mg in the AM, 100 mg in the afternoon, and 300 mg in the evening.; morning and bedtime inhalational spacing device (Space Chamber) As directed ketoconazole 2% 1 appl topical BID levocetirizine 5 mg PO DAILY lidocaine 5% 1 patch topical DAILY PRN polyethylene glycol 3350 17 grams PO DAILY propranolol 20 mg PO sennosides (Natural Senna Laxative) 17.2 mg (2 x 8.6 mg) PO BEDTIME tirzepatide (weight loss) (Zepbound) 2.5 mg (0.5 mL) subcut QWEEK valbenazine (Ingrezza) 80 mg PO DAILY walker Rollator-with seat and brakes HPI Comments Details: Kassi was referred here for findings of echocardiogram of pericardial effusion. Patient is a 69 year female with history of obesity, hyperlipidemia as well as major depression as well as anxiety was complain of exertional shortness of breath. She therefore underwent workup with echocardiogram which was technically difficult due to body habitus which showed normal LV systolic function with [id number] pericardial effusion without tamponade. She also underwent a myocardial perfusion imaging which showed normal myocardial perfusion. Patient subsequently had a CTs of chest and this did not show any evidence of pericardial effusion. Patient says she used to feel funny feeling in his chest like taking mostly at rest and after minimal exertion. She says she can not over exert herself because of arthritic issues. She also feels shortness of breath. However these symptoms have now dissipated. Patient has had no recent major viral illnesses. Denies any orthopnea, PND, leg edema. Takes all her medications. Chest CT also showed mild coronary calcification. [facility] Medical History Osteoarthritis of shoulders, bilateral Chronic lower back pain Postmenopausal Arthritis of foot Renal cyst Lumbar spinal stenosis Restless leg syndrome JOY (obstructive sleep apnea) Elevated cholesterol GERD (gastroesophageal reflux disease) Arthritis Back pain Pyelonephritis Tubular adenoma of colon Constipation by delayed colonic transit Sleep apnea Radiculopathy Osteoarthritis Sepsis Nephrolithiasis Abdominal pain Constipation Fatty liver Fibromyalgia Asthma Hyperlipidemia Surgical History History of lumbar laminectomy for spinal cord decompression Hx of lithotripsy Hx of colonoscopy Hx of foot surgery History of oophorectomy, unilateral Hx of dilation and curettage History of bilateral hip replacements History of bilateral knee replacement H/O cystoscopy (05/03/20) Family History Father Heart disease Thyroid cancer Diabetes COPD (chronic obstructive pulmonary disease) Sleep apnea Mother Diabetes Cancer Chronic mental illness Colon cancer Other Fibromyalgia Mental health disorder Substance use disorder Social History Housing: Apartment Alcohol intake: current Alcohol intake frequency: does not drink Patient Tobacco Use Status: Former Tobacco user Tobacco use type: Cigarette Cigarettes Per Day: 40 Years Smoked: 17 e-Cigarette/Vaping Use: Never Used Second Hand Smoke Exposure: No Current occupational status: unemployed and disabled Cognitive needs: No Hearing needs: No Vision needs: No Review of Systems Const Denies chills, Denies daytime sleepiness, Denies fatigue, Denies fever(s), Reports frequent falls, Denies poor appetite, Reports snoring, Denies stops breathing during sleep, Denies weakness, Denies weight gain and Denies weight loss Eyes Denies loss of vision ENT Denies dizziness and Denies hearing loss Card Denies chest pain, Denies claudication, Denies leg edema, Denies lightheadedness, Denies palpitations, Reports dyspnea, Denies dyspnea on exertion and Reports orthopnea Resp Denies cough, Denies excessive phlegm production, Reports dyspnea, Denies dyspnea on exertion, Reports snoring and Denies wheezing GI Denies abdominal pain, Denies hematochezia, Denies change in bowel habits, Denies nausea and Denies vomiting Denies urinary frequency and Denies dysuria Musc Reports arthralgias, Denies muscle weakness and Denies numbness Skin/Breast Denies nail changes and Denies rash Neuro Denies Abnormal speech present, Denies dizziness, Reports frequent falls, Denies loss of vision, Denies memory loss, Denies numbness and Denies weakness Psych Reports depression and Denies memory loss Endo Denies fatigue and Denies palpitations Inder/Lymph Reports easy bruising and Reports other (anemia) Aller/Immun Denies wheezing Physical Exam Vital Signs: Last Vital Signs Pulse 72 04/22/25 09:34 BP 132/84 04/22/25 09:34 BMI result Body Mass Index 42.8 Const General: cooperative, comfortable, no acute distress, alert and awake Nutritional Appearance: obese Orientation/consciousness: patient oriented x3 HEENT Head: Yes normocephalic and Yes atraumatic Neck Neck: Yes trachea midline, Yes supple and Yes no JVD Resp Effort & Inspection: normal respiratory effort Auscultation: clear to auscultation bilaterally Cardio Jugular venous distension: no JVD Palpation: normal PMI Rate: regular rate Rhythm: regular rhythm Heart sounds: S1 normal heart sound present, S2 normal heart sound present, no click, no gallops, no murmurs and no rubs GI Auscultation: normal bowel sounds Skin General skin exam: no rashes or lesions noted Neuro General: patient oriented x3 and no focal motor deficits Speech: No Abnormal speech present Extrem General: Yes no clubbing, cyanosis or edema Psych Appearance: grossly normal Office Procedures EKG Details: EKG shows normal sinus rhythm with possible right ventricular hypertrophy otherwise other acute ST-T wave changes [id number], Complete Assessment & Plan Assessment & Plan (1) Pericardial effusion: Code(s): I31.39 - Other pericardial effusion (noninflammatory) Category: Medical Plan: Pericardial effusion that was noted on echocardiogram which was done for chest discomfort and shortness of breath. This was [id number] in size noted on echocardiogram. Subsequent chest CTA imaging does not show any pericardial effusion. Possible explanation include self resolving pericardial effusion due to inflammation which might have been causing her mild chest discomfort symptoms. Other possibility includes given the technical quality of echocardiogram that this could represent pericardial fat although this is not seen on chest CT. However benign nature of this finding and absence of pericardial effusion chest CTA was discussed with the patient. No further workup is indicated from that perspective. No further therapeutic options are needed as well. (2) Short of breath on exertion: Code(s): R06.02 - Shortness of breath Plan: Shortness of breath on exertion which appears to be most likely related to deconditioning and obesity. She has normal myocardial perfusion imaging suggesting no significant obstructive coronary artery disease and LV systolic function is normal without major valvular abnormality. Encouraged to participate in weight loss program. (3) Coronary artery calcification seen on CAT scan: Code(s): I25.10 - Atherosclerotic heart disease of [place] coronary artery without angina pectoris Plan: Mild coronary artery calcification noted and reported on chest CT. The seizure suggestive of underlying coronary atherosclerosis. At this point time she is on adequate therapy with statins to target goal LDL less than 70 mg/dL. Also continue aggressive blood pressure control. If she has alternative chest pain pattern she is advised to call your office or report to me. Will follow up in the clinic if need be. Thank you for allowing me to partake in her care Coding Level of Care Code New Pt Level 4 (05054) Complex EM visit Add On G2211 Diagnoses Pericardial effusion I31.39 Short of breath on exertion R06.02 Coronary artery calcification seen on CAT scan I25.10 CPT Codes EKG - CPT: 62792-[id number], Complete ([id number])
[2025-04-22 09:34] VITALS: BP 132/84; PULSE 72; BMI 42.8
--- OUTSIDE RECORDS SUMMARY | 2025-04-22 10:07 | XMS_ITS | Encounter Summary ---
Author Organization [employer] Address [address] [facility] [address] [place] [address] Care Team Providers Care Technical Applications Scientist Name Role Phone Unavailable Primary Care Provider Unavailabl e Encounter Details Date Type Department Care Team (Latest Contact Info) Description 04/07/2021 Abstract [facility] CONVERSIONS Dental, Provider, DDS Social History [...]
--- OUTSIDE RECORDS SUMMARY | 2025-04-22 10:07 | XMS_ITS | Clinical Summary ---
Author Organization [facility] Address [id number] [place] [id number] Care Team Providers Care Sheet Metal Former Name Role Phone Unavailable Primary Care Provider Unavailabl e Surgical History Surgery Date Site/Laterality Comments OTHER SURGICAL HISTORY 1981 PROCEDURE: OK DILATION & CURETTAGE DX&/THER NONOBSTETRIC OOPHORECTOMY 2004 PROCEDURE: [place] OOPHORECTOMY PARTIAL/TOTAL UNI/BI; COMMENT: Left ovary removed [...] 09/18/2023 Social Influencers of Health Screening 09/18/2023 Depression Screening 08/20/2024 COVID-19 Vaccine ( - 2023-2 5 season) 2025 Influenza Vaccine (#1) 2025 HIB Vaccines Aged [...]
--- OUTSIDE RECORDS SUMMARY | 2025-04-22 10:07 | XMS_ITS | Encounter Summary ---
Author Organization [employer] Address [address] [facility] 7 [place] [address] Care Team Providers Care Line Haul Truck Driver Name Role Phone Unavailable Primary Care Provider Unavailabl e Encounter Details Date Type Department Care Team (Latest Contact Info) Description 02/07/2022 Abstract [facility] CONVERSIONS Dental, Provider, DDS Social [...]
--- OUTSIDE RECORDS SUMMARY | 2025-04-22 10:07 | XMS_ITS | Clinical Summary ---
Author Organization [employer] Address [address] [facility] [address] [place] [address] Care Team Providers Care Pulp Refiner Operator Name Role Phone Unavailable Primary Care [...]
--- OUTSIDE RECORDS SUMMARY | 2025-04-22 10:07 | XMS_ITS | Encounter Summary ---
Author Organization [employer] Address [address] [facility] 7 [place] [address] Care Team Providers Care Bit And Shank Department Supervisor Name Role Phone Unavailable Primary Care Provider Unavailabl e Encounter Details Date Type Department Care Team (Latest Contact Info) Description 01/06/2019 Abstract [facility] CONVERSIONS Dental, Provider, DDS Social History [...]
--- OUTSIDE RECORDS SUMMARY | 2025-04-22 10:07 | XMS_ITS | Patient Health Record ---
Author Organization [facility] Address [address] [place] [address] Care Team Providers Care Wanigan Clerk Name Role Phone Jatin GUZMAN, Anali Primary Care Provider U jasonlynneBib [place] [phone] Allergies Allergen (clinical drug ingredient) Drug/Non Drug [...] Status W/U Status Risk Notes Problem Constipation (49648970) Constipation (564.00) Active confirmed Problem Family History of Cancer of Colon (Situation) (092074916) Family history of colon cancer (V16.0) Active confirmed Problem Screen for colon cancer (V76.51) Active confirmed Plan Of Treatment Future Test Test Name Order Date COLONOSCOPY 07/15/2013 Insurance Providers Payer Name Payer Address Payer Phone Subscriber Number Group Number Insured Name Patient Relationship to Insured Coverage Start Date Coverage End Date [place]ICARE OF [place] [address] [place] [address] [phone] [id number] BERTHA DOMINGUEZ Self - patient is the insured [employer] [address] [address] [place] [address] [id number] BERTHA DOMINGUEZ Self - patient is the insured Medical (General) History Medical History History ICD Code chronic constipation depresssion arthritis fibromyalgia asthma Denies DC,CVA,renal disease NIDDM Describes a negative colonoscopy > 10 yr s ago in [place] Surgical History Surgery Date(Month/Year) D&C after miscarriage Left ovary removed
== END 2025-04-22 09:53 | disposition home or self-care (01) ==
LOC: HO.HCS 09:23
PROVIDERS: PCP Nurse Practitioner Family; Visit Provider Internal Medicine Cardiovascular Disease
DX: I31.39 Other pericardial effusion (noninflammatory) (principal); R06.02 Shortness of breath; I25.10 Atherosclerotic heart disease of native coronary artery without angina pectoris; R94.31 Abnormal electrocardiogram [ECG] [EKG]
CPT/HCPCS: 93010; 99214; G2211

== ENCOUNTER → 2025-04-22 09:22 | Outpatient (BNVA) | payer MEDICARE, OTHER, SELFPAY | PROVIDERS: PCP Nurse Practitioner Family; Visit Provider Internal Medicine Cardiovascular Disease | DX: I31.39 Other pericardial effusion (noninflammatory) (principal); I25.10 Atherosclerotic heart disease of native coronary artery without angina pectoris; R06.02 Shortness of breath | CPT/HCPCS: 93005; 99212 ==

== ENCOUNTER 2025-04-30 14:02 | Outpatient (AMB) | payer MEDICARE, OTHER, SELFPAY ==
--- NOTE | 2025-04-30 14:06 | MHC.OFFVIS ---
Vital Signs 04/30/25 14:07 Height 5 ft 4 in Weight 249 lb BMI 42.7 BP 108/64 Blood Pressure Location Rt brachial Position Sitting Pulse 68 Pulse Source Pulse Oximeter Pulse Oximetry (%) 94 Oxygen Delivery Method Room Air Intake Visit Reasons: 2 mo f/u r/s 07/25/24 Intake Note: Est pt for mgmt of CIC + Chronic abd pain. CC: C.O. difficulty with managing her medications (senna + colace). Pt states that she is having intermittent diarrhea and constipation depending on how she is taking her medication and is unable to find a middle ground. Strand And Binder Controller Required: No Accompanied by: Self / Same As Patient Allergies ropinirole (ROPINIROLE) Allergy (Intermediate, Verified 04/13/25 07:13) WORSE RESTLESS LEG duloxetine (Cymbalta) Adverse Reaction (Intermediate, Verified 04/13/25 07:13) Worsening RLS meperidine (From DEMEROL) Adverse Reaction (Intermediate, Verified 04/13/25 07:13) NAUSEA & VOMITING trazodone Adverse Reaction (Intermediate, Verified 04/13/25 07:13) Palpitations Medication List - Last Reconciled 04/30/25 by DOUGIE GuptaP-BC atorvastatin 20 mg PO BEDTIME 90 days clonazepam 1 mg PO DAILY PRN clonidine HCl 0.3 mg PO ONCE diclofenac sodium 1% (Arthritis Pain (diclofenac)) 2 grams topical QID docusate sodium 100 mg PO BEDTIME doxepin 150 mg PO DAILY empty container (Sharps Container) As directed to dispose of sharps after injection eszopiclone mg PO ezetimibe 10 mg PO DAILY 90 days famotidine (Pepcid AC Maximum Strength) 20 mg PO DAILY gabapentin 300 mg orally Take 200 mg in the AM, 100 mg in the afternoon, and 300 mg in the evening.; morning and bedtime inhalational spacing device (Space Chamber) As directed ketoconazole 2% 1 appl topical BID levocetirizine 5 mg PO DAILY lidocaine 5% 1 patch topical DAILY PRN polyethylene glycol 3350 17 grams PO DAILY propranolol 20 mg PO sennosides (Natural Senna Laxative) 17.2 mg (2 x 8.6 mg) PO BEDTIME tirzepatide (weight loss) 5 mg (0.5 mL) subcut QWEEK valbenazine (Ingrezza) 80 mg PO DAILY walker Rollator-with seat and brakes HPI HPI 2 mo f/u r/s 07/25/24: Details: LAST VISIT Constipation by delayed colonic transit Abdominal pain Fatty liver Postprandial abdominal bloating Plan Patient will take Colace and Dulcolax. Patient will call our office if she will continue to be constipated then we can order Mag citrate so patient can use that to help her empty better. Patient can also take MiraLax in the morning. Increase fluid intake and activity to promote better bowel motility. Patient will follow-up in the office in 2 months, sooner on as needed basis. She is agreeable to this plan and verbalizes understanding of instructions. She was given the opportunity to ask questions and all questions answered. ? Thank you for allowing me to participate in her care New docusate sodium 100 mg PO BEDTIME 90 caps 3RF K59.00 bisacodyl (Dulcolax (bisacodyl)) 10 mg (2 x 5 mg) PO BEDTIME 180 tabs 4RF hydrocortisone 2.5% (Proctosol HC) 1 appl CA BID-QID PRN 30 grams 2RF hemorrhoids K64.9 Discontinued sennosides Discontinued Reason: Doctor's Order 17.2 mg (2 x 8.6 mg) PO DAILY 180 tabs 3RF K59.04 TODAY'S VISIT Patient is here today for follow-up. Patient is due to go for colonoscopy this year. Last 1 was done in May of 2020. History of tubular adenoma. Patient reports that she is taking Senokot 2 tablets with stool softener and will have diarrhea, however when she only takes stool softener she will be constipated. Patient is still taking MiraLax every day as well as fiber supplement. Denies melena, hematochezia, unintentional weight loss or ribbon like stools. Patient denies dyspepsia, dysphagia or odynophagia. Acid reflux is suppressed for the most part, however patient does report occasional dysphagia swallowing solids. Patient reports that she feels that food getting difficult to swallow in the upper part of her esophagus. Patient denies any issues with anesthesia in the past. No history of sleep apnea. Not on any anticoagulation medication. Patient denies any cardiac or respiratory symptoms COUNT INCLUDES THE [facility] Medical History Trochanteric bursitis of left hip Osteoarthritis of shoulders, bilateral Chronic lower back pain Postmenopausal Arthritis of foot Renal cyst Lumbar spinal stenosis Restless leg syndrome JOY (obstructive sleep apnea) Elevated cholesterol GERD (gastroesophageal reflux disease) Arthritis Back pain Pyelonephritis Tubular adenoma of colon Constipation by delayed colonic transit Sleep apnea Radiculopathy Osteoarthritis Sepsis Nephrolithiasis Abdominal pain Constipation Fatty liver Fibromyalgia Asthma Hyperlipidemia Surgical History History of lumbar laminectomy for spinal cord decompression Hx of lithotripsy Hx of colonoscopy Hx of foot surgery History of oophorectomy, unilateral Hx of dilation and curettage History of bilateral hip replacements History of bilateral knee replacement H/O cystoscopy (05/03/20) Family History Father Heart disease Thyroid cancer Diabetes COPD (chronic obstructive pulmonary disease) Sleep apnea Mother Diabetes Cancer Chronic mental illness Colon cancer Other Fibromyalgia Mental health disorder Substance use disorder Social History Housing: Apartment Alcohol intake: current Alcohol intake frequency: does not drink Patient Tobacco Use Status: Former Tobacco user Tobacco use type: Cigarette Cigarettes Per Day: 40 Years Smoked: 17 e-Cigarette/Vaping Use: Never Used Second Hand Smoke Exposure: No Current occupational status: unemployed and disabled Cognitive needs: No Hearing needs: No Vision needs: No Assessment & Plan Assessment & Plan (1) Fatty liver: Code(s): K76.0 - Fatty (change of) liver, not elsewhere classified Category: Medical (2) Constipation by delayed colonic transit: Code(s): K59.01 - Slow transit constipation Category: Medical (3) Tubular adenoma of colon: Comment: Dx @ recent colo--06/08; Known family hx ofcolon Cancer Code(s): D12.6 - Benign neoplasm of colon, unspecified Category: Medical (4) Abdominal pain: Code(s): R10.9 - Unspecified abdominal pain Category: Medical Qualifiers: Abdominal location: generalized Qualified Code(s): R10.84 - Generalized abdominal pain (5) Constipation: Code(s): K59.00 - Constipation, unspecified Qualifiers: Constipation type: slow transit constipation Qualified Code(s): K59.01 - Slow transit constipation (6) Postprandial abdominal bloating: Code(s): R14.0 - Abdominal distension (gaseous) Plan Patient can continue taking famotidine. She patient reports dysphagia with solids. Patient will be sent for upper endoscopy for possible dilation. Continue taking Citrucel. Patient will try taking 1 senna and 1 stool softener. Increase fluid intake and activity to promote better bowel motility. Patient is to to go for colonoscopy. Message sent to surgical schedulers to a book procedure for patient. Patient denies any cardiac or respiratory symptoms. No issues with anesthesia in the past. What to expect before during and after procedure discussed patient. Stressed the importance of good bowel prep and clear liquid diet day before procedure. I will see patient after the procedure, sooner on as needed basis. She is agreeable to this plan and verbalizes understanding of instructions. She was given the opportunity to ask questions and all questions answered Medications: New famotidine (Pepcid AC Maximum Strength) 20 mg PO DAILY 90 tabs 3RF methylcellulose (laxative) (Citrucel) take it with full glass of water 500 mg PO DAILY 90 tabs 2RF K59.00 - Constipation, unspecified bisacodyl (Dulcolax (bisacodyl)) take 4 tabs at noon the day before your colonoscopy 20 mg (4 x 5 mg) PO ONCE 4 tabs 0RF constipation 1 day Z12.11 - Encounter for screening for malignant neoplasm of colon polyethylene glycol 3350 (Miralax) As directed by gastroenterology department at [facility] 238 grams PO ONCE 238 grams 0RF Z12.11 - Encounter for screening for malignant neoplasm of colon Refilled docusate sodium 100 mg PO BEDTIME 90 caps 3RF K59.00 - Constipation, unspecified sennosides (Natural Senna Laxative) 17.2 mg (2 x 8.6 mg) PO BEDTIME 180 tabs 3RF constipation K59.00 - Constipation, unspecified Coding Level of Care Code Est Pt Level 4 (34622) Complex EM visit Add On G2211 Diagnoses Fatty liver K76.0 Constipation by delayed colonic transit K59.01 Tubular adenoma of colon D12.6 Generalized abdominal pain R10.84 Abdominal location: generalized Slow transit constipation K59.01 Constipation type: slow transit constipation Postprandial abdominal bloating R14.0 Time Spent (min) 35 Comment 25 minutes spent with patient and additional 10 minutes spent reviewing her records
[2025-04-30 14:07] VITALS: BP 108/64; PULSE 68; O2SAT 94; BMI 42.7
--- OUTSIDE RECORDS SUMMARY | 2025-04-30 17:52 | XMS_ITS | Encounter Summary ---
Author Organization [employer] Address [address] [facility] [address] [place] [address] Care Team Providers Care Certified Professional Midwife Name Role Phone Unavailable Primary Care Provider Unavailabl e Encounter Details Date Type Department Care Team (Latest Contact Info) Description 02/07/2022 Abstract [facility] CONVERSIONS Dental, Provider, DDS Social [...]
--- OUTSIDE RECORDS SUMMARY | 2025-04-30 17:52 | XMS_ITS | Encounter Summary ---
Author Organization [employer] Address [address] [facility] 7 [place] [address] Care Team Providers Care Sales Representative Leather Goods Name Role Phone Unavailable Primary Care Provider Unavailabl e Encounter Details Date Type Department Care Team (Latest Contact Info) Description 04/07/[address] [facility] CONVERSIONS Dental, Provider, DDS Social [...]
--- OUTSIDE RECORDS SUMMARY | 2025-04-30 17:52 | XMS_ITS | Clinical Summary ---
Author Organization [employer] Address [address] [facility] [address] [place] [address] Care Team Providers Care Order Checker Packer Processer Name Role Phone Unavailable Primary Care Provider [...] 5 season) 2025 Influenza Vaccine (#1) 2025 RSV Patients and [...]
--- OUTSIDE RECORDS SUMMARY | 2025-04-30 17:52 | XMS_ITS | Patient Health Record ---
Author Organization [facility] Address [address] [place] [address] Care Team Providers Care Hat Lining Paster Name Role Phone Anali Steiner NP Primary Care Provider U Bib Randle [phone] Allergies Allergen (clinical drug ingredient) Drug/Non Drug [...] Status W/U Status Risk Notes Problem Constipation (70313416) Constipation (564.00) Active confirmed Problem Family History of Cancer of Colon (Situation) (912413196) Family history of colon cancer (V16.0) Active confirmed Problem Screening for malignant neoplasm of colon (307560785) Screen for colon cancer (V76.51) Active confirmed Plan Of Treatment Future Test Test Name Order Date COLONOSCOPY 07/15/2013 Insurance Providers Payer Name Payer Address Payer Phone Subscriber Number Group Number Insured Name Patient Relationship to Insured Coverage Start Date Coverage End Date MEDICARE OF [place] [address] LAURO [place]ARTINO [address] [id number] BERTHA DOMINGUEZ Self - patient is the insured HU[employer]NA [address] [address] [place] [address] [id number] BERTHA DOMINGUEZ Self - patient is the insured Medical (General) History Medical History History ICD Code chronic constipation depresssion arthritis fibromyalgia asthma Denies SD,CVA,renal disease NIDDM Describes a negative colonoscopy > 10 yr s ago in [place] Surgical History Surgery Date(Month/Year) D&C after miscarriage Left ovary removed
--- OUTSIDE RECORDS SUMMARY | 2025-04-30 17:53 | XMS_ITS | Encounter Summary ---
Author Organization [employer] Address [address] [facility] 7 [place] [address] Care Team Providers Care Quality Control Tech Raw Materials Name Role Phone Unavailable Primary Care Provider Unavailabl e Encounter Details Date Type Department Care Team (Latest Contact Info) Description 01/06/2019 Abstract [facility] CONVERSIONS Dental, Provider, DDS Social [...]
== END 2025-04-30 14:50 | disposition home or self-care (01) ==
LOC: HO.HGI 14:03
PROVIDERS: PCP Nurse Practitioner Family; Visit Provider Nurse Practitioner Family
DX: K76.0 Fatty (change of) liver, not elsewhere classified (principal); K59.01 Slow transit constipation; D12.6 Benign neoplasm of colon, unspecified; R10.84 Generalized abdominal pain; R14.0 Abdominal distension (gaseous)
CPT/HCPCS: 99214; G2211

== ENCOUNTER → 2025-04-30 14:02 | Outpatient (BNVA) | payer MEDICARE, OTHER, SELFPAY | PROVIDERS: PCP Nurse Practitioner Family; Visit Provider Nurse Practitioner Family | DX: Z01.818 Encounter for other preprocedural examination (principal); K59.01 Slow transit constipation; D12.6 Benign neoplasm of colon, unspecified; R10.84 Generalized abdominal pain; R14.0 Abdominal distension (gaseous) | CPT/HCPCS: 99212 ==

== ENCOUNTER 2025-05-05 13:32 | Outpatient (AMB) | payer MEDICARE, OTHER, SELFPAY ==
--- NOTE | 2025-05-05 13:43 | MHC.AMNUTRGE ---
VS Expanded 05/05/25 13:45 05/11/25 09:46 Height 5 ft 4 in 5 ft 4 in Weight 245 lb 13.047 oz 246 lb BMI 42.2 42.2 Intake Visit Reasons: Obesity Allergies ropinirole (ROPINIROLE) Allergy (Intermediate, Verified 04/13/25 07:13) WORSE RESTLESS LEG duloxetine (Cymbalta) Adverse Reaction (Intermediate, Verified 04/13/25 07:13) Worsening RLS meperidine (From DEMEROL) Adverse Reaction (Intermediate, Verified 04/13/25 07:13) NAUSEA & VOMITING trazodone Adverse Reaction (Intermediate, Verified 04/13/25 07:13) Palpitations Nutrition Presentation Details: Pt presents for MNT for obesity Pt reports having started zepbound 3 months ago and reports doing well working on [employer] Equation Height: 5 ft 4 in Weight: 246 lb Resting Metabolic Rate: 1630.24 Calculated Activity Level: Sedentary Calories Needed to Maintain Weight: 1956.29 Diagnosis Nutrition problem #1: food nutri know defi As related to (etiology) #1: diagnosis As evidenced by (sign/symptom) #1: knowledge deficit of diet [facility] Medical History Trochanteric bursitis of left hip Osteoarthritis of shoulders, bilateral Chronic lower back pain Postmenopausal Arthritis of foot Renal cyst Lumbar spinal stenosis Restless leg syndrome JOY (obstructive sleep apnea) Elevated cholesterol GERD (gastroesophageal reflux disease) Arthritis Back pain Pyelonephritis Tubular adenoma of colon Constipation by delayed colonic transit Sleep apnea Radiculopathy Osteoarthritis Sepsis Nephrolithiasis Abdominal pain Constipation Fatty liver Fibromyalgia Asthma Hyperlipidemia Surgical History History of lumbar laminectomy for spinal cord decompression Hx of lithotripsy Hx of colonoscopy Hx of foot surgery History of oophorectomy, unilateral Hx of dilation and curettage History of bilateral hip replacements History of bilateral knee replacement H/O cystoscopy (05/03/20) Family History Father Heart disease Thyroid cancer Diabetes COPD (chronic obstructive pulmonary disease) Sleep apnea Mother Diabetes Cancer Chronic mental illness Colon cancer Other Fibromyalgia Mental health disorder Substance use disorder Social History Housing: Apartment Alcohol intake: current Alcohol intake frequency: does not drink Patient Tobacco Use Status: Former Tobacco user Tobacco use type: Cigarette Cigarettes Per Day: 40 Years Smoked: 17 e-Cigarette/Vaping Use: Never Used Second Hand Smoke Exposure: No Current occupational status: unemployed and disabled Cognitive needs: No Hearing needs: No Vision needs: No Assessment & Plan Assessment & Plan (1) Morbid obesity: Code(s): E66.01 - Morbid (severe) obesity due to excess calories Category: Medical Plan: current wt: 112 kg ( 05/14 ) est kcal needs as per MSJ: 2000 est protein needs as per 1 g/kg BW: 110 est fluid needs as per 30 ml/kg BW: 3400 Rec sodium intake <2300 mg/dl unless otherwise specified by MD Recommended fiber > 12 g /day and gradually increase up to 25-28 g /day or as tolerated Nutrition topics discussed : Reviewed (R), Pt verbalized understanding (V) , not applicable (N/A) R, V, : Healthy Plate Method Concept: R, : Carbohydrates: food sources of carbohydrates, relationship of carbohydrates to blood glucose, fatty liver GI health. Recommended total amount of carbohydrates per meals and snack. Differences between simple carbohydrates and complex carbohydrates R, : Lean protein foods including vegan , vegetarian sources of protein. Benefits of protein (including but not limited to healing, nutritional value , benefits in weight loss, glucose control R, basic infor: Fats : Source of fats, benefits of fats. Difference between saturated and unsaturated fats. Saturated fats and its contribution to inflammation R, V, N/A: Fiber: food sources and role of fiber in the diet (including but not limited to its role as a prebiotic, benefits in constipation, role in IBS , role in glucose control and cholesterol level) R, : Hydration: role of hydration and prevention of dehydration or over hydration. Foods and water content. R, V, N/A: Vitamins and Minerals in foods and supplements R, V, N/A: Interpreting food labels, including serving size, macronutrients, vitamins, minerals, allergens, ingredient list , % daily value Patient Instructions: Have a high protein meal replacement once a day at breakfast Keep hydrated by having 8 oz of water/low sugar fluids before and after meals see meal ideas consisting of 30 g protein and 45 g carb (healthy plate method Coding Level of Care Code Nutr Indiv Intake (49507) Diagnoses Morbid obesity E66.01 Time Spent (min) 30
[2025-05-05 13:45] VITALS: BMI 42.2
--- OUTSIDE RECORDS SUMMARY | 2025-05-05 17:28 | XMS_ITS | Encounter Summary ---
Author Organization [employer] Address [address] [facility] 7 [place] [address] Care Team Providers Care Customer Sales Consultant Name Role Phone Unavailable Primary Care Provider Unavailabl e Encounter Details Date Type Department Care Team (Latest Contact Info) Description 02/07/2022 Abstract [facility] CONVERSIONS Dental, Provider, DDS Social History Tobacco [...]
--- OUTSIDE RECORDS SUMMARY | 2025-05-05 17:28 | XMS_ITS | Patient Health Record ---
Author Organization [facility] Address [address] [place] [address] Care Team Providers Care Appeals Manager Name Role Phone Anali Steiner NP Primary Care Provider U Bib Randle [phone] Allergies Allergen (clinical drug ingredient) Drug/Non Drug [...] Status W/U Status Risk Notes Problem Constipation (01039802) Constipation (564.00) Active confirmed Problem Family History of Cancer of Colon (Situation) (989649601) Family history of colon cancer (V16.0) Active confirmed Problem Screening for malignant neoplasm of colon (791974428) Screen for colon cancer (V76.51) Active confirmed Plan Of Treatment Future Test Test Name Order Date COLONOSCOPY 07/15/2013 Insurance Providers Payer Name Payer Address Payer Phone Subscriber Number Group Number Insured Name Patient Relationship to Insured Coverage Start Date Coverage End Date MEDICARE OF [place] [address] [place] [address] [phone] [id number] BERTHA DOMINGUEZ Self - patient is the insured HU[employer] [address] [address] [place] [address] [phone] [id number] BERTHA DOMINGUEZ Self - patient is the insured Medical (General) History Medical History History ICD Code chronic constipation depresssion arthritis fibromyalgia asthma Denies SD,CVA,renal disease NIDDM Describes a negative colonoscopy > 10 yr s ago in [place] Surgical History Surgery Date(Month/Year) D&C after miscarriage Left ovary removed
--- OUTSIDE RECORDS SUMMARY | 2025-05-05 17:28 | XMS_ITS | Encounter Summary ---
Author Organization [employer] Address [address] [facility] 7 [place] [address] Care Team Providers Care Water Softener Installer Name Role Phone Unavailable Primary Care Provider Unavailabl e Encounter Details Date Type Department Care Team (Latest Contact Info) Description 04/07/2021 Abstract [facility] CONVERSIONS Dental, Provider, DDS Social [...]
--- OUTSIDE RECORDS SUMMARY | 2025-05-05 17:28 | XMS_ITS | Clinical Summary ---
Author Organization [facility] Address [address] [place] [id number] Care Team Providers Care Cnc Supervisor Name Role Phone Unavailable Primary Care Provider Unavailabl e Surgical History Surgery Date Site/Laterality Comments OTHER SURGICAL HISTORY 1981 PROCEDURE: [place] DILATION & CURETTAGE DX&/THER NONOBSTETRIC OOPHORECTOMY 2004 PROCEDURE: [place] OOPHORECTOMY PARTIAL/TOTAL UNI/BI; COMMENT: Left ovary removed [...]
--- OUTSIDE RECORDS SUMMARY | 2025-05-05 17:28 | XMS_ITS | Clinical Summary ---
Author Organization [email or web address] Address [address] [facility] 7t [place] [address] Care Team Providers Care Direct Care Staffer Name Role Phone Unavailable Primary Care Provider [...]
--- OUTSIDE RECORDS SUMMARY | 2025-05-05 17:28 | XMS_ITS | Encounter Summary ---
Author Organization [employer] Address [address] [facility] 7 [place] [address] Care Team Providers Care Commercial Energy Auditor Name Role Phone Unavailable Primary Care Provider Unavailabl e Encounter Details Date Type Department Care Team (Latest Contact Info) Description 01/06/2019 Abstract [facility] CONVERSIONS Dental, Provider, DDS Social History Tobacco [...]
[2025-05-11 09:46] VITALS: BMI 42.2
== END 2025-05-05 14:05 | disposition home or self-care (01) ==
LOC: HO.ENCR 13:33
PROVIDERS: PCP Nurse Practitioner Family; Visit Provider Dietitian, Registered
DX: E66.01 Morbid (severe) obesity due to excess calories (principal)

== ENCOUNTER → 2025-05-05 13:32 | Outpatient (BNVA) | payer MEDICARE, OTHER, SELFPAY | PROVIDERS: PCP Nurse Practitioner Family; Visit Provider Dietitian, Registered | DX: E66.01 Morbid (severe) obesity due to excess calories (principal); Z71.3 Dietary counseling and surveillance | CPT/HCPCS: 97802 ==

== ENCOUNTER 2025-06-10 07:31 | Day surgery (SDC) | payer MEDICARE, OTHER, SELFPAY ==
--- OUTSIDE RECORDS SUMMARY | 2025-05-25 16:47 | XMS_ITS | Clinical Summary ---
Author Organization [facility] Address [address] [place] [id number] Care Team Providers Care Dining Room Server Name Role Phone Unavailable Primary Care Provider [...] Last Done Comments Breast Cancer Screening 1955 Colorectal Cancer Screening: Colonoscopy 1955 DTaP,Tdap,and Td Vaccines (1 - Tdap) 1974 Pneumococcal Vaccine: 50+ Ye ars (1 of 1 - PCV) 2005 Zoster Vaccines (1 of 2) 2005 RSV Immunization Adult Patie nts (1 - Risk 60-74 years 1-dose series) 2015 Falls Risk Assessment 09/18/2023 Hepatitis C Screening 09/18/2023 Osteoporosis Screening (Bone Density Screening) 09/18/2023 Social Influencers of Health Screening 09/18/2023 Depression Screening 08/20/2024 COVID-19 Vaccine (1 - 2023-2 5 season) 2025 Influenza Vaccine [...]
--- OUTSIDE RECORDS SUMMARY | 2025-05-25 16:47 | XMS_ITS | Encounter Summary ---
Author Organization [employer] Address [address] [facility] 7 [place] [address] Care Team Providers Care Peoplesoft Financials Consultant Name Role Phone Unavailable Primary Care Provider Unavailabl e Encounter Details Date Type Department Care Team (Latest Contact Info) Description 04/07/2021 Abstract [facility] CONVERSIONS Dental, Provider, DDS Social [...]
--- OUTSIDE RECORDS SUMMARY | 2025-05-25 16:47 | XMS_ITS | Clinical Summary ---
Author Organization [employer] Address [address] [facility] 7t [place] [address] Care Team Providers Care Planner Intern Name Role Phone Unavailable Primary Care Provider [...]
--- OUTSIDE RECORDS SUMMARY | 2025-05-25 16:47 | XMS_ITS | Encounter Summary ---
Author Organization [employer] Address [address] [facility] [address] [place] [address] Care Team Providers Care Glass Tinter Name Role Phone Unavailable Primary Care Provider Unavailabl e Encounter Details Date Type Department Care Team (Latest Contact Info) Description 01/06/2019 Abstract [facility] CONVERSIONS Dental, Provider, DDS Social History [...]
--- OUTSIDE RECORDS SUMMARY | 2025-05-25 16:47 | XMS_ITS | Patient Health Record ---
Author Organization [facility] Address [address] [place] [address] Care Team Providers Care Stone Hand Name Role Phone Anali Steiner NP Primary Care Provider U Bib Randle [phone] Allergies Allergen (clinical drug ingredient) Drug/Non Drug [...] Status W/U Status Risk Notes Problem Constipation (10371407) Constipation (564.00) Active confirmed Problem Family History of Cancer of Colon (Situation) (464213463) Family history of colon cancer (V16.0) Active confirmed Problem Screening for malignant neoplasm of colon (889143926) Screen for colon cancer (V76.51) Active confirmed Plan Of Treatment Future Test Test Name Order Date COLONOSCOPY 07/15/2013 Insurance Providers Payer Name Payer Address Payer Phone Subscriber Number Group Number Insured Name Patient Relationship to Insured Coverage Start Date Coverage End Date MEDICARE OF [place] [address] [place] [address] [id number] BERTHA DOMINGUEZ Self - patient is the insured HU[employer] [address] [address] [place] [address] [id number] BERTHA DOMINGUEZ Self - patient is the insured Medical (General) History Medical History History ICD Code chronic constipation depresssion arthritis fibromyalgia asthma Denies ME,CVA,renal disease NIDDM Describes a negative colonoscopy > 10 yr s ago in [place] Surgical History Surgery Date(Month/Year) D&C after miscarriage Left ovary removed
--- OUTSIDE RECORDS SUMMARY | 2025-05-25 16:47 | XMS_ITS | Encounter Summary ---
Author Organization [employer] Address [address] [facility] 7 [place] [address] Care Team Providers Care Business Development Coordinator Name Role Phone Unavailable Primary Care Provider Unavailabl e Encounter Details Date Type Department Care Team (Latest Contact Info) Description 02/07/2022 Abstract [facility] CONVERSIONS Dental, Provider, DDS Social [...]
[2025-06-08 14:49] VITALS: BMI 42.7
--- NOTE | 2025-06-10 07:18 | P.HPSUR_ITS ---
Pre-Procedural Eval Section A - 24 Hr Update-Section A only Date of Service: 06/10/25 Section B - Complete if H&P > 30 days Chief Complaint: screening,gerd Relevant Family History (Specify if Yes): No Relevant Social History: None Present Medications: see Short Stay Collaborative assessment Medical History: Significant History ( s Trochanteric bursitis of left hip Osteoarthritis of shoulders, bilateral Chronic lower back pain Postmenopausal Arthritis of foot Renal cyst Lumbar spinal stenosis Restless leg syndrome JOY (obstructive sleep apnea) Elevated cholesterol GERD (gastroesophageal reflux d isease) Arthritis Back pa) History of Previous Operations: Relevant previous surgery/procedure and date(s) (History of lumbar laminectomy for spinal cord decompression Hx of lithotripsy Hx of colonoscopy Hx of foot surgery History of oophorectomy, unilateral Hx of dilation and curettage History of bilateral hip replacements History of bilateral knee replacement H/O cystoscopy (05/03/20)) Allergies: Allergies Allergy/AdvReac Type Severity Reaction Status Date / Time ropinirole (ROPINIROLE) Allergy Intermediate WORSE Verified 04/13/25 07:13 RESTLESS LEG duloxetine (Cymbalta) AdvReac Intermediate Worsening Verified 04/13/25 07:13 RLS meperidine (From DEMEROL) AdvReac Intermediate NAUSEA & Verified 04/13/25 07:13 VOMITING trazodone AdvReac Intermediate Palpitation Verified 04/13/25 07:13 s Review of Systems Sugical H&P ROS: Negative: Constitution, Cardiovascular, Respiratory, Neurological, Psychiatric, Hem-Onc, Allergic/Immunologic, Gastrointestinal, Genitourinary, Musculoskeletal, Integumentary, Endocrine and Eyes/Ears/Nose/Throat Exam Surgical H&P Exam: Normal: HEENT, Normal: Heart, Normal: Lungs, Normal: Extremities, Normal: Abdomen, Normal: Skin and Normal: Neurological Plan Diagnosis/Plan: Unchanged I have reviewed the history and physical and performed a pertinent physical examination on my patient. No changes have occurred unless specified. Time Spent With Patient Time: Total time managing care of this patient today ____ minutes.
[2025-06-10 08:00] VITALS: BP 129/75; PULSE 65; RESP 20; TEMP 37.2; O2SAT 92; BMI 42.2
--- NOTE | 2025-06-10 08:11 | HO.ANESPROP2 ---
[facility] Active Problems Active Problems: All Active Problems (Updated 05/17/25 @ 13:46 by Deo Berg, [facility]) Trochanteric bursitis of left hip (Acute) SOB (shortness of breath) (Acute) Pericardial effusion (Acute) Morbid obesity (Acute) Elevated alkaline phosphatase level (Acute) Chest discomfort (Acute) Bilateral shoulder pain (Acute) Vitamin D deficiency (Acute) History of tics (Acute) Insomnia (Acute) Weight loss (Acute) Candidiasis of mouth (Acute) Incomplete bladder emptying (Acute) Slowing of urinary stream (Acute) Bronchitis, acute (Acute) Abdominal pain (Acute) Physical exam (Acute) Major depression in partial remission (Acute) Postmenopausal (Acute) Hyperlipidemia (Acute) Renal cyst (Acute) Nephrolithiasis (Acute) Osteopenia (Acute) Anxiety (Acute) Menopause (Acute) Atrophic vaginitis (Acute) Well woman exam (Acute) Serous otitis media (Acute) Skin lesions, generalized (Acute) Vaginal dryness (Acute) Pre-op evaluation (Acute) Back pain (Acute) Bipolar 1 disorder (Acute) Left foot pain (Acute) Left ankle pain (Acute) Cervical pain (neck) (Acute) Chronic lower back pain (Acute) Nephrolithiasis (Acute) Abdominal bloating (Acute ~01/2020) Screening for breast cancer (Acute) Fatty liver (Acute) Tubular adenoma of colon (Acute) Constipation by delayed colonic transit (Acute) Abdominal pain (Acute) Past Medical History Medical History Trochanteric bursitis of left hip Osteoarthritis of shoulders, bilateral Chronic lower back pain Postmenopausal Arthritis of foot Renal cyst Lumbar spinal stenosis Restless leg syndrome JOY (obstructive sleep apnea) Elevated cholesterol GERD (gastroesophageal reflux disease) Arthritis Back pain Pyelonephritis Tubular adenoma of colon Constipation by delayed colonic transit Sleep apnea Radiculopathy Osteoarthritis Sepsis Nephrolithiasis Abdominal pain Constipation Fatty liver Fibromyalgia Asthma Hyperlipidemia Family History Family History Father Heart disease Thyroid cancer Diabetes COPD (chronic obstructive pulmonary disease) Sleep apnea Mother Diabetes Cancer Chronic mental illness Colon cancer Other Fibromyalgia Mental health disorder Substance use disorder Surgical History Surgical History History of lumbar laminectomy for spinal cord decompression Hx of lithotripsy Hx of colonoscopy Hx of foot surgery History of oophorectomy, unilateral Hx of dilation and curettage History of bilateral hip replacements History of bilateral knee replacement H/O cystoscopy (05/03/20) History of Problems with Anesthesia: No Social History Social History Housing: Apartment Alcohol intake: current Alcohol intake frequency: does not drink Patient Tobacco Use Status: Former Tobacco user Tobacco use type: Cigarette Cigarettes Per Day: 40 Years Smoked: 17 e-Cigarette/Vaping Use: Never Used Second Hand Smoke Exposure: No Use of substances other than those prescribed or required for medical reasons: Yes Substance Use Type Other:: gummies Are you DNR?: No Advance Directives: No Advance Directives Information Provided: Yes Current occupational status: unemployed and disabled Cognitive needs: No Hearing needs: No Vision needs: No Meds Allergies Allergy/AdvReac Type Severity Reaction Status Date / Time ropinirole (ROPINIROLE) Allergy Intermediate WORSE Verified 04/13/25 07:13 RESTLESS LEG duloxetine (Cymbalta) AdvReac Intermediate Worsening Verified 04/13/25 07:13 RLS meperidine (From DEMEROL) AdvReac Intermediate NAUSEA & Verified 04/13/25 07:13 VOMITING trazodone AdvReac Intermediate Palpitation Verified 04/13/25 07:13 s Active Medications: Current Medications Lactated Ringer's (Lr) 1,000 mls @ 100 mls/hr IVCONT .Q10H SOFI Home Medications ?Medication ?Instructions ?Recorded ?Confirmed ?Last Taken ?Type lidocaine 5 % topical patch 1 patch topical DAILY PRN Pain 11/05/20 04/30/25 Unknown History clonazepam 1 mg tablet 1 mg PO DAILY PRN Anxiety 02/06/24 04/30/25 Unknown History gabapentin 300 mg capsule 300 mg PO .COMPLEX 05/09/24 04/30/25 Unknown History inhalational spacing device (Space #1 ea 05/09/24 04/30/25 Unknown History Chamber) propranolol 10 mg tablet 20 mg PO 10/14/24 04/30/25 Unknown History diclofenac sodium 1 % topical gel 2 g topical QID 02/10/25 04/30/25 Unknown History (Arthritis Pain (diclofenac)) eszopiclone 3 mg tablet mg PO 02/10/25 04/30/25 Unknown History clonidine HCl 0.3 mg tablet 0.3 mg PO ONCE 04/22/25 04/30/25 Unknown History doxepin 150 mg capsule 150 mg PO DAILY 04/22/25 04/30/25 Unknown History Exam Height,Weight and Vital Signs: Height 5 ft 4 in Weight 111.584 kg Last Vital Signs Temp 98.9 F 06/10/25 08:00 Pulse 65 06/10/25 08:00 Resp 20 06/10/25 08:00 BP 129/75 06/10/25 08:00 Pulse Ox 92 06/10/25 08:00 O2 Del Method Room Air 06/10/25 08:00 Airway Mallampati Class: III TM Dist: >3cm Neck ROM: Full Loose/Missing/Broken Teeth: Yes, Upper and Lower Heart: RRR Lungs: CTA Assessment and Plan Assessment Anesthesia Assessment: Anesthesia Plan Discussed and Chart Reviewed Final Anesthetic Review History of Problems with Anesthesia: No NPO: Yes ASA Class: III Final Preanesthetic Review: Meds/Allgs Chart Reviewed, Consent Obtained/Reviewed and Anes Risks/Benef Reviewed Patient Risk: Intermediate Procedure Risk: Intermediate Anesthetic Plan Anesthetic Plan: MAC: Disposition: Standard PACU
[2025-06-10] MEDS: Lactated Ringers 1,000 ML 100 ML IVCONT (08:19)
--- NOTE | 2025-06-10 09:17 | P.OPN-COLO_ITS ---
Colonoscopy Operative Note Operative Note Date of Service: 06/10/25 Narrative: Operative Information Procedure Description: EGD, Colonoscopy Indication: abdominal pain, hx of colon polyps Anesthesia: MAC FLEXIBLE TRANSORAL UPPER GASTROINTESTINAL ENDOSCOPY AND COLONOSCOPY PROCEDURE NOTE UPPER ENDOSCOPY Consent: Indications for the procedure and potential complications of bleeding, perforation, reaction to medications and missed diagnosis were discussed with the patient and informed consent was obtained. Instrument: Olympus GIF H 190 J mid size upper endoscope Monitoring: Vital signs and clinical assessment, continuous EKG monitoring, Pulse oximetry, Carbon Dioxide monitoring and blood pressure monitoring were done throughout the procedure. Procedure: The patient was placed in the left lateral decubitis position and pre-procedure medications were administered and a bite block was placed. The endoscope was inserted into the mouth and advanced under direct vision to the third part of duodenum. A careful inspection was made as the upper endoscope was withdrawn including a retroflexed examination of the proximal stomach; Findings and interventions are described below. Findings: Larynx:normal Esophagus: GE junction at 40 cm, diaphragm hiatus at 40 cm, midl esophagitis, bx taken from GEJ, and distal/proximal esophagus Stomach: patchy erythema. Biopsies were obtained. Grade 2 flap valve on retroflexed examination of the cardia. Duodenum: Normal bulb and descending duodenum, bx taken Intervention: Biopsies as noted above, COLONOSCOPY Instrument: Olympus variable stiffness pediatric scope 190L Colonoscopy Monitoring: Vital signs and clinical assessment, continuous EKG monitoring, Pulse oximetry, Carbon Dioxide monitoring and blood pressure monitoring were done throughout the procedure. Colon withdrawal time was 19 minutes. Procedure: The patient was placed in the left lateral decubitis position and pre-procedure medications were administered. After a digital rectal examination of the ano-rectum, the video colonoscope was inserted into the rectum and advanced through the colon to the cecum/TI. The colonoscope was slowly withdrawn in a retrograde panoramic fashion and the colon mucosa was carefully examined including a retroflexed view of the rectum. Findings and interventions are described below. Procedure Difficulty:moderate Findings: Terminal Ileum-normal Cecum:normal Ascending Colon: normal Transverse Colon -normal Descending Colon: 5-6 mm sessile polyp removed with cold snare-not retrieved Sigmoid Colon:moderate severe diverticulosis Rectum: Retroflexion with moderate sized internal hemorrhoids, grade I, proximal rectum with 11-12 mm semi pedunculated polyp, injected with epinephrine then removed with cold snare with 2 clips applied Anorectum - normal Colon preparation: [place] Bowel Preparation Scale Right colon; 1-2 Transverse colon: 2 Left colon; 2 (0 = Unprepared colon segment with mucosa not seen due to solid stool that cannot be cleared. 1 = Portion of mucosa of the colon segment seen, but other areas of the colon segment not well seen due to staining, residual stool and/or opaque liquid. 2 = Minor amount of residual staining, small fragments of stool and/or opaque liquid, but mucosa of colon segment seen well. 3 = Entire mucosa of colon segment seen well with no residual staining, small fragments of stool or opaque liquid) Impression and Post Procedure Diagnosis: Endoscopy Findings: gastritis mild esophagitis Colonoscopy Findings: diverticulosis colon polyps x 2 internal hemorrhoids Plan: Await Pathology results Repeat Colonoscopy in 2-3 years due to areas of fair prep or earlier if clinically indicated High fiber diet leaflet avoid straining at stool, epsom salts and sitz bath, anusol supps or cream Above findings were reviewed with the patient and relevant handouts were provided if indicated.
[2025-06-10 09:22] VITALS: BP 130/76; PULSE 69; RESP 18; TEMP 36.5; O2SAT 98
[2025-06-10 09:37] VITALS: BP 115/68; PULSE 69; RESP 18; TEMP 36.4; O2SAT 93
== END 2025-06-10 11:46 | disposition home or self-care (01) ==
PROVIDERS: PCP Nurse Practitioner Family; Visit Provider Internal Medicine Gastroenterology
PROC: (CPT 45385; principal; 2025-06-10 08:30)
DX: Z12.11 Encounter for screening for malignant neoplasm of colon (principal); Z86.0101 Personal history of adenomatous and serrated colon polyps; D12.8 Benign neoplasm of rectum; K63.5 Polyp of colon; K57.30 Diverticulosis of large intestine without perforation or abscess without bleeding; K64.0 First degree hemorrhoids; K59.01 Slow transit constipation; R10.84 Generalized abdominal pain; G89.29 Other chronic pain; K21.9 Gastro-esophageal reflux disease without esophagitis; K20.80 Other esophagitis without bleeding; R14.0 Abdominal distension (gaseous); K44.9 Diaphragmatic hernia without obstruction or gangrene; K76.0 Fatty (change of) liver, not elsewhere classified; E78.5 Hyperlipidemia, unspecified; J45.909 Unspecified asthma, uncomplicated; M79.7 Fibromyalgia; G47.33 Obstructive sleep apnea (adult) (pediatric); Z79.85 Long-term (current) use of injectable non-insulin antidiabetic drugs; Z79.899 Other long term (current) drug therapy; Z88.5 Allergy status to narcotic agent; Z88.8 Allergy status to other drugs, medicaments and biological substances; Z98.890 Other specified postprocedural states; Z87.891 Personal history of nicotine dependence; Z56.0 Unemployment, unspecified
CPT/HCPCS: 45385; 45381; 43239; 88305; 88313; 88342; J0168; J2003; J2704

== ENCOUNTER → 2025-06-10 07:31 | Outpatient (BNV) | payer MEDICARE, OTHER, SELFPAY | PROVIDERS: PCP Nurse Practitioner Family; Visit Provider Internal Medicine Gastroenterology | DX: Z12.11 Encounter for screening for malignant neoplasm of colon (principal); Z86.0100 Personal history of colon polyps, unspecified; K63.5 Polyp of colon; K57.30 Diverticulosis of large intestine without perforation or abscess without bleeding; K64.0 First degree hemorrhoids; R10.9 Unspecified abdominal pain; K20.90 Esophagitis, unspecified without bleeding; K29.70 Gastritis, unspecified, without bleeding | CPT/HCPCS: 43239; 45381; 45385 ==